=== PATIENT | female | born 1940 | race Caucasian/White ===

== ENCOUNTER 2022-12-07 13:05 | Outpatient (OUT) | payer MEDICARE, OTHER, SELFPAY ==
[2022-12-08 13:08] LABS: PTH, Intact 39 pg/mL (15-65)
[2022-12-08 13:30] LABS: Anion Gap 12.3; BUN Creatinine Ratio 20.6; Carbon Dioxide 28.8 mmol/L (21.0-32.0); Chloride 103 mmol/L (98-107); Estimated GFR (African America 59 (>=60); Estimated GFR (Non-African Ame 49 (>=60); Glucose 85 mg/dL (74-106); Potassium 4.1 mmol/L (3.5-5.1); Sodium 140 mmol/L (136-145)
== END 2022-12-07 13:06 | disposition home or self-care (01) ==
LOC: LAB 13:09
PROVIDERS: PCP Internal Medicine; Visit Provider Internal Medicine
DX: E21.1 Secondary hyperparathyroidism, not elsewhere classified (principal); N18.2 Chronic kidney disease, stage 2 (mild)
CPT/HCPCS: 36415; 80048; 82306; 83970

== ENCOUNTER 2023-05-27 16:02 | Outpatient (OUT) | payer MEDICARE, OTHER, SELFPAY ==
[2023-05-27 16:31] LABS: Basophils Percent Auto 0.5 % (0.2-2.0); Eosinophils Absolute Auto 0.3 10^3/uL (0.0-0.7); Eosinophils Percent Auto 4.1 % (0.9-7.0); Hematocrit 38.4 % (36.0-48.0); Hemoglobin 12.2 g/dL (12.0-16.0); Immature Granulocytes Abs Auto 0.02 10^3/uL (0.00-0.03); Immature Granulocytes Pct Auto 0.3 % (0.0-0.5); Lymphocytes Absolute Auto 2.8 10^3/uL (1.2-3.8); Lymphocytes Percent Auto 37.2 % (20.5-60.0); Mean Corpuscular HGB Conc 31.8 g/dL (29.9-35.2); Mean Corpuscular Hemoglobin 28.8 pg (26.7-34.0); Mean Corpuscular Volume 90.8 fL (81.0-99.0); Mean Platelet Volume 9.2 fL (9.5-13.5); Monocytes Absolute Auto 0.5 10^3/uL (0.3-0.8); Monocytes Percent Auto 6.3 % (1.7-12.0); Neutrophils Absolute Auto 3.9 10^3/uL (1.4-6.5); Neutrophils Percent Auto 51.6 % (43.0-75.0); Platelet Count 211 10^3/uL (150-450); Red Blood Count 4.23 10^6/uL (4.20-5.40); Red Cell Distribution Width 14.4 % (11.0-15.0); White Blood Count 7.6 10^3/uL (4.0-11.0)
[2023-05-27 17:05] LABS: Alanine Aminotransferase 24 U/L (14-59); Albumin Globulin Ratio 0.9; Albumin Level 3.5 g/dL (3.4-5.0); Alkaline Phosphatase 101 U/L (46-116); Anion Gap 11.2; Aspartate Amino Transferase 23 U/L (15-37); BUN Creatinine Ratio 17.8; Bilirubin Total 0.3 mg/dL (0.2-1.0); Calcium 9.4 mg/dL (8.5-10.1); Carbon Dioxide 30.5 mmol/L (21.0-32.0); Chloride 103 mmol/L (98-107); Estimated GFR (African America 48 (>=60); Estimated GFR (Non-African Ame 39 (>=60); Globulin 3.8 g/dL; Glucose 135 mg/dL (74-106); Potassium 3.7 mmol/L (3.5-5.1); Sodium 141 mmol/L (136-145); Total Protein 7.3 g/dL (6.4-8.2)
== END 2023-05-27 16:03 | disposition home or self-care (01) ==
LOC: LAB 16:02
PROVIDERS: PCP Internal Medicine
DX: C79.9 Secondary malignant neoplasm of unspecified site (principal); C41.9 Malignant neoplasm of bone and articular cartilage, unspecified
CPT/HCPCS: 36415; 80053; 85025

== ENCOUNTER 2023-09-23 13:40 | Outpatient (OUT) | payer MEDICARE, OTHER, SELFPAY ==
[2023-09-23 14:05] LABS: Basophils Percent Auto 0.4 % (0.2-2.0); Eosinophils Absolute Auto 0.4 10^3/uL (0.0-0.7); Eosinophils Percent Auto 4.6 % (0.9-7.0); Hematocrit 37.5 % (36.0-48.0); Hemoglobin 12.2 g/dL (12.0-16.0); Immature Granulocytes Abs Auto 0.01 10^3/uL (0.00-0.03); Immature Granulocytes Pct Auto 0.1 % (0.0-0.5); Lymphocytes Absolute Auto 3.4 10^3/uL (1.2-3.8); Lymphocytes Percent Auto 40.7 % (20.5-60.0); Mean Corpuscular HGB Conc 32.5 g/dL (29.9-35.2); Mean Corpuscular Volume 89.1 fL (81.0-99.0); Mean Platelet Volume 9.2 fL (9.5-13.5); Monocytes Absolute Auto 0.6 10^3/uL (0.3-0.8); Monocytes Percent Auto 6.6 % (1.7-12.0); Neutrophils Percent Auto 47.6 % (43.0-75.0); Platelet Count 215 10^3/uL (150-450); Red Blood Count 4.21 10^6/uL (4.20-5.40); Red Cell Distribution Width 14.2 % (11.0-15.0); White Blood Count 8.3 10^3/uL (4.0-11.0)
[2023-09-23 14:49] LABS: Alanine Aminotransferase 24 U/L (14-59); Albumin Level 3.6 g/dL (3.4-5.0); Alkaline Phosphatase 121 U/L (46-116); Anion Gap 13.9; Aspartate Amino Transferase 21 U/L (15-37); BUN Creatinine Ratio 14.8; Bilirubin Total 0.3 mg/dL (0.2-1.0); Calcium 9.5 mg/dL (8.5-10.1); Carbon Dioxide 29.1 mmol/L (21.0-32.0); Chloride 104 mmol/L (98-107); Estimated GFR (African America 48 (>=60); Estimated GFR (Non-African Ame 40 (>=60); Globulin 3.5 g/dL; Glucose 105 mg/dL (74-106); Sodium 143 mmol/L (136-145); Total Protein 7.1 g/dL (6.4-8.2)
== END 2023-09-23 13:41 | disposition home or self-care (01) ==
LOC: LAB 13:42
PROVIDERS: PCP Internal Medicine
DX: C50.111 Malignant neoplasm of central portion of right female breast (principal); Z17.0 Estrogen receptor positive status [ER+]
CPT/HCPCS: 36415; 80053; 85025

== ENCOUNTER 2024-01-28 10:31 | Outpatient (OUT) | payer MEDICARE, OTHER, SELFPAY ==
--- OUTSIDE RECORDS SUMMARY | 2024-01-28 10:40 | XMS_ITS | CCD ---
Author Organization [facility] Care Team Providers Care Serials Librarian Name Role Phone RICHARDSON WARNER Unavailable Unavailable TIKI GARCIA Unavailable Unavailable KWAME OLGUIN Unavailable Unavailjamar WOODWARDDON, CIARAN S Unavailable Unavailable CHRIS, CIARAN S Unavailable Unavailable CHRIS, CIARAN S Unavailable Unavailable Unavailable Primary Care Provider UnavailEROS Abdalla Attending Unavailable NATHANIEL ASHLEY JR Referring Unav ailable FAWWAD, CELIS H Admitting Unavailable FAWWAD, CELIS H Attending Unavailable FAWWAD, CELIS H Primary Care Unavailable AFIA, DR PAKO Guzmán Consulting Unavailable FAWWAD, CELIS H Consulting Unavailable FAWWAD, CELIS H Admitting Unavailable FAWWAD, CELIS H Attending Unavailable FAWWAD, CELIS H Primary Care Unavailable FAWWAD, CELIS H Consulting Unavailable FELICIA, DR MORELAND Admitting Unavailable FELICIA, DR MORELAND Attending Unavailable FAWWAD, CELIS H Primary Care Unavailable FELICIA, DR MORELAND Consulting Unavailable FAWWAD, CELIS H Primary Care Unavailable RADHA .DR DARREL Consulting Unavaila ble ANGELINA .JANENE Admitting Unavailable ANGELINA .JANENE Attending Unavailable AFIA, DR PAKO Guzmán Consulting Unavailable KWAME OLGUIN Consulting Unavailable RADHA .DR DARREL Procedure Practitioner U navailable PAY ., DR CRYSTAL Consulting Unavailable ANGELINA .JANENE Consulting Unavailable MARICRUZ SUAREZ Consulting Unavailable ZANE CABRERA Consulting Unavailable FAWWAD, CELIS H Admitting Unavailable FAWWAD, CELIS H Attending Unavailable FAWWAD, CELIS H Primary Care Unavailable FAWWAD, CELIS H Consulting Unavailable FAWWAD, CELIS H Admitting Unavailable FAWWAD, CELIS H Attending Unavailable FAWWAD, CELIS H Primary Care Unavailable DR PAKO OREILLY Consulting Unavailable SHAIKH Giancarlo CERDA Consulting Unavailable Shaikh Cerda MD Primary Care Provider [phone] DEVYN CHAVEZ Attending Unavailable SHAIKH CERDA Referring Unavailable SHAIKH CERDA Primary Care Unavailable DEVYN CHAVEZ Attending Unavailable SHAIKH CERDA Referring Unavailable SHAIKH CERDA Primary Care Unavailable SHAIKH CERDA Attending Unavailable SHAIKH CERDA Attending Unavailable Medications Current Medications Medication Drug Class(es) Dates Sig (Normalized) Sig (Original) hydroCHLOROthiazide 25 mg / losartan potassium 100 mg oral tablet (4 sources) Thiazide Diuretic, Angiotensin 2 Receptor Aldo Start: 06-10-2022 take 1 tablet by mouth once in the morning losartan-hydroC HLOROthiazide (HYZAAR) 100-25 mg per tablet Take 1 tablet by mouth in the morning. 0 06/10/2022 Active letrozole 2.5 mg oral tablet (6 sources) Aromatase Inhibitor Start: 06-01-2022 End: 05-31-2024 take 1 tablet by mouth once daily letrozole (FEMARA) 2.5 mg chemo tablet Take 1 tablet by mouth daily 90 tablet 4 06/06/2023 05/31/2024 Active omeprazole 10 mg delayed release oral capsule (5 sources) Proton Pump Inhibitor take 1 capsule by mouth in the morning, then take 1 capsule by mouth at bedtime omeprazole (PriLOSEC) 10 mg capsule Take 1 capsule (10 mg total) by mouth in the morning and 1 capsule (10 mg total) before bedtime. 0 Active Completed/Discontinued Medications Medication Drug Class(es) Dates Sig (Normalized) Sig (Original) omega-3 fatty acids(FISH OIL 500 MG CAP) (1 source) Start: 06-08-2009 omega-3 fatty acids(FISH OIL 500 MG CAP) Take one(1) capsule daily. 0 0 06/08/2009 Active Comment on above: Take one(1) capsule daily. warfarin sodium 5 mg oral tablet (1 source) Vitamin K Antagonist Start: 04-19-2009 take 1 tablet by mouth once daily at bedtime WARFARIN 5 MG TAB 1 Tab ORAL DAILY at bedtime. 60 2 04/19/2009 Active Comment on above: 1 Tab ORAL DAILY at bedtime. Problems Active Problems Problem Classification Problem Date Documented Date Episodic/Chronic Cancer of bone and connective tissue (1 source) Malignant neoplasm of bone and articular cartilage, unspecified; Translations: [Malignant neoplasm of bone and articular cartilage, unspecified] Onset: 3 Chronic Cancer of breast (8 sources) Malignant neoplasm of central part of female breast; Translations: [Malignant neoplasm of central portion of right female breast] Onset: 3 06-01-2022 Chronic Chronic kidney disease (5 sources) Chronic kidney disease, stage 4 (severe); Translations: [Chronic kidney disease, unspecified] Onset: 3 Chronic Chronic kidney disease (1 source) Chronic kidney disease; Translations: [CHRONIC KIDNEY DISEASE STAGE 3B] Onset: 3 Coronary atherosclerosis and other heart disease (1 source) Atherosclerotic heart disease of [place] coronary artery without angina pectoris; Translations: [ASHD [place] CA W/O ANGINA PECTORIS] Onset: 3 Chronic Diseases of white blood cells (1 source) Elevated white blood cell count, unspecified; Translations: [ELEVATED WHITE BLOOD CELL COUNT UNS] Onset: 3 Chronic Disorders of lipid metabolism (1 source) Hyperlipidemia, unspecified; Translations: [HYPERLIPIDEMIA UNSPECIFIED] Onset: 3 Chronic Esophageal disorders (5 sources) Gastroesophageal reflux disease; Translations: [Gastro-esophageal reflux disease without esophagitis] Onset: 3 05-14-2022 Chronic Essential hypertension (9 sources) Essential (primary) hypertension; Translations: [Hypertensive disorder] Onset: 3 Chronic Fracture of neck of femur (hip) (1 source) Fracture of unspecified part of neck of left femur, initial encounter for closed fracture; Translations: [Fracture of unspecified part of neck of left femur, initial encounter for closed fracture] Onset: 8 Episodic Gastroduodenal ulcer (except hemorrhage) (3 sources) Chronic or unspecified gastric ulcer with perforation; Translations: [CHRONIC/UNS GASTRIC ULCER W/PERF] Onset: 3 Chronic Hypertension with complications and secondary hypertension (5 sources) Hypertensive chronic kidney disease with stage 1 through stage 4 chronic kidney disease, or unspecified chronic kidney disease; Translations: [HTN CKD W/STAGE 1-4 CKD/UNS CKD] Onset: 3 Chronic Nutritional deficiencies (1 source) Vitamin D deficiency, unspecified; Translations: [VITAMIN D DEFICIENCY UNSPECIFIED] Onset: 3 Chronic Other and ill-defined cerebrovascular disease (1 source) Cerebrovascular disease, unspecified; Translations: [CEREBROVASCULAR DISEASE UNSPECIFIED] Onset: 3 Chronic Other diseases of kidney and ureters (1 source) Secondary hyperparathyroidism of renal origin; Translations: [SEC HYPERPARATHYROIDISM RENAL ORIGN] Onset: 3 Chronic Secondary malignancies (6 sources) Secondary malignant neoplasm of bone; Translations: [Secondary malignant neoplasm of bone] Onset: 3 Chronic Secondary malignancies (2 sources) Secondary malignant neoplasm of bone; Translations: [SECONDARY MALIGNANT NEOPLASM BONE] Onset: 3 Chronic Secondary malignancies (7 sources) Primary malignant neoplasm of bone; Translations: [Secondary malignant neoplasm of unspecified site] Onset: 3 08-03-2022 Chronic Secondary malignancies (1 source) Secondary malignant neoplasm of unspecified site; Translations: [Secondary malignant neoplasm of unspecified site] Onset: 3 Chronic Unclassified (1 source) CONTACT W/AND (SUSP) EXPOS COVID-19; Translations: [CONTACT W/AND (SUSP) EXPOS COVID-19] Onset: 3 Unclassified (1 source) ELEV LVLS LIVER TRANSAMINASE LVLS; Translations: [ELEV LVLS LIVER TRANSAMINASE LVLS] Onset: 3 Past or Other Problems Problem Classification Problem Date Documented Date Episodic/Chronic Biliary tract disease (1 source) Calculus of gallbladder without cholecystitis without obstruction; Translations: [CALCU GB W/O CHOLECYST W/O OBST] Onset: 05-04-2022 Episodic Deficiency and other anemia (1 source) Iron deficiency anemia, unspecified; Translations: [IRON DEFICIENCY ANEMIA UNSPECIFIED] Onset: 05-04-2022 Episodic Deficiency and other anemia (1 source) Anemia, unspecified; Translations: [ANEMIA UNSPECIFIED] Onset: 04-29-2022 Episodic Fluid and electrolyte disorders (1 source) Hypokalemia; Translations: [HYPOKALEMIA] Onset: 05-04-2022 Episodic Nonmalignant breast conditions (1 source) Unspecified lump in the right breast, unspecified quadrant; Translations: [UNS LUMP IN RT BREAST UNS QUADRANT] Onset: 05-04-2022 Episodic Other aftercare (1 source) shelter (current) use of aspirin; Translations: [PRISON CURRENT USE OF ASPIRIN] Onset: 05-04-2022 Episodic Other aftercare (1 source) Other intermediate teacher (current) drug therapy; Translations: [OTH SALES DEVELOPMENT EXECUTIVE CURRENT DRUG THERAPY] Onset: 05-04-2022 Episodic Other circulatory disease (1 source) Personal history of transient ischemic attack (TIA), and cerebral infarction without residual deficits; Translations: [PERS HX TIA AND CI NO RESID DEFICIT] Onset: 05-04-2022 Episodic Other circulatory disease (4 sources) Elevated blood-pressure reading, without diagnosis of hypertension; Translations: [ELEVATED BP READING W/O DX HTN] Onset: 04-24-2022 Episodic Other liver diseases (4 sources) Abnormal levels of other serum enzymes; Translations: [ABNORMAL LEVELS OTHER SERUM ENZYMES] Onset: 04-27-2022 Episodic Other non-traumatic joint disorders (1 source) Pain in right hip; Translations: [PAIN IN RIGHT HIP] Onset: 05-04-2022 Episodic Other screening for suspected conditions (not mental disorders or infectious disease) (1 source) Abnormal results of liver function studies; Translations: [ABNORMAL RESULTS LIVR FUNCTION STDY] Onset: 04-29-2022 Episodic Pathological fracture (2 sources) Pathological fracture of pelvis; Translations: [Pathological fracture, pelvis, initial encounter for fracture] Onset: 05-04-2022 Episodic Residual codes; unclassified (1 source) Family history of malignant neoplasm of digestive organs; Translations: [FAM HX MALIG NEOPLASM DIGESTIV ORGN] Onset: 05-04-2022 Episodic Residual codes; unclassified (1 source) Pain, unspecified; Translations: [Pain, unspecified] Onset: 06-04-2022 Episodic Residual codes; unclassified (1 source) Estrogen receptor positive status [ER+]; Translations: [Estrogen receptor positive status (ER+)] Onset: 06-01-2022 Episodic Results Test Name Value Interpretation Reference Range Facility Multiple labson 05-27-[address] [facility] PTH INTACTon 08-29-2022 PTH, Intact 125 pg/mL Critically high 15-65 [facility] Comment on above: Performed By: #### C MP #### [facility] [address] [address] [address] Jaci Mora CBC AUTO DIFFon 08-28-2022 BASO # 0.0 103/ul Normal 0.0-0.1 [facility] Comment on above: Performed By: #### C BC #### [facility] [address] [place] [address] Dr. Jaci Mora Basophils/100 WBC (Bld) 0.6 % Normal 0.2-2.0 [facility] Comment on above: Performed By: #### C BC #### [facility] [address] [place] [address] Dr. Jaci Mora EO # 0.2 103/ul Normal 0.0-0.7 [facility] Comment on above: Performed By: #### C BC #### [facility] [address] [place] [address] Dr. Jaci Mora Eosinophils/100 WBC (Bld) 3.2 % Normal 0.9-7.0 [facility] Comment on above: Performed By: #### C BC #### [facility] [address] [place] [address] Dr. Jaci Mora Erythrocyte distribution width (RBC) [Ratio] 16.3 % Critically high 11.0-15.0 [facility] Comment on above: Performed By: #### C BC #### [facility] [address] [place] [address] Dr. Jaci Mora Hematocrit (Bld) [Volume fraction] 36.2 % Normal 36.0-48.0 [facility] Comment on above: Performed By: #### C BC #### [facility] [address] [place] [address] Dr. Jaci Mora Hemoglobin (Bld) [Mass/Vol] 11.3 g/dL Critically low 12.0-16.0 [facility] Comment on above: Performed By: #### C BC #### [facility] [address] [place] [address] Dr. Jaci Mora IG # 0.02 10e3/ul Normal 0.00-0.03 [facility] Comment on above: Performed By: #### C BC #### [facility] [address] [place] [address] Dr. Jaci Mora IG % 0.3 % Normal 0.0-0.5 [facility] Comment on above: Performed By: #### C BC #### [facility] [address] [place] [address] Dr. Jaci Mora LYMPH # 2.9 103/ul Normal 1.2-3.8 [facility] Comment on above: Performed By: #### C BC #### [facility] [address] [place] [address] Dr. Jaci Mora Lymphocytes/100 WBC (Bld) 43.8 % Normal 20.5-60.0 [facility] Comment on above: Performed By: #### C BC #### [facility] [address] [place] [address] Dr. Jaci Mora MANUAL DIFF REQ NO Normal [facility] Comment on above: Performed By: #### C BC #### [facility] [address] [place] [address] Dr. Jaci Mora MCH (RBC) [Entitic mass] 28.3 pg Normal 26.7-34.0 [facility] Comment on above: Performed By: #### C BC #### [facility] [address] [place] [address] Dr. Jaci Mora MCHC (RBC) [Mass/Vol] 31.2 g/dL Normal 29.9-35.2 [facility] Comment on above: Performed By: #### C BC #### [facility] [address] [place] [address] Dr. Jaci Mora MCV (RBC) [Entitic vol] 90.7 fL Normal 81.0-99.0 [facility] Comment on above: Performed By: #### C BC #### [facility] [address] [place] [address] Dr. Jaci Mora MONO # 0.5 103/ul Normal 0.3-0.8 [facility] Comment on above: Performed By: #### C BC #### [facility] [address] [place] [address] Dr. Jaci Mora Monocytes/100 WBC (Bld) 7.9 % Normal 1.7-12.0 [facility] Comment on above: Performed By: #### C BC #### [facility] [address] [address] [address] Jaci Mora NEUT # 2.9 103/ul Normal 1.4-6.5 [facility] Comment on above: Performed By: #### C BC #### [facility] [address] [place] [address] Dr. Jaci Mora Neutrophils/100 WBC (Bld) 44.2 % Normal 43.0-75.0 [facility] Comment on above: Performed By: #### C BC #### [facility] [address] [place] [address] Dr. Jaci Mora Platelet mean volume (Bld) [Entitic vol] 8.6 fL Critically low 9.5-13.5 [facility] Comment on above: Performed By: #### C BC #### [facility] [address] [place] [address] Dr. Jaci Mora PLT 250 103/ul Normal 150-450 [facility] Comment on above: Performed By: #### C BC #### [facility] [address] [place] [address] Dr. Jaci Mora RBC 3.99 106/ul Critically low 4.20-5.40 [facility] Comment on above: Performed By: #### C BC #### [facility] [address] [place] [address] Dr. Jaci Mora WBC 6.6 103/ul Normal 4.0-11.0 [facility] Comment on above: Performed By: #### C BC #### [facility] [address] [place] [address] Dr. Jaci Mora MAGNESIUMon 08-28-2022 Magnesium [Mass/Vol] 2.8 mg/dL Critically high 1.8-2.4 [facility] Comment on above: Performed By: #### M G, CMP, PHOS ####[facility] [address] [address]Dr. Jaci Mora PHOSPHORUSon 08-28-2022 Phosphate [Mass/Vol] 3.1 mg/dL Normal 2.6-4.7 [facility] Comment on above: Performed By: #### M G, CMP, PHOS ####[facility] [address] [address]Dr. Jaci Mora PROF 14(COMP METB)on 023 Albumin [Mass/Vol] 3.5 g/dL Normal 3.4-5.0 [facility] Comment on above: Performed By: #### M G, CMP, PHOS ####[facility] [address] [address]Dr. Jaci Mora Albumin/Globulin [Mass ratio] 0.9 {ratio} Normal [facility] Comment on above: Performed By: #### M G, CMP, PHOS ####[facility] [address] [address]Dr. Jaci Mora ALP [Catalytic activity/Vol] 361 U/L Critically high 46-116 [facility] Comment on above: Performed By: #### M G, CMP, PHOS ####[facility] [address] [place], [place] [address]Dr. Jaci Mora ALT [Catalytic activity/Vol] 31 U/L Normal 14-59 [facility] Comment on above: Performed By: #### M G, CMP, PHOS ####[facility] [address] [place], [place] [address]Dr. Jaci Mora Anion gap [Moles/Vol] 11.7 mmol/L Normal [facility] Comment on above: Performed By: #### M G, CMP, PHOS ####[facility] [address] [address]Dr. Jaci Mora AST [Catalytic activity/Vol] 26 U/L Normal 15-37 [facility] Comment on above: Performed By: #### M G, CMP, PHOS ####[facility] [address] [address]Dr. Yilan Mora Bilirubin [Mass/Vol] 0.4 mg/dL Normal 0.2-1.0 [facility] Comment on above: Performed By: #### Sunita Culp CMP, PHOS ####[facility] [address] [address]Dr. Jaci Mora Calcium [Mass/Vol] 7.4 mg/dL Critically low 8.5-10.1 [facility] Comment on above: Performed By: #### Sunita Culp CMP, PHOS ####[facility] [address] [place], [place] [address]Dr. Jaci Mora Chloride [Moles/Vol] 106 mmol/L Normal 98-107 [facility] Comment on above: Performed By: #### Sunita Culp CMP, PHOS ####[facility] [address] [place], [place] [address]Dr. Jaci Mora CO2 [Moles/Vol] 27.4 mmol/L Normal 21.0-32.0 [facility] Comment on above: Performed By: #### Sunita Culp CMP, PHOS ####[facility] [address] [place], [place] [address]Dr. Jaci Mora Creatinine [Mass/Vol] 1.15 mg/dL Critically high 0.55-1.02 [facility] Comment on above: Performed By: #### Sunita Culp CMP, PHOS ####[facility] [address] [place], [place] [address]Dr. Jaci Mora EGFR-AF TAJIK 54 mL/min/1.73m2 Critically low >=60 [facility] Comment on above: Performed By: #### Sunita Culp CMP, PHOS ####[facility] [address] [place], [place] [address]Dr. Jaci Mora EGFR-NON AF TAJIK 45 mL/min/1.73m2 Critically low >=60 [facility] Comment on above: Performed By: #### Sunita Culp CMP, PHOS ####[facility] [address] [address]Dr. Jaci Mora Globulin (S) [Mass/Vol] 4.0 g/dL Normal [facility] Comment on above: Performed By: #### M Robbi CMP, PHOS ####[facility] [address] [address]Dr. Jaci Mora Glucose [Mass/Vol] 85 mg/dL Normal 74-106 [facility] Comment on above: Performed By: #### M Robbi CMP, PHOS ####[facility] [address] [address]Dr. Jaci Mora Potassium [Moles/Vol] 4.1 mmol/L Normal 3.5-5.1 [facility] Comment on above: Performed By: #### M Robbi CMP, PHOS ####[facility] [address] [address]Dr. Jaci Mora Protein [Mass/Vol] 7.5 g/dL Normal 6.4-8.2 [facility] Comment on above: Performed By: #### Sunita Culp CMP, PHOS ####[facility] [address] [address]Dr. Jaci Mora Sodium [Moles/Vol] 141 mmol/L Normal 136-145 [facility] Comment on above: Performed By: #### Sunita Culp CMP, PHOS ####[facility] [address] [address]Dr. Jaci Mora Urea nitrogen [Mass/Vol] 23.0 mg/dL Critically high 7.0-18.0 [facility] Comment on above: Performed By: #### Sunita Culp CMP, PHOS ####[facility] [address] [address]Dr. Jaci Mora Urea nitrogen/Creatini ne [Mass ratio] 20.0 mg/mg Normal [facility] Comment on above: Performed By: #### M LJ Culp, PHOS ####[facility] [address] [address]DrSarahi Mora UA RANDOM W/MICROSCOPICon BACTERIA TRACE Abnormal NONE SEEN [facility] Comment on above: Performed By: #### B MP #### [facility] [address] [address] [address] Jaci Mora Bilirubin Ql (U) Negative Normal NEGATIVE [facility] Comment on above: Performed By: #### B MP #### [facility] [address] [place] [address] Dr. Jaci Mora CAST NONE SEEN Normal NONE SEEN [facility] Comment on above: Performed By: #### B MP #### [facility] [address] [place] [address] Dr. Jaci Mora Clarity (U) CLEAR Normal CLEAR [facility] Comment on above: Performed By: #### B MP #### [facility] [address] [place] [address] Dr. Jaci Mora Color (U) YELLOW Normal YELLOW [facility] Comment on above: Performed By: #### B MP #### [facility] [address] [place] [address] Dr. Jaci Mora Crystals LM Nom (Urine sed) NONE SEEN Normal NONE SEEN [facility] Comment on above: Performed By: #### B MP #### [facility] [address] [place] [address] Dr. Jaci Mora Epithelial cells LM Ql (Urine sed) RARE Normal NONE SEEN /RARE [facility] Comment on above: Performed By: #### B MP #### [facility] [address] [place] [address] Dr. Jaci Mora Glucose Ql (U) Negative Normal NEGATIVE [facility] Comment on above: Performed By: #### B MP #### [facility] [address] [place] [address] Dr. Jaci Mora Hemoglobin Ql (U) Negative Normal NEGATIVE [facility] Comment on above: Performed By: #### B MP #### [facility] [address] [place] [address] Dr. Jaci Mora Ketones Ql (U) Negative Normal NEGATIVE [facility] Comment on above: Performed By: #### B MP #### [facility] [address] [place] [address] Dr. Jaci Mora LEUKOCYTES SMALL Abnormal NEGATIVE [facility] Comment on above: Performed By: #### B MP #### [facility] [address] [place] [address] Dr. Jaci Mora MUCOUS NONE SEEN Normal NONE SEEN [facility] Comment on above: Performed By: #### B MP #### [facility] [address] [place] [address] Dr. Jaci Mora Nitrite Ql (U) Negative Normal NEGATIVE [facility] Comment on above: Performed By: #### B MP #### [facility] [address] [place] [address] Dr. Jaci Mora pH (U) 6.5 [pH] Normal 5-9 [facility] Comment on above: Performed By: #### B MP #### [facility] [address] [place] [address] Dr. Jaci Mora RBC 0-2 Normal 0-2 [facility] Comment on above: Performed By: #### B MP #### [facility] [address] [place] [address] Dr. Jaci Mora SPEC GRAVITY <=1.005 Abnormal 1.005-<=1.0 25 [facility] Comment on above: Performed By: #### B MP #### [facility] [address] [place] [address] Dr. Jaci Mora UA PROTEIN Negative Normal NEGATIVE/ TRACE [facility] Comment on above: Performed By: #### B MP #### [facility] [address] [place] [address] Dr. Jaci Mora Urobilinogen Qn (U) 0.2 {Chantel'U}/dL Normal 0.2 - 1.0 [facility] Comment on above: Performed By: #### B MP #### [facility] [address] [place] [address] Dr. Jaci Mora WBC 5-10 Abnormal NONE SEEN [facility] Comment on above: Performed By: #### B MP #### [facility] [address] [place] [address] Dr. Jaci Mora URINE T PROTEIN CREAT RATIOo n 08-28-2022 Protein (U) [Mass/Vol] 20.2 mg/dL Critically high <=12.0 [facility] Comment on above: Performed By: #### B MP #### [facility] [address] [address] [address] Jaci Mora UR PROT CREAT RAT 0.17 Normal [facility] Comment on above: Performed By: #### B MP #### [facility] [address] [address] [address] Jaci Mora URINE CREAT 118.55 mg/dL Normal 20.00-300.0 0 [facility] Comment on above: Performed By: #### B MP #### [facility] [address] [address] [address] Jaci Mora VITAMIN D 25 OHon 08-28-2022 VIT D 25-OH 121.0 ng/mL Normal [facility] Comment on above: Performed By: #### V ITAD ####[facility] [address] [address]Dr. Jaci Mora VIT D RANGES SEE BELOW Normal [facility] Comment on above: Result Comment: <20 ng/mL Vit D deficient 20 - <30 ng/mL Vit D insufficient 30 - 100 ng/mL Vit D sufficient >100 ng/mL Potential Toxicity Performed By: #### V ITAD ####[facility] [address] [address]Dr. Jaci Mora CNOVon 06-21-2022 CNOV Office Visit (ORTHMN ) STONEYWILLIAM Sunita ([id number]) 1940 F Date Time Provider Department 06/21/22 2:00 PM EROS MATHIS During your visit today, we recorded the following information about you: Eros Mathis MD 06/22/2022 11:57 AM Signed Orthopaedic Oncology New Patient Evaluation Chief Complaint: Right hip pain Referring Physician: Nathaniel Ashley Jr. History of Present Illness: William Canas is a 82 year old year old female who presents for evaluation of the above chief complaint. 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 She was referred here for right hip pain and pathological fracture. William and family report that she began having right hip pain a few months ago. This is in the context of multiple falls although no fall in particular precipitated the pain. William localizes the pain to the lateral hip about the greater trochanter region. Interestingly, William reports today that she essentially has no pain. She uses a chair for longer distances but is able to ambulate with a cane or a walker with no pain around her house. When she did have pain she reports that it was worse with sitting and not as substantial with walking. She currently denies any pain in any other locations when ambulating or when active. Overall she is quite happy. With respect to her breast cancer, she is being managed by Dr. Devyn Chavez closer to home. Per her report she has been started on hormone therapy. She is not taking denosumab. Review of Systems: Review of systems is positive for above. Other complete ROS is questioned and negative. No past medical history on file. No past surgical history on file. ALLERGIES No Known Allergies Current Outpatient Medications on File Prior to Visit Medication Sig omega-3 fatty acids(FISH OIL 500 MG CAP) Take one(1) capsule daily. WARFARIN 5 MG TAB 1 Tab ORAL DAILY at bedtime. No current facility-administered medications on file prior to visit. No family history on file. Social History Tobacco Use Smoking status: Never Physical Examination: There were no vitals taken for this visit. General: alert, oriented, no acute distress On exam today William is able to rise from her chair independently and walk with her cane across the room and back with no pain. She does not have any tenderness to palpation about the proximal femur or right ilium. I can range her right hip in her chair with no pain. Results Reviewed: I have personally reviewed William's outside imaging today including her CT chest CT pelvis and x-ray of the hip and pelvis. There is diffuse blastic metastatic disease with occasional lytic lesions. Imaging is most notable on x-ray and CT of the right iliac fracture extending from the crest toward the acetabulum with no specific evidence of acetabular involvement. There is evidence of healing of this fracture on CT. Impression: (C79.51) Cancer, metastatic to bone (HCC) (primary encounter diagnosis) (M84.021A) Pathological fracture, pelvis, initial encounter for fracture I had a long discussion today with William and her family. We discussed that I did not think any intervention was warranted given that she had no pain and was able to do her activities of daily living normally without issue. I do think that this iliac fracture either represents an older fracture from a prior fall or is more recent and has healed. This may represent efficacy of her hormonal therapy. I also discussed with her that I did not think that she required prophylactic fixation for any of her lesions given her complete lack of pain. I did raise with her the possibility of denosumab treatment and would defer to her primary oncologist Dr. Devyn Chavez. William will discuss this with her doctor at her next appointment. I have offered her referral for this should she so desire. I discussed with William that should she develop pain she should limit her activity and reach out to a medical provider for assessment. I am happy to see her at anytime in the future should she have orthopedic oncology needs. Devyn Chavez MD [address] [place] [address] [address] [place] [address] Plan: No surgical intervention indicated at this time May consider denosumab treatment per oncology team Follow-up with me as needed No follow-ups on file. I spent a total of 50 minutes on the date of the service which included preparing to see the patient, [id number] patient care, completing clinical documentation, obtaining and/or reviewing separately obtained history, performing a medically appropriate examination, counseling and educating the patient/family/caregiver, communicating with other HCPs (not separately reported), independently interpreting results (not separately reported), and communicating results to the patient/family/caregiver. These rec (more content not included)... Normal [facility] CT Chest limited W contrast IVOrdered By: Angelika Fisher on 06-06-2022 Radiology Study observation (narrative) [facility] US Abdomenon 06-06-2022 Radiology Study [facility]UAL DIFFon 05-22-19 23 ATYPICAL LYMPH # Normal [facility] Comment on above: Performed By: #### B MP #### [facility] [address] [place] [address] Dr. Jaci Mora ATYPICAL LYMPH % Normal [facility] Comment on above: Performed By: #### B MP #### [facility] [address] [place] [address] Dr. Jaci Mora BAND # 0.1 103/ul Normal 0.0-0.3 [facility] Comment on above: Performed By: #### B MP #### [facility] [address] [place] [address] Dr. Jaci Mora BAND % 1 % Normal 0-5 [facility] Comment on above: Performed By: #### B MP #### [facility] [address] [place] [address] Dr. Jaci Mora BASOM # 0.12 103/ul Critically high 0.00-0.10 [facility] Comment on above: Performed By: #### B MP #### [facility] [address] [place] [address] Dr. Jaci Mora BASOM % 1.0 % Normal 0.2-2.0 [facility] Comment on above: Performed By: #### B MP #### [facility] [address] [place] [address] Dr. Jaci Mora BLAST # Normal [facility] Comment on above: Performed By: #### B MP #### [facility] [address] [place] [address] Dr. Jaci Mora BLAST % Normal [facility] Comment on above: Performed By: #### B MP #### [facility] [address] [place] [address] Dr. Jaci Mora CORRECTED WBC Normal 4.0-11.0 [facility] Comment on above: Performed By: #### B MP #### [facility] [address] [place] [address] Dr. Jaci Mora EOS # 0.23 103/ul Normal 0.00-0.70 [facility] Comment on above: Performed By: #### B MP #### [facility] [address] [address] [address] Jaci Mora EOS% 2.0 % Normal 0.9-7.0 [facility] Comment on above: Performed By: #### B MP #### [facility] [address] [place] [address] Dr. Jaci Mora HCT 29.6 % Critically low 36.0-48.0 [facility] Comment on above: Performed By: #### B MP #### [facility] [address] [place] [address] Dr. Jaci Mora HGB 9.2 g/dl Critically low 12.0-16.0 [facility] Comment on above: Performed By: #### B MP #### [facility] [address] [place] [address] Dr. Jaci Mora LYMPHM # 2.34 103/ul Normal 1.20-3.80 [facility] Comment on above: Performed By: #### B MP #### [facility] [address] [place] [address] Dr. Jaci Mora LYMPHM% 20.0 % Critically low 20.5-60.0 [facility] Comment on above: Performed By: #### B MP #### [facility] [address] [place] [address] Dr. Jaci Mora MCH 29.2 pg Normal 26.7-34.0 [facility] Comment on above: Performed By: #### B MP #### [facility] [address] [place] [address] Dr. Jaci Mora MCHC 31.1 g/dl Normal 29.9-35.2 [facility] Comment on above: Performed By: #### B MP #### [facility] [address] [place] [address] Dr. Jaci Mora MCV 94.0 fL Normal 81.0-99.0 [facility] Comment on above: Performed By: #### B MP #### [facility] [address] [place] [address] Dr. Jaci Mora METAMYELOCYTE # Normal [facility] Comment on above: Performed By: #### B MP #### [facility] [address] [address] [address] Jaci Mora METAMYELOCYTE % Normal [facility] Comment on above: Performed By: #### B MP #### [facility] [address] [place] [address] Dr. Jaci Mora MONOM# 0.58 103/ul Normal 0.30-0.80 [facility] Comment on above: Performed By: #### B MP #### [facility] [address] [address] [address] Jaci Mora MONOM% 5.0 % Normal 1.7-12.0 [facility] Comment on above: Performed By: #### B MP #### [facility] [address] [place] [address] Dr. Jaci Mora MPV 8.7 fL Critically low 9.5-13.5 [facility] Comment on above: Performed By: #### B MP #### [facility] [address] [place] [address] Dr. Jaci Mora MYELOCYTE # Normal [facility] Comment on above: Performed By: #### B MP #### [facility] [address] [place] [address] Dr. Jaci Mora MYELOCYTE % Normal [facility] Comment on above: Performed By: #### B MP #### [facility] [address] [place] [address] Dr. Jaci Mora NRBC Normal [facility] Comment on above: Performed By: #### B MP #### [facility] [address] [place] [address] Dr. Jaci Mora OVALOCYTES SLIGHT Normal [facility] Comment on above: Performed By: #### B MP #### [facility] [address] [place] [address] Dr. Jaci Mora PLT 372 103/ul Normal 150-450 [facility] Comment on above: Performed By: #### B MP #### [facility] [address] [place] [address] Dr. Jaci Mora POIKILOCYTOSIS SLIGHT Normal [facility] Comment on above: Performed By: #### B MP #### [facility] [address] [address] [address] Jaci Mora RBC 3.15 106/ul Critically low 4.20-5.40 [facility] Comment on above: Performed By: #### B MP #### [facility] [id number] Jaci Mora RDW 20.7 % Critically high 11.0-15.0 [facility] Comment on above: Performed By: #### B MP #### [facility] [address] [address] [address] Jaci Mora SEG # 8.31 103/ul Critically high 1.40-6.50 [facility] Comment on above: Performed By: #### B MP #### [facility] [address] [address] [address] Jaci Mora SEG % 71.0 % Normal 43.0-75.0 [facility] Comment on above: Performed By: #### B MP #### [facility] [address] [address] [address] Jaci Mora WBC 11.7 103/ul Critically high 4.0-11.0 [facility] Comment on above: Performed By: #### B MP #### [facility] [address] [address] [address] Jaci Mora PROF 14(COMP METB)on 023 Albumin [Mass/Vol] 2.2 g/dL Critically low 3.4-5.0 [facility] Comment on above: Performed By: #### C MP ####[facility] [address] [address]Dr. Jaci Mora Albumin/Globulin [Mass ratio] 0.5 {ratio} Normal [facility] Comment on above: Performed By: #### C MP ####[facility] [address] [id number]. Jaci Mora ALP [Catalytic activity/Vol] 846 U/L Critically high 46-116 [facility] Comment on above: Performed By: #### C MP ####[facility] [address] [id number]. Jaci Mora ALT [Catalytic activity/Vol] 40 U/L Normal 14-59 [facility] Comment on above: Performed By: #### C MP ####[facility] [address] [id number]. Jaci Mora Anion gap [Moles/Vol] 13.1 mmol/L Normal [facility] Comment on above: Performed By: #### C MP ####[facility] [address] [id number]. Jaci Mora AST [Catalytic activity/Vol] 48 U/L Critically high 15-37 [facility] Comment on above: Performed By: #### C MP ####[facility] [address] [address]Dr. Jaci Mora Bilirubin [Mass/Vol] 0.3 mg/dL Normal 0.2-1.0 [facility] Comment on above: Performed By: #### C MP ####[facility] [address] [place], [place] [address]Dr. Jaci Mora Calcium [Mass/Vol] 8.7 mg/dL Normal 8.5-10.1 [facility] Comment on above: Performed By: #### C MP ####[facility] [address] [place], [place] [address]Dr. Jaci Mora Chloride [Moles/Vol] 106 mmol/L Normal 98-107 [facility] Comment on above: Performed By: #### C MP ####[facility] [address] [address]Dr. Jaci Mora CO2 [Moles/Vol] 25.4 mmol/L Normal 21.0-32.0 [facility] Comment on above: Performed By: #### C MP ####[facility] [address] [address]Dr. Jaci Mora Creatinine [Mass/Vol] 1.05 mg/dL Critically high 0.55-1.02 [facility] Comment on above: Performed By: #### C MP ####[facility] [address] [id number]. Jaci Mora EGFR-AF TAJIK >60 Normal >=60 [facility] Comment on above: Performed By: #### C MP ####[facility] [address] [address]Dr. Jaci Mora EGFR-NON AF TAJIK 50 mL/min/1.73m2 Critically low >=60 [facility] Comment on above: Performed By: #### C MP ####[facility] [address] [address]Dr. Jaci Mora Globulin (S) [Mass/Vol] 4.2 g/dL Normal [facility] Comment on above: Performed By: #### C MP ####[facility] [address] [address]Dr. Jaci Mora Glucose [Mass/Vol] 123 mg/dL Critically high 74-106 [facility] Comment on above: Performed By: #### C MP ####[facility] [address] [address]Dr. Jaci Mora Potassium [Moles/Vol] 3.5 mmol/L Normal 3.5-5.1 [facility] Comment on above: Performed By: #### C MP ####[facility] [address] [address]Dr. Jaci Mora Protein [Mass/Vol] 6.4 g/dL Normal 6.4-8.2 [facility] Comment on above: Performed By: #### C MP ####[facility] [address] [address]Dr. Jaci Mora Sodium [Moles/Vol] 141 mmol/L Normal 136-145 [facility] Comment on above: Performed By: #### C MP ####[facility] [address] [address]Dr. Jaci Mora Urea nitrogen [Mass/Vol] 13.0 mg/dL Normal 7.0-18.0 [facility] Comment on above: Performed By: #### C MP ####[facility] [address] [place] [address] Jaci Mora Urea nitrogen/Creatini ne [Mass ratio] 12.4 mg/mg Normal [facility] Comment on above: Performed By: #### C MP ####[facility] [address] [id number]. Jaci Mora CBC AUTO DIFFon 05-07-2022 BASO # 0.1 103/ul Normal 0.0-0.1 [facility] Comment on above: Performed By: #### B MP #### [facility] [address] [address] [address] Jaci Mora Basophils/100 WBC (Bld) 0.6 % Normal 0.2-2.0 [facility] Comment on above: Performed By: #### B MP #### [facility] [address] [address] [address] Jaci Mora EO # 0.3 103/ul Normal 0.0-0.7 [facility] Comment on above: Performed By: #### B MP #### [facility] [address] [address] [address] Jaci Mora Eosinophils/100 WBC (Bld) 2.2 % Normal 0.9-7.0 [facility] Comment on above: Performed By: #### B MP #### [facility] [address] [address] [address] Jaci Mora Erythrocyte distribution width (RBC) [Ratio] 18.6 % Critically high 11.0-15.0 [facility] Comment on above: Performed By: #### B MP #### [facility] [address] [address] [address] Jaci Mora Hematocrit (Bld) [Volume fraction] 28.9 % Critically low 36.0-48.0 [facility] Comment on above: Performed By: #### B MP #### [facility] [address] [address] [address] Jaci Mora Hemoglobin (Bld) [Mass/Vol] 9.7 g/dL Critically low 12.0-16.0 [facility] Comment on above: Performed By: #### B MP #### [facility] [address] [address] [address] Jaci Mora IG # 0.74 10e3/ul Critically high 0.00-0.03 [facility] Comment on above: Performed By: #### B MP #### [facility] [address] [address] [address] Jaci Mora IG % 5.0 % Critically high 0.0-0.5 [facility] Comment on above: Performed By: #### B MP #### [facility] [address] [place] [address] Dr. Jaci Mora LYMPH # 2.3 103/ul Normal 1.2-3.8 [facility] Comment on above: Performed By: #### B MP #### [facility] [address] [place] [address] Dr. Jaci Mora Lymphocytes/100 WBC (Bld) 15.2 % Critically low 20.5-60.0 [facility] Comment on above: Performed By: #### B MP #### [facility] [address] [place] [address] Dr. Jaci Mora MANUAL DIFF REQ NO Normal [facility] Comment on above: Performed By: #### B MP #### [facility] [address] [place] [address] Dr. Jaci Mora MCH (RBC) [Entitic mass] 29.2 pg Normal 26.7-34.0 [facility] Comment on above: Performed By: #### B MP #### [facility] [address] [place] [address] Dr. Jaci Mora MCHC (RBC) [Mass/Vol] 33.6 g/dL Normal 29.9-35.2 [facility] Comment on above: Performed By: #### B MP #### [facility] [address] [place] [address] Dr. Jaci Mora MCV (RBC) [Entitic vol] 87.0 fL Normal 81.0-99.0 [facility] Comment on above: Performed By: #### B MP #### [facility] [address] [address] [address] Jaci Mora MONO # 0.7 103/ul Normal 0.3-0.8 [facility] Comment on above: Performed By: #### B MP #### [facility] [address] [place] [address] Dr. Jaci Mora Monocytes/100 WBC (Bld) 4.8 % Normal 1.7-12.0 [facility] Comment on above: Performed By: #### B MP #### [facility] [address] [place] [address] Dr. Jaci Mora NEUT # 10.7 103/ul Critically high 1.4-6.5 [facility] Comment on above: Performed By: #### B MP #### [facility] [address] [place] [address] Dr. Jaci Mora Neutrophils/100 WBC (Bld) 72.2 % Normal 43.0-75.0 [facility] Comment on above: Performed By: #### B MP #### [facility] [address] [place] [address] Dr. Jaci Mora Platelet mean volume (Bld) [Entitic vol] 10.0 fL Normal 9.5-13.5 [facility] Comment on above: Performed By: #### B MP #### [facility] [address] [place] [address] Dr. Jaci Mora PLT 236 103/ul Normal 150-450 [facility] Comment on above: Performed By: #### B MP #### [facility] [address] [place] [address] Dr. Jaci Mora RBC 3.32 106/ul Critically low 4.20-5.40 [facility] Comment on above: Performed By: #### B MP #### [facility] [address] [place] [address] Dr. Jaci Mora WBC 14.8 103/ul Critically high 4.0-11.0 [facility] Comment on above: Performed By: #### B MP #### [facility] [address] [place] [address] Dr. Jaci Mora PROF 14(COMP METB)on 023 Albumin [Mass/Vol] 2.0 g/dL Critically low 3.4-5.0 [facility] Comment on above: Performed By: #### C MP ####[facility] [address] [address]Dr. Jaci Mora Albumin/Globulin [Mass ratio] 0.5 {ratio} Normal [facility] Comment on above: Performed By: #### C MP ####[facility] [address] [place], [place] [address]Dr. Jaci Mora ALP [Catalytic activity/Vol] 782 U/L Critically high 46-116 [facility] Comment on above: Performed By: #### C MP ####[facility] [address] [place], [place] [address]Dr. Jaci Mora ALT [Catalytic activity/Vol] 122 U/L Critically high 14-59 [facility] Comment on above: Performed By: #### C MP ####[facility] [address] [place], [place] [address]Dr. Jaci Mora Anion gap [Moles/Vol] 14.9 mmol/L Normal [facility] Comment on above: Performed By: #### C MP ####[facility] [address] [place], [place] [address]Dr. Jaci Mora AST [Catalytic activity/Vol] 103 U/L Critically high 15-37 [facility] Comment on above: Performed By: #### C MP ####[facility] [address] [place], [place] [address]Dr. Jaci Mora Bilirubin [Mass/Vol] 0.4 mg/dL Normal 0.2-1.0 [facility] Comment on above: Performed By: #### C MP ####[facility] [address] [place], [place] [address]Dr. Jaci Mora Calcium [Mass/Vol] 9.3 mg/dL Normal 8.5-10.1 [facility] Comment on above: Performed By: #### C MP ####[facility] [address] [place], [place] [address]Dr. Jaci Mora Chloride [Moles/Vol] 104 mmol/L Normal 98-107 [facility] Comment on above: Performed By: #### C MP ####[facility] [address] [address]Dr. Jaci Mora CO2 [Moles/Vol] 24.9 mmol/L Normal 21.0-32.0 [facility] Comment on above: Performed By: #### C MP ####[facility] [address] [address]Dr. Jaci Mora Creatinine [Mass/Vol] 0.87 mg/dL Normal 0.55-1.02 [facility] Comment on above: Performed By: #### C MP ####[facility] [address] [place], [place] [address]Dr. Jaci Mora EGFR-AF TAJIK >60 Normal >=60 [facility] Comment on above: Performed By: #### C MP ####[facility] [address] [place], [place] [address]Dr. Jaci Mora EGFR-NON AF TAJIK >60 Normal >=60 [facility] Comment on above: Performed By: #### C MP ####[facility] [address] [place], [place] [address]Dr. Jaci Mora Globulin (S) [Mass/Vol] 3.7 g/dL Normal [facility] Comment on above: Performed By: #### C MP ####[facility] [address] [place], [place] [address]Dr. Jaci Mora Glucose [Mass/Vol] 89 mg/dL Normal 74-106 [facility] Comment on above: Performed By: #### C MP ####[facility] [address] [place], [place] [address]Dr. Jaci Mora Potassium [Moles/Vol] 3.8 mmol/L Normal 3.5-5.1 [facility] [facility] Comment on above: Performed By: #### C MP ####[facility] [id number] [place], [place] [address]Dr. Jaci Devyn Protein [Mass/Vol] 5.7 g/dL Critically low 6.4-8.2 [facility] Comment on above: Performed By: #### C MP ####[facility] [id number] [address]DrSarahi Mora Sodium [Moles/Vol] 140 mmol/L Normal 136-145 [facility] Comment on above: Performed By: #### C MP ####[facility] [id number] [id number]. Jaci Mora Urea nitrogen [Mass/Vol] 14.0 mg/dL Normal 7.0-18.0 [facility] Comment on above: Performed By: #### C MP ####[facility] [address] [address]Dr. Jaci Mora Urea nitrogen/Creatini ne [Mass ratio] 16.1 mg/mg Normal [facility] Comment on above: Performed By: #### C MP ####[facility] [address] [address]DrSarahi Mora CBC W MANUAL DIFFon 05-02-19 23 ANISOCYTOSIS 2+ Normal [facility] Comment on above: Performed By: #### C CHARLY #### [facility] [address] [address] [address] Jaci Mora ATYPICAL LYMPH # 0.14 103/ul Normal [facility] Comment on above: Performed By: #### C BCMAN #### [facility] [address] [place] [address] Dr. Jaci Mora ATYPICAL LYMPH % 1 % Normal [facility] Comment on above: Performed By: #### C BCMAN #### [facility] [address] [place] [address] Dr. Jaci Mora BAND # 0.0 103/ul Normal 0.0-0.3 [facility] Comment on above: Performed By: #### C BCMAN #### [facility] [address] [place] [address] Dr. Jaci Mora BAND % 0 % Normal 0-5 [facility] Comment on above: Performed By: #### C CHARLY #### [facility] [address] [place] [address] Dr. Jaci Mora BASOM # 0.14 103/ul Critically high 0.00-0.10 [facility] Comment on above: Performed By: #### C BCNITIN #### [facility] [address] [place] [address] Dr. Jaci Mora BASOM % 1.0 % Normal 0.2-2.0 [facility] Comment on above: Performed By: #### C BCNITIN #### [facility] [address] [place] [address] Dr. Jaci Mora BLAST # Normal [facility] Comment on above: Performed By: #### C CHARLY #### [facility] [address] [place] [address] Dr. Jaci Mora BLAST % Normal [facility] Comment on above: Performed By: #### C CHARLY #### [facility] [address] [place] [address] Dr. Jaci Mora CORRECTED WBC Normal 4.0-11.0 [facility] Comment on above: Performed By: #### C CHARLY #### [facility] [address] [place] [address] Dr. Jaci Mora EOS # 0.14 103/ul Normal 0.00-0.70 [facility] Comment on above: Performed By: #### C CHARLY #### [facility] [address] [place] [address] Dr. Jaci Mora EOS% 1.0 % Normal 0.9-7.0 [facility] Comment on above: Performed By: #### C CHARLY #### [facility] [address] [place] [address] Dr. Jaci Mora HCT 28.6 % Critically low 36.0-48.0 [facility] Comment on above: Performed By: #### C CHARLY #### [facility] [address] [place] [address] Dr. Jaci Mora HGB 9.3 g/dl Critically low 12.0-16.0 [facility] Comment on above: Performed By: #### C CHARLY #### [facility] [address] [place], [place] [id number] Dr. Jaci Mora LYMPHM # 0.70 103/ul Critically low 1.20-3.80 [facility] Comment on above: Performed By: #### C CHARLY #### [facility] [address] [place] [address] Dr. Jaci Mora LYMPHM% 5.0 % Critically low 20.5-60.0 [facility] Comment on above: Performed By: #### C CHARLY #### [facility] [address] [place] [address] Dr. Jaci Mora MCH 28.6 pg Normal 26.7-34.0 [facility] Comment on above: Performed By: #### C CHARLY #### [facility] [address] [place] [address] Dr. Jaci Mora MCHC 32.5 g/dl Normal 29.9-35.2 [facility] Comment on above: Performed By: #### C CHARLY #### [facility] [address] [place] [address] Dr. Jaci Mora MCV 88.0 fL Normal 81.0-99.0 [facility] Comment on above: Performed By: #### C CHARLY #### [facility] [address] [place] [address] Dr. Jaci Mora METAMYELOCYTE # Normal [facility] Comment on above: Performed By: #### C CHARLY #### [facility] [address] [place] [address] Dr. Jaci Mora METAMYELOCYTE % Normal [facility] Comment on above: Performed By: #### C CHARLY #### [facility] [address] [place] [address] Dr. Jaci Mora MONOM# 0.14 103/ul Critically low 0.30-0.80 [facility] Comment on above: Performed By: #### C CHARLY #### [facility] [address] [place] [address] Dr. Jaci Mora MONOM% 1.0 % Critically low 1.7-12.0 [facility] Comment on above: Performed By: #### C CHARLY #### [facility] [address] [address] [address] Jaci Mora MPV 9.0 fL Critically low 9.5-13.5 [facility] Comment on above: Performed By: #### C CHARLY #### [facility] [address] [address] [address] Jaci Mora MYELOCYTE # 0.3 103/ul Normal [facility] Comment on above: Performed By: #### C CHARLY #### [facility] [address] [address] [address] Jaci Mora MYELOCYTE % 2 % Normal [facility] Comment on above: Performed By: #### C CHARLY #### [facility] [address] [address] [address] Jaci Mora NRBC Normal [facility] Comment on above: Performed By: #### C CHARLY #### [facility] [address] [address] [address] Jaci Mora PLT 194 103/ul Normal 150-450 [facility] Comment on above: Performed By: #### C CHARLY #### [facility] [address] [address] [address] Jaci Mora POIKILOCYTOSIS 2+ Normal [facility] Comment on above: Performed By: #### C CHARLY #### [facility] [address] [place] [address] Dr. Jaci Mora RBC 3.25 106/ul Critically low 4.20-5.40 [facility] Comment on above: Performed By: #### C CHARLY #### [facility] [address] [address] [address] Jaci Mora RDW 18.8 % Critically high 11.0-15.0 [facility] Comment on above: Performed By: #### C CHARLY #### [facility] [address] [place] [address] Dr. Jaci Mora SCHISTOCYTES 2+ Normal [facility] Comment on above: Performed By: #### C CHARLY #### [facility] [address] [address] [address] Jaci Mora SEG # 12.46 103/ul Critically high 1.40-6.50 [facility] Comment on above: Performed By: #### C CHARLY #### [facility] [address] [address] [address] Jaci Mora SEG % 89.0 % Critically high 43.0-75.0 [facility] Comment on above: Performed By: #### C CHARLY #### [facility] [address] [address] [address] Jaci Mora WBC 14.0 103/ul Critically high 4.0-11.0 [facility] Comment on above: Performed By: #### C CHARLY #### [facility] [address] [place] [address] Dr. Jaci Mora PROF CHEM 8 (BAS METB)on Anion gap [Moles/Vol] 10.9 mmol/L Normal [facility] Comment on above: Performed By: #### C MP #### [facility] [address] [place] [address] Dr. Jaci Mora Calcium [Mass/Vol] 9.8 mg/dL Normal 8.5-10.1 [facility] Comment on above: Performed By: #### C MP #### [facility] [address] [place] [address] Dr. Jaci Mora Chloride [Moles/Vol] 110 mmol/L Critically high 98-107 [facility] Comment on above: Performed By: #### C MP #### [facility] [address] [place] [address] Dr. Jaci Mora CO2 [Moles/Vol] 20.3 mmol/L Critically low 21.0-32.0 [facility] Comment on above: Performed By: #### C MP #### [facility] [address] [place] [address] Dr. Jaci Mora Creatinine [Mass/Vol] 0.91 mg/dL Normal 0.55-1.02 [facility] Comment on above: Performed By: #### C MP #### [facility] [address] [address] [address] Jaci Mora EGFR-AF TAJIK >60 Normal >=60 [facility] Comment on above: Performed By: #### C MP #### [facility] [address] [address] [address] Jaci Mora EGFR-NON AF TAJIK 59 mL/min/1.73m2 Critically low >=60 [facility] Comment on above: Performed By: #### C MP #### [facility] [address] [address] [address] Jaci Mora Glucose [Mass/Vol] 77 mg/dL Normal 74-106 [facility] Comment on above: Performed By: #### C MP #### [facility] [address] [place] [address] Dr. Jaci Mora Potassium [Moles/Vol] 4.2 mmol/L Normal 3.5-5.1 [facility] Comment on above: Performed By: #### C MP #### [facility] [address] [place] [address] Dr. Jaci Mora Sodium [Moles/Vol] 137 mmol/L Normal 136-145 [facility] Comment on above: Performed By: #### C MP #### [facility] [address] [place] [address] Dr. Jaci Mora Urea nitrogen [Mass/Vol] 21.0 mg/dL Critically high 7.0-18.0 [facility] Comment on above: Performed By: #### C MP #### [facility] [address] [address] [address] Jaci Mora Urea nitrogen/Creatini ne [Mass ratio] 23.1 mg/mg Normal [facility] Comment on above: Performed By: #### C MP #### [facility] [address] [place] [address] Dr. Jaci Mora CBC W MANUAL DIFFon 05-01-19 23 ATYPICAL LYMPH # 0.68 103/ul Normal [facility] Comment on above: Performed By: #### C MP #### [facility] [address] [place] [address] Dr. Jaci Mora ATYPICAL LYMPH % 4 % Normal [facility] Comment on above: Performed By: #### C MP #### [facility] [address] [place] [address] Dr. Jaci Mora BAND # 0.0 103/ul Normal 0.0-0.3 [facility] Comment on above: Performed By: #### C MP #### [facility] [address] [place] [address] Dr. Jaci Mora BAND % 0 % Normal 0-5 [facility] Comment on above: Performed By: #### C MP #### [facility] [address] [place] [address] Dr. Jaci Mora BASOM # 0.00 103/ul Normal 0.00-0.10 [facility] Comment on above: Performed By: #### C MP #### [facility] [address] [place] [address] Dr. Jaci Mora BASOM % 0.0 % Critically low 0.2-2.0 [facility] Comment on above: Performed By: #### C MP #### [facility] [address] [place] [address] Dr. Jaci Mora BLAST # Normal [facility] Comment on above: Performed By: #### C MP #### [facility] [address] [place] [address] Dr. Jaci Mora BLAST % Normal [facility] Comment on above: Performed By: #### C MP #### [facility] [address] [place] [address] Dr. Jaci Mora CORRECTED WBC Normal 4.0-11.0 [facility] Comment on above: Performed By: #### C MP #### [facility] [address] [place] [address] Dr. Jaci Mora EOS # 0.17 103/ul Normal 0.00-0.70 [facility] Comment on above: Performed By: #### C MP #### [facility] [address] [place] [address] Dr. Jaci Mora EOS% 1.0 % Normal 0.9-7.0 [facility] Comment on above: Performed By: #### C MP #### [facility] [address] [address] [address] Jaci Mora HCT 29.2 % Critically low 36.0-48.0 [facility] Comment on above: Performed By: #### C MP #### [facility] [address] [address] [address] Jaci Mora HGB 10.0 g/dl Critically low 12.0-16.0 [facility] Comment on above: Performed By: #### C MP #### [facility] [address] [address] [address] Jaci Mora LYMPHM # 0.68 103/ul Critically low 1.20-3.80 [facility] Comment on above: Performed By: #### C MP #### [facility] [address] [place] [address] Dr. Jaci Mora LYMPHM% 4.0 % Critically low 20.5-60.0 [facility] Comment on above: Performed By: #### C MP #### [facility] [address] [place] [address] Dr. Jaci Mora MCH 29.0 pg Normal 26.7-34.0 [facility] Comment on above: Performed By: #### C MP #### [facility] [address] [place] [address] Dr. Jaci Mora MCHC 34.2 g/dl Normal 29.9-35.2 [facility] Comment on above: Performed By: #### C MP #### [facility] [address] [place] [address] Dr. Jaci Mora MCV 84.6 fL Normal 81.0-99.0 [facility] Comment on above: Performed By: #### C MP #### [facility] [address] [place] [address] Dr. Jaci Mora METAMYELOCYTE # Normal [facility] Comment on above: Performed By: #### C MP #### [facility] [address] [place] [address] Dr. Jaci Mora METAMYELOCYTE % Normal [facility] Comment on above: Performed By: #### C MP #### [facility] [address] [address] [address] Jaci Mora MONOM# 0.51 103/ul Normal 0.30-0.80 [facility] Comment on above: Performed By: #### C MP #### [facility] [address] [address] [address] Jaci Mora MONOM% 3.0 % Normal 1.7-12.0 [facility] Comment on above: Performed By: #### C MP #### [facility] [address] [place] [address] Dr. Jaci Mora MPV 9.3 fL Critically low 9.5-13.5 [facility] Comment on above: Performed By: #### C MP #### [facility] [address] [place] [address] Dr. Jaci Mora MYELOCYTE # 0.3 103/ul Normal [facility] Comment on above: Performed By: #### C MP #### [facility] [address] [place] [address] Dr. Jaci Mora MYELOCYTE % 2 % Normal [facility] Comment on above: Performed By: #### C MP #### [facility] [address] [place] [address] Dr. Jaci Mora NRBC 3 Normal [facility] Comment on above: Performed By: #### C MP #### [facility] [address] [place] [address] Dr. Jaci Mora PLT 209 103/ul Normal 150-450 [facility] Comment on above: Performed By: #### C MP #### [facility] [address] [place] [address] Dr. Jaci Mora RBC 3.45 106/ul Critically low 4.20-5.40 [facility] Comment on above: Performed By: #### C MP #### [facility] [address] [place] [address] Dr. Jaci Mora RDW 18.4 % Critically high 11.0-15.0 [facility] Comment on above: Performed By: #### C MP #### [facility] [address] [address] [address] Jaci Mora SEG # 14.71 103/ul Critically high 1.40-6.50 [facility] Comment on above: Performed By: #### C MP #### [facility] [address] [place] [address] Dr. Jaci Mora SEG % 86.0 % Critically high 43.0-75.0 [facility] Comment on above: Performed By: #### C MP #### [facility] [address] [address] [address] Jaci Mora WBC 17.1 103/ul Critically high 4.0-11.0 [facility] Comment on above: Performed By: #### C MP #### [facility] [address] [place] [address] Dr. Jaci Mora PROF CHEM 8 (BAS METB)on Anion gap [Moles/Vol] 13.8 mmol/L Normal [facility] Comment on above: Performed By: #### B MP #### [facility] [address] [place] [address] Dr. Jaci Mora Calcium [Mass/Vol] 9.2 mg/dL Normal 8.5-10.1 [facility] Comment on above: Performed By: #### B MP #### [facility] [address] [place] [address] Dr. Jaci oMra Chloride [Moles/Vol] 109 mmol/L Critically high 98-107 [facility] Comment on above: Performed By: #### B MP #### [facility] [address] [place] [address] Dr. Jaci Moar CO2 [Moles/Vol] 20.1 mmol/L Critically low 21.0-32.0 [facility] Comment on above: Performed By: #### B MP #### [facility] [address] [place] [address] Dr. Jaci Mora Creatinine [Mass/Vol] 0.84 mg/dL Normal 0.55-1.02 [facility] Comment on above: Performed By: #### B MP #### [facility] [address] [address] [address] Jaci Mora EGFR-AF TAJIK >60 Normal >=60 [facility] Comment on above: Performed By: #### B MP #### [facility] [address] [address] [address] Jaci Mora EGFR-NON AF TAJIK >60 Normal >=60 [facility] Comment on above: Performed By: #### B MP #### [facility] [address] [address] [address] Jaci Mora Glucose [Mass/Vol] 130 mg/dL Critically high 74-106 [facility] Comment on above: Performed By: #### B MP #### [facility] [address] [place] [address] Dr. Jaci Mora Potassium [Moles/Vol] 3.9 mmol/L Normal 3.5-5.1 [facility] Comment on above: Performed By: #### B MP #### [facility] [address] [place] [address] Dr. Jaci Mora Sodium [Moles/Vol] 139 mmol/L Normal 136-145 [facility] Comment on above: Performed By: #### B MP #### [facility] [address] [place] [address] Dr. Jaci Mora Urea nitrogen [Mass/Vol] 17.0 mg/dL Normal 7.0-18.0 [facility] Comment on above: Performed By: #### B MP #### [facility] [address] [place] [address] Dr. Jaci Mora Urea nitrogen/Creatini ne [Mass ratio] 20.2 mg/mg Normal [facility] Comment on above: Performed By: #### B MP #### [facility] [address] [place] [address] Dr. Jaci Mora CBC AUTO DIFFon 04-30-2022 BASO # 0.0 103/ul Normal 0.0-0.1 [facility] Comment on above: Performed By: #### C MP #### [facility] [address] [address] [address] Jaci Mora Basophils/100 WBC (Bld) 0.3 % Normal 0.2-2.0 [facility] Comment on above: Performed By: #### C MP #### [facility] [address] [place] [address] Dr. Jaci Mora EO # 0.3 103/ul Normal 0.0-0.7 [facility] Comment on above: Performed By: #### C MP #### [facility] [address] [place] [address] Dr. Jaci Mora Eosinophils/100 WBC (Bld) 2.2 % Normal 0.9-7.0 [facility] Comment on above: Performed By: #### C MP #### [facility] [address] [place] [address] Dr. Jaci Mora Erythrocyte distribution width (RBC) [Ratio] 18.6 % Critically high 11.0-15.0 [facility] Comment on above: Performed By: #### C MP #### [facility] [address] [place] [address] Dr. Jaci Mora Hematocrit (Bld) [Volume fraction] 26.3 % Critically low 36.0-48.0 [facility] Comment on above: Performed By: #### C MP #### [facility] [address] [place] [address] Dr. Jaci Mora Hemoglobin (Bld) [Mass/Vol] 9.0 g/dL Critically low 12.0-16.0 [facility] Comment on above: Performed By: #### C MP #### [facility] [address] [place] [address] Dr. Jaci Mora IG # 0.39 10e3/ul Critically high 0.00-0.03 [facility] Comment on above: Performed By: #### C MP #### [facility] [address] [place] [address] Dr. Jaci Mora IG % 2.9 % Critically high 0.0-0.5 [facility] Comment on above: Performed By: #### C MP #### [facility] [address] [place] [address] Dr. Jaci Mora LYMPH # 1.2 103/ul Normal 1.2-3.8 [facility] Comment on above: Performed By: #### C MP #### [facility] [address] [place] [address] Dr. Jaci Mora Lymphocytes/100 WBC (Bld) 8.9 % Critically low 20.5-60.0 [facility] Comment on above: Performed By: #### C MP #### [facility] [address] [place] [address] Dr. Jaci Mora MANUAL DIFF REQ NO Normal [facility] Comment on above: Performed By: #### C MP #### [facility] [address] [place] [address] Dr. Jaci Mora MCH (RBC) [Entitic mass] 29.0 pg Normal 26.7-34.0 [facility] Comment on above: Performed By: #### C MP #### [facility] [address] [place] [address] Dr. Jaci Mora MCHC (RBC) [Mass/Vol] 34.2 g/dL Normal 29.9-35.2 [facility] Comment on above: Performed By: #### C MP #### [facility] [address] [place] [address] Dr. Jaci Mora MCV (RBC) [Entitic vol] 84.8 fL Normal 81.0-99.0 [facility] Comment on above: Performed By: #### C MP #### [facility] [address] [place] [address] Dr. Jaci Mora MONO # 0.4 103/ul Normal 0.3-0.8 [facility] Comment on above: Performed By: #### C MP #### [facility] [address] [place] [address] Dr. Jaci Mora Monocytes/100 WBC (Bld) 2.9 % Normal 1.7-12.0 [facility] Comment on above: Performed By: #### C MP #### [facility] [address] [place] [address] Dr. Jaci Mora NEUT # 11.0 103/ul Critically high 1.4-6.5 [facility] Comment on above: Performed By: #### C MP #### [facility] [address] [address] [address] Jaci Mora Neutrophils/100 WBC (Bld) 82.8 % Critically high 43.0-75.0 [facility] Comment on above: Performed By: #### C MP #### [facility] [address] [address] [address] Jaci Mora Platelet mean volume (Bld) [Entitic vol] 8.7 fL Critically low 9.5-13.5 [facility] Comment on above: Performed By: #### C MP #### [facility] [address] [place] [address] Dr. Jaci Mora PLT 185 103/ul Normal 150-450 [facility] Comment on above: Performed By: #### C MP #### [facility] [address] [address] [address] Jaci Mora RBC 3.10 106/ul Critically low 4.20-5.40 [facility] Comment on above: Performed By: #### C MP #### [facility] [address] [address] [address] Jaci Mora WBC 13.3 103/ul Critically high 4.0-11.0 [facility] Comment on above: Performed By: #### C MP #### [facility] [address] [address] [address] Jaci Mora PROF CHEM 8 (BAS METB)on Anion gap [Moles/Vol] 11.4 mmol/L Normal [facility] Comment on above: Performed By: #### B MP ####[facility] [address] [address]Dr. Jaci Mora Calcium [Mass/Vol] 8.7 mg/dL Normal 8.5-10.1 [facility] Comment on above: Performed By: #### B MP ####[facility] [address]ceh[address] [address]Dr. Jaci Mora Chloride [Moles/Vol] 110 mmol/L Critically high 98-107 [facility] Comment on above: Performed By: #### B MP ####[facility] [address]orripalcx[address] [address]Dr. Jaci Mora CO2 [Moles/Vol] 22.7 mmol/L Normal 21.0-32.0 [facility] Comment on above: Performed By: #### B MP ####[facility] S[address]acmywdqn[address] [address]Dr. Jaci Mora Creatinine [Mass/Vol] 1.02 mg/dL Normal 0.55-1.02 [facility] Comment on above: Performed By: #### B MP ####[facility] [address]ihhlqu[address] [place], [place] [address]Dr. Jaci Mora EGFR-AF TAJIK >60 Normal >=60 [facility] Comment on above: Performed By: #### B MP ####[facility] Oriblzdhbu[address] [place], [place] [address]Dr. Jaci Mora EGFR-NON AF TAJIK 52 mL/min/1.73m2 Critically low >=60 [facility] Comment on above: Performed By: #### B MP ####[facility] U[address]wrgznvfh[address] [place], [place] [address]Dr. Jaci Mora Glucose [Mass/Vol] 121 mg/dL Critically high 74-106 [facility] Comment on above: Performed By: #### B MP ####[facility] Poqtrbxeyy[address] [place], [place] [address]Dr. Jaci Mora Potassium [Moles/Vol] 3.1 mmol/L Critically low 3.5-5.1 [facility] Comment on above: Performed By: #### B MP ####[facility] [address]bypiqtjoh[address] [place], [place] [address]Dr. Jaci Mora Sodium [Moles/Vol] 141 mmol/L Normal 136-145 [facility] Comment on above: Performed By: #### B MP ####[facility] Ubeixitbsq[address] [place], [place] [address]Dr. Jaci Mora Urea nitrogen [Mass/Vol] 25.0 mg/dL Critically high 7.0-18.0 [facility] Comment on above: Performed By: #### B MP ####[facility] [address] [address]Dr. Jaci Mora Urea nitrogen/Creatini ne [Mass ratio] 24.5 mg/mg Normal [facility] Comment on above: Performed By: #### B MP ####[facility] [address]mm[address] [address]Dr. Jaci Mora XR Abdomen APon 04-30-[address] [facility] CBC W MANUAL DIFFon 04-29-19 ANISOCYTOSIS 1+ Normal [facility] Comment on above: Performed By: #### C BCMAN ####[facility] Stioaeuxfm[address] [place], [place] [address]Dr. Jaci Mora ATYPICAL LYMPH # Normal [facility] Comment on above: Performed By: #### C BCMAN ####[facility] [address]hhehvlry[address] [place], [place] [address]Dr. Jaci Mora ATYPICAL LYMPH % Normal [facility] Comment on above: Performed By: #### C BCMAN ####[facility] Jryisbdpzn[address] [place], [place] [address]Dr. Jaci Mora BAND # 0.2 103/ul Normal 0.0-0.3 [facility] Comment on above: Performed By: #### C BCMAN ####[facility] Fvfrgxecbu[address] [place], [place] [address]Dr. Jaci Mora BAND % 2 % Normal 0-5 [facility] Comment on above: Performed By: #### C BCMAN ####[facility] Snyzrvldsz[address] [place], [place] [address]Dr. Jaci Mora BASOM # 0.00 103/ul Normal 0.00-0.10 [facility] Comment on above: Performed By: #### C BCMAN ####[facility] Sqpfoskseb[address] [place], [place] [address]Dr. Jaci Mora BASOM % 0.0 % Critically low 0.2-2.0 [facility] Comment on above: Performed By: #### C CHARLY ####[facility] [address] [address]Dr. Jaci Mora BLAST # Normal [facility] Comment on above: Performed By: #### C CHARLY ####[facility] [address]rozvl[address] [address]Dr. Jaci Mora BLAST % Normal [facility] Comment on above: Performed By: #### C CHARLY ####[facility] [address]spouf[address] [address]Dr. Jaci Mora CORRECTED WBC Normal 4.0-11.0 [facility] Comment on above: Performed By: #### C CHARLY ####[facility] Phrncdtypl[address] [place], [place] [address]Dr. Jaci Mora EOS # 0.00 103/ul Normal 0.00-0.70 [facility] Comment on above: Performed By: #### C CHARLY ####[facility] Mwpplqxkfu[address] [place], [place] [address]Dr. Jaci Mora EOS% 0.0 % Critically low 0.9-7.0 [facility] Comment on above: Performed By: #### C CHARLY ####[facility] Gdvayjhard[address] [place], [place] [address]Dr. Jaci Mora HCT 25.2 % Critically low 36.0-48.0 [facility] Comment on above: Performed By: #### C CHARLY ####[facility] [address]spnrgjvsq[address] [place], [place] [address]Dr. Jaci Mora HGB 8.5 g/dl Critically low 12.0-16.0 [facility] Comment on above: Performed By: #### C CHARLY ####[facility] Xcxdqslzcv[address] [place], [place] [address]Dr. Jaci Mora HYPOCHROMASIA SLIGHT Normal [facility] Comment on above: Performed By: #### C CHARLY ####[facility] Ddixtnjayy[address] [place], [place] [address]Dr. Jaci Mora LYMPHM # 1.22 103/ul Normal 1.20-3.80 [facility] Comment on above: Performed By: #### C CHARLY ####[facility] [address]fr[address] [id number]. Jaci Mora LYMPHM% 10.0 % Critically low 20.5-60.0 [facility] Comment on above: Performed By: #### C CHARLY ####[facility] T[address]so[address] [id number]. Jaci Mora MCH 28.6 pg Normal 26.7-34.0 [facility] Comment on above: Performed By: #### C CHARLY ####[facility] Y[address]ixrep[address] [id number]. Jaci Mora MCHC 33.7 g/dl Normal 29.9-35.2 [facility] Comment on above: Performed By: #### C CHARLY ####[facility] [address]fg[address] [address]Dr. Jaci Mora MCV 84.8 fL Normal 81.0-99.0 [facility] Comment on above: Performed By: #### Mil PARKS ####[facility] R[address]teuug[address] [place], [place] [address]Dr. Jaci Mora METAMYELOCYTE # Normal [facility] Comment on above: Performed By: #### Mil PARKS ####[facility] [address] [address]Dr. Jaci Mora METAMYELOCYTE % Normal [facility] Comment on above: Performed By: #### Mil PARKS ####[facility] [address] [id number]. Jaci Mora MONOM# 0.12 103/ul Critically low 0.30-0.80 [facility] Comment on above: Performed By: #### Mil PARKS ####[facility] [address]xvmeyw[address] [place], [place] [address]Dr. Jaci Mora MONOM% 1.0 % Critically low 1.7-12.0 [facility] Comment on above: Performed By: #### Mil PARKS ####[facility] Rxknwykyxx[address] [address]Dr. Jaci Mora MPV 9.0 fL Critically low 9.5-13.5 [facility] Comment on above: Performed By: #### C CHARLY ####[facility] [address]en[address] [phone]. Jaci Mora MYELOCYTE # Normal [facility] Comment on above: Performed By: #### C CHARLY ####[facility] [address]cqc[address] [phone]. Jaci Mora MYELOCYTE % Normal [facility] Comment on above: Performed By: #### C CHARLY ####[facility] [address] [phone]. Jaci Mora NRBC 1 Normal [facility] Comment on above: Performed By: #### C CHARLY ####[facility] F[address]ay[address] [phone]. Jaci Mora PLT 201 103/ul Normal 150-450 [facility] Comment on above: Performed By: #### C CHARLY ####[facility] [address] [phone]. Jaci Mora RBC 2.97 106/ul Critically low 4.20-5.40 [facility] Comment on above: Performed By: #### C CHARLY ####[facility] Tu[address]ylt[address] [phone]. Jaci Mora RDW 18.7 % Critically high 11.0-15.0 [facility] Comment on above: Performed By: #### C CHARLY ####[facility] N[address]qitp[address] [phone]. Jaci Mora SEG # 10.61 103/ul Critically high 1.40-6.50 [facility] Comment on above: Performed By: #### C CHARLY ####[facility] [address] [phone]. Jaci Mora SEG % 87.0 % Critically high 43.0-75.0 [facility] Comment on above: Performed By: #### C CHARLY ####[facility] [address] [phone]. Jaci Mora WBC 12.2 103/ul Critically high 4.0-11.0 [facility] Comment on above: Performed By: #### C BCMAN ####[facility] [address]kt[address] [address]Dr. Jaci Mora PROF CHEM 8 (BAS METB)on Anion gap [Moles/Vol] 13.1 mmol/L Normal [facility] Comment on above: Performed By: #### C MP #### [facility] [address] [address] [address] Jaci Mora Calcium [Mass/Vol] 8.6 mg/dL Normal 8.5-10.1 [facility] Comment on above: Performed By: #### C MP #### [facility] [address] [address] [address] Jaci Mora Chloride [Moles/Vol] 113 mmol/L Critically high 98-107 [facility] Comment on above: Performed By: #### C MP #### [facility] [address] [address] [address] Jaci Mora CO2 [Moles/Vol] 21.6 mmol/L Normal 21.0-32.0 [facility] Comment on above: Performed By: #### C MP #### [facility] [address] [address] [address] Jaci Mora Creatinine [Mass/Vol] 1.17 mg/dL Critically high 0.55-1.02 [facility] Comment on above: Performed By: #### C MP #### [facility] [address] [address] [address] Jaci Mora EGFR-AF TAJIK 53 mL/min/1.73m2 Critically low >=60 [facility] Comment on above: Performed By: #### C MP #### [facility] [address] [address] [address] Jaci Mora EGFR-NON AF TAJIK 44 mL/min/1.73m2 Critically low >=60 [facility] Comment on above: Performed By: #### C MP #### [facility] [address] [address] [address] Jaci Mora Glucose [Mass/Vol] 65 mg/dL Critically low 74-106 [facility] Comment on above: Performed By: #### C MP #### [facility] [address] [address] [address] Jaci Mora Potassium [Moles/Vol] 3.7 mmol/L Normal 3.5-5.1 [facility] Comment on above: Performed By: #### C MP #### [facility] [address] [address] [address] Jaci Mora Sodium [Moles/Vol] 144 mmol/L Normal 136-145 [facility] Comment on above: Performed By: #### C MP #### [facility] [address] [address] [address] Jaci Mora Urea nitrogen [Mass/Vol] 29.0 mg/dL Critically high 7.0-18.0 [facility] Comment on above: Performed By: #### C MP #### [facility] [address] [address] [address] Jaci Mora Urea nitrogen/Creatini ne [Mass ratio] 24.8 mg/mg Normal [facility] Comment on above: Performed By: #### C MP #### [facility] [address] [address] [address] Jaci Mora UA (CLEAN/CATCH) SPANISH TRANSLATOR/MICRO I F IND.on 04-29-2022 Bilirubin Ql (U) Negative Normal NEGATIVE [facility] Comment on above: Performed By: #### U MICRO, UACSIND ####[facility] [address]tz[address] [address]DrSarahi Mora Clarity (U) CLEAR Normal CLEAR [facility] Comment on above: Performed By: #### U MICRO, UACSIND ####[facility] [address]zn[address] [address]DrSarahi Mora Color (U) YELLOW Normal YELLOW [facility] Comment on above: Performed By: #### U MICRO, UACSIND ####[facility] U[address]bjhs[address] [address]Dr. Jaci Mora Glucose Ql (U) Negative Normal NEGATIVE [facility] Comment on above: Performed By: #### U MICRO, UACSIND ####[facility] [address]xcpwtxul[address] [place], [place] [address]Dr. Jaci Mora Hemoglobin Ql (U) Negative Normal NEGATIVE [facility] Comment on above: Performed By: #### U MICRO, UACSIND ####[facility] [address]usyek[address] [place], [place] [address]Dr. Jaci Mora Ketones Ql (U) 15 mg/dl Abnormal NEGATIVE [facility] Comment on above: Performed By: #### U MICRO, UACSIND ####[facility] [address]htvckmg[address] [place], [place] [address]Dr. Jaci Mora LEUKOCYTES Negative Normal NEGATIVE [facility] Comment on above: Performed By: #### U MICRO, UACSIND ####[facility] Wvxobkhnmg[address] [place], [place] [address]Dr. Jaci Mora Nitrite Ql (U) Negative Normal NEGATIVE [facility] Comment on above: Performed By: #### U MICRO, UACSIND ####[facility] [address]jgir[address] [place], [place] [address]Dr. Jaci Mora pH (U) 5.0 [pH] Normal 5-9 [facility] Comment on above: Performed By: #### U MICRO, UACSIND ####[facility] [address]fhxsrc[address] [place], [place] [address]Dr. Jaci Mora SPEC GRAVITY >=1.030 Abnormal 1.005-<=1.[address] [place] [address] Comment on above: Performed By: #### U MICRO, UACSIND ####[facility] Y[address]du[address]lipt[address] [place], [place] [address]Dr. Jaci Mora UA PROTEIN 30 mg/dl Abnormal NEGATIVE/ TRACE [facility] Comment on above: Performed By: #### U MICRO, UACSIND ####[facility] R[address]gdrvgfb[address] [place], [place] [address]Dr. Jaci Mora UR MICRO IND INDICATED Normal [facility] Comment on above: Performed By: #### U MICRO, UACSIND ####[facility] [address]tl[address] [address]Dr. Jaci Mora Urobilinogen Qn (U) 0.2 {Chantel'U}/dL Normal 0.2 - 1.0 [facility] Comment on above: Performed By: #### U MICRO, UACSIND ####[facility] X[address] [address]Dr. Griceldaadalberto Mora URINE MICROSCOPIC ONLYon AMORPHOUS CRYSTALS RARE Normal [facility] Comment on above: Performed By: #### U MICRO, UACSIND ####[facility] [address] [address]Dr. Jaci Mora BACTERIA TRACE Abnormal NONE SEEN [facility] Comment on above: Performed By: #### U MICRO, UACSIND ####[facility] [address]yntxx[address] [address]Dr. Jaci Mora Bacteria identified Cx Nom (U) NOT INDICATED Normal [facility] Comment on above: Performed By: #### U MICRO, UACSIND ####[facility] [address]inxtnlets[address] [place], [place] [address]Dr. Griceldaadalberto Mora CAST SEEN Abnormal NONE SEEN [facility] Comment on above: Performed By: #### U MICRO, UACSIND ####[facility] [address]pronc[address] [address]Dr. Griceldaadalberto Devyn Crystals LM Nom (Urine sed) SEEN Abnormal NONE SEEN [facility] Comment on above: Performed By: #### U MICRO, UACSIND ####[facility] [address]uot[address] [address]Dr. Jaci Mora Epithelial cells LM Ql (Urine sed) RARE Normal NONE SEEN /RARE [facility] Comment on above: Performed By: #### U MICRO, UACSIND ####[facility] [address]ualykgn[address] [place], [place] [address]Dr. Jaci Mora HYALINE CAST RARE Normal [facility] Comment on above: Performed By: #### U MICRO, UACSIND ####[facility] [address] [address]Dr. Griceldaadalberto Mora MUCOUS NONE SEEN Normal NONE SEEN [facility] Comment on above: Performed By: #### U MICRO, UACSIND ####[facility] [address]tw[address]ctyl[address] [address]Dr. Jaci Mora RBC 0-2 Normal 0-2 [facility] Comment on above: Performed By: #### U MICRO, UACSIND ####[facility] [address] [place] [phone]. Jaci Mora WBC 0-2 Abnormal NONE SEEN [facility] Comment on above: Performed By: #### U MICRO, UACSIND ####[facility] [address]nyq[address] [place] [phone] Mora HEPATITIS PANEL, ACUTEon HBsAg Screen Negative Normal Negative [facility] Comment on above: Performed By: #### B MP #### [facility] [address] [address] [address] Jaci Mora HCV AB <0.1 Normal 0.0-0.9 [facility] Comment on above: Performed By: #### B MP #### [facility] [address] [address] [address] Jaci Mora Hep A Ab, IgM Negative Normal Negative [facility] Comment on above: Performed By: #### B MP #### [facility] [address] [address] [address] Jaci Mora Hep B Core Ab, IgM Negative Normal Negative [facility] Comment on above: Performed By: #### B MP #### [facility] [address] [address] [address] Jaci Mora Interpretation: Comment Normal [facility] Comment on above: Result Comment: Nega tive Not infected with HCV, unless recent infection is suspected or other evidence exists to indicate HCV infection. Performed By: #### B MP #### [facility] [address] [address] [address] Jaci Mora PROF CHEM 8 (BAS METB)on Anion gap [Moles/Vol] 15.9 mmol/L Normal [facility] Comment on above: Performed By: #### B MP #### [facility] [address] [address] [address] Jaci Mora Calcium [Mass/Vol] 8.0 mg/dL Critically low 8.5-10.1 [facility] Comment on above: Performed By: #### B MP #### [facility] [address] [address] [address] Jaci Mora Chloride [Moles/Vol] 109 mmol/L Critically high 98-107 [facility] Comment on above: Performed By: #### B MP #### [facility] [address] [address] [address] Jaci Mora CO2 [Moles/Vol] 22.2 mmol/L Normal 21.0-32.0 [facility] Comment on above: Performed By: #### B MP #### [facility] [address] [address] [address] Jaci Mroa Creatinine [Mass/Vol] 1.54 mg/dL Critically high 0.55-1.02 [facility] Comment on above: Performed By: #### B MP #### [facility] [address] [address] [address] Jaci Mora EGFR-AF TAJIK 39 mL/min/1.73m2 Critically low >=60 [facility] Comment on above: Performed By: #### B MP #### [facility] [address] [address] [address] Jaci Mora EGFR-NON AF TAJIK 32 mL/min/1.73m2 Critically low >=60 [facility] Comment on above: Performed By: #### B MP #### [facility] [address] [address] [address] Jaci Mora Glucose [Mass/Vol] 79 mg/dL Normal 74-106 [facility] Comment on above: Performed By: #### B MP #### [facility] [address] [address] [address] Jaci Mora Potassium [Moles/Vol] 4.1 mmol/L Normal 3.5-5.1 [facility] Comment on above: Performed By: #### B MP #### [facility] [address] [address] [address] Jaci Mora Sodium [Moles/Vol] 143 mmol/L Normal 136-145 [facility] Comment on above: Performed By: #### B MP #### [facility] [address] [address] [address] Jaci Mora Urea nitrogen [Mass/Vol] 30.0 mg/dL Critically high 7.0-18.0 [facility] Comment on above: Performed By: #### B MP #### [facility] [address] [place] [address] Dr. Jaci Mora Urea nitrogen/Creatini ne [Mass ratio] 19.5 mg/mg Normal [facility] Comment on above: Performed By: #### B MP #### [facility] [address] [place] [address] Dr. Jaci Mora TRANSFERRINon 04-28-2022 Transferrin [Mass/Vol] 247 mg/dL Normal 149-313 [facility] Comment on above: Performed By: #### T RANSFR ####[facility] [address]psras[address] [address]Dr. Jaci Mora CBC AUTO DIFFon 04-27-2022 BASO # 0.0 103/ul Normal 0.0-0.1 [facility] Comment on above: Performed By: #### C MP #### [facility] [address] [place] [address] Dr. Jaci Mora Basophils/100 WBC (Bld) 0.4 % Normal 0.2-2.0 [facility] Comment on above: Performed By: #### C MP #### [facility] [address] [place] [address] Dr. Jaci Mora EO # 0.1 103/ul Normal 0.0-0.7 [facility] Comment on above: Performed By: #### C MP #### [facility] [address] [place] [address] Dr. Jaci Mora Eosinophils/100 WBC (Bld) 0.8 % Critically low 0.9-7.0 [facility] Comment on above: Performed By: #### C MP #### [facility] [address] [place] [address] Dr. Jaci Mora Erythrocyte distribution width (RBC) [Ratio] 18.7 % Critically high 11.0-15.0 [facility] Comment on above: Performed By: #### C MP #### [facility] [address] [place] [address] Dr. Jaci Mora Hematocrit (Bld) [Volume fraction] 36.1 % Normal 36.0-48.0 [facility] Comment on above: Performed By: #### C MP #### [facility] [address] [place] [address] Dr. Jaci Mora Hemoglobin (Bld) [Mass/Vol] 11.7 g/dL Critically low 12.0-16.0 [facility] Comment on above: Performed By: #### C MP #### [facility] [address] [place] [address] Dr. Jaci Mora IG # 0.12 10e3/ul Critically high 0.00-0.03 [facility] Comment on above: Performed By: #### C MP #### [facility] [address] [place] [address] Dr. Jaci Mora IG % 1.1 % Critically high 0.0-0.5 [facility] Comment on above: Performed By: #### C MP #### [facility] [address] [place] [address] Dr. Jaci Mora LYMPH # 4.3 103/ul Critically high 1.2-3.8 [facility] Comment on above: Performed By: #### C MP #### [facility] [address] [place] [address] Dr. Jaci Mora Lymphocytes/100 WBC (Bld) 38.6 % Normal 20.5-60.0 [facility] Comment on above: Performed By: #### C MP #### [facility] [address] [place] [address] Dr. Jaci Mora MANUAL DIFF REQ NO Normal [facility] Comment on above: Performed By: #### C MP #### [facility] [address] [address] [address] Jaci Mora MCH (RBC) [Entitic mass] 28.5 pg Normal 26.7-34.0 [facility] Comment on above: Performed By: #### C MP #### [facility] [address] [place] [address] Dr. Jaci Mora MCHC (RBC) [Mass/Vol] 32.4 g/dL Normal 29.9-35.2 [facility] Comment on above: Performed By: #### C MP #### [facility] [address] [place] [address] Dr. Jaci Mora MCV (RBC) [Entitic vol] 88.0 fL Normal 81.0-99.0 [facility] Comment on above: Performed By: #### C MP #### [facility] [address] [place] [address] Dr. Jaci Mora MONO # 0.7 103/ul Normal 0.3-0.8 [facility] Comment on above: Performed By: #### C MP #### [facility] [address] [place] [address] Dr. Jaci Mora Monocytes/100 WBC (Bld) 5.8 % Normal 1.7-12.0 [facility] Comment on above: Performed By: #### C MP #### [facility] [address] [place] [address] Dr. Jaci Mora NEUT # 6.0 103/ul Normal 1.4-6.5 [facility] Comment on above: Performed By: #### C MP #### [facility] [address] [place] [address] Dr. Jaci Mora Neutrophils/100 WBC (Bld) 53.3 % Normal 43.0-75.0 [facility] Comment on above: Performed By: #### C MP #### [facility] [address] [place] [address] Dr. Jaci Mora Platelet mean volume (Bld) [Entitic vol] 10.0 fL Normal 9.5-13.5 [facility] Comment on above: Performed By: #### C MP #### [facility] [address] [address] [address] Jaci Mora PLT 283 103/ul Normal 150-450 [facility] Comment on above: Performed By: #### C MP #### [facility] [address] [id number] Jaci Mora RBC 4.10 106/ul Critically low 4.20-5.40 [facility] Comment on above: Performed By: #### C MP #### [facility] [address] [id number] Jaci Mora WBC 11.2 103/ul Critically high 4.0-11.0 [facility] Comment on above: Performed By: #### C MP #### [facility] [id number] Jaci Mora CT ABD/PELV W CONon 04-27-[address] ABD/PELV W CON EXAMINATION: CT ABD/ PELV W CON, CT CHEST W CON HISTORY: ABDOMINAL DISTENSION (GASEOUS) ; upper abdominal pain, elevated liver enzymes, right hip pain, right breast discharge for 2 years COMPARISON: No relevant comparison available. TECHNIQUE: Axial, Coronal, and Sagittal CT images were obtained without and/or with IV contrast as indicated by examination type. Dose reduction techniques were achieved by using automated exposure control and/or adjustment of mA and/or kV according to patient size and/or use of iterative reconstruction technique. FINDINGS: LUNGS: 6 mm irregular opacity within the anterior lateral left upper lobe/lingula. 3 mm round nodule within anterior segment of left upper lobe near level of aortic arch. Mild bronchiectasis within lower lobes, right greater than left. PLEURA: No mass or effusion. VASCULATURE: No visible pulmonary arterial thrombus or attenuation. REBECCA: Calcified right hilar lymph nodes. MEDIASTINUM: No mass or adenopathy. CARDIAC: No enlargement, pericardial thickening, or pericardial effusion. CHEST WALL: Abnormal density within anterior right breast 6.0 x 5.5 x 2.0 cm with markedly spiculated posterior margin. Tiny millimeter mass versus abnormal lymph node within right axillary tail of breast. No enlarged axillary lymph nodes. LIVER: No enlargement, atrophy, abnormal density, or significant focal lesion. BILIARY: 2.1 cm stone within gallbladder. No appreciable gallbladder wall thickening, but there is adjacent free fluid. No abnormal duct dilation. PANCREAS: No lesion, fluid collection, ductal dilatation, or atrophy. SPLEEN: No enlargement or focal lesion. ADRENALS: No mass or enlargement. KIDNEYS: No mass, obstruction, or calcification. BOWEL/MESENTERY: Small-moderate amount of free air scattered throughout the upper abdomen; trace amount within the pelvis. Slightly edematous appearance of colon throughout its length without focal wall thickening or mass. Multiple small diverticula involving the sigmoid colon. Slightly edematous appearance of small bowel without focal wall thickening. No obstruction or abnormal dilation. Unremarkable mesentery. Contrast is present within the superior mesenteric artery and throughout its branches. AORTA/VASCULAR: Moderate atherosclerotic disease. No aneurysm. RETROPERITONEUM: No mass or adenopathy. LYMPH NODES: No adenopathy. URINARY BLADDER: No visible focal wall thickening, lesion, or calculus. PELVIC ORGANS: No visible mass. Pelvic organs appropriate for patient age. ABDOMINAL WALL: No mass or hernia. BONES: Heterogeneous appearance of bone marrow throughout all osseous structures. Suspect nondisplaced acute fracture of anterior lateral right third rib. Multiple old healed or partially healed rib fractures bilaterally. Partial lytic destruction of T5 vertebral body. Marked scoliotic curvature of lumbar spine. Subacute, nondisplaced fracture of right iliac wing extending from superior rim of the iliac wing to (or into) the right acetabulum. Prior left hip replacement. OTHER: Negative. IMPRESSION: 1. Moderate amount of free air within the peritoneal cavity of uncertain etiology, but likely secondary to a perforated diverticulum. Slightly edematous appearance of the small and large bowel without evidence of perforation or mass. No findings to suggest ischemia. No obstruction. 2. Cholelithiasis. Free fluid surrounding the gallbladder, but no wall thickening. Small amount of free fluid may be secondary to suspected bowel perforation. 3. 6 mm irregular opacity within left upper lobe/lingula; metastatic disease versus infiltrate. 4. Bronchiectasis. 5. Large spiculated mass within the right breast consistent with neoplasm; likely primary source. 6. Extensive metastasis throughout the skeletal structures with multiple old healed and partially healed rib fractures; likely acute, nondisplaced right third rib fracture, and a subacute nondisplaced fracture of the right iliac wing extending to, or possibly into, the right acetabulum. Electronically authenticated by: PAKO OREILLY Date: 2022-04-27 10:42 Normal [facility] CT Chest limited W contrast IVOrdered By: Angelika Fisher [facility] ANAEROBICon 04-27-19 23 CULTURE ANAEROBIC Culture Observations : NO GROWTH OF ANAEROBES AT 72 HOURS. Normal [facility] Comment on above: Performed By: #### A NACX #### [facility] [address], [place] [address] Dr. Jaci Mora CULTURE BLOODon 04-27-2022 Microscopic examination of blood, culture Culture Observations: NO GROWTH AT 5 DAYS. Isolate 1 [id number] Normal [facility] Comment on above: Performed By: #### B LDCX2 #### [facility] [address] [address] [address] Jaci Mora Performed By: #### B LDCX1 ####[facility] [address] [address]Dr. Jaci Mora CULTURE OTHERon 04-27-2022 CULTURE OTHER Isolate 1 Cheri albicans Light growth of Normal [facility] Comment on above: Performed By: #### O THCX #### [facility] [address] [address] [address] Jaci Mora Covid-19 PCR ([facility])on SARS-CoV-2 (COVID-19) RNA JAMIE+probe Ql (Unsp spec) Not detected Normal NOT DETECTED [facility] Comment on above: Result Comment: When diagnostic testing is negative, the possibility of a false negative should be considered in the context of a patient's recent exposures and the presence of clinical signs and symptoms consistent with SARS-CoV-2. This test is not yet approved or cleared by the [place] FDA. When there are no FDA-approved or cleared tests available, and other criteria are met, FDA can make tests available under an emergency access mechanism called an Emergency Use Authorization (EUA). The EUA for this test is supported by the [employer] of Health and Human Service's declaration that circumstances exist to justify the emergency use of in vitro diagnostics for the detection and/or diagnosis of the virus that causes COVID-19. This EUA will remain in effect for the duration of the COVID-19 declaration justifying emergency of IVDs, unless it is terminated or revoked by the FDA (after which the test may no longer be used). Performed By: #### C MP #### [facility] [address] [address] [address] Jaci Mora FERRITINon 04-27-2022 Ferritin [Mass/Vol] 2052.0 ng/mL Critically high 8.0-252.0 [facility] Comment on above: Performed By: #### C MP #### [facility] [address] [address] [address] Jaci Mora IRON AND TIBCon 04-27-2022 % SATURATION 38.7 % Normal [facility] Comment on above: Performed By: #### C MP #### [facility] [address] [address] [address] Jaci Mora Iron [Mass/Vol] 115.0 ug/dL Normal 50.0-170.0 [facility] Comment on above: Performed By: #### C MP #### [facility] [address] [place] [address] Dr. Jaci Mora TIBC DIRECT 297.0 ug/dL Normal 250.0-450.0 [facility] Comment on above: Performed By: #### C MP #### [facility] [address] [address] [address] Jaci Mora LIPASEon 04-27-2022 Lipase [Catalytic activity/Vol] 457.0 U/L Critically high 73.0-393.0 [facility] Comment on above: Performed By: #### L IPA, HSTROPN ####[facility] [address] [address]Dr. Jaci Mora PROF 14(COMP METB)on 023 Albumin [Mass/Vol] 3.3 g/dL Critically low 3.4-5.0 [facility] Comment on above: Performed By: #### C MP #### [facility] [id number] Jaci Mora Albumin/Globulin [Mass ratio] 0.8 {ratio} Normal [facility] Comment on above: Performed By: #### C MP #### [facility] [address] [address] [address] Jaci Mora ALP [Catalytic activity/Vol] 497 U/L Critically high 46-116 [facility] Comment on above: Performed By: #### C MP #### [facility] [address] [address] [address] Jaci Mora ALT [Catalytic activity/Vol] 67 U/L Critically high 14-59 [facility] Comment on above: Performed By: #### C MP #### [facility] [address] [address] [address] Jaci Mora Anion gap [Moles/Vol] 15.5 mmol/L Normal [facility] Comment on above: Performed By: #### C MP #### [facility] [address] [place] [address] Dr. Jaci Mora AST [Catalytic activity/Vol] 75 U/L Critically high 15-37 [facility] Comment on above: Performed By: #### C MP #### [facility] [address] [place] [address] Dr. Jaci Mora Bilirubin [Mass/Vol] 0.8 mg/dL Normal 0.2-1.0 [facility] Comment on above: Performed By: #### C MP #### [facility] [address] [place] [address] Dr. Jaci Mora Calcium [Mass/Vol] 9.2 mg/dL Normal 8.5-10.1 [facility] Comment on above: Performed By: #### C MP #### [facility] [address] [place] [address] Dr. Jaci Mora Chloride [Moles/Vol] 102 mmol/L Normal 98-107 [facility] Comment on above: Performed By: #### C MP #### [facility] [address] [place] [address] Dr. Jaci Mora CO2 [Moles/Vol] 26.9 mmol/L Normal 21.0-32.0 [facility] Comment on above: Performed By: #### C MP #### [facility] [address] [address] [address] Jaci Mora Creatinine [Mass/Vol] 1.66 mg/dL Critically high 0.55-1.02 [facility] Comment on above: Performed By: #### C MP #### [facility] [address] [place] [address] Dr. Jaci Mora EGFR-AF TAJIK 36 mL/min/1.73m2 Critically low >=60 [facility] Comment on above: Performed By: #### C MP #### [facility] [address] [address] [address] Jaci Mora EGFR-NON AF TAJIK 29 mL/min/1.73m2 Critically low >=60 [facility] Comment on above: Performed By: #### C MP #### [facility] [address] [place] [address] Dr. Jaci Mora Globulin (S) [Mass/Vol] 4.4 g/dL Normal [facility] Comment on above: Performed By: #### C MP #### [facility] [address] [place] [address] Dr. Jaci Mora Glucose [Mass/Vol] 108 mg/dL Critically high 74-106 [facility] Comment on above: Performed By: #### C MP #### [facility] [address] [place] [address] Dr. Jaci Mora Potassium [Moles/Vol] 4.4 mmol/L Normal 3.5-5.1 [facility] Comment on above: Performed By: #### C MP #### [facility] [address] [place] [address] Dr. Jaci Mora Protein [Mass/Vol] 7.7 g/dL Normal 6.4-8.2 [facility] Comment on above: Performed By: #### C MP #### [facility] [address] [place] [address] Dr. Jaci Mora Sodium [Moles/Vol] 140 mmol/L Normal 136-145 [facility] Comment on above: Performed By: #### C MP #### [facility] [address] [place] [address] Dr. Jaci Mora Urea nitrogen [Mass/Vol] 36.0 mg/dL Critically high 7.0-18.0 [facility] Comment on above: Performed By: #### C MP #### [facility] [address], [place] [address] Dr. Jaci Mora Urea nitrogen/Creatini ne [Mass ratio] 21.7 mg/mg Normal [facility] Comment on above: Performed By: #### C MP #### [facility] [address], [place] [address] Dr. Jaci Mora TROPONIN, HIGH SENSITIVITYon 04-27-2022 HSTROP 15.3 pg/mL Normal 4.0-51.3 [facility] Comment on above: Result Comment: CUT- OFF POINTS HAVE BEEN ESTABLISHED BASED ON THE FOURTH UNIVERSAL DEFINITIONS OF MYOCARDIAL INFARCTION. THE UPPER REFERENCE LIMIT (URL) OF TROPONIN, DEFINED THE 99TH PERCENTILE OF cTnI DISTRIBUTION IN A REFERENCE POPULATION, HAS BEEN CONFIRMED THE DECISION THRESHOLD FOR [place] DIAGNOSIS. Performed By: #### L IPA, HSTROPN ####[facility] [address] [place], [place] [address]LkDr. Jaci Mora TYPE AND SCREENon 04-27-2022 TYPE AND SCREEN Negative Normal [facility] Comment on above: Performed By: #### T NS ####[facility] [address] [place], [place] [address]HnDr. Jaci Mora US Abdomenon 04-27-[address] [facility] US SINGLE QUAD RT UPPERon US SINGLE QUAD RT UPPER EXAMINATION: US SINGLE QUAD RT UPPER HISTORY: High enzyme level in serum ; acute epigastric pain COMPARISON: No relevant comparison available. TECHNIQUE: Transabdominal evaluation of the right upper quadrant. FINDINGS: LIVER: Normal size and echotexture. Color Doppler demonstrates patent hepatic veins. PORTAL VEIN: Duplex Doppler demonstrates normal hepatopetal flow pattern with flow velocity averaging 32 cm/s. GALLBLADDER: Contains a 2.0 cm area within the fundal region demonstrating mild posterior shadowing suggestive of a stone, however, color Doppler suggesting internal blood flow or artifact from calcification within the anterior wall of a stone. No gallbladder wall thickening or free fluid. BILIARY: No abnormal dilation or stones. Common bile duct diameter is within normal limits. PANCREASE: No visible mass, abnormal atrophy, or duct dilation. KIDNEY: No hydronephrosis. No visible mass or stones. Size: 8.1 x 3.9 x 3.2 cm IMPRESSION: 1. Cholelithiasis is suspected; a gallbladder mass is felt less likely. Consider CT abdomen with IV contrast for further evaluation. Electronically authenticated by: PAKO OREILLY Date: 2022-04-27 07:53 Normal [facility] VITAMIN B12on 04-27-2022 Cobalamin (Vitamin B12) [Mass/Vol] 3857.0 pg/mL Critically high 193.0-986.0 [facility] Comment on above: Performed By: #### C MP #### [facility] [address] [place] [address] Dr. Jaci Mora CBC AUTO DIFFon 04-24-2022 BASO # 0.1 103/ul Normal 0.0-0.1 [facility] Comment on above: Performed By: #### B MP #### [facility] [address] [place] [address] Dr. Jaci Mora Basophils/100 WBC (Bld) 0.5 % Normal 0.2-2.0 [facility] Comment on above: Performed By: #### B MP #### [facility] [address] [place] [address] Dr. Jaci Mora EO # 0.2 103/ul Normal 0.0-0.7 [facility] Comment on above: Performed By: #### B MP #### [facility] [address] [place] [address] Dr. Jaci Mora Eosinophils/100 WBC (Bld) 1.2 % Normal 0.9-7.0 [facility] Comment on above: Performed By: #### B MP #### [facility] [address] [place] [address] Dr. Jaci Mora Erythrocyte distribution width (RBC) [Ratio] 18.6 % Critically high 11.0-15.0 [facility] Comment on above: Performed By: #### B MP #### [facility] [address] [place] [address] Dr. Jaci Mora Hematocrit (Bld) [Volume fraction] 32.8 % Critically low 36.0-48.0 [facility] Comment on above: Performed By: #### B MP #### [facility] [address] [place] [address] Dr. Jaci Mora Hemoglobin (Bld) [Mass/Vol] 10.8 g/dL Critically low 12.0-16.0 [facility] Comment on above: Performed By: #### B MP #### [facility] [address] [place] [address] Dr. Jaci Mora IG # 0.21 10e3/ul Critically high 0.00-0.03 [facility] Comment on above: Performed By: #### B MP #### [facility] [address] [place] [address] Dr. Jaci Mora IG % 1.6 % Critically high 0.0-0.5 [facility] Comment on above: Performed By: #### B MP #### [facility] [address] [place] [address] Dr. Jaci Mora LYMPH # 3.5 103/ul Normal 1.2-3.8 [facility] Comment on above: Performed By: #### B MP #### [facility] [address] [place] [address] Dr. Jaci Mora Lymphocytes/100 WBC (Bld) 27.7 % Normal 20.5-60.0 [facility] Comment on above: Performed By: #### B MP #### [facility] [address] [place] [address] Dr. Jaci Mora MANUAL DIFF REQ NO Normal [facility] Comment on above: Performed By: #### B MP #### [facility] [address] [place] [address] Dr. Jaci Mora MCH (RBC) [Entitic mass] 29.1 pg Normal 26.7-34.0 [facility] Comment on above: Performed By: #### B MP #### [facility] [address] [place] [address] Dr. Jaci Mora MCHC (RBC) [Mass/Vol] 32.9 g/dL Normal 29.9-35.2 [facility] Comment on above: Performed By: #### B MP #### [facility] [address] [address] [address] Jaci Mora MCV (RBC) [Entitic vol] 88.4 fL Normal 81.0-99.0 [facility] Comment on above: Performed By: #### B MP #### [facility] [address] [address] [address] Jaci Mora MONO # 0.8 103/ul Normal 0.3-0.8 [facility] Comment on above: Performed By: #### B MP #### [facility] [address] [place] [address] Dr. Jaci Mora Monocytes/100 WBC (Bld) 6.6 % Normal 1.7-12.0 [facility] Comment on above: Performed By: #### B MP #### [facility] [address] [place] [address] Dr. Jaci Mora NEUT # 8.0 103/ul Critically high 1.4-6.5 [facility] Comment on above: Performed By: #### B MP #### [facility] [address] [place] [address] Dr. Jaci Mora Neutrophils/100 WBC (Bld) 62.4 % Normal 43.0-75.0 [facility] Comment on above: Performed By: #### B MP #### [facility] [address] [place] [address] Dr. Jaci Mora Platelet mean volume (Bld) [Entitic vol] 9.6 fL Normal 9.5-13.5 [facility] Comment on above: Performed By: #### B MP #### [facility] [address] [place] [address] Dr. Jaic oMra PLT 267 103/ul Normal 150-450 [facility] Comment on above: Performed By: #### B MP #### [facility] [address] [place] [address] Dr. Jaci Mora RBC 3.71 106/ul Critically low 4.20-5.40 [facility] Comment on above: Performed By: #### B MP #### [facility] [address] [address] [address] Jaci Mora WBC 12.8 103/ul Critically high 4.0-11.0 [facility] Comment on above: Performed By: #### B MP #### [facility] [address] [address] [address] Jaci Mora LIPID PROFILEon 04-24-2022 CHOL-HDL RATIO NORM SEE BELOW Normal [facility] Comment on above: Result Comment: 3.3 - 4.4 LOW RISK 4.4 - 7.1 AVERAGE RISK 7.1 - 11.0 MODERATE RISK >11.0 HIGH RISK Performed By: #### L IPID, CMP ####[facility] [address] [address]Dr. Jaci Mora Cholesterol [Mass/Vol] 191 mg/dL Normal <=200 [facility] Comment on above: Performed By: #### L IPID, CMP ####[facility] [address] [address]Dr. Jaci Mora Cholesterol in HDL [Mass/Vol] 102 mg/dL Critically high 40-60 [facility] Comment on above: Performed By: #### L IPID, CMP ####[facility] [address] [address]Dr. Jaci Mora Cholesterol in LDL [Mass/Vol] 60.6 mg/dL Normal [facility] Comment on above: Performed By: #### L IPID, CMP ####[facility] [address] [address]Dr. Griceldaadalberto Devyn Cholesterol.total /Cholesterol in HDL [Mass ratio] 1.9 {ratio} Normal [facility] Comment on above: Performed By: #### L IPID, CMP ####[facility] [address] [address]Dr. Jaci Mora HDL NORMAL > or = 60 mg/dl - LO W CARDIOVASCULAR RISK <40 mg/dl - HIGH CARDIOVASCULAR RISK Normal [facility] Comment on above: Performed By: #### L IPID, CMP ####[facility] [address] [address]Dr. Jaci Mora LDL CALC NORMAL SEE BELOW Normal [facility] Comment on above: Result Comment: <100 mg/dl OPTIMAL 100 - 129 mg/dl NEAR OR ABOVE OPTIMAL 130 - 159 mg/dl BORDERLINE HIGH 160 - 189 mg/dl HIGH >190 mg/dl VERY HIGH Performed By: #### L IPID, CMP ####[facility] [address] [address]Dr. Jaci Mora Triglyceride [Mass/Vol] 142 mg/dL Normal <=150 [facility] Comment on above: Performed By: #### L IPID, CMP ####[facility] [address] [address]Dr. Jaci Mora VLDL CALC 28.4 mg/dL Normal [facility] Comment on above: Performed By: #### L IPID, CMP ####[facility] [address] [place], [place] [address]Dr. Jaci Mora PROF 14(COMP METB)on 023 Albumin [Mass/Vol] 3.1 g/dL Critically low 3.4-5.0 [facility] Comment on above: Performed By: #### L IPID, CMP ####[facility] [address] [place], [place] [address]Dr. Jaci Mora Albumin/Globulin [Mass ratio] 0.7 {ratio} Normal [facility] Comment on above: Performed By: #### L IPID, CMP ####[facility] [address] [place], [place] [address]Dr. Jaci Mora ALP [Catalytic activity/Vol] 458 U/L Critically high 46-116 [facility] Comment on above: Performed By: #### L IPID, CMP ####[facility] [address] [place], [place] [address]Dr. Jaci Mora ALT [Catalytic activity/Vol] 67 U/L Critically high 14-59 [facility] Comment on above: Performed By: #### L IPID, CMP ####[facility] [address] [place], [place] [address]Dr. Jaci Mora Anion gap [Moles/Vol] 14.4 mmol/L Normal [facility] Comment on above: Performed By: #### L IPID, CMP ####[facility] [address] [place], [place] [address]Dr. Jaci Mora AST [Catalytic activity/Vol] 81 U/L Critically high 15-37 [facility] Comment on above: Performed By: #### L IPID, CMP ####[facility] [address] [place], [place] [address]Dr. Jaci Mora Bilirubin [Mass/Vol] 0.7 mg/dL Normal 0.2-1.0 [facility] Comment on above: Performed By: #### L IPID, CMP ####[facility] [address] [place], [place] [address]Dr. Jaci Mora Calcium [Mass/Vol] 9.7 mg/dL Normal 8.5-10.1 [facility] Comment on above: Performed By: #### L IPID, CMP ####[facility] [address] [place], [place] [address]Dr. Jaci Mora Chloride [Moles/Vol] 101 mmol/L Normal 98-107 [facility] Comment on above: Performed By: #### L IPID, CMP ####[facility] [address] [place], [place] [address]Dr. Jaci Mora CO2 [Moles/Vol] 28.0 mmol/L Normal 21.0-32.0 [facility] Comment on above: Performed By: #### L IPID, CMP ####[facility] [address] [place], [place] [address]Dr. Jaci Mora Creatinine [Mass/Vol] 1.59 mg/dL Critically high 0.55-1.02 [facility] Comment on above: Performed By: #### L IPID, CMP ####[facility] [address] [place], [place] [address]Dr. Jaci Mora EGFR-AF TAJIK 37 mL/min/1.73m2 Critically low >=60 [facility] Comment on above: Performed By: #### L IPID, CMP ####[facility] [address] [address]Dr. Jaci Mora EGFR-NON AF TAJIK 31 mL/min/1.73m2 Critically low >=60 [facility] Comment on above: Performed By: #### L IPID, CMP ####[facility] [address] [place], [place] [address]Dr. Jaci Mora Globulin (S) [Mass/Vol] 4.3 g/dL Normal [facility] Comment on above: Performed By: #### L IPID, CMP ####[facility] [address] [place], [place] [address]Dr. Jaci Mora Glucose [Mass/Vol] 103 mg/dL Normal 74-106 [facility] [facility] Comment on above: Performed By: #### L IPID, CMP ####[facility] [address] [place], [place] [address]Dr. Jaci Mora Potassium [Moles/Vol] 4.4 mmol/L Normal 3.5-5.1 [facility] Comment on above: Performed By: #### L IPID, CMP ####[facility] [address] [place], [place] [address]Dr. Jaci Mora Protein [Mass/Vol] 7.4 g/dL Normal 6.4-8.2 [facility] Comment on above: Performed By: #### L IPID, CMP ####[facility] [address] [place], [place] [address]Dr. Jaci Mora Sodium [Moles/Vol] 139 mmol/L Normal 136-145 [facility] Comment on above: Performed By: #### L IPID, CMP ####[facility] Ioamymangs[address] [place], [place] [address]Dr. Jaci Mora Urea nitrogen [Mass/Vol] 30.0 mg/dL Critically high 7.0-18.0 [facility] Comment on above: Performed By: #### L IPID, CMP ####[facility] [address] [place], [place] [address]Dr. Jaci Mora Urea nitrogen/Creatini ne [Mass ratio] 18.9 mg/mg Normal [facility] Comment on above: Performed By: #### L IPID, CMP ####[facility] [address] [place], [place] [address]XvSarahi Mora Basic Metabolic Profon 03-23 (cont.) Normal [facility] Comment on above: Result Comment: Aver age GFR for 70 or more years old: 75 mL/min/1.73sq mChronic Kidney Disease: <60 mL/min/1.73sq mKidney failure: <15 mL/min/1.73sq meGFR calculated using average adult body mass. Additional eGFR calculator available at:http://www.MedHab/multiple_crcl_2012.htm Performed By: #### C AMADA, BMP ####[facility] [address] [place] [address] Anion gap 3 molar conc 10 mmol/L Normal 9-17 [facility] Comment on above: Performed By: #### Mil YBARRA, BMP ####[facility] [address] [place] [address] Calcium mass conc 8.2 mg/dL Low 8.6-10.4 [facility] Comment on above: Performed By: #### Mil BC, BMP ####[facility] [address]vavirr[address] [place] [address] Chloride molar conc 101 mmol/L Normal 98-107 [facility] Comment on above: Performed By: #### C BC, BMP ####[facility] [address] [place] [address] CO2 molar conc 28 mmol/L Normal 20-31 [facility] Comment on above: Performed By: #### C BC, BMP ####[facility] [address] [place] [address] Creatinine mass conc 0.59 mg/dL Normal 0.50-0.90 [facility] Comment on above: Performed By: #### C BC, BMP ####[facility] MediaLrzybmzxqozd0870 [place] [address] GFR, Amer >60 Normal >60 [facility] Comment on above: Performed By: #### C BC, BMP ####[facility] [address]avtls[address] [place] [address] GFR,non Amer >60 Normal >60 [facility] Comment on above: Performed By: #### C BC, BMP ####[facility] [address] [address] Glucose mass conc 99 mg/dL Normal 70-99 [facility] Comment on above: Performed By: #### C BC, BMP ####[facility] [address] [address] Potassium molar conc 3.7 mmol/L Normal 3.7-5.3 [facility] Comment on above: Performed By: #### C BC, BMP ####[facility] [address] [place] [address] Sodium molar conc 139 mmol/L Normal 135-144 [facility] Comment on above: Performed By: #### C BC, BMP ####[facility] [address]neph[address] [place] [address] Urea nitrogen mass conc 10 mg/dL Normal 8-23 [facility] Comment on above: Performed By: #### C BC, BMP ####[facility] [address]Gvcrvbafkgtn[address] [place] [address] BUN/CRE Ratio NOT REPORTED Normal 9-20 [facility] Comment on above: Performed By: #### C BC, BMP ####[facility] [address] [place] [address] Staging: NOT REPORTED Normal [facility] Comment on above: Performed By: #### C BC, BMP ####[facility] [address] [address] CBCon 03-23-2018 Erythrocyte distribution width Auto Ratio (RBC) 14.4 % Normal 11.8-14.4 [facility] Comment on above: Performed By: #### C BC, BMP ####[address] [place] [address] Hematocrit Auto Volume Fraction (Bld) 28.6 % Low 36.3-47.1 [facility] Comment on above: Performed By: #### C BC, BMP ####[address] [address] Hemoglobin mass conc (Bld) 9.2 g/dL Low 11.9-15.1 [facility] Comment on above: Performed By: #### C BC, BMP ####[address] [address] MCH Auto Entitic mass (RBC) 28.2 pg Normal 25.2-33.5 [facility] Comment on above: Performed By: #### C BC, BMP ####[facility] [place] [place] [address] MCHC Auto mass conc (RBC) 32.2 g/dL Normal 28.4-34.8 [facility] Comment on above: Performed By: #### C BC, BMP ####[facility] [place] [place] [address] MCV Auto Entitic volume (RBC) 87.7 fL Normal 82.6-102.9 [facility] Comment on above: Performed By: #### C BC, BMP ####[address] [address] NRBC Automated 0.0 per 100 WBC Normal 0.0 [facility] Comment on above: Performed By: #### C BC, BMP ####[facility] [place] [place] [address] Platelet mean volume Auto Entitic volume (Bld) 10.7 fL Normal 8.1-13.5 [facility] Comment on above: Performed By: #### C BC, BMP ####[place] [address] [place] [address] Platelets Auto #/vol (Bld) 145 10*3/uL Normal 138-453 [facility] Comment on above: Performed By: #### C BC, BMP ####[address] [address] RBC Auto #/vol (Bld) 3.26 10*6/uL Low 3.95-5.11 [facility] Comment on above: Performed By: #### C BC, BMP ####[facility] [address] [address] WBC Auto #/vol (Bld) 9.7 10*3/uL Normal 3.5-11.3 [facility] Comment on above: Performed By: #### C BC, BMP ####[address] [address] Cult,Urineon 03-22-2018 Cult,Urine Specimen Description .CLEAN CATCH URINE Special Requests NOT REPORTED Culture NO SIGNIFICANT GROWTH Report Status FINAL 03/22/2018 Normal [facility] Comment on above: Performed By: #### U RC ####[address] [address] Vitamin D 25 OHon 03-22-2018 Vitamin D 25 [place] 46.1 ng/mL Normal 30.0-100.0 [facility] Comment on above: Result Comment: Refe rence Range:Vitamin D status Range Deficiency <20 ng/mL Mild Deficiency 20-30 ng/mL Sufficiency 30-100 ng/mL Toxicity >100 ng/mL Performed By: #### V D25 ####[address] [address] Electrolyteson 11-29-2018 Anion gap 3 molar conc 12 mmol/L Normal 9-17 [facility] Comment on above: Performed By: #### H H LYTE ####[address] [place] [address] Chloride molar conc 103 mmol/L Normal 98-107 [facility] Comment on above: Performed By: #### H H LYTE ####[address] [place] [address] CO2 molar conc 19 mmol/L Low 20-31 [facility] Comment on above: Performed By: #### H HJELENATE ####[address] [place] [address] Potassium molar conc 4.2 mmol/L Normal 3.7-5.3 [facility] Comment on above: Performed By: #### H H LYTE ####[address] [address] Sodium molar conc 134 mmol/L Low 135-144 [facility] Comment on above: Performed By: #### H H LYTE ####[address] [place] [address] Hgb/Hcton 03-20-2018 Hematocrit Auto Volume Fraction (Bld) 44.3 % Normal 36.3-47.1 [facility] Comment on above: Performed By: #### H H LYTE ####[facility] [address] [place] [address] Hemoglobin mass conc (Bld) 14.1 g/dL Normal 11.9-15.1 [facility] Comment on above: Performed By: #### H H LYTE ####[facility] [place] [place] [address] Lipid Profileon 03-20-2018 Cholesterol in HDL mass conc 92 mg/dL Normal >40 [facility] Comment on above: Result Comment: HDL Guidelines: <40 Undesirable 40-59 Borderline >59 Desirable Performed By: #### P T, LIPR ####[address] [place] [address] Cholesterol in LDL mass conc 90 mg/dL Normal 0-130 [facility] Comment on above: Result Comment: LDL Guidelines: <100 Desirable 100-129 Near to/above Desirable 130-159 Borderline >159 UndesirableDirect (measured) LDL and calculated LDL are not interchangeable tests. Performed By: #### P T, LIPR ####[facility] [place] [place] [address] Cholesterol mass conc 195 mg/dL Normal <200 [facility] Comment on above: Result Comment: Chol esterol Guidelines: <200 Desirable 200-240 Borderline >240 Undesirable Performed By: #### P T, LIPR ####[address] [address] Cholesterol.total /Cholesterol in HDL mass ratio 2.1 {ratio} Normal <5 [facility] Comment on above: Performed By: #### P T, LIPR ####[address] [address] Triglyceride mass conc 64 mg/dL Normal <150 [facility] Comment on above: Result Comment: Trig lyceride Guidelines: <150 Desirable 150- 199 Borderline 200-499 High >499 Very high Based on AHA Guidelines for fasting triglyceride, January 2012. Performed By: #### P T, LIPR ####[facility] [address] [place] [address] Cholesterol in VLDL mass conc NOT REPORTED Normal -30 [facility] Comment on above: Performed By: #### P T, LIPR ####[address] [address] OPERATIVE REPORTon 8 OPERATIVE REPORT [address] [address] OPERATIVE REPORTPATIENT NAME: WILLIAM CANAS : 1940MED REC NO: [id number] [id number] ADMIT DATE: 03/20/2018PROVIDER: GARLAND Engel OF PROCEDURE: 03/20/2018PREOPERATIVE DIAGNOSIS: Fractured hip.POSTOPERATIVE DIAGNOSIS: Left transcervical femoral neck fracture.PROCEDURES: Left hip hemiarthroplasty.ANESTHESIA: General.SURGEON: Tiki Garcia MDASSISTANTS: Tyler Hawkins DO, PGY-5; Arnie Gongora DO, PGY-2ESTIMATED BLOOD LOSS: 450 mL.FLUIDS: 1500 mL of crystalloid.URINE OUTPUT: 400 mL.IMPLANTS: One Arti, cemented, tapered, size-11 stem; One VerSysZimmer femoral head, 12 x 45-mm diameter.FINDINGS: Left transcervical femoral neck fracture.INDICATIONS: Briefly, the patient is a 77-year-old female who [facility] The patient states she was walking and tripped on a curb andlanded immediately onto her left side. The patient had pain andinability to bear weight [facility]. [facility] and further workup found that the patienthad sustained a left femoral neck fracture and [facility] subsequently[facility] and treatment. Thepatient arrived to the floor at 8 a.m. on 03/20 and was subsequentlyseen and evaluated. We discussed risks, benefits, and alternatives forsurgery, and in order to provide the patient with the best outcome andthe ability to ambulate immediately after surgery, we discussed thatsurgical intervention was appropriate and the patient agreed. She wasthen cleared by Internal Medicine and subsequently scheduled for theoperating room.DESCRIPTION OF PROCEDURE: On the day of surgery, the patient was met inthe preoperative area. Again, all risks, benefits, and alternativeswere discussed with the patient including, but not limited to,infection, bleeding, blood loss, blood clots, damage to surroundingneurovascular structures, increased pain, increased swelling, decreasedfunction, nonunion, malunion, hardware failure, need for furthersurgery, anesthesia risks, and loss of life. The patient agreed to andaccepted these risks and signed informed consent willingly The surgicalsite was then marked with a surgical marking pen. At this time, thepatient was then wheeled from the preop area to the operating roomtable, and the Department of Anesthesia then administered generalsedation and placed an endotracheal tube successfully withoutcomplication on the hospital bed. The patient was then safelytransported from the hospital bed onto the operating room table, and allbony prominences were padded as the patient was placed in the lateraldecubitus position on the pegboard. Once the patient was secured intoplace, the ipsilateral arm was then placed on an armboard in appropriateposition. The leg was then prepped and draped in the usual sterilefashion, and prior to incision, a time-out was had correctly identifyingthe patient, procedure to be performed, and operative site. Once allparties were in agreement, a #10 blade was used to make an incisionalong the posterior aspect of the greater trochanter, extendingproximally and distally. Dissection was carried down through skin andsubcutaneous tissue and ultimately to identify the IT band. The IT bandwas then incised in its entirety in line with the incision, anddissection was carried down until identification of the gluteal maximusmuscle was noted proximally, which was bluntly dissected. We thenplaced a Charnley retractor, careful to ensure that we did not entrapthe sciatic nerve posteriorly. Further dissection was carried downuntil the short external rotators were identified, and these were peeledoff of the bone with electrocautery. We then identified the piriformistendon and also removed this from the bone. A T-capsulotomy was made,and ultimately the fracture site was identified. We removed as muchcomminution as possible and then used a saw to make our femoral neck cut1 cm above the lesser trochanter and removed the femoral neck as well asthe femoral head. We then inspected the acetabulum, which was noted ángela from osteoarthritic changes. We then further exposed the femurand used a mattress and boxsprings supervisor to initiate access to the femoral canal. We thenused a lateralizing reamer and again gained access to the femoral canal.We then broached appropriately, starting with a size 10 broach andultimately found that a #11 seated appropriately. It was then decidedthat we would cement the femoral stem prosthesis, and cement was thenprepared on the back table. At this time, we placed anappropriate-sized femoral head trial and trialed the componentsappropriately ensuring the patient did not have a great amount ofinstability. It was determined that these implants would be appropriateand were removed, and the wound and bone were then irrigated thoroughly.We then placed our cement stopper within the femoral canal to a depth of158 mm and then placed the cement within the femoral canal using digitalpressurization. We then took the final implants then and placed it atthe appropriate lateralization and anteversion and held this into placeuntil the cement had hardened. We appropriately removed all cement fromthe proximal aspect of the femur as well as around the implant, and oncethe cement had hardened, we then placed the final femoral head implant. This was malleted into place and then reduction of the hip wasperformed. It was noted that the patient's leg lengths were equal andthat there was appropriate stability of the implant. The wound was thenirrigated with Betadine and irrigated with normal saline. We thenrepaired the piriformis tendon as well as the capsule with Mersilenesuture and 2 holes drilled with a 2.0 drill bit within the greatertrochanter. We then used #1 Vicryl to repair the IT band, 0 Vicryl toclose the deep fascia layers, and 2-0 Vicryl to approximate the skin. The skin edges were then approximated with running 3-0 Monocryl stitch,and Dermabond was used to seal the wound. An Optifoam dressing was thenplaced over the incision site, and an abduction pillow was placedin-between the patient's legs. At this time, the Department ofAnesthesia then reversed the patient's sedation and successfullyextubated the patient without complication. The patient was then safelymoved from the operating table onto the hospital bed and wheeled to [facility] in stable condition.Dr. Garcia was present and active for all portions of the case.ARNIE GONGORA, DOD: 03/20/2018 19:52:39 /[id number]#: [id number] Doc#: [id number]: Tiki Garcia Normal [facility] PTon 03-20-2018 INR Coag RelTime (PPP) 1.1 {INR} Normal [facility] Comment on above: Result Comment: Ther apeutic Range: Moderate Anticoagulant Intensity: INR = 2.0-3.0 High Anticoagulant Intensity: INR = 2.5-3.5 Performed By: #### P T, LIPR ####[facility] [address] [place] [address] Prothrombin time (PT) Coag time (PPP) 11.5 s Normal 9.0-12.0 [facility] Comment on above: Performed By: #### P TAURELIOR ####[address] [address] Type + Screenon 03-20-2018 Type + Screen Sample Expiration Arm Band Number BE [id number] ABO/Rh(D) O POSITIVE Antibody Screen NEGATIVE Normal [facility] Comment on above: Performed By: #### T YS ####[address] [address] Urinalysis, Routineon 2017 Acetoacetic Acid,Ur Negative Normal NEG [facility] Comment on above: Performed By: #### BENSON Johns ####[address] [address] Bilirubin, SemiQt,Ur Negative Normal NEG [facility] Comment on above: Performed By: #### U ABENSON ####[facility] [address] [place] [address] Color YELLOW Normal YEL [facility] Comment on above: Performed By: #### U A UMICAO ####[facility] Dogmmcjytxfs[address] [place] [address] Glucose,Semi-qnt, Ur Negative Normal NEG [facility] Comment on above: Performed By: #### U ACHRISTIANOO ####[place] [address] [place] [address] Hemoglobin, Ur TRACE Abnormal NEG [facility] Comment on above: Performed By: #### BENSON Johns ####[facility] [address] [place] [address] Leuckocyte Esterase Negative Normal NEG [facility] Comment on above: Performed By: #### BENSON Johns ####[facility] [address]ac[address]49 [place] [address] Nitrite,Ur Negative Normal NEG [facility] Comment on above: Performed By: #### BENSON Johns ####[facility] [address]pfx[address] [place] [address] PH,Ur 6.5 Normal 5.0-8.0 [facility] Comment on above: Performed By: #### BENSON Johns ####[facility] [address]rfzmxz[address] [place] [address] Protein mass conc Negative Normal NEG [facility] Comment on above: Performed By: #### BENSON Johns ####[facility] [address] [place] [address] Spec. [place],Ur 1.017 Normal 1.005-1.030 [facility] Comment on above: Performed By: #### BENSON Johns ####[facility] [address] [place] [address] Turbidity CLEAR Normal CLEAR [facility] Comment on above: Performed By: #### BENSON Johns ####[facility] [address]xot[address] [place] [address] Urobilinogen,Ur Normal Normal NORM [facility] Comment on above: Performed By: #### BENSON Johns ####[facility] [address] [place] [address] Comment NOT REPORTED Normal [facility] Comment on above: Performed By: #### U BENSON Richter ####[facility] [address] [place] [address] Urinalysis,Microon 8 ----- Normal [facility] Comment on above: Performed By: #### U BENSON Richter ####[facility] [address] [place] [address] Casts 10 TO 20 HYALINE Normal 0-8 [facility] Comment on above: Result Comment: Refe rence range defined for non-centrifuged specimen. Performed By: #### U BENSON Richter ####[facility] [address] [address] Epithelial cells 2 TO 5 Normal 0-5 [facility] Comment on above: Performed By: #### BENSON Johns ####[facility] [address] [address] RBC Test strip #/vol (U) 2 TO 5 Normal 0-4 [facility] Comment on above: Result Comment: Refe rence range defined for non-centrifuged specimen. Performed By: #### U ABENSON ####[facility] [address] [place] [address] Urine WBC's 2 TO 5 Normal 0-5 [facility] Comment on above: Performed By: #### U ABENSON ####[facility] [address] [place] [address] Amorphous Sediment NOT REPORTED Normal NONE [facility] Comment on above: Performed By: #### U ABENSON ####[facility] [address] [place] [address] Bacteria NOT REPORTED Normal NONE [facility] Comment on above: Performed By: #### U A, UMICAO ####[facility] [address] [place] [address] Crystals NOT REPORTED Normal NONE [facility] Comment on above: Performed By: #### U A, UMICAO ####[address] [place] [address] Epithelial, Renal NOT REPORTED Normal 0 [facility] Comment on above: Performed By: #### U A, UMICAO ####[facility] [address]xccjobv2617 [place] [address] Mucus Strands NOT REPORTED Normal NONE [facility] Comment on above: Performed By: #### U A, UMICAO ####[facility] [address] [place] [address] Other Observations NOT REPORTED Normal NREQ [facility] Comment on above: Performed By: #### U A, UMICAO ####[facility] [address] [place] [address] Trichomonas NOT REPORTED Normal NONE [facility] Comment on above: Performed By: #### U A, UMICAO ####[facility] [address]ozrj[address] [place] [address] Yeast NOT REPORTED Normal NONE [facility] Comment on above: Performed By: #### U A, UMICAO ####[facility] [address]lf[address] [place] [address] XR CHEST PORTABLEon 03-20-20 18 XR CHEST PORTABLE EXAMINATION:SINGLE X RAY VIEW OF THE CHEST03/20/2018 9:23 amCOMPARISON:Chest radiograph dated 03/19/2018.HISTORY:ORDERING SYSTEM PROVIDED HISTORY: Pre-opTECHNOLOGIST PROVIDED HISTORY:Pre-opIMPRESSION: Cardiac and mediastinal shadows are normal. No infiltrates. No effusions.No pneumothorax. No free air below the diaphragm. Levoscoliosis of lowerthoracic spine similar to prior exam.IMPRESSION:No acute findings in the chestInterpreted by:WEI Grigned by:Teresa Prieto MD03/20/18Final result Normal [facility] XR FEMUR LEFT (MIN 2 VIEWS)o n 03-20-2018 Protein mass conc EXAMINATION:FOUR XRA Y VIEWS OF THE LEFT FEMUR03/20/2018 11:12 amCOMPARISON:Hip series today.HISTORY:ORDERING SYSTEM PROVIDED HISTORY: Trauma/FractureTECHNOLOGIST PROVIDED HISTORY:Trauma/FractureOrderin g Physician Provided Reason for Exam: Trauma/Fracture lt hip fxAcuity: AcuteType of Exam: OngoingFINDINGS:Mildly displaced subcapital femoral neck fracture is again demonstrated.Lateral hip swelling is noted. The remainder of the femur appears intact.Degenerative change in the patellofemoral compartment is noted. Calcifiedatheromatous plaque is present. External artifact is noted.IMPRESSION: Redemonstration of mildly displaced subcapital femoral neck fracture withadjacent soft tissue injury. The remainder of the femur reveals no acutefindings.Interpreted by:WEI Coughlinigned by:Flo Shepard MD03/20/18Final result Normal [facility] XR HIP 2-3 VW W PELVIS LEFTo n 03-20-2018 XR HIP 2-3 VW W PELVIS LEFT EXAMINATION:SINGLE XRAY VIEW OF THE LEFT HIP; SINGLE XRAY VIEW OF THE PELVIS AND 2 XRAYVIEWS LEFT HIP03/20/2018 2:20 pm; 03/20/2018 6:43 pmCOMPARISON:03/20/2018.HISTOR Y:ORDERING SYSTEM PROVIDED HISTORY: hemiarthroplastyTECHNOLOGIST PROVIDED HISTORY:hemiarthroplasty; ORDERING SYSTEM PROVIDED HISTORY: S/p L hip hemiarthroplastyTECHNOLOGIST PROVIDED HISTORY:Low AP Pelvis, AP and cross-table lateral please. Please include the entirelength of the stems in the films. Thank youS/p L hip hemiarthroplastyFINDINGS:Well- seated left hip hemiarthroplasty. Soft tissue air noted. Elsewherethere is no fracture or dislocation involving the right hip or pelvis. Nodiastasis. Moderate osteopenia.IMPRESSION: 1. Well-seated left hip arthroplasty. Please refer to the operative report.2. Osteopenia and degenerative changes involving the right hip and pelviswithout fracture or diastasis.Interpreted by:WEI Bojorquezigned by:Gabriele Long MD03/20/18Final result Normal [facility] Protein mass conc EXAMINATION:SINGLE X RAY VIEW OF THE PELVIS AND 2 XRAY VIEWS LEFT HIP03/20/2018 9:23 amCOMPARISON:None.HISTORY:ORDE RING SYSTEM PROVIDED HISTORY: Trauma/FractureTECHNOLOGIST PROVIDED HISTORY:AP and cross-table lateral please, thank youTrauma/FractureFINDINGS:Acu te Garden 4 fracture of the subcapital left femoral neck. No dislocations.IMPRESSION: Acute Garden 4 fracture of the subcapital left femoral neck.Interpreted by:WEI Grigned by:Teresa Prieto MD03/20/18Final result Normal [facility] XR HIP LEFT (1 VIEW)on 03-20 XR HIP LEFT (1 VIEW) EXAMINATION:SINGLE XRAY VIEW OF THE LEFT HIP; SINGLE XRAY VIEW OF THE PELVIS AND 2 XRAYVIEWS LEFT HIP03/20/2018 2:20 pm; 03/20/2018 6:43 pmCOMPARISON:03/20/2018.HISTOR Y:ORDERING SYSTEM PROVIDED HISTORY: hemiarthroplastyTECHNOLOGIST PROVIDED HISTORY:hemiarthroplasty; ORDERING SYSTEM PROVIDED HISTORY: S/p L hip hemiarthroplastyTECHNOLOGIST PROVIDED HISTORY:Low AP Pelvis, AP and cross-table lateral please. Please include the entirelength of the stems in the films. Thank youS/p L hip hemiarthroplastyFINDINGS:Well- seated left hip hemiarthroplasty. Soft tissue air noted. Elsewherethere is no fracture or dislocation involving the right hip or pelvis. Nodiastasis. Moderate osteopenia.IMPRESSION: 1. Well-seated left hip arthroplasty. Please refer to the operative report.2. Osteopenia and degenerative changes involving the right hip and pelviswithout fracture or diastasis.Interpreted by:WEI Bojorquezigned by:Gabriele Long MD03/20/18inal result Normal [facility] Vital Signs Date Time Vital Sign Value Performing Clinician Aroldo dickens 06-06-2023 15:04-0500 Body height 153 cm Devyn Chavez MD Work Phone: [employer] 06-06-2023 15:04-0500 Body mass index (BMI) [Ratio] 24.84 kg/m2 Devyn Chavez MD Work Phone: [facility] 06-06-2023 15:04-0500 Body temperature 97.7 [degF] Devyn Chavez MD Work Phone: [facility] 06-06-2023 15:04-0500 Body weight 58.15 kg Devyn Chavez MD Work Phone: [facility] [employer] 06-06-2023 15:04-0500 Diastolic blood pressure 75 mm[Hg] Devyn Chavez MD Work Phone: [facility] 06-06-2023 15:04-0500 Heart rate 80 /min Devyn Chavez MD Work Phone: [facility] 06-06-2023 15:04-0500 Respiratory rate 24 /min Devyn Chavez MD Work Phone: [facility] 06-06-2023 15:04-0500 SaO2% (BldA) [Mass fraction] 99 % Devyn Chavez MD Work Phone: [facility] 06-06-2023 15:04-0500 Systolic blood pressure 158 mm[Hg] Devyn Chavez MD Work Phone: 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) (Primary Dx) Start: 06-06-2023 End: 06-06-2023 Office outpatient visit 25 minutes Devyn Chavez MD Work Phone: [facility] Comment on above: 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, estrogen receptor positive (CMS-HCC) (Primary Dx); 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 ([facility]-HCC) Start: 06-06-2023 End: 06-06-2023 [facility] Comment on above: 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, estrogen receptor positive ([facility]-HCC) (Primary Dx) Start: 05-24-2023 Orders Only Kristy Aguirre [facility] Start: 04-01-2023 End: 04-01-2023 ambulatory CELIS FAWWAD Not Available Start: 08-28-2022 End: 08-29-2022 ambulatory CELIS H FAWWAD Facility:[facility] Start: 06-21-2022 End: 06-21-2022 ambulatory EROS MATHIS Facility:[facility] Start: 06-21-2022 End: 06-21-2022 Office outpatient new 45 minutes Eros Mathis MD Work Phone: Orthopaedics Comment on above: Cancer, metastatic t o bone (HCC) (Primary Dx); Pathological fracture, pelvis, initial encounter for fracture Start: 06-06-2022 Chart abstracting Angelika Aguirre [facility] Start: 06-04-2022 ambulatory [facility] Start: 05-22-2022 End: 05-23-2022 ambulatory CELIS H FAWWAD Facility:[facility] Start: 05-07-2022 End: 05-07-[address] MERLY DUARTE Facility:[facility] Start: 04-27-2022 End: 05-02-2022 Evaluation and management of inpatient CELIS H FAWWAD Facility:[facility] Start: 04-27-2022 End: 04-28-2022 ambulatory CELIS H FAWWAD Facility:[facility] Start: 04-24-2022 End: 04-25-2022 ambulatory CELIS H FAWWAD Facility:[facility] Start: 03-20-2018 End: 03-23-2018 Evaluation and management of inpatient RICHARDSON WARNER [facility] Procedures Date Procedure Procedure Detail Performing Clinician Start: 10-04-2023 Follow-up visit Follow-up MORA X IA Start: 05-27-2023 MULTIPLE LABS Not In Sy stem Ref Prov Start: 04-30-2022 Radiologic exam abdo men 1 view Not In System Ref Prov Start: 04-27-2022 Drainage of Right Br east, Percutaneous Approach, Diagnostic SHAIKH ZEJennifer Start: 04-27-2022 Excision of Omentum, Open Approach, Diagnostic SHAIKH JEREMYMELANIE Start: 04-27-2022 Supplement Stomach w ith Autologous Tissue Substitute, Open Approach SHAIKH ZED Start: 04-27-2022 Us abdominal real ti me w/image documentation Not In System Ref Prov Start: 04-27-2022 Ct thorax w/contrast material Not In System Ref Prov Start: 03-23-2018 INCENTIVE SPIROMETRY RT RICHARDSON WARNER Start: 03-23-2018 INCENTIVE SPIROMETRY RT RICHARDSON WARNER Start: 03-23-2018 INCENTIVE SPIROMETRY RT RICHARDSON WARNER Start: 03-23-2018 IP CONSULT TO HOME C ARE NEEDS RICHARDSON WARNER Start: 03-23-2018 DISCHARGE PATIENT KRISTOPHER WARNER Start: 03-23-2018 INCENTIVE SPIROMETRY RT RICHARDSON WARNER Start: 03-23-2018 INITIATE OXYGEN THER APY PROTOCOL RICHARDSON WARNER Start: 03-23-2018 Basic metabolic pane l calcium total RICHARDSON WARNER Start: 03-23-2018 Blood count complete automated RICHARDSON WARNER Start: 03-23-2018 INCENTIVE SPIROMETRY RT RICHARDSON WARNER Start: 03-23-2018 INTAKE AND OUTPUT JOVANAE FRANSISCO WARNER Start: 03-23-2018 INCENTIVE SPIROMETRY RT RICHARDSON WARNER Start: 03-22-2018 INCENTIVE SPIROMETRY RT RICHARDSON WARNER Start: 03-22-2018 INCENTIVE SPIROMETRY RT RICHARDSON WARNER Start: 03-22-2018 INCENTIVE SPIROMETRY RT RICHARDSON WARNER Start: 03-22-2018 INCENTIVE SPIROMETRY RT RICHARDSON WARNER Start: 03-22-2018 INCENTIVE SPIROMETRY RT RICHARDSON WARNER Start: 03-22-2018 INCENTIVE SPIROMETRY RT RICHARDSON WARNER Start: 03-22-2018 VITAMIN D 25 HYDROXY JE SUSAN WARNER Start: 03-22-2018 INCENTIVE SPIROMETRY RT RICHARDSON WARNER Start: 03-22-2018 INITIATE OXYGEN THER APY PROTOCOL RICHARDSON WARNER Start: 03-22-2018 INCENTIVE SPIROMETRY RT RICHARDSON WARNER Start: 03-22-2018 INTAKE AND OUTPUT JOVANAE FRANSISCO WARNER Start: 03-22-2018 INCENTIVE SPIROMETRY RT RICHARDSON WARNER Start: 03-21-2018 INCENTIVE SPIROMETRY RT RICHARDSON WARNER Start: 03-21-2018 INCENTIVE SPIROMETRY RT RICHARDSON WARNER Start: 03-21-2018 INCENTIVE SPIROMETRY RT RICHARDSON ABREUKO Start: 03-21-2018 INCENTIVE SPIROMETRY RT RICHARDSON WARNER Start: 03-21-2018 INCENTIVE SPIROMETRY RT RICHARDSON WARNER Start: 03-21-2018 INCENTIVE SPIROMETRY RT RICHARDSON WARNER Start: 03-21-2018 INCENTIVE SPIROMETRY RT RICHARDSON ABREUKO Start: 03-21-2018 INITIATE OXYGEN THER APY PROTOCOL RICHARDSON WARNER Start: 03-21-2018 INCENTIVE SPIROMETRY RT RICHARDSON WARNER Start: 03-21-2018 DAILY WEIGHTS RICHARDSON MONTEZ Start: 03-21-2018 INTAKE AND OUTPUT KRISTOPHER WARNER Start: 03-21-2018 INCENTIVE SPIROMETRY RT RICHARDSON WARNER Start: 03-20-2018 DIET GENERAL RICHARDSON GREENBERG TKO Start: 03-20-2018 ELEVATE EXTREMITY KRISTOPHER ABREUKO Start: 03-20-2018 MISCELLANEOUS NURSIN G CARE ORDER (SPECIFY) RICHARDSON WARNER Start: 03-20-2018 WEIGHT BEARING TOLERATED RICHARDSON WARNER Start: 03-20-2018 ASSESS RICHARDSON GREENBERG TKO Start: 03-20-2018 BEDREST RICHARDSON GREENBERG TKO Start: 03-20-2018 Continuous pulse oximetry RICHARDSON WARNER Start: 03-20-2018 ENCOURAGE DEEP BREAT ANANDA AND COUGHING RICHARDSON WARNER Start: 03-20-2018 INCENTIVE SPIROMETRY RT RICHARDSON WARNER Start: 03-20-2018 INITIATE OXYGEN THER APY PROTOCOL RICHARDSON WARNER Start: 03-20-2018 NEURO/VASCULAR CHECKS J EFFERY KATKO Start: 03-20-2018 NOTIFY PHYSICIAN (SPECIFY) RICHARDSON WARNER Start: 03-20-2018 NURSING COMMUNICATION J EFFERJessica WARNER Start: 03-20-2018 VITAL SIGNS RICHARDSON GREENBERG TKO Start: 03-20-2018 Radex hip unilateral with pelvis 2-3 views RICHARDSON WARNER Start: 03-20-2018 VITAMIN D 25 HYDROXY JE SUSAN WARNER Start: 03-20-2018 TRANSFER PATIENT BLANCA WARNER Start: 03-20-2018 Radex hip unilateral with pelvis 1 view RICHARDSON WARNER Start: 03-20-2018 Blood count complete automated RICHARDSON WARNER Start: 03-20-2018 Comprehensive metabo lic panel RICHARDSON WARNER Start: 11-29-2018 ELECTROLYTE PANEL KRISTOPHER WARNER Start: 03-20-2018 HEMOGLOBIN AND HEMAT OCRIT, BLOOD RICHARDSON WARNER Start: 03-20-2018 TYPE AND SCREEN RICHARDSON WARNER Start: 03-20-2018 Lipid panel RICHARDSON GREENBERG TKO Start: 03-20-2018 Prothrombin time BLANCA WARNER Start: 03-20-2018 Radiologic examinati on femur minimum 2 views RICHARDSON WARNER Start: 03-20-2018 EKG 12-LEAD RICHARDSON GREENBERG TKO Start: 03-20-2018 CATHETER REMOVAL BLANCA WARNER Start: 03-20-2018 URINE RT REFLEX TO CULTURE RICHARDSON WARNER Start: 03-20-2018 INSERT BOWLING CATHETER J AARTI WARNER Start: 03-20-2018 ELEVATE HEELS OFF OF BED RICHARDSON WARNER Start: 03-20-2018 HEAD OF BED 60 DEGRE ES OR LESS RICHARDSON WARNER Start: 03-20-2018 NURSING COMMUNICATION J AARTI WARNER Start: 03-20-2018 TURN PATIENT RIHCARDSON RUSHING Start: 03-20-2018 Culture bacterial quanttative colony count urine RICHARDSON WARNER Start: 03-20-2018 Microscopic urinalysis RICHARDSON WARNER Start: 03-20-2018 Urnls dip stick/tabl et rgnt auto w/o microscopy RICHARDSON WARNER Start: 03-20-2018 Radex hip unilateral with pelvis 2-3 views RICHARDSON WARNER Start: 03-20-2018 Radiologic exam ches t single view RICHARDSON WARNER Start: 03-20-2018 FULL CODE RICHARDSON GREENBERG TKO Start: 03-20-2018 INITIATE OXYGEN THER APY PROTOCOL RICHARDSON WARNER Start: 03-20-2018 INTAKE AND OUTPUT KRISTOPHER WARNER Start: 03-20-2018 IP CONSULT TO ORTHOP EDIC SURGERY RICHARDSON WARNER Start: 03-20-2018 NOTIFY PHYSICIAN (SPECIFY) RICHARDSON ABREUROMAIN Start: 03-20-2018 OT EVAL AND TREAT KRISTOPHER WARNER Start: 03-20-2018 PLACE INTERMITTENT PNEUMATIC COMPRESSION DEVICE RICHARDSON WARNER Start: 03-20-2018 PT EVAL AND TREAT KRISTOPHER WARNER Start: 03-20-2018 VITAL SIGNS RICHARDSON RUSHING Start: 03-19-2018 PATIENT STATUS (DIRECT) RICHARDSON ABREUROMAIN Plan of Treatment Date Care Activity Detail Author Start: 06-18-2029 DTaP,Tdap and Td Vac cines (2 - Tdap) DTaP,Tdap and Td Vaccines (2 - Tdap) [facility] Start: 06-06-2024 Adult BMI Screening Adult BMI Screen ing [facility] Start: 03-07-2024 Adult BMI Screening Adult BMI Screen ing [facility] Start: 12-22-2023 Influenza vaccination Influenza Vacc ine [facility] Start: 10-04-2023 End: 10-04-2023 Patient encounter procedure 10/04/2023 2:00 PM EDT [facility] [address] [place] [phone] Devyn Chavez MD [id number] [place] [address] [facility] Start: 09-23-2023 End: 06-06-2024 CBC W Auto Differential panel - Blood CBC auto differential Lab Routine Malignant 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, estrogen receptor positive (CMS-HCC) Expected: 09/23/2023, Expires: 06/06/2024 [employer] Work Phone: Comment on above: Expected: 09/23/2023 , Expires: 06/06/2024 Start: 09-23-2023 End: 06-06-2024 Comprehensive metabolic 2000 panel - Serum or Plasma Comprehensive metabolic panel Lab Routine Malignant 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, estrogen receptor positive (CMS-HCC) Expected: 09/23/2023 (Approximate), Expires: 06/06/2024 [facility] Comment on above: Expected: 09/23/2023 (Approximate), Expires: 06/06/2024 Start: 08-09-2023 Tobacco Screening Tobacco Screening [facility] [employer] [facility] Start: 06-06-2023 End: 06-06-2023 Patient encounter procedure 06/06/2023 3:00 PM EST Office Visit [facility] Oncology [address] [place] [phone] Devyn Chavez MD [phone] [place] [address] [facility] Start: 05-30-2023 End: 05-30-2023 ambulatory 05/30/2023 3:00 PM EST Support Visit [facility] Agu[facility] [address] [place] [phone] Jennyfer Aguir[facility] Start: 12-21-2022 Influenza vaccination Influenza Vacc ine [facility] Start: 04-22-2022 ADVANCE DIRECTIVE DISCUSSION ADVANCE DIRECTIVE DISCUSSION [facility] Start: 04-22-2022 DEPRESSION ASSESSMENT DEPRESSION ASS ESSMENT [facility] Start: 12-21-2021 Influenza vaccination INFLUENZA (#1) [facility] Start: 04-19-2012 DIABETES SCREEN DIABETES SCREEN [facility] Start: 2003 BONE DENSITY BONE DENSITY [facility] Start: 2003 Fall Risk Screening Fall Risk Screen ing [facility] Start: 2003 PNEUMOCOCCAL: 65+ (1 - PCV) PNEUMOCOCCAL: 65+ (1 - PCV) [facility] Start: 1988 SHINGRIX VACCINE (1 of 2) MARK GRIX VACCINE (1 of 2) [facility] Start: 1957 Administration of varicella zoster vaccine Zoster (Shingles) Vaccine (1 of 2) [facility] Start: 1957 Urine microalbumin profile DTAP,TDAP,TD (1 - Tdap) [facility] Start: 1950 Depression Screening Depression Scre ening [facility] Start: 1938 COVID-19 VACCINE (#1) COVID-19 VACCI NE (#1) [facility] Start: 1938 Medicare Annual Well ness Visit Medicare Annual Wellness Visit [facility] Payers Date Payer Category Payer Medicare [id number] 2003 Medicare [id number] 2003 Unknown [id number] 2003 Unknown [id number] 1959 Medicare [id number] 1959 Self-pay [id number] 1959 Unknown [id number] 1938 Unknown [id number] 2.16.8 [id number] 1938 Unknown [id number] 2.16.84 [id number] 1938 Unknown [id number] 2.16.84 [id number] 1938 Unknown [id number] 2.16.84 [id number] 1938 Unknown [id number] 2.16.84 [id number] 1938 Unknown [id number] 2.16.84 [id number] 1938 Unknown [id number] 2.16.8 [id number] 1938 Unknown [id number] 2.16.8 [id number] 1938 Unknown [id number] 2.16.8 [id number] 1938 Unknown [id number] 2.16.84 [id number] 1938 Unknown [id number] Unknown [id number] 2.16.84 [id number] Social History Date Type Detail Facility Start: 05-14-2022 Tobacco smoking stat [facility] Never smoked tobacco [facility] Work Phone: Start: 06-08-2009 End: 05-14-2022 Alcohol intake Not Asked [facility] Start: 1940 Sex Assigned At Not on file [facility] Start: 05-14-2022 Tobacco use and exposure Smokeless tobacco non-user [facility] Start: 08-08-2022 Alcohol intake Current drinke r of alcohol (finding) [facility] Start: 10-01-2018 End: 08-08-2022 History of Social function [facility] Start: 10-01-2018 End: 08-08-2022 Tobacco use panel [facility] Childcare Unknown [facility] Start: 05-14-2022 Alcohol Comment SOCIAL [facility] Start: 05-19-2022 End: 06-18-2022 Exposure to SARS-CoV-2 (event) Not sure [facility] Clinical Notes 04-25-2022 to 06-06-2023 Kristy Kamara RN - 06/06/2023 3:33 PM ESTChaevie Chavez MD - 06/06/2023 3:00 PM ESTPatient InstructionsPatient InstructionsEros Mathis MD - 06/21/2022 2:08 PM EST Note Date & Type Note Facility 06-06-2023 History of Present illness Narrative Patient is here for follow up with Dr. Chavez. Orders received to follow up in 4 months with cbc and cmp. Patient given calendar, verbalized understanding of future appointments. She will get her labs done at [facility]. documented in this encounter [facility] 06-06-2023 History of Present illness Narrative Images from the original note were not included. [facility] 06/06/23 William Canas is a 83 y.o. year old female seen today in the oncology clinic. No chief complaint on file. History of Present Illness: Mrs. Canas is a 83 y.o. female who initially presented with sudden onset abdominal pain and was diagnosed with gastric ulcer with perforation. 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 According to her family, the patient has been having some hip pain before the perforation, CT scan showed extensive bony changes suspicious for metastasis, there is also subacute iliac wing fracture. The patient was evaluated by Orthopedics, referral to oncologic orthopedics is pending. The patient is referred to my clinic for further management. Femara 05/2022- Interval history: The patient has been on Femara since May 2022, overall tolerated very well. She is compliant with her treatment. Denies significant fatigue or musculoskeletal discomfort. No further discharge from right breast lesion. She change dressing frequently and does not see significant bleeding. The redness over right breast seems to get better. No significant bone pains. She complains about daily diarrhea after Xgeva treatment, treatment is on hold. The patient was accompanied by her daughter and her . Her daughter has been taking photos of her breast periodically keep a record. Her activities at baseline. Past Medical History: Diagnosis Date GERD (gastroesophageal reflux disease) Hypertension Past Surgical History: Procedure Laterality Date BREAST BIOPSY Right 04/27/2022 at [facility] CATARACT EXTRACTION, BILATERAL Bilateral COLONOSCOPY HIP SURGERY Left 2018 PARTIAL STOMACH SURGERY 04/27/2022 Repair of anterior gastric wall at [facility] Family History Problem Relation Age of Onset Cancer Mother Colon cancer Mother Lung cancer Father Stomach cancer Father Cancer Granddaughter Breast cancer Granddaughter Social History Socioeconomic History Marital status: Spouse name: Not on file Number of children: Not on file Years of education: Not on file Highest education level: Not on file Occupational History Not on file Tobacco Use Smoking status: Never Smokeless tobacco: Never Vaping Use Vaping Use: Never used Substance and Sexual Activity Alcohol use: Yes Comment: SOCIAL Drug use: Never Sexual activity: Not Currently Partners: Male Other Topics Concern Not on file Social History Narrative Not on file Social Determinants of Health Financial Resource Strain: Not on file Food Insecurity: No Food Insecurity (08/08/2022) Hunger Screening Food Insecurity - Worry: Never True Food Insecurity - Inability: Never True Transportation Needs: Not on file Physical Activity: Not on file Stress: Not on file Social Connections: Not on file Interpersonal Safety: Not on file Housing Instability: Not on file No Known Allergies Medication List Accurate as of June 06, 2023 2:59 PM. If you have any questions, ask your nurse or doctor. Medications Continued This Visit letrozole 2.5 mg chemo tablet Quantity: 30 tablet Refills: 0 Dose: 2.5 mg Signed by: Dr. Devyn Chavez MD 2.5 mg, oral, Daily Commonly known as: FEMARA losartan-hydroCHLOROthiazide 100-25 mg per tablet Refills: 0 Dose: 1 tablet Commonly known as: HYZAAR omeprazole 10 mg capsule Refills: 0 Dose: 10 mg Commonly known as: PriLOSEC Review of Symptoms: Review of Systems ECO- Symptomatic; in bed <50% of the day Physical Exam: General: Well appearing, in no acute distress. Vitals: There were no vitals taken for this visit. There is no height or weight on file to calculate BMI. Eyes: No icterus, no conjuctival erythema ENT: Pharyngeal mucosa was moist without exudate and inflammation or ulcerations. Tongue was midline and appeared normal.Gums were unremarkable. Lymph nodes: No palpable adenopathy Neck: Supple. There were no masses, tenderness. Trachea was midline. Respiratory: Respirations were non-labored. Lungs were clear to auscultation. There was no dullness to percussion. Cardiac: Regular rate and rhythm, S1 and S2 sounds were normal. There were no rubs or gallops. Abdomen: Soft, non-tender, Nondistended. Bowel sounds audible in all four quadrants. There were no palpable masses. The liver and spleen were not enlarged. Extremities: There was no clubbing, Cyanosis, edema. Skin: There was no obvious rashes, bruising or ecchymosis. Back exam: No palpable tenderness was appreciated. Neurologic: There was no unilateral weakness. Mood and affect: Normal. Breast exam: Left breast is unremarkable, right breast showed a ulcerated mass there is about 10 cm. I do not appreciate large lymphadenopathy in her right axilla. Recent Imaging: No results found. Recent Labs: No results found for this or any previous visit (from the past 336 hour(s)). 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 Her omentum and gastric ulcer biopsy are negative for metastasis. Biopsy from a right breast lesion is consistent with invasive ductal carcinoma, 1-2, ERPR positive and HER2 negative. CT scan showed suspicious findings with bony lesions. The patient has been on hormonal therapy in form of Femara since May 2022. Clinically she is shows good results, breast lesion is slowly improving over time. Compared to her last picture February 2023, I do not see any significant manager exchange the past 3 months. No signs of progression. Due to significant diarrhea, hold Xgeva treatment for now. Patient's blood work with CBC CMP are unremarkable. F/u in 4 months, CBC, CMP. The patient and her family agree with the above recommendation. Thank you. Devyn Chavez MD Please note that portions of this note were generated using voice recognition [employer] dictation software. Although every effort was made to ensure the accuracy of this automated author agent, some errors in author agent may have occurred. CC: Patient Care Team: Shaikh Prashant MD as PCP - General (Internal Medicine) Devyn Chavez MD as Consulting Physician (Hematology) PCP:SHAIKH PRASHANT Referring MD: Shaikh Cerda MD documented in this encounter [facility] 06-06-2023 Instructions Devyn Chavez MD - 06/06/2023 3:00 PM EST F/u in 4 months, CBC, CMP documented in this encounter [facility] 06-21-2022 Note HNO ID: [id number] Author: Eros Mathis MD Service: ? Author Type: Physician Type: Progress Notes Filed: 06/22/2022 11:57 AM Note Text: Orthopaedic Oncology New Patient Evaluation Chief Complaint: Right hip pain Referring Physician: Nathaniel Ashley Jr. History of Present Illness: William Canas is a 82 year old year old female who presents for evaluation of the above chief complaint. 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 She was referred here for right hip pain and pathological fracture. William and family report that she began having right hip pain a few months ago. This is in the context of multiple falls although no fall in particular precipitated the pain. William localizes the pain to the lateral hip about the greater trochanter region. Interestingly, William reports today that she essentially has no pain. She uses a chair for longer distances but is able to ambulate with a cane or a walker with no pain around her house. When she did have pain she reports that it was worse with sitting and not as substantial with walking. She currently denies any pain in any other locations when ambulating or when active. Overall she is quite happy. With respect to her breast cancer, she is being managed by Dr. Devyn Chavez closer to home. Per her report she has been started on hormone therapy. She is not taking denosumab. Review of Systems: Review of systems is positive for above. Other complete ROS is questioned and negative. No past medical history on file. No past surgical history on file. ALLERGIES No Known Allergies Current Outpatient Medications on File Prior to Visit Medication Sig omega-3 fatty acids(FISH OIL 500 MG CAP) Take one(1) capsule daily. WARFARIN 5 MG TAB 1 Tab ORAL DAILY at bedtime. No current facility-administered medications on file prior to visit. No family history on file. Social History Tobacco Use Smoking status: Never Physical Examination: There were no vitals taken for this visit. General: alert, oriented, no acute distress On exam today William is able to rise from her chair independently and walk with her cane across the room and back with no pain. She does not have any tenderness to palpation about the proximal femur or right ilium. I can range her right hip in her chair with no pain. Results Reviewed: I have personally reviewed William's outside imaging today including her CT chest CT pelvis and x-ray of the hip and pelvis. There is diffuse blastic metastatic disease with occasional lytic lesions. Imaging is most notable on x-ray and CT of the right iliac fracture extending from the crest toward the acetabulum with no specific evidence of acetabular involvement. There is evidence of healing of this fracture on CT. Impression: (C79.51) Cancer, metastatic to bone (HCC) (primary encounter diagnosis) (M84.454A) Pathological fracture, pelvis, initial encounter for fracture I had a long discussion today with William and her family. We discussed that I did not think any intervention was warranted given that she had no pain and was able to do her activities of daily living normally without issue. I do think that this iliac fracture either represents an older fracture from a prior fall or is more recent and has healed. This may represent efficacy of her hormonal therapy. I also discussed with her that I did not think that she required prophylactic fixation for any of her lesions given her complete lack of pain. I did raise with her the possibility of denosumab treatment and would defer to her primary oncologist Dr. Devyn Chavez. William will discuss this with her doctor at her next appointment. I have offered her referral for this should she so desire. I discussed with William that should she develop pain she should limit her activity and reach out to a medical provider for assessment. I am happy to see her at anytime in the future should she have orthopedic oncology needs. Devyn Chavez MD [facility] [place] [address] Plan: No surgical intervention indicated at this time May consider denosumab treatment per oncology team Follow-up with me as needed No follow-ups on file. I spent a total of 50 minutes on the date of the service which included preparing to see the patient, [id number] patient care, completing clinical documentation, obtaining and/or reviewing separately obtained history, performing a medically appropriate examination, counseling and educating the patient/family/caregiver, communicating with other HCPs (not separately reported), independently interpreting results (not separately reported), and communicating results to the patient/family/caregiver. These recommendations are being sent back to Nathaniel Ashley Jr. via [facility] [employer] or Chart CC for [facility] Providers. Eros Mathis MD Associ (more content not included)... [facility] 06-21-2022 Instructions Eros Mathis MD - 06/21/2022 2:46 PM EST The fracture in your pelvis is healing. You have no pain with walking now, I do not recommend surgery now. Please speak to your medical oncologist about denosumab treatment. If you start having new pain, contact your medical oncologist or our team here. documented in this encounter [facility] 06-21-2022 History of Present illness Narrative Orthopaedic Oncology New Patient Evaluation Chief Complaint: Right hip pain Referring Physician: Nathaniel Ashley Jr. History of Present Illness: William Canas is a 82 year old year old female who presents for evaluation of the above chief complaint. 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 She was referred here for right hip pain and pathological fracture. William and family report that she began having right hip pain a few months ago. This is in the context of multiple falls although no fall in particular precipitated the pain. William localizes the pain to the lateral hip about the greater trochanter region. Interestingly, William reports today that she essentially has no pain. She uses a chair for longer distances but is able to ambulate with a cane or a walker with no pain around her house. When she did have pain she reports that it was worse with sitting and not as substantial with walking. She currently denies any pain in any other locations when ambulating or when active. Overall she is quite happy. With respect to her breast cancer, she is being managed by Dr. Devyn Chavez closer to home. Per her report she has been started on hormone therapy. She is not taking denosumab. Review of Systems: Review of systems is positive for above. Other complete ROS is questioned and negative. No past medical history on file. No past surgical history on file. ALLERGIES No Known Allergies Current Outpatient Medications on File Prior to Visit Medication Sig omega-3 fatty acids(FISH OIL 500 MG CAP) Take one(1) capsule daily. WARFARIN 5 MG TAB 1 Tab ORAL DAILY at bedtime. No current facility-administered medications on file prior to visit. No family history on file. Social History Tobacco Use Smoking status: Never Physical Examination: There were no vitals taken for this visit. General: alert, oriented, no acute distress On exam today William is able to rise from her chair independently and walk with her cane across the room and back with no pain. She does not have any tenderness to palpation about the proximal femur or right ilium. I can range her right hip in her chair with no pain. Results Reviewed: I have personally reviewed William's outside imaging today including her CT chest CT pelvis and x-ray of the hip and pelvis. There is diffuse blastic metastatic disease with occasional lytic lesions. Imaging is most notable on x-ray and CT of the right iliac fracture extending from the crest toward the acetabulum with no specific evidence of acetabular involvement. There is evidence of healing of this fracture on CT. Impression: (C79.51) Cancer, metastatic to bone (HCC) (primary encounter diagnosis) (M84.454A) Pathological fracture, pelvis, initial encounter for fracture I had a long discussion today with William and her family. We discussed that I did not think any intervention was warranted given that she had no pain and was able to do her activities of daily living normally without issue. I do think that this iliac fracture either represents an older fracture from a prior fall or is more recent and has healed. This may represent efficacy of her hormonal therapy. I also discussed with her that I did not think that she required prophylactic fixation for any of her lesions given her complete lack of pain. I did raise with her the possibility of denosumab treatment and would defer to her primary oncologist Dr. Devyn Chavez. William will discuss this with her doctor at her next appointment. I have offered her referral for this should she so desire. I discussed with William that should she develop pain she should limit her activity and reach out to a medical provider for assessment. I am happy to see her at anytime in the future should she have orthopedic oncology needs. Devyn Chavez MD [address] [place] [address] [address] [place] [address] Plan: No surgical intervention indicated at this time May consider denosumab treatment per oncology team Follow-up with me as needed No follow-ups on file. I spent a total of 50 minutes on the date of the service which included preparing to see the patient, [id number] patient care, completing clinical documentation, obtaining and/or reviewing separately obtained history, performing a medically appropriate examination, counseling and educating the patient/family/caregiver, communicating with other HCPs (not separately reported), independently interpreting results (not separately reported), and communicating results to the patient/family/caregiver. These recommendations are being sent back to Nathaniel Ashley Jr. via [facility] [employer] [employer] or Chart CC for [facility] Providers. Eros Mathis MD Associate Staff, Orthopaedic Surgery Division of Musculoskeletal Oncology documented in this encounter [facility] 04-30-2022 Note PROCEDURE: XR GI UPP ER W KUB SINGLE CONTRAST COMPARISON: None. HISTORY: ABDOMINAL DISTENSION (GASEOUS) TECHNIQUE: An air contrast upper gastrointestinal series was performed in the usual manner. Standard level fluoroscopic mode of operation utilized. FINDINGS: ESOPHAGUS:No obstruction or abnormal dilation. STOMACH: No leakage of Gastrografin from stomach. DUODENUM:No ulceration or diverticulum. OTHER: Negative. IMPRESSION: 1. No leakage of Gastrografin from the stomach. Electronically authenticated by: PAKO OREILLY Date: 2022-04-30 15:42 [facility] 04-25-2022 Note PROCEDURE: XR HIP RT 2 3V W PELVIS HISTORY: Pain in right hip joint since falling 2 months ago COMPARISON: None. FINDINGS: BONES:Mild joint space narrowing and degenerative osteophytes along the margins of the acetabulum. No acute fracture dislocation. Prior left hip replacement. Marked degenerative changes of the visible lower lumbar spine. SOFT TISSUES:No visible soft tissue swelling. EFFUSION:None visible. OTHER: Negative. IMPRESSION: 1. Moderate degenerative changes of right hip joint. No acute bone abnormality. 2. Left hip replacement without appreciable hardware failure on single frontal projection. 3. Marked degenerative changes of lower lumbar spine. Electronically authenticated by: PAKO OREILLY Date: 2022-04-25 16:57 [facility] Evaluation note Diagnosis Cancer, metastatic to bone (HCC)- Primary Secondary malignant neoplasm of bone and bone marrow Pathological fracture, pelvis, initial encounter for fracture [facility] Malignant 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, estrogen receptor positive (CMS-HCC)- Primary [facility] Diagnosis Malignant 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, estrogen receptor positive (CMS-HCC)- Primary 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)- Primary [facility] filedocumented in this encounter [facility] filedocumented in this encounter [facility] Summary Purpose Family History No Family History Records FoundNo Family History Records FoundNo Family History Records FoundNo Family History Records FoundNo Family History Records FoundNo Family History Records Found Advance Directives No Advanced Directives Records FoundNo Advanced Directives Records FoundNo Advanced Directives Records FoundNo Advanced Directives Records FoundNo Advanced Directives Records FoundNo Advanced Directives Records Found Additional Source Comments INFORMATION SOURCE (unrecogn ized section and content) DATE CREATED AUTHOR 04/03/2018 [facility] DATE CREATED AUTHOR AUTHOR'S ORGANIZ ATION 06/23/2022 [facility] DATE CREATED AUTHOR AUTHOR'S ORGANIZ ATION 09/02/2022 [facility] DATE CREATED AUTHOR AUTHOR'S ORGANIZ ATION 07/23/2023 [facility] DATE CREATED AUTHOR AUTHOR'S ORGANIZ ATION 10/06/2023 [facility] DATE CREATED AUTHOR AUTHOR'S ORGANIZ ATION 10/08/2023 [facility] EPIC Source Comments (unrecognize d section and content) In the event this informatio n is protected by the Federal Confidentiality of Alcohol and Drug Abuse Patient Records regulations: The Federal rules restrict any use of the information to criminally investigate or prosecute any alcohol or drug abuse patient.[facility] Reason for Visit (unrecogniz ed section and content) Reason Comments New Reason Comments Follow-up Care Teams (unrecognized sec tion and content) Serials Librarian Relationship Specialty Start Date End Date Shaikh Cerda MD [address] [place] [address] PCP - General Internal Medicine 05/14/22 Serials Librarian Relationship Specialty Start Date End Date Shaikh Cerda MD [address] [place] [address] PCP - General Internal Medicine 05/14/22 Serials Librarian Relationship Specialty Start Date End Date Shaikh Cerda MD [address] [place] [address] PCP - General Internal Medicine 05/14/22 Serials Librarian Relationship Specialty Start Date End Date Shaikh Cerda MD [address] [place] [place] [address] PCP - General Internal Medicine 05/14/22 FOR RECORDS PERTAINING TO PATIENTS WHO ARE OR HAVE BEEN ENROLLED IN A CHEMICAL DEPENDENCY/SUBSTANCEABUSE PROGRAM, SOME INFORMATION MAY BE OMITTED. This clinical summary was aggregated from multiple sources. Caution should be exercised in using it in the provision of clinical care. This summary normalizes information from multiple sources, and as a consequence, information in this document may materially change the coding, format and clinical context of patient data. In addition, data may be omitted in some cases. CLINICAL DECISIONS SHOULD BE BASED ON THE PRIMARY CLINICAL RECORDS. [facility]. provides no warranty or guarantee of the accuracy or completeness of information in this document.
[2024-01-28 10:59] LABS: Basophils Percent Auto 0.5 % (0.2-2.0); Eosinophils Absolute Auto 0.4 10^3/uL (0.0-0.7); Eosinophils Percent Auto 4.6 % (0.9-7.0); Hematocrit 39.7 % (36.0-48.0); Hemoglobin 12.9 g/dL (12.0-16.0); Immature Granulocytes Abs Auto 0.02 10^3/uL (0.00-0.03); Immature Granulocytes Pct Auto 0.3 % (0.0-0.5); Lymphocytes Absolute Auto 2.6 10^3/uL (1.2-3.8); Lymphocytes Percent Auto 33.7 % (20.5-60.0); Mean Corpuscular HGB Conc 32.5 g/dL (29.9-35.2); Mean Corpuscular Hemoglobin 28.9 pg (26.7-34.0); Mean Corpuscular Volume 88.8 fL (81.0-99.0); Mean Platelet Volume 9.3 fL (9.5-13.5); Monocytes Absolute Auto 0.7 10^3/uL (0.3-0.8); Monocytes Percent Auto 8.4 % (1.7-12.0); Neutrophils Absolute Auto 4.1 10^3/uL (1.4-6.5); Neutrophils Percent Auto 52.5 % (43.0-75.0); Platelet Count 236 10^3/uL (150-450); Red Blood Count 4.47 10^6/uL (4.20-5.40); Red Cell Distribution Width 14.2 % (11.0-15.0); White Blood Count 7.8 10^3/uL (4.0-11.0)
[2024-01-28 12:46] LABS: Alanine Aminotransferase 22 U/L (14-59); Albumin Globulin Ratio 1.1; Albumin Level 3.7 g/dL (3.4-5.0); Alkaline Phosphatase 122 U/L (46-116); Anion Gap 15.6; Aspartate Amino Transferase 20 U/L (15-37); Bilirubin Total 0.5 mg/dL (0.2-1.0); Calcium 9.6 mg/dL (8.5-10.1); Carbon Dioxide 26.2 mmol/L (21.0-32.0); Chloride 100 mmol/L (98-107); Estimated GFR (African America 43 (>=60 mL/min/1.73m^2); Estimated GFR (Non-African Ame 36 (>=60 mL/min/1.73m^2); Globulin 3.5 g/dL; Glucose 99 mg/dL (74-106); Potassium 3.8 mmol/L (3.5-5.1); Sodium 138 mmol/L (136-145); Total Protein 7.2 g/dL (6.4-8.2)
== END 2024-01-28 10:32 | disposition home or self-care (01) ==
LOC: LAB 10:35
PROVIDERS: Visit Provider Internal Medicine Hematology & Oncology
DX: C79.9 Secondary malignant neoplasm of unspecified site (principal); C41.9 Malignant neoplasm of bone and articular cartilage, unspecified
CPT/HCPCS: 36415; 80053; 85025

== ENCOUNTER 2024-08-11 09:40 | Outpatient (OUT) | payer MEDICARE, OTHER, SELFPAY ==
[2024-08-11 09:55] LABS: Basophils Percent Auto 0.6 % (0.2-2.0); Eosinophils Absolute Auto 0.5 10^3/uL (0.0-0.7); Eosinophils Percent Auto 8.3 % (0.9-7.0); Hematocrit 40.4 % (36.0-48.0); Hemoglobin 12.9 g/dL (12.0-16.0); Immature Granulocytes Abs Auto 0.01 10^3/uL (0.00-0.03); Immature Granulocytes Pct Auto 0.2 % (0.0-0.5); Lymphocytes Absolute Auto 2.3 10^3/uL (1.2-3.8); Lymphocytes Percent Auto 36.8 % (20.5-60.0); Mean Corpuscular HGB Conc 31.9 g/dL (29.9-35.2); Mean Corpuscular Hemoglobin 28.8 pg (26.7-34.0); Mean Corpuscular Volume 90.2 fL (81.0-99.0); Mean Platelet Volume 9.3 fL (9.5-13.5); Monocytes Absolute Auto 0.4 10^3/uL (0.3-0.8); Neutrophils Absolute Auto 2.9 10^3/uL (1.4-6.5); Neutrophils Percent Auto 47.1 % (43.0-75.0); Platelet Count 233 10^3/uL (150-450); Red Blood Count 4.48 10^6/uL (4.20-5.40); Red Cell Distribution Width 14.6 % (11.0-15.0); White Blood Count 6.2 10^3/uL (4.0-11.0)
[2024-08-11 10:19] LABS: Alanine Aminotransferase 18 U/L (14-59); Albumin Globulin Ratio 1.2; Albumin Level 3.7 g/dL (3.4-5.0); Alkaline Phosphatase 102 U/L (46-116); Anion Gap 15.3; Aspartate Amino Transferase 22 U/L (15-37); BUN Creatinine Ratio 16.6; Bilirubin Total 0.7 mg/dL (0.2-1.0); Calcium 9.3 mg/dL (8.5-10.1); Carbon Dioxide 27.9 mmol/L (21.0-32.0); Chloride 107 mmol/L (98-107); Estimated GFR (African America 38 (>=60 mL/min/1.73m^2); Estimated GFR (Non-African Ame 31 (>=60 mL/min/1.73m^2); Globulin 3.1 g/dL; Glucose 92 mg/dL (74-106); Potassium 4.2 mmol/L (3.5-5.1); Sodium 146 mmol/L (136-145); Total Protein 6.8 g/dL (6.4-8.2)
== END 2024-08-11 09:41 | disposition home or self-care (01) ==
LOC: LAB 09:41
PROVIDERS: Visit Provider Internal Medicine Hematology & Oncology
DX: C79.9 Secondary malignant neoplasm of unspecified site (principal); C41.9 Malignant neoplasm of bone and articular cartilage, unspecified; C79.51 Secondary malignant neoplasm of bone; Z17.0 Estrogen receptor positive status [ER+]; C50.911 Malignant neoplasm of unspecified site of right female breast; C50.111 Malignant neoplasm of central portion of right female breast
CPT/HCPCS: 36415; 80053; 85025

== ENCOUNTER 2024-10-06 08:25 | Outpatient (OUT) | payer MEDICARE, OTHER, SELFPAY ==
--- OUTSIDE RECORDS SUMMARY | 2024-10-06 08:43 | XMS_ITS | CCD ---
Author Organization [facility] Care Team Providers Care Shoe Stamper Name Role Phone RICHARDSON WARNER Unavailable Unavailable ITKI GARCIA Unavailable Unavailable STORM OLGUIN Unavailable Unavailjamar PEREZ, CIARAN S Unavailable Unavailable CHRIS, CIARAN S Unavailable Unavailable CHRIS, CIARAN S Unavailable Unavailable Unavailable Primary Care Provider UnavailEROS Abdalla Attending Unavailable NATHANIEL ASHLEY JR Referring Unav ailable FAWWAD, CELESTIN H Admitting Unavailable FAWWAD, CELESTIN H Attending Unavailable FAWWAD, CELESTIN H Primary Care Unavailable AFIA, DR PAKO Guzmán Consulting Unavailable FAWWAD, CELESTIN H Consulting Unavailable FAWWAD, CELESTIN H Admitting Unavailable FAWWAD, CELESTIN H Attending Unavailable FAWWAD, CELESTIN H Primary Care Unavailable FAWWAD, CELESTIN H Consulting Unavailable FELICIA, DR MORELAND Admitting Unavailable FELICIA, DR MORELAND Attending Unavailable FAWWAD, CELESTIN H Primary Care Unavailable FELICIA, DR MORELAND Consulting Unavailable FAWWAD, CELESTIN H Primary Care Unavailable RADHA .DR DARREL Consulting Unavaila ble ANGELINA .JANENE Admitting Unavailable ANGELINA .JANENE Attending Unavailable AFIA, DR PAKO Guzmán Consulting Unavailable STORM OLGUIN Consulting Unavailable RADHA .DR DARREL Procedure Practitioner U navailable PAY ., DR CRYSTAL Consulting Unavailable ANGELINA .JANENE Consulting Unavailable MARICRUZ SUAREZ Consulting Unavailable ZANE CABRERA Consulting Unavailable FAWWAD, CELESTIN H Admitting Unavailable FAWWAD, CELESTIN H Attending Unavailable FAWWAD, CELESTIN H Primary Care Unavailable FAWWAD, CELESTIN H Consulting Unavailable FAWWAD, CELESTIN H Admitting Unavailable FAWWAD, CELESTIN H Attending Unavailable FAWWAD, CELESTIN H Primary Care Unavailable DR PAKO OREILLY Consulting Unavailable SHAIKH CERDA Consulting Unavailable Storm Olguin MD Primary Care Provider Minda JOSUE, Twin Unavailable Prashant AGUIAR, Celestin Primary Care Provider Prashant AGUIAR, Celestin Primary Care Provider Minda JOSUE, Twin Unavailable [phone] Prashant AGUIAR, Celestin Primary Care Provider DEVYN CHAVEZ Attending Unavailable SHAIKH CERDA Referring Unavailable [facility] Primary Care Unavailable DEVYN CHAVEZ Attending Unavailable [facility] CELESTIN Referring Unavailable [facility] Primary Care Unavailable DEVYN CHAVEZ Attending Unavailable [facility] RodriguezIKH Referring [facility]available [facility] Primary Care Unavailable CORINA JAY Attending Unavailable [facility] RodriguezH Attending Unavailable TWIN PERLA Attending Unavailabl e Medications Current Medications Medication Drug Class(es) Dates Sig (Normalized) Sig (Original) acetaminophen 325 mg oral tablet (8 sources) take 1 tablet by mouth every four hours as needed for pain acetaminophen (Tylenol) 325 MG tablet Take 325 mg by mouth every 4 (four) hours if needed for mild pain Active hydroCHLOROthiazide 25 mg / losartan potassium 100 mg oral tablet (20 sources) Thiazide Diuretic, Angiotensin 2 Receptor Aldo Start: 10-07-2023 End: 10-29-2024 take 1 tablet by mouth once daily losartan-hydroCHLO ROthiazide (Hyzaar) 100-25 MG tablet Indications: Essential hypertension (CMS/HCC) Take 1 tablet by mouth Daily 90 tablet 07/31/2024 10/29/2024 Active Start: 06-10-2022 take 1 tablet by hakan th once in the morning losartan-hydroCHLOROthiazide (HYZAAR) 10 0-25 mg per tablet Take 1 tablet by mouth in the morning. 06/10/2022 Active letrozole 2.5 mg oral tablet (20 sources) Aromatase Inhibitor Start: 06-01-2022 End: 06-19-2025 take 1 tablet by mouth once daily letrozole (Femara) 2.5 MG chemo tablet Take 2.5 mg by mouth Daily. 02/24/2023 Active omeprazole 10 mg delayed release oral capsule (12 sources) Proton Pump Inhibitor take 1 capsule by mouth in the morning, then take 1 capsule by mouth at bedtime omeprazole (PriLOSEC) 10 mg capsule Take 1 capsule (10 mg total) by mouth in the morning and 1 capsule (10 mg total) before bedtime. Active Completed/Discontinued Medications Medication Drug Class(es) Dates [...] unspecified] Onset: 3 Chronic Cancer of breast (20 sources) Malignant tumor of breast ; Translations: [Malignant neoplasm of unspecified site of unspecified female breast] Onset: 3 03-27-2023 Chronic Chronic kidney disease (10 sources) Chronic kidney disease, stage 4 (severe); Translations: [Chronic kidney disease, unspecified] Onset: 3 Chronic Chronic kidney disease (1 source) Chronic kidney disease; Translations: [CHRONIC KIDNEY DISEASE STAGE 3B] Onset: 3 Chronic obstructive pulmonary disease and bronchiectasis (13 sources) Bronchiolectasis; Translations: [Bronchiectasis, uncomplicated] Onset: 3 Resolved: 5 03-27-2023 Chronic Coronary atherosclerosis and other heart disease (6 sources) Atherosclerotic heart disease of [place] coronary artery without angina pectoris; Translations: [Atherosclerosis of coronary artery without angina pectoris] Onset: 3 09-30-2024 Chronic Deficiency and other anemia (5 sources) Iron deficiency anemia; Translations: [Iron deficiency anemia, unspecified] Onset: 3 09-30-2024 Episodic Diseases of white blood cells (1 source) Elevated white blood cell count, unspecified; Translations: [ELEVATED WHITE BLOOD CELL COUNT UNS] Onset: 3 Chronic Disorders of lipid metabolism (6 sources) Hyperlipidemia, unspecified; Translations: [Hyperlipidemia] Onset: 3 09-30-2024 Chronic Diverticulosis and diverticulitis (11 sources) Diverticulitis of small and large intestine with perforation; Translations: [Diverticulitis of both small and large intestine with perforation and abscess without bleeding] Onset: 3 03-27-2023 Chronic Esophageal disorders (12 sources) Gastroesophageal reflux disease; Translations: [Gastro-esophageal reflux disease without esophagitis] Onset: 3 05-14-2022 Chronic Essential hypertension (20 sources) Essential (primary) hypertension; Translations: [Essential hypertension] Onset: 3 Chronic Fracture of neck of femur (hip) (1 source) Fracture of unspecified part of neck of left femur, initial encounter for closed fracture; Translations: [Fracture of unspecified part of neck of left femur, initial encounter for closed fracture] Onset: 8 Episodic Gastroduodenal ulcer (except hemorrhage) (11 sources) Chronic or unspecified gastric ulcer with perforation; Translations: [Chronic gastric ulcer with perforation] Onset: 3 Chronic Hypertension with complications and secondary hypertension (5 sources) Hypertensive chronic kidney disease with stage 1 through stage 4 chronic kidney disease, or unspecified chronic kidney disease; Translations: [HTN CKD W/STAGE 1-4 CKD/UNS CKD] Onset: 3 Chronic Nutritional deficiencies (1 source) Vitamin D deficiency, unspecified; Translations: [VITAMIN D DEFICIENCY UNSPECIFIED] Onset: 3 Chronic Osteoarthritis (8 sources) Osteoarthritis of right hip joint; Translations: [Unilateral primary osteoarthritis, right hip] Onset: 3 03-27-2023 Chronic Other aftercare (1 source) Long-term current use of aromatase inhibitor; 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] 08-21-2024 Episodic Other and ill-defined cerebrovascular disease (1 source) Cerebrovascular disease, unspecified; Translations: [CEREBROVASCULAR DISEASE UNSPECIFIED] Onset: 3 Chronic Other and ill-defined cerebrovascular disease (5 sources) Cerebrovascular disease; Translations: [Cerebrovascular disease, unspecified] Onset: 3 09-30-2024 Chronic Other connective tissue disease (4 sources) Cramp in lower limb; Translations: [Sleep related leg cramps] Onset: 5 09-30-2024 Chronic Other diseases of kidney and ureters (1 source) Secondary hyperparathyroidism of renal origin; Translations: [SEC HYPERPARATHYROIDISM RENAL ORIGN] Onset: 3 Chronic Other nervous system disorders (8 sources) Difficulty walking; Translations: [Difficulty in walking, not elsewhere classified] Onset: 3 03-27-2023 Chronic Secondary malignancies (20 sources) Secondary malignant neoplasm of bone; Translations: [Secondary malignant neoplasm of bone] Onset: 3 Chronic Secondary malignancies (2 sources) Secondary malignant neoplasm of bone; Translations: [SECONDARY MALIGNANT NEOPLASM BONE] Onset: 3 Chronic Secondary malignancies (19 sources) Primary malignant neoplasm of bone; Translations: [Secondary malignant neoplasm of unspecified site] Onset: 3 10-04-2023 Chronic Secondary malignancies (1 source) Secondary malignant neoplasm of unspecified site; Translations: [Secondary malignant neoplasm of unspecified site] Onset: 3 Chronic Unclassified (1 source) CONTACT W/AND (SUSP) EXPOS COVID-19; Translations: [CONTACT W/AND (SUSP) EXPOS COVID-19] Onset: 3 Unclassified (1 source) ELEV LVLS LIVER TRANSAMINASE LVLS; Translations: [ELEV LVLS LIVER TRANSAMINASE LVLS] Onset: 3 Past or Other Problems Problem Classification Problem Date Documented Da te Episodic/Chronic Biliary tract disease (1 source) Calculus [...] source) Hypokalemia; Translations: [HYPOKALEMIA] Onset: 05-04-2022 Episodic Mood disorders (8 sources) Mood disorders Onset: 04-01-2023 Resolved: 03-31-2024 04-01-2023 Nonmalignant breast conditions (1 source) Unspecified lump in the right breast, unspecified quadrant; Translations: [UNS LUMP IN RT BREAST UNS QUADRANT] Onset: 05-04-2022 Episodic Other aftercare (1 source) correction (current) use of aspirin; 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] Onset: 05-04-2022 Episodic Other aftercare (1 source) Other fpc (current) drug therapy; Translations: [OTH PENITENTIARY CURRENT DRUG THERAPY] Onset: 05-04-2022 Episodic Other aftercare (3 sources) Patient encounter status; Translations: [Aftercare following explantation of hip joint prosthesis] Onset: 05-02-2022 09-30-2024 Episodic Other circulatory disease (1 source) Personal history of transient ischemic attack (TIA), and cerebral infarction without residual deficits; Translations: [PERS HX TIA AND CI NO RESID DEFICIT] Onset: 05-04-2022 Episodic Other circulatory disease (4 sources) Elevated blood-pressure reading, without diagnosis of hypertension; Translations: [ELEVATED BP READING W/O DX HTN] Onset: 04-24-2022 Episodic Other fractures (8 sources) Fracture of right rib; Translations: [Fracture of one rib, right side, subsequent encounter for fracture with nonunion] Onset: 03-27-2023 03-27-2023 Episodic Other gastrointestinal disorders (3 sources) Oral phase dysphagia; Translations: [Dysphagia, oral phase] Onset: 05-02-2022 09-30-2024 Episodic Other liver diseases (4 sources) Abnormal [...] Interpretation Reference Range Facility Multiple labson 05-27-2023 [facility] PTH INTACTon 08-29-2022 PTH, Intact 125 pg/mL Critically high 15-65 [facility] Comment on above: Performed By: #### C MP #### [facility] [address] [place] [address] Dr. Jaci Mora CBC AUTO DIFFon 08-28-2022 BASO # 0.0 103/ul Normal 0.0-0.1 [facility] Comment on above: Performed By: #### C BC #### [facility] [address] [place] [address] Dr. Jaci Mora Basophils/100 WBC (Bld) 0.6 % Normal 0.2-2.0 [facility] Comment on above: Performed By: #### C BC #### [facility] [address] [place] [address] Dr. Jaci Mora EO # 0.2 103/ul Normal 0.0-0.7 [facility] Comment on above: Performed By: #### C BC #### [facility] [address] [place] [address] Dr. Jaci Mora Eosinophils/100 WBC (Bld) 3.2 % Normal 0.9-7.0 [facility] Comment on above: Performed By: #### C BC #### [facility] [address] [place] [address] Dr. Jaci Mora Erythrocyte distribution width (RBC) [Ratio] 16.3 % Critically high 11.0-15.0 [facility] Comment on above: Performed By: #### C BC #### [facility] [address] [place] [address] Dr. Jaci Mora Hematocrit (Bld) [Volume fraction] 36.2 % Normal 36.0-48.0 [facility] Comment on above: Performed By: #### C BC #### [facility] [address] [place] [address] Dr. Jaci Mora Hemoglobin (Bld) [Mass/Vol] 11.3 g/dL Critically low 12.0-16.0 [facility] Comment on above: Performed By: #### C BC #### [facility] [address] [place] [address] Dr. Jaci Mora IG # 0.02 10e3/ul Normal 0.00-0.03 [facility] Comment on above: Performed By: #### C BC #### [facility] [address] [place] [address] Dr. Jaci Mora IG % 0.3 % Normal 0.0-0.5 [facility] Comment on above: Performed By: #### C BC #### [facility] [address] [place] [address] Dr. Jaci Mora LYMPH # 2.9 103/ul Normal 1.2-3.8 [facility] Comment on above: Performed By: #### C BC #### [facility] [address] [place] [address] Dr. Jaci Mora Lymphocytes/100 WBC (Bld) 43.8 % Normal 20.5-60.0 [facility] Comment on above: Performed By: #### C BC #### [facility] [address] [place] [address] Dr. Jaci Mora MANUAL DIFF REQ NO Normal [facility] Comment on above: Performed By: #### C BC #### [facility] [address] [place] [address] Dr. Jaci Mora MCH (RBC) [Entitic mass] 28.3 pg Normal 26.7-34.0 [facility] Comment on above: Performed By: #### C BC #### [facility] [address] [place] [address] Dr. Jaci Mora MCHC (RBC) [Mass/Vol] 31.2 g/dL Normal 29.9-35.2 [facility] Comment on above: Performed By: #### C BC #### [facility] [address] [place] [address] Dr. Jaci Mora MCV (RBC) [Entitic vol] 90.7 fL Normal 81.0-99.0 [facility] Comment on above: Performed By: #### C BC #### [facility] [address] [place] [address] Dr. Jaci Mora MONO # 0.5 103/ul Normal 0.3-0.8 [facility] Comment on above: Performed By: #### C BC #### [facility] [address] [place] [address] Dr. Jaci Mora Monocytes/100 WBC (Bld) 7.9 % Normal 1.7-12.0 [facility] Comment on above: Performed By: #### C BC #### [facility] [address] [place] [address] Dr. Jaci Mora NEUT # 2.9 103/ul Normal 1.4-6.5 [facility] Comment on above: Performed By: #### C BC #### [facility] [address] [place] [address] Dr. Jaci Mora Neutrophils/100 WBC (Bld) 44.2 % Normal 43.0-75.0 [facility] Comment on above: Performed By: #### C BC #### [facility] [address] [place] [address] Dr. Jaci Mora Platelet mean volume (Bld) [Entitic vol] 8.6 fL Critically low 9.5-13.5 [facility] Comment on above: Performed By: #### C BC #### [facility] [address] [place] [address] Dr. Jaci Mora PLT 250 103/ul Normal 150-450 [facility] Comment on above: Performed By: #### C BC #### [facility] [address] [address] [address] Jaci Mora RBC 3.99 106/ul Critically low 4.20-5.40 [facility] Comment on above: Performed By: #### C BC #### [facility] [address] [address] [address] Jaci Mora WBC 6.6 103/ul Normal 4.0-11.0 [facility] Comment on above: Performed By: #### C BC #### [facility] [address] [address] [address] Jaci Mora MAGNESIUMon 08-28-2022 Magnesium [Mass/Vol] 2.8 mg/dL Critically high 1.8-2.4 [facility] Comment on above: Performed By: #### Sunita Culp CMP, PHOS ####[facility] [address] [address]Dr. Jaci Mora PHOSPHORUSon 08-28-2022 Phosphate [Mass/Vol] 3.1 mg/dL Normal 2.6-4.7 [facility] Comment on above: Performed By: #### Sunita Culp, CMP, PHOS ####[facility] [address] [address]DrSarahi Mora PROF 14(COMP METB)on 023 Albumin [Mass/Vol] 3.5 g/dL Normal 3.4-5.0 [facility] Comment on above: Performed By: #### M Robbi, CMP, PHOS ####[facility] [address] [address]Dr. Jaci Mora Albumin/Globulin [Mass ratio] 0.9 {ratio} Normal [facility] Comment on above: Performed By: #### M G, CMP, PHOS ####[facility] [address] [address]DrSarahi Mora ALP [Catalytic activity/Vol] 361 U/L Critically high 46-116 [facility] Comment on above: Performed By: #### M G, CMP, PHOS ####[facility] [address] [address]Dr. Jaci Mora ALT [Catalytic activity/Vol] 31 U/L Normal 14-59 [facility] Comment on above: Performed By: #### M G, CMP, PHOS ####[facility] [address] [address]Dr. Jaci Mora Anion gap [Moles/Vol] 11.7 mmol/L Normal [facility] Comment on above: Performed By: #### M G, CMP, PHOS ####[facility] [address] [address]Dr. Jaci Mora AST [Catalytic activity/Vol] 26 U/L Normal 15-37 [facility] Comment on above: Performed By: #### Sunita G, CMP, PHOS ####[facility] [address] [place], [place] [address]Dr. Jaci Mora Bilirubin [Mass/Vol] 0.4 mg/dL Normal 0.2-1.0 [facility] Comment on above: Performed By: #### Sunita Culp CMP, PHOS ####[facility] [address] [place], [place] [address]Dr. Jaci Mora Calcium [Mass/Vol] 7.4 mg/dL Critically low 8.5-10.1 [facility] Comment on above: Performed By: #### Sunita Culp CMP, PHOS ####[facility] [address] [address]Dr. Jaci Mora Chloride [Moles/Vol] 106 mmol/L Normal 98-107 [facility] Comment on above: Performed By: #### M G, CMP, PHOS ####[facility] [address] [place], [place] [address]Dr. Jaci Mora CO2 [Moles/Vol] 27.4 mmol/L Normal 21.0-32.0 [facility] Comment on above: Performed By: #### M Robbi, CMP, PHOS ####[facility] [address] [place], [place] [address]Dr. Jaci Mora Creatinine [Mass/Vol] 1.15 mg/dL Critically high 0.55-1.02 [facility] Comment on above: Performed By: #### Sunita Culp CMP, PHOS ####[facility] [address] [address]Dr. Jaci Mora EGFR-AF ECUADOREAN 54 mL/min/1.73m2 Critically low >=60 [facility] Comment on above: Performed By: #### M Robbi, CMP, PHOS ####[facility] [address] [address]Dr. Jaci Devyn EGFR-NON AF ECUADOREAN 45 mL/min/1.73m2 Critically low >=60 [facility] Comment on above: Performed By: #### Sunita Culp CMP, PHOS ####[facility] [address] [address]Dr. Jaci Mora Globulin (S) [Mass/Vol] 4.0 g/dL Normal [facility] Comment on above: Performed By: #### Sunita Culp CMP, PHOS ####[facility] [address] [address]Dr. Griceldaadalberto Devyn Glucose [Mass/Vol] 85 mg/dL Normal 74-106 [facility] Comment on above: Performed By: #### Sunita Culp CMP, PHOS ####[facility] [address] [address]Dr. Griceldaadalberto Mora Potassium [Moles/Vol] 4.1 mmol/L Normal 3.5-5.1 [facility] Comment on above: Performed By: #### M Robbi, CMP, PHOS ####[facility] [address] [address]Dr. Jaci Mora Protein [Mass/Vol] 7.5 g/dL Normal 6.4-8.2 [facility] Comment on above: Performed By: #### M Robbi, CMP, PHOS ####[facility] [address] [address]Dr. Jaci Mora Sodium [Moles/Vol] 141 mmol/L Normal 136-145 [facility] Comment on above: Performed By: #### M LJ Culp, PHOS ####[facility] [address] [address]Dr. Jaci Mora Urea nitrogen [Mass/Vol] 23.0 mg/dL Critically high 7.0-18.0 [facility] Comment on above: Performed By: #### M Robbi CMP, PHOS ####[facility] [address] [id number] Mora Urea nitrogen/Creatini ne [Mass ratio] 20.0 mg/mg Normal [facility] Comment on above: Performed By: #### M LJ Culp, PHOS ####[facility] [address] [address]Dr. Jaci Mora UA RANDOM W/MICROSCOPICon BACTERIA TRACE Abnormal NONE SEEN [facility] Comment on above: Performed By: #### B MP #### [facility] [address] [place] [address] Dr. Jaci Mora Bilirubin Ql (U) Negative Normal NEGATIVE [facility] Comment on above: Performed By: #### B MP #### [facility] [address] [place] [address] Dr. Jaci Mora CAST NONE SEEN Normal NONE SEEN [facility] Comment on above: Performed By: #### B MP #### [facility] [address] [place] [address] Dr. Jaci Mora Clarity (U) CLEAR Normal CLEAR [facility] Comment on above: Performed By: #### B MP #### [facility] [address] [place] [address] Dr. Jaci Mora Color (U) YELLOW Normal YELLOW [facility] Comment on above: Performed By: #### B MP #### [facility] [address] [place] [address] Dr. Jaci Mora Crystals LM Nom (Urine sed) NONE SEEN Normal NONE SEEN [facility] Comment on above: Performed By: #### B MP #### [facility] [address] [place] [address] Dr. Jaci Mora Epithelial cells LM Ql (Urine sed) RARE Normal NONE SEEN /RARE [facility] Comment on above: Performed By: #### B MP #### [facility] [address] [place] [address] Dr. Jaci Mora Glucose Ql (U) Negative Normal NEGATIVE [facility] Comment on above: Performed By: #### B MP #### [facility] [address] [place] [address] Dr. Jaci Mroa Hemoglobin Ql (U) Negative Normal NEGATIVE [facility] Comment on above: Performed By: #### B MP #### [facility] [address] [place] [address] Dr. Jaci Mora Ketones Ql (U) Negative Normal NEGATIVE [facility] Comment on above: Performed By: #### B MP #### [facility] [address] [place] [address] Dr. Jaci Mora LEUKOCYTES SMALL Abnormal NEGATIVE [facility] Comment on above: Performed By: #### B MP #### [facility] [address] [place] [address] Dr. Jaci Mora MUCOUS NONE SEEN Normal NONE SEEN [facility] Comment on above: Performed By: #### B MP #### [facility] [address] [place] [address] Dr. Jaci Mora Nitrite Ql (U) Negative Normal NEGATIVE [facility] Comment on above: Performed By: #### B MP #### [facility] [address] [place] [address] Dr. Jaci Mora pH (U) 6.5 [pH] Normal 5-9 [facility] Comment on above: Performed By: #### B MP #### [facility] [address] [place] [address] Dr. Jaci Mora RBC 0-2 Normal 0-2 [facility] Comment on above: Performed By: #### B MP #### [facility] [address] [place] [address] Dr. Jaci Mora SPEC GRAVITY <=1.005 Abnormal 1.005-<=1.0 25 [facility] Comment on above: Performed By: #### B MP #### [facility] [address] [address] [address] Jaci Mora UA PROTEIN Negative Normal NEGATIVE/ TRACE [facility] [facility] Comment on above: Performed By: #### B MP #### [facility] [id number] Jaci Mora Urobilinogen Qn (U) 0.2 {Chantel'U}/dL Normal 0.2 - 1.0 [facility] Comment on above: Performed By: #### B MP #### [facility] [address] [address] [address] Jaci Mora WBC 5-10 Abnormal NONE SEEN [facility] Comment on above: Performed By: #### B MP #### [facility] [address] [address] [address] Jaci Mora URINE T PROTEIN CREAT RATIOo n 08-28-2022 Protein (U) [Mass/Vol] 20.2 mg/dL Critically high <=12.0 [facility] Comment on above: Performed By: #### B MP #### [facility] [address] [address] [address] Jaci Mora UR PROT CREAT RAT 0.17 Normal [facility] Comment on above: Performed By: #### B MP #### [facility] [address] [place] [address] Dr. Jaci Mora URINE CREAT 118.55 mg/dL Normal 20.00-300.0 0 [facility] Comment on above: Performed By: #### B MP #### [facility] [address] [address] [address] Jaci Mora VITAMIN D 25 OHon 08-28-2022 VIT D 25-OH 121.0 ng/mL Normal [facility] Comment on above: Performed By: #### V ITAD ####[facility] [address] [address]Dr. Jaci Mora VIT D RANGES SEE BELOW Normal [facility] Comment on above: Result Comment: <20 ng/mL Vit D deficient 20 - <30 ng/mL Vit D insufficient 30 - 100 ng/mL Vit D sufficient >100 ng/mL Potential Toxicity Performed By: #### V ITAD ####[facility] [address] [place], [place] [address]WySarahi Jaci Carrillo 06-21-2022 CNOV Office Visit (ORTHMN ) WILLIAM CANAS ([id number]) 1940 F Date Time Provider Department 06/21/22 [...] have orthopedic oncology needs. Devyn Chavez MD [facility] [address] [place], [place] [id number] Plan: No surgical intervention indicated at this time May consider denosumab treatment per oncology team Follow-up with me as needed No follow-ups on file. I spent a total of 50 minutes on the date of the service which included preparing to see the patient, chpr-ii-woer patient care, completing clinical documentation, obtaining and/or reviewing separately obtained history, performing a medically appropriate examination, counseling and educating the patient/family/caregiver, communicating with other HCPs (not separately reported), independently interpreting results (not separately reported), and communicating results to the patient/family/caregiver. These rec (more content not included)... Normal [facility] CT Chest limited W contrast IVOrdered By: Angelika Fisher on 06-06-2022 Radiology Study observation (narrative[facility]22 Rad[facility] Study [facility] (narrative[facility] [employer] XR Abdomen APon 06-06-2022 Radiology Study observation (narrative) [facility] [employer] CBC W MANUAL DIFFon 05-22-19 23 ATYPICAL LYMPH # Normal [facility] Comment on above: Performed By: #### B MP #### [facility] [address] [place] [address] Dr. Jaci Mora ATYPICAL LYMPH % Normal [facility] Comment on above: Performed By: #### B MP #### [facility] [address] [place] [address] Dr. Jaci Mora BAND # 0.1 103/ul Normal 0.0-0.3 [facility] Comment on above: Performed By: #### B MP #### [facility] [address] [place] [address] Dr. Jaci Mora BAND % 1 % Normal 0-5 [facility] Comment on above: Performed By: #### B MP #### [facility] [address] [place] [address] Dr. Jaci Mora BASOM # 0.12 103/ul Critically high 0.00-0.10 [facility] Comment on above: Performed By: #### B MP #### [facility] [address] [place] [address] Dr. Jaci Mora BASOM % 1.0 % Normal 0.2-2.0 [facility] Comment on above: Performed By: #### B MP #### [facility] [address] [place] [address] Dr. Jaci Mora BLAST # Normal [facility] Comment on above: Performed By: #### B MP #### [facility] [address] [place] [address] Dr. Jaci Mora BLAST % Normal [facility] Comment on above: Performed By: #### B MP #### [facility] [address] [place] [address] Dr. Jaci Mora CORRECTED WBC Normal 4.0-11.0 [facility] Comment on above: Performed By: #### B MP #### [facility] [address] [place] [address] Dr. Jaci Mora EOS # 0.23 103/ul Normal 0.00-0.70 [facility] Comment on above: Performed By: #### B MP #### [facility] [address] [place] [address] Dr. Jaci Mora EOS% 2.0 % Normal 0.9-7.0 [facility] Comment on above: Performed By: #### B MP #### [facility] [address] [place] [address] Dr. Jaci Mora HCT 29.6 % Critically low 36.0-48.0 [facility] Comment on above: Performed By: #### B MP #### [facility] [address] [place] [address] Dr. Jaci Mora HGB 9.2 g/dl Critically low 12.0-16.0 [facility] Comment on above: Performed By: #### B MP #### [facility] [address] [place] [address] Dr. Jaci Mora LYMPHM # 2.34 103/ul Normal 1.20-3.80 [facility] Comment on above: Performed By: #### B MP #### [facility] [address] [place] [address] Dr. Jaci Mora LYMPHM% 20.0 % Critically low 20.5-60.0 [facility] Comment on above: Performed By: #### B MP #### [facility] [address] [place] [address] Dr. Jaci Mora MCH 29.2 pg Normal 26.7-34.0 [facility] Comment on above: Performed By: #### B MP #### [facility] [address] [place] [address] Dr. Jaci Mora MCHC 31.1 g/dl Normal 29.9-35.2 [facility] Comment on above: Performed By: #### B MP #### [facility] [address] [place] [address] Dr. Jaci Mora MCV 94.0 fL Normal 81.0-99.0 [facility] Comment on above: Performed By: #### B MP #### [facility] [address] [place] [address] Dr. Jaci Mora METAMYELOCYTE # Normal [facility] Comment on above: Performed By: #### B MP #### [facility] [address] [place] [address] Dr. Jaci Mora METAMYELOCYTE % Normal [facility] Comment on above: Performed By: #### B MP #### [facility] [address] [place] [address] Dr. Jaci Mora MONOM# 0.58 103/ul Normal 0.30-0.80 [facility] Comment on above: Performed By: #### B MP #### [facility] [address] [place] [address] Dr. Jaci Mora MONOM% 5.0 % Normal 1.7-12.0 [facility] Comment on above: Performed By: #### B MP #### [facility] [address] [place] [address] Dr. Jaci Mora MPV 8.7 fL Critically low 9.5-13.5 [facility] Comment on above: Performed By: #### B MP #### [facility] [address] [place] [address] Dr. Jaci Mora MYELOCYTE # Normal [facility] Comment on above: Performed By: #### B MP #### [facility] [address] [address] [address] Jaci Mora MYELOCYTE % Normal [facility] Comment on above: Performed By: #### B MP #### [facility] [address] [address] [address] Jaci Mora NRBC Normal [facility] Comment on above: Performed By: #### B MP #### [facility] [address] [address] [address] Jaci Mora OVALOCYTES SLIGHT Normal [facility] Comment on above: Performed By: #### B MP #### [facility] [address] [address] [address] Jaci Mora PLT 372 103/ul Normal 150-450 [facility] Comment on above: Performed By: #### B MP #### [facility] [address] [address] [address] Jaci Mora POIKILOCYTOSIS SLIGHT Normal [facility] Comment on above: Performed By: #### B MP #### [facility] [address] [place] [address] Dr. Jaci Mora RBC 3.15 106/ul Critically low 4.20-5.40 [facility] Comment on above: Performed By: #### B MP #### [facility] [address] [place] [address] Dr. Jaci Mora RDW 20.7 % Critically high 11.0-15.0 [facility] Comment on above: Performed By: #### B MP #### [facility] [address] [place] [address] Dr. Jaci Mora SEG # 8.31 103/ul Critically high 1.40-6.50 [facility] Comment on above: Performed By: #### B MP #### [facility] [address] [place] [address] Dr. Jaci Mora SEG % 71.0 % Normal 43.0-75.0 [facility] Comment on above: Performed By: #### B MP #### [facility] [address] [place], [place] [id number] Dr. Jaci Mora WBC 11.7 103/ul Critically high 4.0-11.0 [facility] Comment on above: Performed By: #### B MP #### [facility] [address] [address] [address] Jaci Mora PROF 14(COMP METB)on 023 Albumin [Mass/Vol] 2.2 g/dL Critically low 3.4-5.0 [facility] Comment on above: Performed By: #### C MP ####[facility] [address] [address]Dr. Jaci Mora Albumin/Globulin [Mass ratio] 0.5 {ratio} Normal [facility] Comment on above: Performed By: #### C MP ####[facility] [address] [address]DrSarahi Mora ALP [Catalytic activity/Vol] 846 U/L Critically high 46-116 [facility] Comment on above: Performed By: #### C MP ####[facility] [address] [address]Dr. Jaci Mora ALT [Catalytic activity/Vol] 40 U/L Normal 14-59 [facility] Comment on above: Performed By: #### C MP ####[facility] [address] [address]DrSarahi Mora Anion gap [Moles/Vol] 13.1 mmol/L Normal [facility] Comment on above: Performed By: #### C MP ####[facility] [address] [address]Dr. Jaci Mora AST [Catalytic activity/Vol] 48 U/L Critically high 15-37 [facility] Comment on above: Performed By: #### C MP ####[facility] [address] [address]DrSarahi Mora Bilirubin [Mass/Vol] 0.3 mg/dL Normal 0.2-1.0 [facility] Comment on above: Performed By: #### C MP ####[facility] [address] [address]Dr. Jaci Mora Calcium [Mass/Vol] 8.7 mg/dL Normal 8.5-10.1 [facility] Comment on above: Performed By: #### C MP ####[facility] [address] [address]Dr. Jaci Mora Chloride [Moles/Vol] 106 mmol/L Normal 98-107 [facility] Comment on above: Performed By: #### C MP ####[facility] [address] [address]Dr. Jaci Mora CO2 [Moles/Vol] 25.4 mmol/L Normal 21.0-32.0 [facility] Comment on above: Performed By: #### C MP ####[facility] [address] [address]Dr. Jaci Devyn Creatinine [Mass/Vol] 1.05 mg/dL Critically high 0.55-1.02 [facility] Comment on above: Performed By: #### C MP ####[facility] [address] [address]Dr. Jaci Devyn EGFR-AF ECUADOREAN >60 Normal >=60 [facility] Comment on above: Performed By: #### C MP ####[facility] [address] [address]Dr. Jaci Devyn EGFR-NON AF ECUADOREAN 50 mL/min/1.73m2 Critically low >=60 [facility] Comment on above: Performed By: #### C MP ####[facility] [address] [address]Dr. Jaci Devyn Globulin (S) [Mass/Vol] 4.2 g/dL Normal [facility] Comment on above: Performed By: #### C MP ####[facility] [address] [address]Dr. Griceldaadalberto Devyn Glucose [Mass/Vol] 123 mg/dL Critically high 74-106 [facility] Comment on above: Performed By: #### C MP ####[facility] [address] [address]Dr. Jaci Mora Potassium [Moles/Vol] 3.5 mmol/L Normal 3.5-5.1 [facility] Comment on above: Performed By: #### C MP ####[facility] [address] [address]Dr. Jaci Mora Protein [Mass/Vol] 6.4 g/dL Normal 6.4-8.2 [facility] Comment on above: Performed By: #### C MP ####[facility] [address] [address]Dr. Jaci Mora Sodium [Moles/Vol] 141 mmol/L Normal 136-145 [facility] Comment on above: Performed By: #### C MP ####[facility] [address] [address]Dr. Jaci Mora Urea nitrogen [Mass/Vol] 13.0 mg/dL Normal 7.0-18.0 [facility] Comment on above: Performed By: #### C MP ####[facility] [address] [place], [place] [address]Dr. Jaci Mora Urea nitrogen/Creatini ne [Mass ratio] 12.4 mg/mg Normal [facility] Comment on above: Performed By: #### C MP ####[facility] [address] [place], [place] [address]DrSarahi Mora CBC AUTO DIFFon 05-07-2022 BASO # 0.1 103/ul Normal 0.0-0.1 [facility] Comment on above: Performed By: #### B MP #### [facility] [address] [place] [address] Dr. Jaci Mora Basophils/100 WBC (Bld) 0.6 % Normal 0.2-2.0 [facility] Comment on above: Performed By: #### B MP #### [facility] [address] [place] [address] Dr. Jaci Mora EO # 0.3 103/ul Normal 0.0-0.7 [facility] Comment on above: Performed By: #### B MP #### [facility] [address] [place] [address] Dr. Jaci Mora Eosinophils/100 WBC (Bld) 2.2 % Normal 0.9-7.0 [facility] Comment on above: Performed By: #### B MP #### [facility] [address] [place] [address] Dr. Jaci Mora Erythrocyte distribution width (RBC) [Ratio] 18.6 % Critically high 11.0-15.0 [facility] Comment on above: Performed By: #### B MP #### [facility] [address] [place] [address] Dr. Jaci Mora Hematocrit (Bld) [Volume fraction] 28.9 % Critically low 36.0-48.0 [facility] Comment on above: Performed By: #### B MP #### [facility] [address] [place] [address] Dr. Jaci Mora Hemoglobin (Bld) [Mass/Vol] 9.7 g/dL Critically low 12.0-16.0 [facility] Comment on above: Performed By: #### B MP #### [facility] [address] [place] [address] Dr. Jaci Mora IG # 0.74 10e3/ul Critically high 0.00-0.03 [facility] Comment on above: Performed By: #### B MP #### [facility] [address] [place] [address] Dr. Jaci Mora IG % 5.0 % Critically high 0.0-0.5 [facility] Comment on above: Performed By: #### B MP #### [facility] [address] [place] [address] Dr. Jaci Mora LYMPH # 2.3 103/ul Normal 1.2-3.8 [facility] Comment on above: Performed By: #### B MP #### [facility] [address] [place] [address] Dr. Jaci Mora Lymphocytes/100 WBC (Bld) 15.2 % Critically low 20.5-60.0 [facility] Comment on above: Performed By: #### B MP #### [facility] [address] [place] [address] Dr. Jaci Mora MANUAL DIFF REQ NO Normal [facility] Comment on above: Performed By: #### B MP #### [facility] [address] [place] [address] Dr. Jaci Mora MCH (RBC) [Entitic mass] 29.2 pg Normal 26.7-34.0 [facility] Comment on above: Performed By: #### B MP #### [facility] [address] [place] [address] Dr. Jaci Mora MCHC (RBC) [Mass/Vol] 33.6 g/dL Normal 29.9-35.2 [facility] Comment on above: Performed By: #### B MP #### [facility] [address] [place] [address] Dr. Jaci Mora MCV (RBC) [Entitic vol] 87.0 fL Normal 81.0-99.0 [facility] Comment on above: Performed By: #### B MP #### [facility] [address] [place] [address] Dr. Jaci Mora MONO # 0.7 103/ul Normal 0.3-0.8 [facility] Comment on above: Performed By: #### B MP #### [facility] [address] [place] [address] Dr. Jaci Mora Monocytes/100 WBC (Bld) 4.8 % Normal 1.7-12.0 [facility] Comment on above: Performed By: #### B MP #### [facility] [address] [place] [address] Dr. Jaci Mora NEUT # 10.7 103/ul Critically high 1.4-6.5 [facility] Comment on above: Performed By: #### B MP #### [facility] [address] [place] [address] Dr. Jaci Mora Neutrophils/100 WBC (Bld) 72.2 % Normal 43.0-75.0 [facility] Comment on above: Performed By: #### B MP #### [facility] [address] [place] [address] Dr. Jaci Mora Platelet mean volume (Bld) [Entitic vol] 10.0 fL Normal 9.5-13.5 [facility] Comment on above: Performed By: #### B MP #### [facility] [address] [address] [address] Jaci Mora PLT 236 103/ul Normal 150-450 [facility] Comment on above: Performed By: #### B MP #### [facility] [address] [address] [address] Jaci Mora RBC 3.32 106/ul Critically low 4.20-5.40 [facility] Comment on above: Performed By: #### B MP #### [facility] [address] [address] [address] Jaci Mora WBC 14.8 103/ul Critically high 4.0-11.0 [facility] Comment on above: Performed By: #### B MP #### [facility] [address] [address] [address] Jaci Mora PROF 14(COMP METB)on 023 Albumin [Mass/Vol] 2.0 g/dL Critically low 3.4-5.0 [facility] Comment on above: Performed By: #### C MP ####[facility] [address] [address]Dr. Jaci Mora Albumin/Globulin [Mass ratio] 0.5 {ratio} Normal [facility] Comment on above: Performed By: #### C MP ####[facility] [address] [address]Dr. Jaci Mora ALP [Catalytic activity/Vol] 782 U/L Critically high 46-116 [facility] Comment on above: Performed By: #### C MP ####[facility] [address] [address]Dr. Jaci Mora ALT [Catalytic activity/Vol] 122 U/L Critically high 14-59 [facility] Comment on above: Performed By: #### C MP ####[facility] [address] [address]Dr. Jaci Mora Anion gap [Moles/Vol] 14.9 mmol/L Normal [facility] Comment on above: Performed By: #### C MP ####[facility] [address] [place], [place] [address]Dr. Jaci Mora AST [Catalytic activity/Vol] 103 U/L Critically high 15-37 [facility] Comment on above: Performed By: #### C MP ####[facility] [address] [place], [place] [address]Dr. Jaci Mora Bilirubin [Mass/Vol] 0.4 mg/dL Normal 0.2-1.0 [facility] Comment on above: Performed By: #### C MP ####[facility] [address] [place], [place] [address]Dr. Jaci Mora Calcium [Mass/Vol] 9.3 mg/dL Normal 8.5-10.1 [facility] Comment on above: Performed By: #### C MP ####[facility] [address] [place], [place] [address]Dr. Jaci Mora Chloride [Moles/Vol] 104 mmol/L Normal 98-107 [facility] Comment on above: Performed By: #### C MP ####[facility] [address] [place], [place] [address]Dr. Jaci Mora CO2 [Moles/Vol] 24.9 mmol/L Normal 21.0-32.0 [facility] Comment on above: Performed By: #### C MP ####[facility] [address] [place], [place] [address]Dr. Jaci Mora Creatinine [Mass/Vol] 0.87 mg/dL Normal 0.55-1.02 [facility] Comment on above: Performed By: #### C MP ####[facility] [address] [place], [place] [address]Dr. Griceldaadalberto Devyn EGFR-AF ECUADOREAN >60 Normal >=60 [facility] Comment on above: Performed By: #### C MP ####[facility] [address] [place], [place] [address]Dr. Jaci Mora EGFR-NON AF ECUADOREAN >60 Normal >=60 [facility] Comment on above: Performed By: #### C MP ####[facility] [address] [address]Dr. Jaci Mora Globulin (S) [Mass/Vol] 3.7 g/dL Normal [facility] Comment on above: Performed By: #### C MP ####[facility] [address] [address]Dr. Jaci Mora Glucose [Mass/Vol] 89 mg/dL Normal 74-106 [facility] Comment on above: Performed By: #### C MP ####[facility] [address] [place], [place] [address]Dr. Jaci Mora Potassium [Moles/Vol] 3.8 mmol/L Normal 3.5-5.1 [facility] Comment on above: Performed By: #### C MP ####[facility] [address] [place], [place] [address]Dr. Jaci Mora Protein [Mass/Vol] 5.7 g/dL Critically low 6.4-8.2 [facility] Comment on above: Performed By: #### C MP ####[facility] [address] [place], [place] [address]Dr. Jaci Mora Sodium [Moles/Vol] 140 mmol/L Normal 136-145 [facility] Comment on above: Performed By: #### C MP ####[facility] [address] [place], [place] [address]Dr. Jaci Mora Urea nitrogen [Mass/Vol] 14.0 mg/dL Normal 7.0-18.0 [facility] Comment on above: Performed By: #### C MP ####[facility] [address] [place], [place] [address]Dr. Jaci Mora Urea nitrogen/Creatini ne [Mass ratio] 16.1 mg/mg Normal [facility] Comment on above: Performed By: #### C MP ####[facility] [address] [place], [place] [address]Dr. Jaci Devyn CBC W MANUAL DIFFon 05-02-19 23 ANISOCYTOSIS 2+ Normal [facility] Comment on above: Performed By: #### C BCMAN #### [facility] [address] [place] [address] Dr. Jaci Mora ATYPICAL LYMPH # 0.14 103/ul Normal [facility] Comment on above: Performed By: #### C CHARLY #### [facility] [address] [place] [address] Dr. Jaci Mora ATYPICAL LYMPH % 1 % Normal [facility] Comment on above: Performed By: #### C CHARLY #### [facility] [address] [place] [address] Dr. Jaci Mora BAND # 0.0 103/ul Normal 0.0-0.3 [facility] Comment on above: Performed By: #### C CHARLY #### [facility] [address] [place] [address] Dr. Jaci Mora BAND % 0 % Normal 0-5 [facility] Comment on above: Performed By: #### C CHARLY #### [facility] [address] [place] [address] Dr. Jaci Mora BASOM # 0.14 103/ul Critically high 0.00-0.10 [facility] Comment on above: Performed By: #### C CHARLY #### [facility] [address] [place] [address] Dr. Jaci Mora BASOM % 1.0 % Normal 0.2-2.0 [facility] Comment on above: Performed By: #### C CHARLY #### [facility] Laboratory [address] [place] [address] Dr. Jaci Mora BLAST # Normal [facility] Comment on above: Performed By: #### C CHARLY #### [facility] [address] [place] [address] Dr. Jaci Mora BLAST % Normal [facility] Comment on above: Performed By: #### C CHARLY #### [facility] [address] [place] [address] Dr. Jaci Mora CORRECTED WBC Normal 4.0-11.0 [facility] Comment on above: Performed By: #### C CHARLY #### [facility] [address] [address] [address] Jaci Mora EOS # 0.14 103/ul Normal 0.00-0.70 [facility] Comment on above: Performed By: #### C CHARLY #### [facility] [address] [place] [address] Dr. Jaci Mora EOS% 1.0 % Normal 0.9-7.0 [facility] Comment on above: Performed By: #### C CHARLY #### [facility] [address] [place] [address] Dr. Jaci Mora HCT 28.6 % Critically low 36.0-48.0 [facility] Comment on above: Performed By: #### C CHARLY #### [facility] [address] [place] [address] Dr. Jaci Mora HGB 9.3 g/dl Critically low 12.0-16.0 [facility] Comment on above: Performed By: #### C CHARLY #### [facility] [address] [place] [address] Dr. Jaci Mora LYMPHM # 0.70 103/ul Critically low 1.20-3.80 [facility] Comment on above: Performed By: #### C CHARLY #### [facility] [address] [place] [address] Dr. Jaci Mora LYMPHM% 5.0 % Critically low 20.5-60.0 [facility] Comment on above: Performed By: #### Mil PARKS #### [facility] [address] [place] [address] Dr. Jaci Mora MCH 28.6 pg Normal 26.7-34.0 [facility] Comment on above: Performed By: #### C CHARLY #### [facility] [address] [place] [address] Dr. Jaci Mora MCHC 32.5 g/dl Normal 29.9-35.2 [facility] Comment on above: Performed By: #### Mil PARKS #### [facility] [address] [place] [address] Dr. Jaci Mora MCV 88.0 fL Normal 81.0-99.0 [facility] Comment on above: Performed By: #### Mil PARKS #### [facility] [address] [address] [address] Jaci Mora METAMYELOCYTE # Normal [facility] Comment on above: Performed By: #### Mil PARKS #### [facility] [address] [place] [address] Dr. Jaci Mora METAMYELOCYTE % Normal [facility] Comment on above: Performed By: #### Mil PARKS #### [facility] [address] [place] [address] Dr. Jaci Mora MONOM# 0.14 103/ul Critically low 0.30-0.80 [facility] Comment on above: Performed By: #### Mil PARKS #### [facility] [address] [place] [address] Dr. Jaci Mora MONOM% 1.0 % Critically low 1.7-12.0 [facility] Comment on above: Performed By: #### Mil PARKS #### [facility] [address] [place] [address] Dr. Jaci Mora MPV 9.0 fL Critically low 9.5-13.5 [facility] Comment on above: Performed By: #### Mil PARKS #### [facility] [address] [place] [address] Dr. Jaci Mora MYELOCYTE # 0.3 103/ul Normal [facility] Comment on above: Performed By: #### Mil PARKS #### [facility] [address] [place] [address] Dr. Jaci Mora MYELOCYTE % 2 % Normal [facility] Comment on above: Performed By: #### Mil PARKS #### [facility] [address] [place] [address] Dr. Jaci Mora NRBC Normal [facility] Comment on above: Performed By: #### Mil PARKS #### [facility] [address] [place] [address] Dr. Jaci Mora PLT 194 103/ul Normal 150-450 [facility] Comment on above: Performed By: #### Mil PARKS #### [facility] [address] [place] [address] Dr. Jaci Mora POIKILOCYTOSIS 2+ Normal [facility] Comment on above: Performed By: #### C CHARLY #### [facility] [address] [place] [address] Dr. Jaci Mora RBC 3.25 106/ul Critically low 4.20-5.40 [facility] Comment on above: Performed By: #### C CHARLY #### [facility] [address] [place] [address] Dr. Jaci Mora RDW 18.8 % Critically high 11.0-15.0 [facility] Comment on above: Performed By: #### C CHARLY #### [facility] [address] [place] [address] Dr. Jaci Mora SCHISTOCYTES 2+ Normal [facility] Comment on above: Performed By: #### C CHARLY #### [facility] [address] [place] [address] Dr. Jaci Mora SEG # 12.46 103/ul Critically high 1.40-6.50 [facility] Comment on above: Performed By: #### C CHARLY #### [facility] [address] [place] [address] Dr. Jaci Mora SEG % 89.0 % Critically high 43.0-75.0 [facility] Comment on above: Performed By: #### C CHARLY #### [facility] [address] [place] [address] Dr. Jaci Mora WBC 14.0 103/ul Critically high 4.0-11.0 [facility] Comment on above: Performed By: #### C CHARLY #### [facility] [address] [place] [address] Dr. Jaci Mora PROF CHEM 8 (BAS METB)on Anion gap [Moles/Vol] 10.9 mmol/L Normal [facility] Comment on above: Performed By: #### C MP #### [facility] [address] [place] [address] Dr. Jaci Mora Calcium [Mass/Vol] 9.8 mg/dL Normal 8.5-10.1 [facility] Comment on above: Performed By: #### C MP #### [facility] [address] [address] [address] Jaci Mora Chloride [Moles/Vol] 110 mmol/L Critically high 98-107 [facility] Comment on above: Performed By: #### C MP #### [facility] [address] [address] [address] Jaci Mora CO2 [Moles/Vol] 20.3 mmol/L Critically low 21.0-32.0 [facility] Comment on above: Performed By: #### C MP #### [facility] [address] [place] [address] Dr. Jaci Mora Creatinine [Mass/Vol] 0.91 mg/dL Normal 0.55-1.02 [facility] Comment on above: Performed By: #### C MP #### [facility] [address] [address] [address] Jaci Mora EGFR-AF ECUADOREAN >60 Normal >=60 [facility] Comment on above: Performed By: #### C MP #### [facility] [address] [place] [address] Dr. Jaci Mora EGFR-NON AF ECUADOREAN 59 mL/min/1.73m2 Critically low >=60 [facility] Comment on above: Performed By: #### C MP #### [facility] [address] [place] [address] Dr. Jaci Mora Glucose [Mass/Vol] 77 mg/dL Normal 74-106 [facility] Comment on above: Performed By: #### C MP #### [facility] [address] [address] [address] Jaci Mora Potassium [Moles/Vol] 4.2 mmol/L Normal 3.5-5.1 [facility] Comment on above: Performed By: #### C MP #### [facility] [address] [place] [address] Dr. Jaci Mora Sodium [Moles/Vol] 137 mmol/L Normal 136-145 [facility] Comment on above: Performed By: #### C MP #### [facility] [address] [place] [address] Dr. Jaci Mora Urea nitrogen [Mass/Vol] 21.0 mg/dL Critically high 7.0-18.0 [facility] Comment on above: Performed By: #### C MP #### [facility] [address] [place] [address] Dr. Jaci Mora Urea nitrogen/Creatini ne [Mass ratio] 23.1 mg/mg Normal [facility] Comment on above: Performed By: #### C MP #### [facility] [address] [place] [address] Dr. Jaci Mora CBC W MANUAL DIFFon 05-01-19 23 ATYPICAL LYMPH # 0.68 103/ul Normal [facility] Comment on above: Performed By: #### C MP #### [facility] [address] [place] [address] Dr. Jaci Mora ATYPICAL LYMPH % 4 % Normal [facility] Comment on above: Performed By: #### C MP #### [facility] [address] [place] [address] Dr. Jaci Mora BAND # 0.0 103/ul Normal 0.0-0.3 [facility] Comment on above: Performed By: #### C MP #### [facility] [address] [place] [address] Dr. Jaci Mora BAND % 0 % Normal 0-5 [facility] Comment on above: Performed By: #### C MP #### [facility] [address] [place] [address] Dr. Jaci Mora BASOM # 0.00 103/ul Normal 0.00-0.10 [facility] Comment on above: Performed By: #### C MP #### [facility] [address] [place] [address] Dr. Jaci Mora BASOM % 0.0 % Critically low 0.2-2.0 [facility] Comment on above: Performed By: #### C MP #### [facility] [address] [place] [address] Dr. Jaci Mora BLAST # Normal [facility] Comment on above: Performed By: #### C MP #### [facility] [address] [place] [address] Dr. Jaci Mora BLAST % Normal [facility] Comment on above: Performed By: #### C MP #### [facility] [address] [place] [address] Dr. Jaci Mora CORRECTED WBC Normal 4.0-11.0 [facility] Comment on above: Performed By: #### C MP #### [facility] [address] [place] [address] Dr. Jaci Mora EOS # 0.17 103/ul Normal 0.00-0.70 [facility] Comment on above: Performed By: #### C MP #### [facility] [address] [place] [address] Dr. Jaci Mora EOS% 1.0 % Normal 0.9-7.0 [facility] Comment on above: Performed By: #### C MP #### [facility] [address] [place] [address] Dr. Jaci Mora HCT 29.2 % Critically low 36.0-48.0 [facility] Comment on above: Performed By: #### C MP #### [facility] [address] [place] [address] Dr. Jaci Mora HGB 10.0 g/dl Critically low 12.0-16.0 [facility] Comment on above: Performed By: #### C MP #### [facility] [address] [place] [address] Dr. Jaci Mora LYMPHM # 0.68 103/ul Critically low 1.20-3.80 [facility] Comment on above: Performed By: #### C MP #### [facility] [address] [place] [address] Dr. Jaci Mora LYMPHM% 4.0 % Critically low 20.5-60.0 [facility] Comment on above: Performed By: #### C MP #### [facility] [address] [address] [address] Jaci Mora MCH 29.0 pg Normal 26.7-34.0 [facility] Comment on above: Performed By: #### C MP #### [facility] [address] [place] [address] Dr. Jaci Mora MCHC 34.2 g/dl Normal 29.9-35.2 [facility] Comment on above: Performed By: #### C MP #### [facility] [address] [place] [address] Dr. Jaci Mora MCV 84.6 fL Normal 81.0-99.0 [facility] Comment on above: Performed By: #### C MP #### [facility] [address] [place] [address] Dr. Jaci Mora METAMYELOCYTE # Normal [facility] Comment on above: Performed By: #### C MP #### [facility] [address] [place] [address] Dr. Jaci Mora METAMYELOCYTE % Normal [facility] Comment on above: Performed By: #### C MP #### [facility] [address] [place] [address] Dr. Jaci Mora MONOM# 0.51 103/ul Normal 0.30-0.80 [facility] Comment on above: Performed By: #### C MP #### [facility] [address] [place] [address] Dr. Jaci Mora MONOM% 3.0 % Normal 1.7-12.0 [facility] Comment on above: Performed By: #### C MP #### [facility] [address] [place] [address] Dr. Jaci Mora MPV 9.3 fL Critically low 9.5-13.5 [facility] Comment on above: Performed By: #### C MP #### [facility] [address] [place] [address] Dr. Jaci Mora MYELOCYTE # 0.3 103/ul Normal [facility] Comment on above: Performed By: #### C MP #### [facility] [address] [place] [address] Dr. Jaci Mora MYELOCYTE % 2 % Normal [facility] Comment on above: Performed By: #### C MP #### [facility] [address] [place] [address] Dr. Jaci Mora NRBC 3 Normal [facility] Comment on above: Performed By: #### C MP #### [facility] [address] [place] [address] Dr. Jaci Mora PLT 209 103/ul Normal 150-450 [facility] Comment on above: Performed By: #### C MP #### [facility] [address] [place] [address] Dr. Jaci Mora RBC 3.45 106/ul Critically low 4.20-5.40 [facility] Comment on above: Performed By: #### C MP #### [facility] [address] [place] [address] Dr. Jaci Mora RDW 18.4 % Critically high 11.0-15.0 [facility] Comment on above: Performed By: #### C MP #### [facility] [address] [place] [address] Dr. Jaci Mora SEG # 14.71 103/ul Critically high 1.40-6.50 [facility] Comment on above: Performed By: #### C MP #### [facility] [address] [place] [address] Dr. Jaci Mora SEG % 86.0 % Critically high 43.0-75.0 [facility] Comment on above: Performed By: #### C MP #### [facility] [address] [place] [address] Dr. Jaci Mora WBC 17.1 103/ul Critically high 4.0-11.0 [facility] Comment on above: Performed By: #### C MP #### [facility] [address] [place] [address] Dr. Jaci Mora PROF CHEM 8 (BAS METB)on Anion gap [Moles/Vol] 13.8 mmol/L Normal [facility] Comment on above: Performed By: #### B MP #### [facility] [address] [address] [address] Jaci Mora Calcium [Mass/Vol] 9.2 mg/dL Normal 8.5-10.1 [facility] Comment on above: Performed By: #### B MP #### [facility] [address] [address] [address] Jaci Mora Chloride [Moles/Vol] 109 mmol/L Critically high 98-107 [facility] Comment on above: Performed By: #### B MP #### [facility] [address] [address] [address] Jaci Mora CO2 [Moles/Vol] 20.1 mmol/L Critically low 21.0-32.0 [facility] Comment on above: Performed By: #### B MP #### [facility] [address] [place] [address] Dr. Jaci Mora Creatinine [Mass/Vol] 0.84 mg/dL Normal 0.55-1.02 [facility] Comment on above: Performed By: #### B MP #### [facility] [address] [address] [address] Jaci Mora EGFR-AF ECUADOREAN >60 Normal >=60 [facility] Comment on above: Performed By: #### B MP #### [facility] [address] [place] [address] Dr. Jaci Mora EGFR-NON AF ECUADOREAN >60 Normal >=60 [facility] Comment on above: Performed By: #### B MP #### [facility] [address] [address] [address] Jaci Mora Glucose [Mass/Vol] 130 mg/dL Critically high 74-106 [facility] Comment on above: Performed By: #### B MP #### [facility] [address] [place] [address] Dr. Jaci Mora Potassium [Moles/Vol] 3.9 mmol/L Normal 3.5-5.1 [facility] Comment on above: Performed By: #### B MP #### [facility] [address] [place] [address] Dr. Jaci Mora Sodium [Moles/Vol] 139 mmol/L Normal 136-145 [facility] Comment on above: Performed By: #### B MP #### [facility] [address] [place] [address] Dr. Jaci Mora Urea nitrogen [Mass/Vol] 17.0 mg/dL Normal 7.0-18.0 [facility] Comment on above: Performed By: #### B MP #### [facility] [address] [place] [address] Dr. Jaci Mora Urea nitrogen/Creatini ne [Mass ratio] 20.2 mg/mg Normal [facility] Comment on above: Performed By: #### B MP #### [facility] [address] [place] [address] Dr. Jaci Mora CBC AUTO DIFFon 04-30-2022 BASO # 0.0 103/ul Normal 0.0-0.1 [facility] Comment on above: Performed By: #### C MP #### [facility] [address] [place] [address] Dr. Jaci Mora Basophils/100 WBC (Bld) 0.3 % Normal 0.2-2.0 [facility] Comment on above: Performed By: #### C MP #### [facility] [address] [place] [address] Dr. Jaci Mora EO # 0.3 103/ul Normal 0.0-0.7 [facility] Comment on above: Performed By: #### C MP #### [facility] [address] [place] [address] Dr. Jaci Mora Eosinophils/100 WBC (Bld) 2.2 % Normal 0.9-7.0 [facility] Comment on above: Performed By: #### C MP #### [facility] [address] [place] [address] Dr. Jaci Mora Erythrocyte distribution width (RBC) [Ratio] 18.6 % Critically high 11.0-15.0 [facility] Comment on above: Performed By: #### C MP #### [facility] [address] [place] [address] Dr. Jaci Mora Hematocrit (Bld) [Volume fraction] 26.3 % Critically low 36.0-48.0 [facility] Comment on above: Performed By: #### C MP #### [facility] [address] [place] [address] Dr. Jaic Mora Hemoglobin (Bld) [Mass/Vol] 9.0 g/dL Critically low 12.0-16.0 [facility] Comment on above: Performed By: #### C MP #### [facility] [address] [place] [address] Dr. Jaci Mora IG # 0.39 10e3/ul Critically high 0.00-0.03 [facility] Comment on above: Performed By: #### C MP #### [facility] [address] [place] [address] Dr. Jaci Mora IG % 2.9 % Critically high 0.0-0.5 [facility] Comment on above: Performed By: #### C MP #### [facility] [address] [place] [address] Dr. Jaci Mora LYMPH # 1.2 103/ul Normal 1.2-3.8 [facility] Comment on above: Performed By: #### C MP #### [facility] [address] [place] [address] Dr. Jaci Mora Lymphocytes/100 WBC (Bld) 8.9 % Critically low 20.5-60.0 [facility] Comment on above: Performed By: #### C MP #### [facility] [address] [place] [address] Dr. Jaci Mora MANUAL DIFF REQ NO Normal [facility] Comment on above: Performed By: #### C MP #### [facility] [address] [place] [address] Dr. Jaci Mora MCH (RBC) [Entitic mass] 29.0 pg Normal 26.7-34.0 [facility] Comment on above: Performed By: #### C MP #### [facility] [address] [place] [address] Dr. Jaci Mora MCHC (RBC) [Mass/Vol] 34.2 g/dL Normal 29.9-35.2 [facility] Comment on above: Performed By: #### C MP #### [facility] [address] [place] [address] Dr. Jaci Mora MCV (RBC) [Entitic vol] 84.8 fL Normal 81.0-99.0 [facility] Comment on above: Performed By: #### C MP #### [facility] [address] [place] [address] Dr. Jaci Mora MONO # 0.4 103/ul Normal 0.3-0.8 [facility] Comment on above: Performed By: #### C MP #### [facility] [address] [place] [address] Dr. Jaci Mora Monocytes/100 WBC (Bld) 2.9 % Normal 1.7-12.0 [facility] Comment on above: Performed By: #### C MP #### [facility] [address] [place] [address] Dr. Jaci Mora NEUT # 11.0 103/ul Critically high 1.4-6.5 [facility] Comment on above: Performed By: #### C MP #### [facility] [address] [place] [address] Dr. Jaci Mora Neutrophils/100 WBC (Bld) 82.8 % Critically high 43.0-75.0 [facility] Comment on above: Performed By: #### C MP #### [facility] [address] [place] [address] Dr. Jaci Mora Platelet mean volume (Bld) [Entitic vol] 8.7 fL Critically low 9.5-13.5 [facility] Comment on above: Performed By: #### C MP #### [facility] [address] [place] [address] Dr. Jaci Mora PLT 185 103/ul Normal 150-450 [facility] Comment on above: Performed By: #### C MP #### [facility] [address] [place] [address] Dr. Jaci Mora RBC 3.10 106/ul Critically low 4.20-5.40 [facility] Comment on above: Performed By: #### C MP #### [facility] [address] [address] [address] Jaci Mora WBC 13.3 103/ul Critically high 4.0-11.0 [facility] Comment on above: Performed By: #### C MP #### [facility] [address] [address] [address] Jaci Mora PROF CHEM 8 (BAS METB)on Anion gap [Moles/Vol] 11.4 mmol/L Normal [facility] Comment on above: Performed By: #### B MP ####[facility] [address] [address]Dr. Jaci Mora Calcium [Mass/Vol] 8.7 mg/dL Normal 8.5-10.1 [facility] Comment on above: Performed By: #### B MP ####[facility] [address] [address]Dr. Jaci Mora Chloride [Moles/Vol] 110 mmol/L Critically high 98-107 [facility] Comment on above: Performed By: #### B MP ####[facility] [address] [address]Dr. Jaci Mora CO2 [Moles/Vol] 22.7 mmol/L Normal 21.0-32.0 [facility] Comment on above: Performed By: #### B MP ####[facility] [address] [address]Dr. Jaci Mora Creatinine [Mass/Vol] 1.02 mg/dL Normal 0.55-1.02 [facility] Comment on above: Performed By: #### B MP ####[facility] [address] [address]Dr. Jaci Mora EGFR-AF ECUADOREAN >60 Normal >=60 [facility] Comment on above: Performed By: #### B MP ####[facility] [address] [address]DrSarahi Mora EGFR-NON AF ECUADOREAN 52 mL/min/1.73m2 Critically low >=60 [facility] Comment on above: Performed By: #### B MP ####[facility] [address] [address]Dr. Jaci Mora Glucose [Mass/Vol] 121 mg/dL Critically high 74-106 [facility] Comment on above: Performed By: #### B MP ####[facility] [address] [address]Dr. Jaci Mora Potassium [Moles/Vol] 3.1 mmol/L Critically low 3.5-5.1 [facility] Comment on above: Performed By: #### B MP ####[facility] [address] [place], [place] [address]Dr. Jaci Mora Sodium [Moles/Vol] 141 mmol/L Normal 136-145 [facility] Comment on above: Performed By: #### B MP ####[facility] [address] [place], [place] [address]Dr. Jaci Mora Urea nitrogen [Mass/Vol] 25.0 mg/dL Critically high 7.0-18.0 [facility] Comment on above: Performed By: #### B MP ####[facility] [address] [place], [place] [address]Dr. Jaci Mora Urea nitrogen/Creatini ne [Mass ratio] 24.5 mg/mg Normal [facility] Comment on above: Performed By: #### B MP ####[facility] [address] [place], [place] [address]Dr. Jaci Mora XR Abdomen APon 04-30-2022 [facility] CBC W MANUAL DIFFon 04-29-19 23 ANISOCYTOSIS 1+ Normal [facility] Comment on above: Performed By: #### C BCMAN ####[facility] Toeqkxuebm[address] [place], [place] [address]Dr. Jaci Mora ATYPICAL LYMPH # Normal [facility] Comment on above: Performed By: #### C BCMAN ####[facility] Locwpzxglc[address] [place], [place] [address]Dr. Jaci Mora ATYPICAL LYMPH % Normal [facility] Comment on above: Performed By: #### C BCNITIN ####[facility] Ofbpnoc[address] [place] [id number]. Yilan Mora BAND # 0.2 103/ul Normal 0.0-0.3 [facility] Comment on above: Performed By: #### C BCNITIN ####[facility] [address]crop[address] [place] [address]Dr. Yilan Mora BAND % 2 % Normal 0-5 [facility] Comment on above: Performed By: #### C BCNITIN ####[facility] Lxqyvxzpnb2[address] [place] [address]Dr. Yilan Mora BASOM # 0.00 103/ul Normal 0.00-0.10 [facility] Comment on above: Performed By: #### C CHARLY ####[facility] Ipnc[address] [place], [place] [address]Dr. Yilan Mora BASOM % 0.0 % Critically low 0.2-2.0 [facility] Comment on above: Performed By: #### C CHARLY ####[facility] Zh[address]uhpea[address] [place] [address]Dr. Yilan Mora BLAST # Normal [facility] Comment on above: Performed By: #### C CHARLY ####[facility] [address] [place], [place] [address]Dr. Yilan Mora BLAST % Normal [facility] Comment on above: Performed By: #### C CHARLY ####[facility] Egxupcqbhl[address] [place], [place] [address]Dr. Yilan Mora CORRECTED WBC Normal 4.0-11.0 [facility] Comment on above: Performed By: #### C BCNITIN ####[facility] Ztwmym[address] [place], [place] [address]Dr. Yilan Mora EOS # 0.00 103/ul Normal 0.00-0.70 [facility] Comment on above: Performed By: #### C BCNITIN ####[facility] Aqcxoznxir[address] [place], [place] [address]Dr. Yilan Mora EOS% 0.0 % Critically low 0.9-7.0 [facility] Comment on above: Performed By: #### C CHARLY ####[facility] Wznzhmlxqw7[address] [place] [id number]. Jaci Mora HCT 25.2 % Critically low 36.0-48.0 [facility] Comment on above: Performed By: #### C CHARLY ####[facility] Rwqmktfgjn95[address] [place] [id number]. Jaci Mora HGB 8.5 g/dl Critically low 12.0-16.0 [facility] Comment on above: Performed By: #### C CHARLY ####[facility] Fpzqzyllsf10[address] [place] [id number]. Jaci Mora HYPOCHROMASIA SLIGHT Normal [facility] Comment on above: Performed By: #### C CHARLY ####[facility] Zhxfbadlls0447 [place] [id number]. Jaci Mora LYMPHM # 1.22 103/ul Normal 1.20-3.80 [facility] Comment on above: Performed By: #### C CHARLY ####[facility] Vknkicvcmf2572 [place] [id number]. Jaci Mora LYMPHM% 10.0 % Critically low 20.5-60.0 [facility] Comment on above: Performed By: #### C CHARLY ####[facility] Fblsacpbwl4860 [place] [id number]. Jaci Mora MCH 28.6 pg Normal 26.7-34.0 [facility] Comment on above: Performed By: #### C CHARLY ####[facility] Bsxfaopvyb14[address] [place] [id number]. Jaci Mora MCHC 33.7 g/dl Normal 29.9-35.2 [facility] Comment on above: Performed By: #### C CHARLY ####[facility] Kkymmtkzaj37[address] [place] [id number]. Jaci Mora MCV 84.8 fL Normal 81.0-99.0 [facility] Comment on above: Performed By: #### C CHARLY ####[facility] Vshbt[address]rbw[address] [place], [place] [address]Ba. Jaci Mora METAMYELOCYTE # Normal [facility] Comment on above: Performed By: #### C CHARLY ####[facility] Lhmivgvtkj7[address] [place] [id number]. Jaci Mora METAMYELOCYTE % Normal [facility] Comment on above: Performed By: #### C CHARLY ####[facility] Kwrqdwpgpo3622 [place] [id number]. Jaci Mora MONOM# 0.12 103/ul Critically low 0.30-0.80 [facility] Comment on above: Performed By: #### C CHARLY ####[facility] Nstgabwumv2505 [place] [id number]. Jaci Mora MONOM% 1.0 % Critically low 1.7-12.0 [facility] Comment on above: Performed By: #### C CHARLY ####[facility] Rskfayeqnf4596 [place] [id number]. Jaci Mora MPV 9.0 fL Critically low 9.5-13.5 [facility] Comment on above: Performed By: #### C CHARLY ####[facility] [address] [place], [place] [address]Dr. Jaci Mora MYELOCYTE # Normal [facility] Comment on above: Performed By: #### C CHARLY ####[facility] Qwnjqcqemn97[address] [place] [id number]. Jaci Mora MYELOCYTE % Normal [facility] Comment on above: Performed By: #### C CHARLY ####[facility] Zlvkzxodah30[address] [place] [id number]. Jaci Mora NRBC 1 Normal [facility] Comment on above: Performed By: #### C CHARLY ####[facility] Nlsfoljvqu65[address] [place] [id number]. Jaci Mora PLT 201 103/ul Normal 150-450 [facility] Comment on above: Performed By: #### C CHARLY ####[facility] Lzsoxpvoer45[address] [place] [id number] Mora RBC 2.97 106/ul Critically low 4.20-5.40 [facility] Comment on above: Performed By: #### C CHARLY ####[facility] Kileqnbzov0116 [place] [id number] Mora RDW 18.7 % Critically high 11.0-15.0 [facility] Comment on above: Performed By: #### C CHARLY ####[facility] Cnfsljrupu230[address] [place] [id number]. Jaci Mora SEG # 10.61 103/ul Critically high 1.40-6.50 [facility] Comment on above: Performed By: #### C CHARLY ####[facility] Leppjiyezq1423 [place] [id number] Mora SEG % 87.0 % Critically high 43.0-75.0 [facility] Comment on above: Performed By: #### C CHARLY ####[facility] Dtsxzkqdvn6636 [place] [id number]. Jaci Mora WBC 12.2 103/ul Critically high 4.0-11.0 [facility] Comment on above: Performed By: #### C CHARLY ####[facility] Mkmcodnkcf0321 [place] [phone]. Jaci Mora PROF CHEM 8 (BAS METB)on Anion gap [Moles/Vol] 13.1 mmol/L Normal [facility] Comment on above: Performed By: #### C MP #### [facility] [address] [place] [address] [address] Jaci Mora Calcium [Mass/Vol] 8.6 mg/dL Normal 8.5-10.1 [facility] Comment on above: Performed By: #### C MP #### [facility] [address] [place] [address] [address] Jaci Mora Chloride [Moles/Vol] 113 mmol/L Critically high 98-107 [facility] Comment on above: Performed By: #### C MP #### [facility] [address] [place] [address] [address] Jaci Mora CO2 [Moles/Vol] 21.6 mmol/L Normal 21.0-32.0 [facility] Comment on above: Performed By: #### C MP #### [facility] [address] [place] [address] [address] Jaci Mora Creatinine [Mass/Vol] 1.17 mg/dL Critically high 0.55-1.02 [facility] Comment on above: Performed By: #### C MP #### [facility] [address] [place] [address] [address] Jaci Mora EGFR-AF ECUADOREAN 53 mL/min/1.73m2 Critically low >=60 [facility] Comment on above: Performed By: #### C MP #### [facility] [address] [place] [address] [address] Jaci Mora EGFR-NON AF ECUADOREAN 44 mL/min/1.73m2 Critically low >=60 [facility] Comment on above: Performed By: #### C MP #### [facility] [address] [place] [address] [address] Jaci Mora Glucose [Mass/Vol] 65 mg/dL Critically low 74-106 [facility] Comment on above: Performed By: #### C MP #### [facility] [address] [place] [address] [address] Jaci Mora Potassium [Moles/Vol] 3.7 mmol/L Normal 3.5-5.1 [facility] Comment on above: Performed By: #### C MP #### [facility] [address] [address] [address] Jaci Mora Sodium [Moles/Vol] 144 mmol/L Normal 136-145 [facility] Comment on above: Performed By: #### C MP #### [facility] [address] [address] [address] Jaci Mora Urea nitrogen [Mass/Vol] 29.0 mg/dL Critically high 7.0-18.0 [facility] Comment on above: Performed By: #### C MP #### [facility] [address] [address] [address] Jaci Mora Urea nitrogen/Creatini ne [Mass ratio] 24.8 mg/mg Normal [facility] Comment on above: Performed By: #### C MP #### [facility] [address] [place] [address] [address] Jaci Mora UA (CLEAN/CATCH) SERVICE AGENT/MICRO I F IND.on 04-29-2022 Bilirubin Ql (U) Negative Normal NEGATIVE [facility] Comment on above: Performed By: #### U MICRO, UACSIND ####[facility] [address]hr[address] [place] [address]Dr. Jaci Mora Clarity (U) CLEAR Normal CLEAR [facility] Comment on above: Performed By: #### U MICRO, UACSIND ####[facility] Iaobymwgos[address] [place] [address]Dr. Jaci Mora Color (U) YELLOW Normal YELLOW [facility] Comment on above: Performed By: #### U MICRO, UACSIND ####[facility] Wmyojtldkh4[address] [place] [address]Dr. Jaci Mora Glucose Ql (U) Negative Normal NEGATIVE [facility] Comment on above: Performed By: #### U MICRO, UACSIND ####[facility] [address] [place], [place] [address]Dr. Jaci Mora Hemoglobin Ql (U) Negative Normal NEGATIVE [facility] Comment on above: Performed By: #### U MICRO, UACSIND ####[facility] Ofgzoxgmjq[address] [place], [place] [address]Dr. Jaci Mora Ketones Ql (U) 15 mg/dl Abnormal NEGATIVE [facility] Comment on above: Performed By: #### U MICRO, UACSIND ####[facility] Tsywqxwzqv[address] [place] [address]Dr. Jaci Mora LEUKOCYTES Negative Normal NEGATIVE [facility] Comment on above: Performed By: #### U MICRO, UACSIND ####[facility] Kxgmfrqhju750[address] [place] [address]Dr. Jaci Mora Nitrite Ql (U) Negative Normal NEGATIVE [facility] Comment on above: Performed By: #### U MICRO, UACSIND ####[facility] A[address]mxceghr[address] [place] [address]Dr. Jaci Mora pH (U) 5.0 [pH] Normal 5-9 [facility] Comment on above: Performed By: #### U MICRO, UACSIND ####[facility] [address]fr[address]hettwl[address] [place] [address]Dr. Jaci Mora SPEC GRAVITY >=1.030 Abnormal 1.005-<=1.0 25 [facility] Comment on above: Performed By: #### U MICRO, UACSIND ####[facility] Xjrshnzfis[address] [place] [address]Dr. Jaci Mora UA PROTEIN 30 mg/dl Abnormal NEGATIVE/ TRACE [facility] Comment on above: Performed By: #### U MICRO, UACSIND ####[facility] Sf[address]oqastz[address] [place] [address]Dr. Jaci Mora UR MICRO IND INDICATED Normal [facility] Comment on above: Performed By: #### U MICRO, UACSIND ####[facility] [address]xchbkbe[address] [place] [address]Dr. Jaci Mora Urobilinogen Qn (U) 0.2 {Chantel'U}/dL Normal 0.2 - 1.0 [facility] Comment on above: Performed By: #### U MICRO, UACSIND ####[facility] [address]zbo[address] [place] [address]Dr. Jaci Mora URINE MICROSCOPIC ONLYon AMORPHOUS CRYSTALS RARE Normal [facility] Comment on above: Performed By: #### U MICRO, UACSIND ####[facility] Albptygfkr[address] [place], [place] [address]Dr. Griceldaadalberto Mora BACTERIA TRACE Abnormal NONE SEEN [facility] Comment on above: Performed By: #### U MICRO, UACSIND ####[facility] Mzckbclbph[address] [place], [place] [address]Dr. Jaci Mora Bacteria identified Cx Nom (U) NOT INDICATED Normal [facility] Comment on above: Performed By: #### U MICRO, UACSIND ####[facility] [address]ns[address] [place], [place] [address]Dr. Jaci Mora CAST SEEN Abnormal NONE SEEN [facility] Comment on above: Performed By: #### U MICRO, UACSIND ####[facility] B[address]ijwbyjsn[address] [place] [address]Dr. Jaci Mora Crystals LM Nom (Urine sed) SEEN Abnormal NONE SEEN [facility] Comment on above: Performed By: #### U MICRO, UACSIND ####[facility] Bbhsmweyny[address] [place] [address]Dr. Jaci Mora Epithelial cells LM Ql (Urine sed) RARE Normal NONE SEEN /RARE [facility] Comment on above: Performed By: #### U MICRO, UACSIND ####[facility] Xwyeeanibv6[address] [place] [address]Dr. Jaci Mora HYALINE CAST RARE Normal [facility] Comment on above: Performed By: #### U MICRO, UACSIND ####[facility] Stgbtydaos[address] [place] [address]Dr. Jaci Mora MUCOUS NONE SEEN Normal NONE SEEN [facility] Comment on above: Performed By: #### U MICRO, UACSIND ####[facility] T[address]ujtgzkhi[address] [place] [address]Dr. Jaci Mora RBC 0-2 Normal 0-2 [facility] Comment on above: Performed By: #### U MICRO, UACSIND ####[facility] Etuifiqrjv[address] [place] [address]Dr. Jaci Mora WBC 0-2 Abnormal NONE SEEN [facility] Comment on above: Performed By: #### U MICRO, UACSIND ####[facility] [address]whccsxc[address] [place] [address]Dr. Jaci Mora HEPATITIS PANEL, ACUTEon HBsAg Screen Negative Normal Negative [facility] Comment on above: Performed By: #### B MP #### [facility] [address] [place] [address] [address] Jaci Mora HCV AB <0.1 Normal 0.0-0.9 [facility] Comment on above: Performed By: #### B MP #### [facility] [address] [place] [address] Dr. Jaci Mora Hep A Ab, IgM Negative Normal Negative [facility] Comment on above: Performed By: #### B MP #### [facility] [address] [place] [address] Dr. Jaci Mora Hep B Core Ab, IgM Negative Normal Negative [facility] Comment on above: Performed By: #### B MP #### [facility] [address] [place] [address] Dr. Jaci Mora Interpretation: Comment Normal [facility] Comment on above: Result Comment: Nega tive Not infected with HCV, unless recent infection is suspected or other evidence exists to indicate HCV infection. Performed By: #### B MP #### [facility] [address] [place] [address] Dr. Jaci Mora PROF CHEM 8 (BAS METB)on Anion gap [Moles/Vol] 15.9 mmol/L Normal [facility] Comment on above: Performed By: #### B MP #### [facility] [address] [place] [address] Dr. Jaci Mora Calcium [Mass/Vol] 8.0 mg/dL Critically low 8.5-10.1 [facility] Comment on above: Performed By: #### B MP #### [facility] [address] [place] [address] Dr. Jaci Mora Chloride [Moles/Vol] 109 mmol/L Critically high 98-107 [facility] Comment on above: Performed By: #### B MP #### [facility] [address] [place] [address] Dr. Jaci Mora CO2 [Moles/Vol] 22.2 mmol/L Normal 21.0-32.0 [facility] Comment on above: Performed By: #### B MP #### [facility] [address] [place] [address] Dr. Jaci Mora Creatinine [Mass/Vol] 1.54 mg/dL Critically high 0.55-1.02 [facility] Comment on above: Performed By: #### B MP #### [facility] [address] [place] [address] [address] Jaci Mora EGFR-AF ECUADOREAN 39 mL/min/1.73m2 Critically low >=60 [facility] Comment on above: Performed By: #### B MP #### [facility] [address] [place] [address] [address] Jaci Mora EGFR-NON AF ECUADOREAN 32 mL/min/1.73m2 Critically low >=60 [facility] Comment on above: Performed By: #### B MP #### [facility] [address] [place] [address] [address] Jaci Mora Glucose [Mass/Vol] 79 mg/dL Normal 74-106 [facility] Comment on above: Performed By: #### B MP #### [facility] [address] [place] [address] [address] Jaci Mora Potassium [Moles/Vol] 4.1 mmol/L Normal 3.5-5.1 [facility] Comment on above: Performed By: #### B MP #### [facility] [address] [place] [address] [address] Jaci Mora Sodium [Moles/Vol] 143 mmol/L Normal 136-145 [facility] Comment on above: Performed By: #### B MP #### [facility] [address] [address] [address] Jaci Mora Urea nitrogen [Mass/Vol] 30.0 mg/dL Critically high 7.0-18.0 [facility] Comment on above: Performed By: #### B MP #### [facility] [address] [place] [address] [address] Jaci Mora Urea nitrogen/Creatini ne [Mass ratio] 19.5 mg/mg Normal [facility] Comment on above: Performed By: #### B MP #### [facility] [address] [place] [address] [address] Jaci Mora TRANSFERRINon 04-28-2022 Transferrin [Mass/Vol] 247 mg/dL Normal 149-313 [facility] Comment on above: Performed By: #### T RANSFR ####[facility] Xxlfairvsj[address] [place] [address]Dr. Jaci Mora CBC AUTO DIFFon 04-27-2022 BASO # 0.0 103/ul Normal 0.0-0.1 [facility] Comment on above: Performed By: #### C MP #### [facility] [address] [place] [address] [address] Jaci Mora Basophils/100 WBC (Bld) 0.4 % Normal 0.2-2.0 [facility] Comment on above: Performed By: #### C MP #### [facility] [address] [place] [address] [address] Jaci Mora EO # 0.1 103/ul Normal 0.0-0.7 [facility] Comment on above: Performed By: #### C MP #### [facility] [address] [address] [address] Jaci Mora Eosinophils/100 WBC (Bld) 0.8 % Critically low 0.9-7.0 [facility] Comment on above: Performed By: #### C MP #### [facility] [address] [place] [address] [address] Jaci Mora Erythrocyte distribution width (RBC) [Ratio] 18.7 % Critically high 11.0-15.0 [facility] Comment on above: Performed By: #### C MP #### [facility] [address] [place] [address] [address] Jaci Mora Hematocrit (Bld) [Volume fraction] 36.1 % Normal 36.0-48.0 [facility] Comment on above: Performed By: #### C MP #### [facility] [address] [place] [address] [address] Jaci Mora Hemoglobin (Bld) [Mass/Vol] 11.7 g/dL Critically low 12.0-16.0 [facility] Comment on above: Performed By: #### C MP #### [facility] [address] [place] [address] [address] Jaci Mora IG # 0.12 10e3/ul Critically high 0.00-0.03 [facility] Comment on above: Performed By: #### C MP #### [facility] [address] [place] [address] Dr. Jaci Mora IG % 1.1 % Critically high 0.0-0.5 [facility] Comment on above: Performed By: #### C MP #### [facility] [address] [place] [address] Dr. Jaci Mora LYMPH # 4.3 103/ul Critically high 1.2-3.8 [facility] Comment on above: Performed By: #### C MP #### [facility] [address] [place] [address] Dr. Jaci oMra Lymphocytes/100 WBC (Bld) 38.6 % Normal 20.5-60.0 [facility] Comment on above: Performed By: #### C MP #### [facility] [address] [place] [address] Dr. Jaci Mora MANUAL DIFF REQ NO Normal [facility] Comment on above: Performed By: #### C MP #### [facility] [address] [place] [address] Dr. Jaci Mora MCH (RBC) [Entitic mass] 28.5 pg Normal 26.7-34.0 [facility] Comment on above: Performed By: #### C MP #### [facility] [address] [place] [address] Dr. Jaci Mora MCHC (RBC) [Mass/Vol] 32.4 g/dL Normal 29.9-35.2 [facility] Comment on above: Performed By: #### C MP #### [facility] [address] [place] [address] Dr. Jaci Mora MCV (RBC) [Entitic vol] 88.0 fL Normal 81.0-99.0 [facility] Comment on above: Performed By: #### C MP #### [facility] [address] [place] [address] Dr. Jaci Mora MONO # 0.7 103/ul Normal 0.3-0.8 [facility] Comment on above: Performed By: #### C MP #### [facility] [address] [place], [place] [id number] Dr. Jaci Mora Monocytes/100 WBC (Bld) 5.8 % Normal 1.7-12.0 [facility] Comment on above: Performed By: #### C MP #### [facility] [address] [place] [address] Dr. Jaci Mora NEUT # 6.0 103/ul Normal 1.4-6.5 [facility] Comment on above: Performed By: #### C MP #### [facility] [address] [place] [address] Dr. Jaci Mora Neutrophils/100 WBC (Bld) 53.3 % Normal 43.0-75.0 [facility] Comment on above: Performed By: #### C MP #### [facility] [address] [place] [address] Dr. Jaci Mora Platelet mean volume (Bld) [Entitic vol] 10.0 fL Normal 9.5-13.5 [facility] Comment on above: Performed By: #### C MP #### [facility] [address] [place] [address] Dr. Jaci Mora PLT 283 103/ul Normal 150-450 [facility] Comment on above: Performed By: #### C MP #### [facility] [address] [place] [address] Dr. Jaci Mora RBC 4.10 106/ul Critically low 4.20-5.40 [facility] Comment on above: Performed By: #### C MP #### [facility] [address] [place] [address] Dr. Jaci Mora WBC 11.2 103/ul Critically high 4.0-11.0 [facility] Comment on above: Performed By: #### C MP #### [facility] [address] [place] [address] ABD/PELV W CONon [...] by: PAKO OREILLY Date: 2022-04-27 10:42 Normal [facility] [address] Chest limited W contrast IVOrdered By: Angelika Fisher on 04-27-2022 [facility] CULTURE ANAEROBICon 04-27-19 23 CULTURE ANAEROBIC Culture Observations : NO GROWTH OF ANAEROBES AT 72 HOURS. Normal [facility] Comment on above: Performed By: #### A NACX #### [facility] [address] [place] [address] [address] Jaci Mora CULTURE BLOODon 04-27-2022 Microscopic examination of blood, culture Culture Observations: NO GROWTH AT 5 DAYS. Isolate 1 BC_BA_NA Normal [facility] Comment on above: Performed By: #### B LDCX2 #### [facility] [address] [place] [address] [address] Jaci Mora Performed By: #### B LDCX1 ####[facility] Itsbtes[address] [place], [place] [address]Dr. Jaci Mora CULTURE OTHERon 04-27-2022 CULTURE OTHER Isolate 1 Cheri albicans Light growth of Normal [facility] Comment on above: Performed By: #### O THCX #### [facility] [address] [place] [address] Dr. Jaci Mora Covid-19 PCR (CVDTB)on SARS-CoV-2 (COVID-19) RNA JAMIE+probe Ql (Unsp spec) Not detected Normal NOT DETECTED [facility] Comment on above: Result Comment: When [...] for this test is supported by the Corporate Legal Assistant of Health and Human Service's declaration that [...] used). Performed By: #### C MP #### [facility] [address] [place] [address] Dr. Jaci Mora FERRITINon 04-27-2022 Ferritin [Mass/Vol] 2052.0 ng/mL Critically high 8.0-252.0 [facility] Comment on above: Performed By: #### C MP #### [facility] [address] [place] [address] Dr. Jaci Mora IRON AND TIBCon 04-27-2022 % SATURATION 38.7 % Normal [facility] Comment on above: Performed By: #### C MP #### [facility] [address] [place] [address] Dr. Jaci Mora Iron [Mass/Vol] 115.0 ug/dL Normal 50.0-170.0 [facility] Comment on above: Performed By: #### C MP #### [facility] [address] [place] [address] Dr. Jaci Mora TIBC DIRECT 297.0 ug/dL Normal 250.0-450.0 [facility] Comment on above: Performed By: #### C MP #### [facility] [address] [address] [address] Jaci Mora LIPASEon 04-27-2022 Lipase [Catalytic activity/Vol] 457.0 U/L Critically high 73.0-393.0 [facility] Comment on above: Performed By: #### L IPA, HSTROPN ####[facility] [address] [address]Dr. Jaci Mora PROF 14(COMP METB)on 023 Albumin [Mass/Vol] 3.3 g/dL Critically low 3.4-5.0 [facility] Comment on above: Performed By: #### C MP #### [facility] [address] [place] [address] Dr. Jaci Mora Albumin/Globulin [Mass ratio] 0.8 {ratio} Normal [facility] Comment on above: Performed By: #### C MP #### [facility] [address] [place] [address] Dr. Jaci Mora ALP [Catalytic activity/Vol] 497 U/L Critically high 46-116 [facility] Comment on above: Performed By: #### C MP #### [facility] [address] [place], [place] [id number] Dr. Jaci Mora ALT [Catalytic activity/Vol] 67 U/L Critically high 14-59 [facility] Comment on above: Performed By: #### C MP #### [facility] [address] [place] [address] Dr. Jaci Mora Anion gap [Moles/Vol] 15.5 mmol/L Normal [facility] Comment on above: Performed By: #### C MP #### [facility] [address] [place] [address] Dr. Jaci Mora AST [Catalytic activity/Vol] 75 U/L Critically high 15-37 [facility] Comment on above: Performed By: #### C MP #### [facility] [address] [place] [address] Dr. Jaci Mora Bilirubin [Mass/Vol] 0.8 mg/dL Normal 0.2-1.0 [facility] Comment on above: Performed By: #### C MP #### [facility] [address] [address] [address] Jaci Mora Calcium [Mass/Vol] 9.2 mg/dL Normal 8.5-10.1 [facility] Comment on above: Performed By: #### C MP #### [facility] [address] [address] [address] Jaci Mora Chloride [Moles/Vol] 102 mmol/L Normal 98-107 [facility] Comment on above: Performed By: #### C MP #### [facility] [address] [place] [address] Dr. Jaci Mora CO2 [Moles/Vol] 26.9 mmol/L Normal 21.0-32.0 [facility] Comment on above: Performed By: #### C MP #### [facility] [address] [place] [address] Dr. Jaci Mora Creatinine [Mass/Vol] 1.66 mg/dL Critically high 0.55-1.02 [facility] Comment on above: Performed By: #### C MP #### [facility] [address] [place] [address] Dr. Jaci Mora EGFR-AF ECUADOREAN 36 mL/min/1.73m2 Critically low >=60 [facility] Comment on above: Performed By: #### C MP #### [facility] [address] [place] [address] Dr. Jaci Mora EGFR-NON AF ECUADOREAN 29 mL/min/1.73m2 Critically low >=60 [facility] Comment on above: Performed By: #### C MP #### [facility] [address] [place] [address] Dr. Jaci Mora Globulin (S) [Mass/Vol] 4.4 g/dL Normal [facility] Comment on above: Performed By: #### C MP #### [facility] [address] [place] [address] Dr. Jaci Mora Glucose [Mass/Vol] 108 mg/dL Critically high 74-106 [facility] Comment on above: Performed By: #### C MP #### [facility] [address] [address] [address] Jaci Mora Potassium [Moles/Vol] 4.4 mmol/L Normal 3.5-5.1 [facility] Comment on above: Performed By: #### C MP #### [facility] [address] [address] [address] Jaci Mora Protein [Mass/Vol] 7.7 g/dL Normal 6.4-8.2 [facility] Comment on above: Performed By: #### C MP #### [facility] [address] [address] [address] Jaci Mora Sodium [Moles/Vol] 140 mmol/L Normal 136-145 [facility] Comment on above: Performed By: #### C MP #### [facility] [address] [address] [address] Jaci Mora Urea nitrogen [Mass/Vol] 36.0 mg/dL Critically high 7.0-18.0 [facility] Comment on above: Performed By: #### C MP #### [facility] [address] [address] [address] Jaci Mora Urea nitrogen/Creatini ne [Mass ratio] 21.7 mg/mg Normal [facility] Comment on above: Performed By: #### C MP #### [facility] [address] [address] [address] Jaci Mora TROPONIN, HIGH SENSITIVITYon 04-27-2022 HSTROP 15.3 pg/mL Normal 4.0-51.3 [facility] Comment on above: Result Comment: CUT- OFF POINTS HAVE BEEN ESTABLISHED BASED ON THE FOURTH UNIVERSAL DEFINITIONS OF MYOCARDIAL INFARCTION. THE UPPER REFERENCE LIMIT (URL) OF TROPONIN, DEFINED THE 99TH PERCENTILE OF cTnI DISTRIBUTION IN A REFERENCE POPULATION, HAS BEEN CONFIRMED THE DECISION THRESHOLD FOR AK DIAGNOSIS. Performed By: #### L IPA, HSTROPN ####[facility] [address] [address]Dr. Jaci Mora TYPE AND SCREENon 04-27-2022 TYPE AND SCREEN Negative Normal [facility] Comment on above: Performed By: #### T NS ####[facility] [address] [place], [place] [address]OfDr. Jaci Mora US Abdomenon 04-27-2022 [facility] SINGLE QUAD RT UPPERon US [...] PAKO OREILLY Date: 2022-04-27 07:53 Normal [facility] VITAMIN B12on 04-27-2022 Cobalamin (Vitamin B12) [Mass/Vol] 3857.0 pg/mL Critically high 193.0-986.0 [facility] Comment on above: Performed By: #### C MP #### [facility] [address] [place], [place] [address] Dr. Jaci Mora CBC AUTO DIFFon 04-24-2022 BASO # 0.1 103/ul Normal 0.0-0.1 [facility] Comment on above: Performed By: #### B MP #### [facility] [address] [place], [place] [address] Dr. Jaci Mora Basophils/100 WBC (Bld) 0.5 % Normal 0.2-2.0 [facility] Comment on above: Performed By: #### B MP #### [facility] [address] [address] [address] Jaci Mora EO # 0.2 103/ul Normal 0.0-0.7 [facility] Comment on above: Performed By: #### B MP #### [facility] [address] [place] [address] Dr. Jaci Mora Eosinophils/100 WBC (Bld) 1.2 % Normal 0.9-7.0 [facility] Comment on above: Performed By: #### B MP #### [facility] [address] [place] [address] Dr. Jaci Mora Erythrocyte distribution width (RBC) [Ratio] 18.6 % Critically high 11.0-15.0 [facility] Comment on above: Performed By: #### B MP #### [facility] [address] [place] [address] Dr. Jaci Mora Hematocrit (Bld) [Volume fraction] 32.8 % Critically low 36.0-48.0 [facility] Comment on above: Performed By: #### B MP #### [facility] [address] [place] [address] Dr. Jaci Mora Hemoglobin (Bld) [Mass/Vol] 10.8 g/dL Critically low 12.0-16.0 [facility] Comment on above: Performed By: #### B MP #### [facility] [address] [place] [address] Dr. Jaci Mora IG # 0.21 10e3/ul Critically high 0.00-0.03 [facility] Comment on above: Performed By: #### B MP #### [facility] [address] [place] [address] Dr. Jaci Mora IG % 1.6 % Critically high 0.0-0.5 [facility] Comment on above: Performed By: #### B MP #### [facility] [address] [place] [address] Dr. Jaci Mora LYMPH # 3.5 103/ul Normal 1.2-3.8 [facility] Comment on above: Performed By: #### B MP #### [facility] [address] [place] [address] Dr. Jaci Mora Lymphocytes/100 WBC (Bld) 27.7 % Normal 20.5-60.0 [facility] Comment on above: Performed By: #### B MP #### [facility] [address] [place] [address] Dr. Jaci Mora MANUAL DIFF REQ NO Normal [facility] Comment on above: Performed By: #### B MP #### [facility] [address] [place] [address] Dr. Jaci Mora MCH (RBC) [Entitic mass] 29.1 pg Normal 26.7-34.0 [facility] Comment on above: Performed By: #### B MP #### [facility] [address] [place] [address] Dr. Jaci Mora MCHC (RBC) [Mass/Vol] 32.9 g/dL Normal 29.9-35.2 [facility] Comment on above: Performed By: #### B MP #### [facility] [address] [place] [address] Dr. Jaci Mora MCV (RBC) [Entitic vol] 88.4 fL Normal 81.0-99.0 [facility] Comment on above: Performed By: #### B MP #### [facility] [address] [place] [address] Dr. Jaci Mora MONO # 0.8 103/ul Normal 0.3-0.8 [facility] Comment on above: Performed By: #### B MP #### [facility] [address] [place] [address] Dr. Jaci Mora Monocytes/100 WBC (Bld) 6.6 % Normal 1.7-12.0 [facility] Comment on above: Performed By: #### B MP #### [facility] [address] [place] [address] Dr. Jaci Mora NEUT # 8.0 103/ul Critically high 1.4-6.5 [facility] Comment on above: Performed By: #### B MP #### [facility] [address] [address] [address] Jaci Mora Neutrophils/100 WBC (Bld) 62.4 % Normal 43.0-75.0 [facility] Comment on above: Performed By: #### B MP #### [facility] [address] [address] [address] Jaci Mora Platelet mean volume (Bld) [Entitic vol] 9.6 fL Normal 9.5-13.5 [facility] Comment on above: Performed By: #### B MP #### [facility] [address] [address] [address] Jaci Mora PLT 267 103/ul Normal 150-450 [facility] Comment on above: Performed By: #### B MP #### [facility] [address] [address] [address] Jaci Mora RBC 3.71 106/ul Critically low 4.20-5.40 [facility] Comment on above: Performed By: #### B MP #### [facility] [address] [address] [address] Jaci Mora WBC 12.8 103/ul Critically high 4.0-11.0 [facility] Comment on above: Performed By: #### B MP #### [facility] [address] [address] [address] Jaci Mora LIPID PROFILEon 04-24-2022 CHOL-HDL RATIO NORM SEE BELOW Normal [facility] Comment on above: Result Comment: 3.3 - 4.4 LOW RISK 4.4 - 7.1 AVERAGE RISK 7.1 - 11.0 MODERATE RISK >11.0 HIGH RISK Performed By: #### L IPID, CMP ####[facility] [address] [address]Dr. Jaci Mora Cholesterol [Mass/Vol] 191 mg/dL Normal <=200 [facility] Comment on above: Performed By: #### L IPID, CMP ####[facility] [address] [id number]. Jaci Mora Cholesterol in HDL [Mass/Vol] 102 mg/dL Critically high 40-60 [facility] Comment on above: Performed By: #### L IPID, CMP ####[facility] [address] [address]Dr. Jaci Mora Cholesterol in LDL [Mass/Vol] 60.6 mg/dL Normal [facility] Comment on above: Performed By: #### L IPID, CMP ####[facility] [address] [address]Dr. Jaci Mora Cholesterol.total /Cholesterol in HDL [Mass ratio] 1.9 {ratio} Normal [facility] Comment on above: Performed By: #### L IPID, CMP ####[facility] [address] [address]Dr. Jaci Mora HDL NORMAL > or = 60 mg/dl - LO W CARDIOVASCULAR RISK <40 mg/dl - HIGH CARDIOVASCULAR RISK Normal [facility] Comment on above: Performed By: #### L IPID, CMP ####[facility] [address] [address]Dr. Jaci Mora LDL CALC NORMAL SEE BELOW Normal [facility] Comment on above: Result Comment: <100 mg/dl OPTIMAL 100 - 129 mg/dl NEAR OR ABOVE OPTIMAL 130 - 159 mg/dl BORDERLINE HIGH 160 - 189 mg/dl HIGH >190 mg/dl VERY HIGH Performed By: #### L IPID, CMP ####[facility] [address] [address]Dr. Jaci Mora Triglyceride [Mass/Vol] 142 mg/dL Normal <=150 [facility] Comment on above: Performed By: #### L IPID, CMP ####[facility] [address] [address]Dr. Jaci Mora VLDL CALC 28.4 mg/dL Normal [facility] Comment on above: Performed By: #### L IPID, CMP ####[facility] [address] [id number] Mora PROF 14(COMP METB)on 023 Albumin [Mass/Vol] 3.1 g/dL Critically low 3.4-5.0 [facility] Comment on above: Performed By: #### L IPID, CMP ####[facility] [address] [address]Dr. Jaci Mora Albumin/Globulin [Mass ratio] 0.7 {ratio} Normal [facility] Comment on above: Performed By: #### L IPID, CMP ####[facility] [address] [address]Dr. Jaci Mora ALP [Catalytic activity/Vol] 458 U/L Critically high 46-116 [facility] Comment on above: Performed By: #### L IPID, CMP ####[facility] [address] [place], [place] [address]Dr. Jaci Mora ALT [Catalytic activity/Vol] 67 U/L Critically high 14-59 [facility] Comment on above: Performed By: #### L IPID, CMP ####[facility] [address] [place], [place] [address]Dr. Jaci Mora Anion gap [Moles/Vol] 14.4 mmol/L Normal [facility] Comment on above: Performed By: #### L IPID, CMP ####[facility] [address] [place], [place] [address]Dr. Jaci Mora AST [Catalytic activity/Vol] 81 U/L Critically high 15-37 [facility] Comment on above: Performed By: #### L IPID, CMP ####[facility] [address] [place], [place] [address]Dr. Jaci Mora Bilirubin [Mass/Vol] 0.7 mg/dL Normal 0.2-1.0 [facility] Comment on above: Performed By: #### L IPID, CMP ####[facility] [address] [place], [place] [address]Dr. Jaci Mora Calcium [Mass/Vol] 9.7 mg/dL Normal 8.5-10.1 [facility] Comment on above: Performed By: #### L IPID, CMP ####[facility] [address] [place], [place] [address]Dr. Jaci Mora Chloride [Moles/Vol] 101 mmol/L Normal 98-107 [facility] Comment on above: Performed By: #### L IPID, CMP ####[facility] [address] [place], [place] [address]Dr. Jaci Mora CO2 [Moles/Vol] 28.0 mmol/L Normal 21.0-32.0 [facility] Comment on above: Performed By: #### L IPID, CMP ####[facility] [address] [place], [place] [address]Dr. Jaci Mora Creatinine [Mass/Vol] 1.59 mg/dL Critically high 0.55-1.02 [facility] Comment on above: Performed By: #### L IPID, CMP ####[facility] [address] [place], [place] [address]Dr. Jaci Mora EGFR-AF ECUADOREAN 37 mL/min/1.73m2 Critically low >=60 [facility] Comment on above: Performed By: #### L IPID, CMP ####[facility] [address] [place], [place] [address]Dr. Jaci Mora EGFR-NON AF ECUADOREAN 31 mL/min/1.73m2 Critically low >=60 [facility] Comment on above: Performed By: #### L IPID, CMP ####[facility] [address] [place], [place] [address]Dr. Jaci Mora Globulin (S) [Mass/Vol] 4.3 g/dL Normal [facility] Comment on above: Performed By: #### L IPID, CMP ####[facility] [address] [place], [place] [address]Dr. Jaci Mora Glucose [Mass/Vol] 103 mg/dL Normal 74-106 [facility] Comment on above: Performed By: #### L IPID, CMP ####[facility] [address] [place], [place] [address]Dr. Jaci Mora Potassium [Moles/Vol] 4.4 mmol/L Normal 3.5-5.1 [facility] Comment on above: Performed By: #### L IPID, CMP ####[facility] [address] [id number]. Jaci Mora Protein [Mass/Vol] 7.4 g/dL Normal 6.4-8.2 [facility] Comment on above: Performed By: #### L IPID, CMP ####[facility] [address] [id number]. Jaci Mora Sodium [Moles/Vol] 139 mmol/L Normal 136-145 [facility] Comment on above: Performed By: #### L IPID, CMP ####[facility] [address] [id number]. Jaci Mora Urea nitrogen [Mass/Vol] 30.0 mg/dL Critically high 7.0-18.0 [facility] Comment on above: Performed By: #### L IPID, CMP ####[facility] [address] [id number]. Jaci Mora Urea nitrogen/Creatini ne [Mass ratio] 18.9 mg/mg Normal [facility] Comment on above: Performed By: #### L IPID, CMP ####[facility] [address] [id number]. Jaci Mora Basic Metabolic Profon 03-23 (cont.) Normal [facility] Comment on above: Result Comment: Aver age GFR for 70 or more years old: 75 mL/min/1.73sq mChronic Kidney Disease: <60 mL/min/1.73sq mKidney failure: <15 mL/min/1.73sq meGFR calculated using average adult body mass. Additional eGFR calculator available at:http://www.[employer]/multiple_crcl_2012.htm Performed By: #### C BC, BMP ####[facility]reosHjhapuxrgxnf7223 [place] [address] Anion gap 3 molar conc 10 mmol/L Normal - [facility] Comment on above: Performed By: #### C BC, BMP ####[facility] [address] [place] [address] Calcium mass conc 8.2 mg/dL Low 8.6-10.4 [facility] Comment on above: Performed By: #### C BC, BMP ####[facility] [address] [place] [address] Chloride molar conc 101 mmol/L Normal 98-107 [facility] Comment on above: Performed By: #### C BC, BMP ####[facility] [address] [place] [address] CO2 molar conc 28 mmol/L Normal 20-31 [facility] Comment on above: Performed By: #### C BC, BMP ####[facility] [address] [place] [address] Creatinine mass conc 0.59 mg/dL Normal 0.50-0.90 [facility] Comment on above: Performed By: #### C BC, BMP ####[facility] [address] [address] GFR, Amer >60 Normal >60 [facility] Comment on above: Performed By: #### C BC, BMP ####[facility] [address] [place] [address] GFR,non Amer >60 Normal >60 [facility] Comment on above: Performed By: #### C BC, BMP ####[facility] [address] [place] [address] Glucose mass conc 99 mg/dL Normal 70-99 [facility] Comment on above: Performed By: #### C BC, BMP ####[facility] [address] [place] [address] Potassium molar conc 3.7 mmol/L Normal 3.7-5.3 [facility] Comment on above: Performed By: #### C BC, BMP ####[facility] [place] [address] Sodium molar conc 139 mmol/L Normal 135-144 [facility] Comment on above: Performed By: #### C BC, BMP ####[facility] [address] [address] Urea nitrogen mass conc 10 mg/dL Normal 8-23 [facility] Comment on above: Performed By: #### C BC, BMP ####[facility] [address] [address] BUN/CRE Ratio NOT REPORTED Normal 9-20 [facility] Comment on above: Performed By: #### C AMADA, BMP ####[facility] [address] [address] Staging: NOT REPORTED Normal [facility] Comment on above: Performed By: #### C BC, BMP ####[facility] [address] [address] CBCon 03-23-2018 Erythrocyte distribution width Auto Ratio (RBC) 14.4 % Normal 11.8-14.4 [facility] Comment on above: Performed By: #### C BC, BMP ####[facility] [address] [address] Hematocrit Auto Volume Fraction (Bld) 28.6 % Low 36.3-47.1 [facility] Comment on above: Performed By: #### C BC, BMP ####[facility] [address] [place] [address] Hemoglobin mass conc (Bld) 9.2 g/dL Low 11.9-15.1 [facility] Comment on above: Performed By: #### C BC, BMP ####[facility] [address] [place] [address] MCH Auto Entitic mass (RBC) 28.2 pg Normal 25.2-33.5 [facility] Comment on above: Performed By: #### C BC, BMP ####[facility] [place] [address] MCHC Auto mass conc (RBC) 32.2 g/dL Normal 28.4-34.8 [facility] Comment on above: Performed By: #### C BC, BMP ####[address] [address] MCV Auto Entitic volume (RBC) 87.7 fL Normal 82.6-102.9 [facility] Comment on above: Performed By: #### C BC, BMP ####[facility] [place] [address] NRBC Automated 0.0 per 100 WBC Normal 0.0 [facility] Comment on above: Performed By: #### C BC, BMP ####[address] [address] Platelet mean volume Auto Entitic volume (Bld) 10.7 fL Normal 8.1-13.5 [facility] Comment on above: Performed By: #### C BC, BMP ####[facility] [place] [address] Platelets Auto #/vol (Bld) 145 10*3/uL Normal 138-453 [facility] Comment on above: Performed By: #### C BC, BMP ####[address] [address] RBC Auto #/vol (Bld) 3.26 10*6/uL Low 3.95-5.11 [facility] Comment on above: Performed By: #### C BC, BMP ####[facility] [place] [address] WBC Auto #/vol (Bld) 9.7 10*3/uL Normal 3.5-11.3 [facility] Comment on above: Performed By: #### C BC, BMP ####[address] [address] Cult,Urineon 03-22-2018 Cult,Urine Specimen Description .CLEAN CATCH URINE Special Requests NOT REPORTED Culture NO SIGNIFICANT GROWTH Report Status FINAL 03/22/2018 Normal [facility] Comment on above: Performed By: #### U RC ####[address] [address] Vitamin D 25 OHon 03-22-2018 Vitamin D 25 OH 46.1 ng/mL Normal 30.0-100.0 [facility] Comment on above: Result Comment: Refe rence Range:Vitamin D status Range Deficiency <20 ng/mL Mild Deficiency 20-30 ng/mL Sufficiency 30-100 ng/mL Toxicity >100 ng/mL Performed By: #### V D25 ####[address] [address] Electrolyteson 03-20-2018 Anion gap 3 molar conc 12 mmol/L Normal 9-17 [facility] Comment on above: Performed By: #### H H, LYTE ####[address] [address] Chloride molar conc 103 mmol/L Normal 98-107 [facility] Comment on above: Performed By: #### H H, LYTE ####[address] [address] CO2 molar conc 19 mmol/L Low 20-31 [facility] Comment on above: Performed By: #### H H, LYTE ####[address] [place] [address] Potassium molar conc 4.2 mmol/L Normal 3.7-5.3 [facility] Comment on above: Performed By: #### H H, LYTE ####[facility] [address] [place] [address] Sodium molar conc 134 mmol/L Low 135-144 [facility] Comment on above: Performed By: #### H H LYTE ####[facility] [place] [address] Hgb/Hcton 03-20-2018 Hematocrit Auto Volume Fraction (Bld) 44.3 % Normal 36.3-47.1 [facility] Comment on above: Performed By: #### H H LYTE ####[address] [place] [address] Hemoglobin mass conc (Bld) 14.1 g/dL Normal 11.9-15.1 [facility] Comment on above: Performed By: #### H HJELENATE ####[address] [place] [address] Lipid Profileon 03-20-2018 Cholesterol in HDL mass conc 92 mg/dL Normal >40 [facility] Comment on above: Result Comment: HDL Guidelines: <40 Undesirable 40-59 Borderline >59 Desirable Performed By: #### P T, LIPR ####[address] [address] Cholesterol in LDL mass conc 90 mg/dL Normal 0-130 [facility] Comment on above: Result Comment: LDL Guidelines: <100 Desirable 100-129 Near to/above Desirable 130-159 Borderline >159 UndesirableDirect (measured) LDL and calculated LDL are not interchangeable tests. Performed By: #### P T, LIPR ####[facility] [address] [place] [address] Cholesterol mass conc 195 mg/dL Normal <200 [facility] Comment on above: Result Comment: Chol esterol Guidelines: <200 Desirable 200-240 Borderline >240 Undesirable Performed By: #### P T, LIPR ####[facility] [address] [place] [address] Cholesterol.total /Cholesterol in HDL mass ratio 2.1 {ratio} Normal <5 [facility] Comment on above: Performed By: #### P T, LIPR ####[facility] [address] [place] [address] Triglyceride mass conc 64 mg/dL Normal <150 [facility] Comment on above: Result Comment: Trig lyceride Guidelines: <150 Desirable 150- 199 Borderline 200-499 High >499 Very high Based on AHA Guidelines for fasting triglyceride, January 2012. Performed By: #### P T, LIPR ####[facility] [address] [place] [address] Cholesterol in VLDL mass conc NOT REPORTED Normal 05-21 [facility] Comment on above: Performed By: #### P T, LIPR ####[facility] [address] [place] [address] OPERATIVE REPORTon 8 OPERATIVE REPORT [address] [address] OPERATIVE REPORTPATIENT NAME: WILLIAM CANAS : 1940[facility] REC NO: [id number] ROOM: [address] [place], [place] [address]OUNT NO: [id number] ADMIT DATE: 03/20/2018PROVIDER: GARLAND Engel OF PROCEDURE: [...] patient is a 77-year-old female [facility] height on 03/19 aroundnoon. The patient states she was walking and tripped on a curb andlanded immediately onto her left side. The patient had pain andinability to bear weight [facility] and further workup found that the patienthad sustained a left femoral neck fracture [facility]. Thepatient arrived [...] then further exposed the femurand used a box repairer to initiate access to the femoral canal. [...] onto the hospital bed and wheeled to [facility] in stable condition.Dr. Garcia was present and active for all portions of the case.ARNIE GONGORA, DOD: 03/20/2018 19:52:39 /[id number]#: [id number] Doc#: [id number]: Tiki Garcia Normal [facility] PTon 03-20-2018 INR Coag RelTime (PPP) 1.1 {INR} Normal [facility] Comment on above: Result Comment: Ther apeutic Range: Moderate Anticoagulant Intensity: INR = 2.0-3.0 High Anticoagulant Intensity: INR = 2.5-3.5 Performed By: #### P T, LIPR ####[address] [address] Prothrombin time (PT) Coag time (PPP) 11.5 s Normal 9.0-12.0 [facility] Comment on above: Performed By: #### P T, LIPR ####[facility] [address] [place] [address] Type + Screenon 03-20-2018 Type + Screen Sample Expiration Arm Band Number BE [id number] ABO/Rh(D) O POSITIVE Antibody Screen NEGATIVE Normal [facility] Comment on above: Performed By: #### T YS ####[facility] [address] [place] [address] Urinalysis, Routineon 2017 Acetoacetic Acid,Ur Negative Normal NEG [facility] Comment on above: Performed By: #### BENSON Johns ####[facility] [address] [place] [address] Bilirubin, SemiQt,Ur Negative Normal NEG [facility] Comment on above: Performed By: #### BENSON Johns ####[facility] [address] [place] [address] Color YELLOW Normal YEL [facility] Comment on above: Performed By: #### BENSON Johns ####[address] [place] [address] Glucose,Semi-qnt, Ur Negative Normal NEG [facility] Comment on above: Performed By: #### BENSON Johns ####[facility] [address] [address] Hemoglobin, Ur TRACE Abnormal NEG [facility] Comment on above: Performed By: #### BENSON Johns ####[address] [address] Leuckocyte Esterase Negative Normal NEG [facility] Comment on above: Performed By: #### BENSON Johns ####[facility] [address] [place] [address] Nitrite,Ur Negative Normal NEG [facility] Comment on above: Performed By: #### BENSON Johns ####[facility] [address] [place] [address] PH,Ur 6.5 Normal 5.0-8.0 [facility] Comment on above: Performed By: #### BENSON Johns ####[address] [place] [address] Protein mass conc Negative Normal NEG [facility] Comment on above: Performed By: #### BENSON Johns ####[facility] [address] [address] Spec. Parks,Ur 1.017 Normal 1.005-1.030 [facility] Comment on above: Performed By: #### BENSON Johns ####Raven Khalil[address] [place] [address] Turbidity CLEAR Normal CLEAR [facility] Comment on above: Performed By: #### BENSON Johns ####[facility] [address] [address] Urobilinogen,Ur Normal Normal NORM [facility] Comment on above: Performed By: #### BENSON Johns ####[facility] [address] [address] Comment NOT REPORTED Normal [facility] Comment on above: Performed By: #### EBNSON Johns ####[facility] [address] [address] Urinalysis,Microon 8 ----- Normal [facility] Comment on above: Performed By: #### BENSON Johns ####[facility] [address] [place] [address] Casts 10 TO 20 HYALINE Normal 0-8 [facility] Comment on above: Result Comment: Refe rence range defined for non-centrifuged specimen. Performed By: #### BENSON Johns ####[facility] [address] [place] [address] Epithelial cells 2 TO 5 Normal 0-5 [facility] Comment on above: Performed By: #### BENSON Johns ####[facility] [address] [place] [address] RBC Test strip #/vol (U) 2 TO 5 Normal 0-4 [facility] Comment on above: Result Comment: Refe rence range defined for non-centrifuged specimen. Performed By: #### U BENSON Richter ####[facility] [address] [place] [address] Urine WBC's 2 TO 5 Normal 0-5 [facility] Comment on above: Performed By: #### U ABENSON ####[facility] [address] [place] [address] Amorphous Sediment NOT REPORTED Normal NONE [facility] Comment on above: Performed By: #### U ABENSON ####[facility] [address] [place] [address] Bacteria NOT REPORTED Normal NONE [facility] Comment on above: Performed By: #### U BENSON Richter ####[facility] [address] [place] [address] Crystals NOT REPORTED Normal NONE [facility] Comment on above: Performed By: #### U ABENSON ####[facility] [address] [place] [address] Epithelial, Renal NOT REPORTED Normal 0 [facility] Comment on above: Performed By: #### U ABENSON ####[facility] [address] [place] [address] Mucus Strands NOT REPORTED Normal NONE [facility] Comment on above: Performed By: #### U CHRISTIANO RichterO ####[facility] [address] [place] [address] Other Observations NOT REPORTED Normal NREQ [facility] Comment on above: Performed By: #### U ABENSON ####[facility] [place] [address] Trichomonas NOT REPORTED Normal NONE [facility] Comment on above: Performed By: #### U BENSON Richter ####[facility] [address] [place] [address] Yeast NOT REPORTED Normal NONE [facility] Comment on above: Performed By: #### U BENSON Richter ####[facility] [address] [place] [address] XR CHEST PORTABLEon 03-20-20 18 XR CHEST PORTABLE EXAMINATION:SINGLE X RAY VIEW OF THE CHEST03/20/2018 9:23 amCOMPARISON:Chest radiograph dated 03/19/2018.HISTORY:ORDERING SYSTEM PROVIDED HISTORY: Pre-opTECHNOLOGIST PROVIDED HISTORY:Pre-opIMPRESSION: Cardiac and mediastinal shadows are normal. No infiltrates. No effusions.No pneumothorax. No free air below the diaphragm. Levoscoliosis of lowerthoracic spine similar to prior exam.IMPRESSION:No acute findings in the chestInterpreted by:WEI Grigned by:Teresa Prieto MD03/20/18Final result Normal [facility] XR FEMUR LEFT (MIN 2 VIEWS)o [...] by:WEI Coughlinigned by:Flo Shepard MD03/20/18Final result Normal [facility] XR HIP 2-3 VW W PELVIS [...] fracture or diastasis.Interpreted by:WEI Bojorquezigned by:Gabriele Long MD18Final result Normal [facility] Protein mass conc EXAMINATION:SINGLE X RAY VIEW OF THE PELVIS AND 2 XRAY VIEWS LEFT HIP03/20/2018 9:23 amCOMPARISON:None.HISTORY:ORDE RING SYSTEM PROVIDED HISTORY: Trauma/FractureTECHNOLOGIST PROVIDED HISTORY:AP and cross-table lateral please, thank youTrauma/FractureFINDINGS:Acu te Garden 4 fracture of the subcapital left femoral neck. No dislocations.IMPRESSION: Acute Garden 4 fracture of the subcapital left femoral neck.Interpreted by:WEI Grigned by:Teresa Prieto MD03/20/18Final result Normal [facility] XR HIP LEFT (1 VIEW)on 03-20 [...] by:WEI Bojorquezigned by:Gabriele Long MD03/20/18inal result Normal [facility] Vital Signs Date Time Vital Sign Value Performing Clinician Aroldo dickens 09-30-2024 14:14-0400 Body mass index (BMI) [Ratio] 24.09 kg/m2 Corina Jay OPTICS TEST TECHNICIAN Work Phone: [facility] 09-30-2024 14:14-0400 Body temperature 97.81 [degF] Corina Jay OPTICS TEST TECHNICIAN Work Phone: [facility] 09-30-2024 14:14040 Body weight 61.69 kg Corina Misty OPTICS TEST TECHNICIAN Work Phone: [facility] 09-30-2024 14:14-0400 Diastolic blood pressure 80 mm[Hg] Corina Misty OPTICS TEST TECHNICIAN Work Phone: [facility] 09-30-2024 14:14-0400 Heart rate 79 /min Corina Misty OPTICS TEST TECHNICIAN Work Phone: [facility] 09-30-2024 14:14-0400 Respiratory rate 18 /min Corina Misty OPTICS TEST TECHNICIAN Work Phone: [facility] 09-30-2024 14:14-0400 SaO2% (BldA) [Mass fraction] 96 % Corina Jay OPTICS TEST TECHNICIAN Work Phone: [facility] 09-30-2024 14:14-0400 Systolic blood pressure 134 mm[Hg] Corina Francisbharati OPTICS TEST TECHNICIAN Work Phone: [facility] 08-21-2024 13:41-0400 Body height 153 cm Devyn Chavez MD Work Phone: [facility] 08-21-2024 13:41-0400 Body mass index (BMI) [Ratio] 26.7 kg/m2 Devyn Chavez MD Work Phone: [facility] 08-21-2024 13:41-0400 Body temperature 97.59 [degF] Devyn Chavez MD Work Phone: [facility] 08-21-2024 13:41-0400 Body weight 62.51 kg Devyn Chavez MD Work Phone: [facility] 08-21-2024 13:41-0400 Diastolic blood pressure 79 mm[Hg] Devyn Chavez MD Work Phone: [facility] 08-21-2024 13:41-0400 Heart rate 88 /min Devyn Chavez MD Work Phone: [facility] 08-21-2024 13:41-0400 Respiratory rate 16 /min Devyn Chavez MD Work Phone: [facility] 08-21-2024 13:41-0400 SaO2% (BldA) [Mass fraction] 96 % Devyn Chavez MD Work Phone: [facility] 08-21-2024 13:41-0400 Systolic blood pressure 161 mm[Hg] Devyn Chavez MD Work Phone: [facility] 03-31-2024 13:09-0500 Body height 160 cm Twin Perla OPTICS TEST TECHNICIAN Work Phone: [facility] 03-31-2024 13:09-0500 Body mass index (BMI) [Ratio] 23.95 kg/m2 Twin Perla OPTICS TEST TECHNICIAN Work Phone: [facility] 03-31-2024 13:09-0500 Body temperature 96.6 [degF] Twin Perla OPTICS TEST TECHNICIAN Work Phone: [facility] 03-31-2024 13:09-0500 Body weight 61.33 kg Twin Perla OPTICS TEST TECHNICIAN Work Phone: [facility] 03-31-2024 13:09-0500 Diastolic blood pressure 76 mm[Hg] Twin Perla OPTICS TEST TECHNICIAN Work Phone: [facility] 03-31-2024 13:09-0500 Heart rate 63 /min Twin Perla OPTICS TEST TECHNICIAN Work Phone: [facility] 03-31-2024 13:09-0500 Respiratory rate 16 /min Twin Perla OPTICS TEST TECHNICIAN Work Phone: [facility] 03-31-2024 13:09-0500 SaO2% (BldA) [Mass fraction] 97 % Twin Perla OPTICS TEST TECHNICIAN Work Phone: [facility] 03-31-2024 13:09-0500 Systolic blood pressure 138 mm[Hg] Twin Perla OPTICS TEST TECHNICIAN Work Phone: [facility] 02-07-2024 12:50-0400 Body mass index (BMI) [Ratio] 26.31 kg/m2 Devyn Chavez MD Work Phone: [facility] 02-07-2024 12:50-0400 Body temperature 97.39 [degF] Devyn Chavez MD Work Phone: [facility] 02-07-2024 12:50-0400 Body weight 61.6 kg Devyn Chavez MD Work Phone: [facility] 02-07-2024 12:50-0400 Diastolic blood pressure 78 mm[Hg] Devyn Chavez MD Work Phone: [facility] 02-07-2024 12:50-0400 Heart rate 74 /min Devyn Chavez MD Work Phone: [facility] 02-07-2024 12:50-0400 Respiratory rate 16 /min Devyn Chavez MD Work Phone: [facility] [employer] [facility] 02-07-2024 12:50-0400 SaO2% (BldA) [Mass fraction] 99 % Devyn Chavez MD Work Phone: [facility] [employer] [facility] 02-07-2024 12:50-0400 Systolic blood pressure 163 mm[Hg] Devyn Chavez MD Work Phone: [facility] [employer] [facility] 10-04-2023 13:44-0400 Body height 153 cm Devyn Chavez MD Work Phone: [facility] [employer] [facility] 10-04-2023 13:44-0400 Body mass index (BMI) [Ratio] 25.04 kg/m2 Devyn Chavez MD Work Phone: [facility] [employer] [facility] 10-04-2023 13:44-0400 Body temperature 97.5 [degF] Devyn Chavez MD Work Phone: [facility] [employer] [facility] 10-04-2023 13:44-0400 Body weight 58.6 kg Devyn Chavez MD Work Phone: [facility] [employer] [facility] 10-04-2023 13:44-0400 Diastolic blood pressure 65 mm[Hg] Devyn Chavez MD Work Phone: [facility] [employer] [facility] 10-04-2023 13:44-0400 Heart rate 82 /min Devyn Chavez MD Work Phone: [facility] [employer] [facility] 10-04-2023 13:44-0400 Respiratory rate 24 /min Devyn Chavez MD Work Phone: [facility] [employer] [facility] 10-04-2023 13:44-0400 SaO2% (BldA) [Mass fraction] 99 % Devyn Chavez MD Work Phone: [facility] [employer] [facility] 10-04-2023 13:44-0400 Systolic blood pressure 143 mm[Hg] Devyn Chavez MD Work Phone: [facility] [employer] [facility] 06-06-2023 15:04-0500 Body height 153 cm Devyn Chavez MD Work Phone: [facility] [employer] [facility] 06-06-2023 15:04-0500 Body mass index (BMI) [Ratio] 24.84 kg/m2 Devyn Chavez [facility] 06-06-2023 15:04-0500 Body temperature 97.7 [degF] Dev[facility] 06-06-2023 15:04-0500 Body weight 58.15 kg Devyn Chavez MD [facility] 06-06-2023 15:04-0500 Diastolic blood pressure 75 mm[Hg] Devyn Chavez MD [facility] 06-06-2023 15:04-0500 Heart rate 80 /min Devyn Chavez MD Work Phone: [facility] [employer] 06-06-2023 15:04-0500 Respiratory rate 24 /min Devyn Chavez MD Work Phone: [facility] [employer] 06-06-2023 15:04-0500 SaO2% (BldA) [Mass fraction] 99 % Devyn Chavez MD Work Phone: [facility] [employer] 06-06-2023 15:04-0500 Systolic blood pressure 158 mm[Hg] Devyn Chavez MD Work Phone: [facility] Encounters Encounter Date Encounter Type Care Provider Facility Start: 09-30-2024 End: 09-30-2024 Bamboo flowsheet Corina Jay OPTICS TEST TECHNICIAN Work Phone: [facility] Start: 09-30-2024 End: 09-30-2024 Bamboo flowsheet Corina Jay OPTICS TEST TECHNICIAN Work Phone: [facility] Start: 09-30-2024 End: 09-30-2024 Office outpatient visit 25 minutes Corina Jay OPTICS TEST TECHNICIAN Work Phone: [facility] Comment on above: Essential hypertensi on (CMS/HCC) (Primary Dx); Secondary malignant neoplasm of bone (CMS/HCC); Malignant neoplasm of right female breast, unspecified estrogen receptor status, unspecified site of breast (CMS/HCC); Bronchiolectasis (CMS/HCC); Atherosclerosis of [place] coronary artery of [place] heart without angina pectoris (CMS/HCC); Stage 3b chronic kidney disease (HCC) (CMS/HCC); Mixed hyperlipidemia (CMS/HCC); Iron deficiency anemia, unspecified iron deficiency anemia type; Cerebrovascular disease; Leg cramps, sleep related Start: 09-30-2024 End: 09-30-2024 ambulatory CORINA JAY Not Available Start: 08-21-2024 End: 08-21-2024 Office outpatient visit 25 minutes Devyn Chavez MD Work Phone: [facility] Comment on above: 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); Malignant 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, estrogen receptor positive (CMS-HCC); Breast cancer metastasized to multiple sites, right (CMS-HCC); correction (current) use of aromatase inhibitors Start: 07-31-2024 End: 07-31-2024 Refill Corina Jay OPTICS TEST TECHNICIAN Work Phone: [facility] Comment on above: Essential hypertensi on (CMS/HCC) Start: 06-24-2024 End: 06-24-2024 Refill Kristy Madden [facility] Start: 04-13-2024 End: 04-13-2024 Refill Twin Perla OPTICS TEST TECHNICIAN Work Phone: [facility] Comment on above: Essential hypertensi on (CMS/HCC) Start: 03-31-2024 End: 03-31-2024 Bamboo flowsheet Twin Nagelk OPTICS TEST TECHNICIAN Work Phone: [facility] Start: 03-31-2024 End: 03-31-2024 Bamboo flowsheet Twin Nagelk OPTICS TEST TECHNICIAN Work Phone: [facility] Start: 03-31-2024 End: 03-31-2024 ambulatory TWIN PERLA Not Available Start: 03-31-2024 End: 03-31-2024 Patient encounter procedure Twin Perla OPTICS TEST TECHNICIAN Work Phone: [facility] Comment on above: Encounter for Medica re annual wellness exam (Primary Dx) Start: 02-07-2024 End: 02-07-2024 Documentation procedure Kristy Jaeger [facility] Medical Oncology Start: 02-07-2024 End: 02-07-2024 Office outpatient visit 25 minutes Devyn Chavez MD Work Phone: Jennyfer Aguirre [facility] Medical Oncology Comment on above: 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, estrogen receptor positive (CMS-HCC) (Primary Dx); 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) Start: 02-07-2024 End: 02-07-2024 ambulatory DEVYN CHAVEZ [facility] Start: 10-07-2023 End: 10-07-2023 ambulatory SHAIKH JEREMYMELANIE Not Available Start: 10-04-2023 End: 10-04-2023 Office outpatient visit 25 minutes Devyn Chavez MD Work Phone: Jennyfer Aguirre [facility] Medical Oncology Comment on above: Malignant neoplasm m etastatic to bone (CMS-HCC) (Primary Dx); Malignant 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, estrogen receptor positive (CMS-HCC); 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) Start: 10-04-2023 End: 10-04-2023 [facility] Start: 07-22-2023 Orders Only Devyn Chavez MD Work Phone: Jennyfer Aguirre [facility] - Medical Oncology Comment on above: Metastasis from colt gnant neoplasm of bone ([facility]-HCC) (Primary Dx) Start: 06-06-2023 End: 06-06-2023 Office outpatient visit 25 minutes Devyn Chavez MD Work Phone: Jennyfer Aguirre [facility] [place] - Medical Oncology Comment on above: 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, estrogen receptor positive (CMS-HCC) (Primary Dx); 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) Start: 06-06-2023 Orders Only Kristy Elizabeth [place] [facility] [place] - Medical Oncology Comment on above: 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, estrogen receptor positive ([facility]-HCC) (Primary Dx) Start: 05-24-2023 Orders Only Kristy Aguirre [facility] [place] - Medical Oncology Start: 04-01-2023 Patient encounter procedure Twin Perla NP Work Phone: [facility] Start: 08-28-2022 End: 08-29-2022 ambulatory SHAIKH Giancarlo CERDA Facility:[facility] Start: 06-21-2022 End: 06-21-2022 ambulatory EROS MATHIS Facility:[facility] Start: 06-21-2022 End: 06-21-2022 Office outpatient new 45 minutes Eros Mathis MD Work Phone: Orthopaedics Comment on above: Cancer, metastatic t o bone (HCC) (Primary Dx); Pathological fracture, pelvis, initial encounter for fracture Start: 06-06-2022 Chart abstracting Angelika Elizabeth [place] [facility] [place] - Medical Oncology Start: 06-04-2022 ambulatory [facility] Start: 05-22-2022 End: 05-23-2022 ambulatory SHAIKH Giancarlo CERDA Facility:[facility] Start: 05-07-2022 End: 05-07-[address] MERLY DUARTE Facility:[facility] Start: 04-27-2022 End: 05-02-2022 Evaluation and management of inpatient SHAIKH Giancarlo CERDA Facility:[facility] Start: 04-27-2022 End: 04-28-2022 ambulatory SHAIKH Giancarlo CERDA Facility:[facility] Start: 04-24-2022 End: 04-25-2022 ambulatory SHAIKH Giancarlo CERDA Facility:[facility] Start: 03-20-2018 End: 03-23-2018 Evaluation and management of inpatient [facility] Procedures Date Procedure Procedure Detail Performing Clinician Start: 08-21-2024 Follow-up visit Follow-up DEVYN CHAVEZ Start: 05-27-2023 MULTIPLE LABS Not In Sy stem Ref Prov Start: 04-30-2022 Radiologic exam abdo men 1 view Not In System Ref Prov Start: 04-27-2022 Drainage of Right Br east, Percutaneous Approach, Diagnostic SHAIKH JIMROSALIO Start: 04-27-2022 Excision of Omentum, Open Approach, Diagnostic CELESTIN PRASHANT Start: 04-27-2022 Supplement Stomach w ith Autologous Tissue Substitute, Open Approach CELESTIN FAWWAD Start: 04-27-2022 Us abdominal real ti me [...] RICHARDSON WARNER Start: 03-23-2018 INTAKE AND OUTPUT KRISTOPHER WARNER Start: 03-23-2018 INCENTIVE SPIROMETRY RT RICHARDSON WARNER Start: 03-22-2018 INCENTIVE SPIROMETRY RT RICHARDSON WARNER Start: 03-22-2018 INCENTIVE SPIROMETRY RT RICHARDSON WARNER Start: 03-22-2018 INCENTIVE SPIROMETRY RT RICHARDSON WARNER Start: 03-22-2018 INCENTIVE SPIROMETRY RT RICHARDSON WARNER Start: 03-22-2018 INCENTIVE SPIROMETRY RT RICHARDSON WARNER Start: 03-22-2018 INCENTIVE SPIROMETRY RT RICHARDSON KATKO Start: 03-22-2018 VITAMIN D 25 HYDROXY JE SUSAN ABREUKO Start: 03-22-2018 INCENTIVE SPIROMETRY RT RICHARDSON ABREUKO Start: 03-22-2018 INITIATE OXYGEN THER APY PROTOCOL RICHARDSON KATKO Start: 03-22-2018 INCENTIVE SPIROMETRY RT RICHARDSON KATKO Start: 03-22-2018 INTAKE AND OUTPUT JEFFE RY KATKO Start: 03-22-2018 INCENTIVE SPIROMETRY RT RICHARDSON KATKO Start: 03-21-2018 INCENTIVE SPIROMETRY RT RICHARDSON KATKO Start: 03-21-2018 INCENTIVE SPIROMETRY RT RICHARDSON KATKO Start: 03-21-2018 INCENTIVE SPIROMETRY RT RICHARDSON KATKO Start: 03-21-2018 INCENTIVE SPIROMETRY RT RICHARDSON KATKO Start: 03-21-2018 INCENTIVE SPIROMETRY RT RICHARDSON KATKO Start: 03-21-2018 INCENTIVE SPIROMETRY RT RICHARDSON KATKO Start: 03-21-2018 INCENTIVE SPIROMETRY RT RICHARDSON KATKO Start: 03-21-2018 INITIATE OXYGEN THER APY PROTOCOL RICHARDSON KATKO Start: 03-21-2018 INCENTIVE SPIROMETRY RT RICHARDSON ABREUKO Start: 03-21-2018 DAILY WEIGHTS RICHARDSON Ibrahim ATROMAIN Start: 03-21-2018 INTAKE AND OUTPUT JOVANAE RY KATKO Start: 03-21-2018 INCENTIVE SPIROMETRY RT RICHARDSON ABREUKO Start: 03-20-2018 DIET GENERAL RICHARDSON GREENBERG TKO Start: 03-20-2018 ELEVATE EXTREMITY JEFFE RY KATKO Start: 03-20-2018 MISCELLANEOUS NURSIN G CARE ORDER (SPECIFY) RICHARDSON WARNER Start: 03-20-2018 WEIGHT BEARING TOLERATED RICHARDSON WARNER Start: 03-20-2018 ASSESS RICHARDSON KA TKO Start: 03-20-2018 BEDREST RICHARDSON GREENBERG TKO Start: 03-20-2018 Continuous pulse oximetry RICHARDSON ABREUKO Start: 03-20-2018 ENCOURAGE DEEP BREAT AANNDA AND COUGHING RICHARDSON ABREUKO Start: 03-20-2018 INCENTIVE SPIROMETRY RT RICHARDSON ABREUKO Start: 03-20-2018 INITIATE OXYGEN THER APY PROTOCOL RICHARDSON KATKO Start: 03-20-2018 NEURO/VASCULAR CHECKS J EFFERY KATKO Start: 03-20-2018 NOTIFY PHYSICIAN (SPECIFY) RICHARDSON ABREUKO Start: 03-20-2018 NURSING COMMUNICATION J EFFERY KATKO Start: 03-20-2018 VITAL SIGNS RICHARDSON KA TKO Start: 03-20-2018 Radex hip unilateral with pelvis 2-3 views RICHARDSON WARNER Start: 03-20-2018 VITAMIN D 25 HYDROXY JE SUSAN WARNER Start: 03-20-2018 TRANSFER PATIENT BLANCA WARNER Start: 03-20-2018 Radex hip unilateral with pelvis 1 view RICHARDSON WARNER Start: 03-20-2018 Blood count complete automated RICHARDSON WARNER Start: 03-20-2018 Comprehensive metabo lic panel RICHARDSON ABREUROMAIN Start: 03-20-2018 ELECTROLYTE PANEL KRISTOPHER WARNER Start: 03-20-2018 HEMOGLOBIN AND HEMAT OCRIT, BLOOD RICHARDSON WARNER Start: 03-20-2018 TYPE AND SCREEN RICHARDSON WARNER Start: 03-20-2018 Lipid panel RICHARDSON GREENBERG TKO Start: 03-20-2018 Prothrombin time BLANCA WARNER Start: 03-20-2018 Radiologic examinati on femur minimum 2 views RICHARDSON ABREUROMAIN Start: 03-20-2018 EKG 12-LEAD RICHARDSON GREENBERG TKO Start: 03-20-2018 CATHETER REMOVAL BLANCA WARNER Start: 03-20-2018 URINE RT REFLEX TO CULTURE RICHARDSON ABREUROMAIN Start: 03-20-2018 INSERT BOWLING CATHETER J AARTI ABREUROMAIN Start: 03-20-2018 ELEVATE HEELS OFF OF BED RICHARDSON ABREUROMAIN Start: 03-20-2018 HEAD OF BED 60 DEGRE ES OR LESS RICHARDSON ABREUROMAIN Start: 03-20-2018 NURSING COMMUNICATION J AARTI WARNER Start: 03-20-2018 TURN PATIENT RICHARDSON GREENBERG TKO Start: 03-20-2018 Culture bacterial quanttative colony count urine RICHARDSON WARNER Start: 03-20-2018 Microscopic urinalysis RICHARDSON ABREUROMAIN Start: 03-20-2018 Urnls dip stick/tabl et rgnt auto w/o microscopy RICHARDSON ABREUROMAIN Start: 03-20-2018 Radex hip unilateral with pelvis 2-3 views RICHARDSON ABREUROMAIN Start: 03-20-2018 Radiologic exam ches t single view RICHARDSON ABREUROMAIN Start: 03-20-2018 FULL CODE RICHARDSON GREENBERG TKO Start: 03-20-2018 INITIATE OXYGEN THER APY PROTOCOL RICHARDSON ABREUROMAIN Start: 03-20-2018 INTAKE AND OUTPUT KRISTOPHER ABREUROMAIN Start: 03-20-2018 IP CONSULT TO ORTHOP EDIC SURGERY RICHARDSON WARNER Start: 03-20-2018 NOTIFY PHYSICIAN (SPECIFY) RICHARDSON WARNER Start: 03-20-2018 OT EVAL AND TREAT KRISTOPHER WARNER Start: 03-20-2018 PLACE INTERMITTENT PNEUMATIC COMPRESSION DEVICE RICHARDSON WARNER Start: 03-20-2018 PT EVAL AND TREAT KRISTOPHER WARNER Start: 03-20-2018 VITAL SIGNS RICHARDSON GARRETTO Start: 03-19-2018 PATIENT STATUS (DIRECT) RICHARDSON WARNER Plan of Treatment Date Care Activity Detail Author Start: 06-18-2029 DTaP,Tdap and Td Vaccines (2 - Tdap) DTaP,Tdap and Td Vaccines (2 - Tdap) [facility] Start: 08-21-2025 Tobacco Screening Tobacco Screening [facility] Start: 03-05-2025 End: 03-05-2025 Patient encounter procedure 03/05/2025 2:00 PM EST Office Visit Jennyfer [facility] - Medical Oncology [address] [place] [phone] Devyn Chavez MD [address] [place] [address] [address] [place] [address] Jennyfer Elizabeth [facility] - Medical Oncology Start: 02-06-2025 Adult BMI Screening Adult BMI Screen ing [facility] Start: 12-21-2024 Influenza vaccination N [facility] Start: 10-03-2024 Adult BMI Screening Adult BMI Screen ing [facility] Start: 09-30-2024 End: 09-30-2025 CBC W Auto Differential panel - Blood CBC and differential Lab Routine Essential hypertension (CMS/HCC) Expected: 09/30/2024 (Approximate), Expires: 09/30/2025 [facility] Work Phone: Comment on above: Expected: 09/30/2024 (Approximate), Expires: 09/30/2025 Start: 09-30-2024 End: 09-30-2025 Comprehensive metabolic 2000 panel - Serum or Plasma Comprehensive metabolic panel Lab Routine Essential hypertension (CMS/HCC) Expected: 09/30/2024 (Approximate), Expires: 09/30/2025 [facility] Comment on above: Expected: 09/30/2024 (Approximate), Expires: 09/30/2025 Start: 09-30-2024 End: 09-30-2025 Ferritin [Mass/volume] in Serum or Plasma Ferritin Lab Routine Iron deficiency anemia, unspecified iron deficiency anemia type Expected: 09/30/2024 (Approximate), Expires: 09/30/2025 [facility] Comment on above: Expected: 09/30/2024 (Approximate), Expires: 09/30/2025 Start: 09-30-2024 End: 09-30-2025 Iron + transferrin + TIBC Iron + transferrin + TIBC Lab Routine Iron deficiency anemia, unspecified iron deficiency anemia type Expected: 09/30/2024 (Approximate), Expires: 09/30/2025 [facility] Comment on above: Expected: 09/30/2024 (Approximate), Expires: 09/30/2025 Start: 09-30-2024 End: 09-30-2025 Lipid 1996 panel - Serum or Plasma Lipid panel Lab Routine Mixed hyperlipidemia (CMS/HCC) Expected: 09/30/2024 (Approximate), Expires: 09/30/2025 [facility] Comment on above: Expected: 09/30/2024 (Approximate), Expires: 09/30/2025 Start: 09-30-2024 End: 09-30-2025 Microalbumin/Creatinine panel in random Urine Microalbumin / creatinine, urine ratio Lab Routine Essential hypertension (CMS/HCC) Expected: 09/30/2024 (Approximate), Expires: 09/30/2025 [facility] Comment on above: Expected: 09/30/2024 (Approximate), Expires: 09/30/2025 Start: 09-30-2024 End: 09-30-2024 Patient encounter procedure [facility] Comment on above: Essential hypertensi on (CMS/HCC) (Primary Dx); Secondary malignant neoplasm of bone (CMS/HCC); Malignant neoplasm of right female breast, unspecified estrogen receptor status, unspecified site of breast (CMS/HCC); Bronchiolectasis (CMS/HCC); Atherosclerosis of [place] coronary artery of [place] heart without angina pectoris (CMS/HCC); Stage 3b chronic kidney disease (HCC) (CMS/HCC); Mixed hyperlipidemia (CMS/HCC); Iron deficiency anemia, unspecified iron deficiency anemia type Start: 09-30-2024 End: 09-30-2025 Urinalysis complete panel - Urine Urinalysis with reflex microscopic (clean catch) Lab Routine Essential hypertension (CMS/HCC) Expected: 09/30/2024 (Approximate), Expires: 09/30/2025 [facility] Comment on above: Expected: 09/30/2024 (Approximate), Expires: 09/30/2025 Start: 08-21-2024 End: 08-21-2025 DXA Skeletal system Views for bone density Dexa scan central skeletal Imaging Routine 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) 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, estrogen receptor positive (CMS-HCC) Breast cancer metastasized to multiple sites, right (CMS-HCC) 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 Expected: 08/21/2024, Expires: 08/21/2025 [facility] Work Phone: Comment on above: Expected: 08/21/2024 , Expires: 08/21/2025 Start: 08-14-2024 End: 08-14-2024 Patient encounter procedure 08/14/2024 1:00 PM EDT Office Visit [facility] - Medical Oncology [address] [place] [phone] Devyn Chavez MD [address] [place] [address] [address] [place] [address] [facility] - Medical Oncology Start: 08-07-2024 End: 02-06-2025 CBC W Auto Differential panel - Blood CBC auto differential Lab Routine 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) 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, estrogen receptor positive (CMS-HCC) Breast cancer metastasized to multiple sites, right (CMS-HCC) Expected: 08/07/2024 (Approximate), Expires: 02/06/2025 [facility] Work Phone: Comment on above: Expected: 08/07/2024 (Approximate), Expires: 02/06/2025 Start: 08-07-2024 End: 02-06-2025 Comprehensive metabolic 2000 panel - Serum or Plasma Comprehensive metabolic panel Lab Routine 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) Malignant neoplasm metastatic to bone ([facility]-HCC) Malignant 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, estrogen receptor positive ([facility]-HCC) Breast cancer metastasized to multiple sites, right ([facility]-HCC) Expected: 08/07/2024 (Approximate), Expires: 02/06/2025 [facility] Comment on above: Expected: 08/07/2024 (Approximate), Expires: 02/06/2025 Start: 06-06-2024 Adult BMI Screening Adult BMI Screen ing [facility] Start: 05-26-2024 Influenza vaccination Influenza Vacc ine (#1) [facility] Comment on above: Postponed from 12/21 (Patient Refused) Start: 04-01-2024 Pneumococcal Vaccine : 65+ Years (1 of 1 - PCV) Pneumococcal Vaccine: 65+ Years (1 of 1 - PCV) [facility] Comment on above: Postponed from 04/10 (Patient Refused) Start: 03-07-2024 Adult BMI Screening Adult BMI Screen [facility] Start: 02-07-2024 End: 02-07-2024 Patient encounter procedure 02/07/2024 1:00 PM EDT Office Visit Jennyfer Aguirre [facility] - Medical Oncology [address] [place] [phone] Devyn Chavez MD [facility] [address] [place] [phone] Jennyfer Aguirre [facility] - Medical Oncology Start: 12-22-2023 Influenza vaccination N [facility] Start: 10-04-2023 End: 10-04-2023 Patient encounter procedure 10/04/2023 2:00 PM EDT Office Visit Jennyfer Aguirre [facility] - Medical Oncology [address] [place] [phone] Devyn Chavez MD [email or web address] [place] [phone] Jennyfer Aguirre [facility] - Medical Oncology Start: 09-23-2023 End: 06-06-2024 CBC W Auto Differential panel - Blood CBC auto differential Lab Routine Malignant 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, estrogen receptor positive (CMS-HCC) Expected: 09/23/2023, Expires: 06/06/2024 [employer] Phone: Comment on above: Expected: 09/23/2023 , Expires: 06/06/2024 Start: 09-23-2023 End: 06-06-2024 Comprehensive metabolic 2000 panel - Serum or Plasma Comprehensive metabolic panel Lab Routine Malignant 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, estrogen receptor positive (CMS-HCC) Expected: 09/23/2023 (Approximate), Expires: 06/06/2024 [facility] Comment on above: Expected: 09/23/2023 (Approximate), Expires: 06/06/2024 Start: 08-09-2023 Tobacco Screening Tobacco Screening [facility] [employer] [facility] Start: 06-06-2023 End: 06-06-2023 Patient encounter procedure 06/06/2023 3:00 PM EST Office Visit Jennyfer Glenn [facility] - Medical Oncology [address] [place] [phone] Devyn Chavez MD [address] [place] [address] [place], [place] [id number] Jennyfer Elizabeth [facility] - Medical Oncology Start: 05-30-2023 End: 05-30-2023 ambulatory 05/30/2023 3:00 PM EST Support Visit Jennyfer Elizabeth [place] [facility] - Medical Oncology [address] [place] [phone] [facility] - Medical Oncology Start: 12-21-2022 Influenza vaccination Influenza Vacc ine [facility] [employer] [facility] Start: 04-22-2022 ADVANCE DIRECTIVE DISCUSSION ADVANCE DIRECTIVE DISCUSSION [facility] Start: 04-22-2022 DEPRESSION ASSESSMENT DEPRESSION ASS ESSMENT [facility] Start: 12-21-2021 Influenza vaccination INFLUENZA (#1) [facility] Start: 04-19-2012 DIABETES SCREEN DIABETES SCREEN [facility] Start: 2003 BONE DENSITY BONE DENSITY [facility] Start: 2003 Fall Risk Screening Fall Risk Screen ing [facility] Start: 2003 Pneumococcal Vaccine : 65+ Years (1 of 1 - PCV) Pneumococcal Vaccine: 65+ Years (1 of 1 - PCV) [facility] Start: 2003 PNEUMOCOCCAL: 65+ (1 - PCV) PNEUMOCOCCAL: 65+ (1 - PCV) [facility] Start: 1988 SHINGRIX VACCINE (1 of 2) SHINGRIX VACCINE (1 of 2) [facility] Start: 1957 Administration of varicella zoster vaccine Zoster (Shingles) Vaccine (1 of 2) [facility] Start: 1957 Pneumococcal Vaccine : 65+ Years (1 of 2 - PCV) Pneumococcal Vaccine: 65+ Years (1 of 2 - PCV) [facility] Start: 1957 Urine microalbumin profile DTAP,TDAP,TD (1 - Tdap) [facility] Start: 1956 Adult BMI Follow Up Plan Adult BMI F ollow Up Plan [facility] Start: 1950 Depression Screening Depression Scre ening [facility] Start: 1938 COVID-19 VACCINE (#1) COVID-19 VACCI NE (#1) [facility] Start: 1938 Medicare Annual Well ness Visit Medicare Annual Wellness Visit [facility] End: 08-21-2025 Cancer antigen 15-3 Cancer antigen 15-3 Lab Routine 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) 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, estrogen receptor positive (CMS-HCC) Breast cancer metastasized to multiple sites, right (CMS-HCC) 1 Occurrences starting 08/21/2024 until 08/21/2025 [facility] Comment on above: 1 Occurrences starti ng 08/21/2024 until 08/21/2025 End: 08-21-2025 Cancer antigen 27-29 Cancer antigen 27-29 Lab Routine 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) 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, estrogen receptor positive (CMS-HCC) Breast cancer metastasized to multiple sites, right (CMS-HCC) 1 Occurrences starting 08/21/2024 until 08/21/2025 [facility] above: 1 Occurrences starti ng 08/21/2024 until 08/21/2025 End: 10-04-2024 CBC W Auto Differential panel - Blood CBC with auto diff Lab Routine 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) every 3 months for 50 Occurrences starting 10/04/2023 until 10/04/2024 [employer] Work Phone: Comment on above: every 3 months for 5 0 Occurrences starting 10/04/2023 until 10/04/2024 End: 08-21-2025 CBC W Auto Differential panel - Blood CBC auto differential Lab Routine 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) 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, estrogen receptor positive (CMS-HCC) Breast cancer metastasized to multiple sites, right (CMS-HCC) 1 Occurrences starting 08/21/2024 until 08/21/2025 [facility] Comment on above: 1 Occurrences starti ng 08/21/2024 until 08/21/2025 End: 10-04-2024 Comprehensive metabolic 2000 panel - Serum or Plasma Comprehensive metabolic panel Lab Routine 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) every 3 months for 50 Occurrences starting 10/04/2023 until 10/04/2024 [facility] Comment on above: every 3 months for 5 0 Occurrences starting 10/04/2023 until 10/04/2024 End: 08-21-2025 Comprehensive metabolic 2000 panel - Serum or Plasma Comprehensive metabolic panel Lab Routine 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) 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, estrogen receptor positive (CMS-HCC) Breast cancer metastasized to multiple sites, right (CMS-HCC) 1 Occurrences starting 08/21/2024 until 08/21/2025 [facility] Comment on above: 1 Occurrences starti ng 08/21/2024 until 08/21/2025 Immunizations Immunization Date Immunization Notes Care Provider [facility] 05-09-2022 tuberculin skin test ; purified protein derivative solution, intradermal Twin Perla NP Work Phone: [facility] 05-02-2022 tuberculin skin test ; purified protein derivative solution, intradermal Twin Perla OPTICS TEST TECHNICIAN Work Phone: [facility] 06-18-2019 diphtheria, tetanus toxoids and acellular pertussis vaccine Twin Perla OPTICS TEST TECHNICIAN Work Phone: [facility] Healthcare Payers Date Payer Category Payer Private Health Insurance [employer] [id number] 2018 Medicare [id number] 2003 Managed Care Other (unspecified) [employer] [id number] 2003 Medicare [id number] 2003 Unknown [id number] 2003 Unknown [id number] 1959 Medicare [id number] 1959 Self-pay [id number] 1959 Unknown [id number] 1938 Unknown [id number]. 2.175 1938 Unknown [id number] [id number]. 2.593 1938 Unknown [id number] 2.16.840.1.593231.3.579. 2.593 1938 Unknown [id number] [id number]. 2.593 1938 Unknown [id number] 2.16.840.1.294387.3.579. 2.593 1938 Unknown [id number] 2.16.840.1.480654.3.579. 2.593 1938 Unknown [id number] [id number]. 2.1286 1938 Unknown [id number] [id number]. 2.1286 1938 Unknown [id number] [id number]. 2.1286 1938 Unknown [id number] [id number]. 2.1286 1938 Unknown [id number] [id number]. 2.1259 1938 Unknown [id number] [id number]. 2.1259 1938 Unknown [id number] [id number]. 2.1259 Unknown [id number]. 2.593 Social History Date Type Detail Facility Start: 05-14-2022 End: 04-01-2023 Tobacco smoking status MSIS Never smoked tobacco [facility] Work Phone: Start: 06-08-2009 End: 05-14-2022 Alcohol intake Not Asked [facility] Start: 1940 Sex Assigned At Not on file [facility] Start: 05-14-2022 End: 04-01-2023 Tobacco use and exposure Smokeless tobacco non-user [facility] Start: 10-07-2023 End: 09-30-2024 Alcoholic beverage intake Lifetime non-drinker (finding) [facility] Start: 04-01-2023 End: 03-31-2024 History of Social function [facility] Start: 04-01-2023 End: 03-31-2024 Humiliation, Afraid, Rape, and Kick questionnaire [HARK] [facility] Within the last year , have you been afraid of your partner or ex-partner? No [facility] Are you now , , , , never or living with a partner? [facility] Frequency of Alcohol Consumption Not on file [facility] How often do you hav e 6 or more drinks on 1 occasion? Never [facility] Do you feel stress - tense, restless, nervous, or anxious, or unable to sleep at night because your mind is troubled all the time - these days [OSQ] Not at all [facility] (I/We) worried wheth er (my/our) food would run out before (I/we) got money to buy more. Never true [facility] Start: 04-01-2023 Alcohol Comment moderate alcohol use [facility] Start: 08-08-2022 End: 08-21-2024 Alcoholic beverage intake Current drinker of alcohol (finding) [facility] Start: 05-14-2022 Alcohol Comment SOCIAL [facility] Start: 05-19-2022 End: 06-18-2022 Exposure to SARS-CoV-2 (event) Not sure [facility] Start: 11-25-2014 Sex Female (finding) [facility] Clinical Notes 04-25-2022 to 09-30-2024 Corina Jay NP - 09/30/2024 2:59 PM Tahmina Jay NP - 09/30/2024 2:47 PM CHELSEA MANUEL - 09/30/2024 2:00 PM Tahmina Jay NP - 09/30/2024 2:00 PM EDTPatient Instructions Note Date & Type Note Facility 09-30-2024 History of Present illness Narrative Associated Problem(s): Leg cramps, sleep related Check labs Associated Problem(s): Cerebrovascular disease Stroke in 2008 Seen 03/31/24 MEDICARE WELLNESS VISIT DNR [facility] Pt has been having leg cramps at night- last night and again 2-3 nights ago. Newer/onset Severe pain in both legs-pt had to stand up out of bed to help relieve pain. Images from the original note were not included. William Canas is a 84 y.o. female presents with chief complaint of No chief complaint on file. HPI: Here for recheck Blood pressure no symptoms, takes meds daily Leg cramps: mostly night, wakes up out of a sleep, started more recently, but has had been ongoing just now worsening, no swelling in legs. Gets out of bed and stands for a period of time then resolves, front back, both below the knee. No back pain noted, no NT in legs , no cauda equina SUBJECTIVE: MEDICATIONS: Current Outpatient Medications Medication Instructions acetaminophen (TYLENOL) 325 mg, Every 4 hours PRN letrozole (FEMARA) 2.5 mg, Daily losartan-hydroCHLOROthiazide (Hyzaar) 100-25 MG tablet 1 tablet, Oral, Daily ALLERGIES: No Known Allergies REVIEW OF SYMPTOMS: Review of Systems Constitutional: Negative for appetite change, chills and fever. HENT: Negative for congestion, ear pain and sore throat. Eyes: Negative for pain, discharge, redness and visual disturbance. Respiratory: Negative for cough, shortness of breath and wheezing. Cardiovascular: Negative for chest pain, palpitations and leg swelling. Leg cramps, mostly at night Gastrointestinal: Negative for abdominal pain, blood in stool, constipation, diarrhea, nausea and vomiting. Genitourinary: Negative for difficulty urinating, dysuria and frequency. Musculoskeletal: Negative for arthralgias, back pain, joint swelling and myalgias. Skin: Negative for rash and wound. Neurological: Negative for dizziness, tremors, seizures, syncope and headaches. Psychiatric/Behavioral: Negative for behavioral problems, self-injury and suicidal ideas. The patient is not nervous/anxious. Hematological: Does not bruise/bleed easily. Endocrine: Negative for polydipsia, polyphagia and polyuria. Allergic/Immunologic: Negative for environmental allergies and food allergies. PAST MEDICAL HISTORY Past Medical History: Diagnosis Date Arthritis Bone cancer (CMS/HCC) Breast CA ([facility]/HCC) Breast cancer metastasized to bone ([facility]/HCC) New dx w/mets to multiple bones & poss. lung.Poorly controlled painN0 NSAIDS =PUD. Tylenol no help.Discussed tx options for pain & considering her pain is from bone metastasis and NSAIDS are not an option for her-started on low dose oxycodone.Counselled & educated on S/E,adverse rx,drug interactions.Stressed importance of compliance & instructed to call office if ? or concerns.Doing well w/oxycodo Difficulty sleeping Edema of foot Heart disease History of nocturia HLD (hyperlipidemia) ([facility]) HTN (hypertension) ([facility]) Kidney disease Stroke ([facility]) Visual impairment Past Surgical History: Procedure Laterality Date HIP SURGERY Left 02/[address] Garcia family history includes Cancer in her father and mother. OBJECTIVE: Visit Vitals BP 134/80 (BP Location: Left arm, Patient Position: Sitting, BP Cuff Size: Adult long) Pulse 79 Temp 97.8 F (Temporal) Resp 18 Wt 136 lb LMP (LMP Unknown) SpO2 96% BMI 24.09 kg/m OB Status Postmenopausal Smoking Status Never BSA 1.66 m Physical Exam Vitals and nursing note reviewed. Constitutional: General: She is not in acute distress. Appearance: Normal appearance. HENT: Head: Normocephalic and atraumatic. Right Ear: External ear normal. Left Ear: External ear normal. Nose: Nose normal. Mouth/Throat: Mouth: Mucous membranes are moist. Eyes: Extraocular Movements: Extraocular movements intact. Conjunctiva/sclera: Conjunctivae normal. Neck: Vascular: No carotid bruit. Cardiovascular: Rate and Rhythm: Normal rate and regular rhythm. Pulses: Normal pulses. Heart sounds: No murmur heard. Pulmonary: Effort: Pulmonary effort is normal. Breath sounds: Normal breath sounds. No wheezing or rhonchi. Abdominal: General: Bowel sounds are normal. There is no distension. Palpations: Abdomen is soft. There is no mass. Tenderness: There is no abdominal tenderness. Musculoskeletal: General: Normal range of motion. Cervical back: Normal range of motion and neck supple. Right lower leg: No edema. Left lower leg: No edema. Lymphadenopathy: Cervical: No cervical adenopathy. Skin: General: Skin is warm and dry. Capillary Refill: Capillary refill takes 2 to 3 seconds. Findings: No rash. Neurological: General: No focal deficit present. Mental Status: She is alert and oriented to person, place, and time. Psychiatric: Mood and Affect: Mood normal. Behavior: Behavior normal. Thought Content: Thought content normal. Judgment: Judgment normal. ASSESSMENT AND PLAN: Follow up in about 6 months (around 04/01/2025) for Recheck. Problem List Items Addressed This Visit Bronchiolectasis (CMS/HCC) Essential hypertension (CMS/HCC) - Primary Please check blood pressure daily and record DASH diet Limit caffeine Take medication as directed Contact office if chest pain, pressure, dizziness, shortness of breath, swelling legs Recommend slow position changes Current meds: losartan/hydrochlorothiazide Relevant Orders CBC and differential Comprehensive metabolic panel Urinalysis with reflex microscopic (clean catch) Microalbumin / creatinine, urine ratio Malignant neoplasm of female breast (CMS/HCC) Follows with oncology Secondary malignant neoplasm of bone (CMS/HCC) Follows with oncology Atherosclerosis of coronary artery without angina pectoris (CMS/HCC) Check lipids Cerebrovascular disease Stroke in 2008 Chronic kidney disease Hyperlipidemia (CMS/HCC) No stating thearpy Relevant Orders Lipid panel Iron deficiency anemia Relevant Orders Iron + transferrin + TIBC Ferritin Leg cramps, sleep related Check labs Associated Problem(s): Hyperlipidemia (CMS/HCC) No stating thearpy Associated Problem(s): Atherosclerosis of coronary artery without angina pectoris (CMS/HCC) Check lipids Associated Problem(s): Malignant neoplasm of female breast (CMS/HCC) Follows with oncology Associated Problem(s): Secondary malignant neoplasm of bone (CMS/HCC) Follows with oncology Associated Problem(s): Essential hypertension (CMS/HCC) Please check blood pressure daily and record DASH diet Limit caffeine Take medication as directed Contact office if chest pain, pressure, dizziness, shortness of breath, swelling legs Recommend slow position changes Current meds: losartan/hydrochlorothiazide documented in this encounter [facility] 09-30-2024 Instructions Corina Jay NP - 09/30/2024 2:00 PM EDT Get labs fasting documented in this encounter [facility] 08-21-2024 History of Present illness Narrative Patient is here for follow up with Dr. Chavez. Orders received for DEXA print out order. F/u in 6 months, CBC, CMP, CA 15-3 and CA 27.29, print out order. Patient given calendar, verbalized understanding. documented in this encounter [facility] 08-21-2024 History of Present illness Narrative Images from the original note were not included. [facility] 08/21/24 William Canas is a 84 y.o. year old female seen today in the oncology clinic. Chief Complaint Patient presents with Follow-up History of Present Illness: Mrs. Canas is a 84 y.o. female who initially presented with sudden [...] well. She is compliant with her treatment. The patient is tolerating Femara very well she is on it for more than 2 years now. No further discharge from right breast lesion. Denies any bleeding more further discharge from the right breast lesion. She complains about daily diarrhea after Xgeva treatment, treatment is on hold. The patient was accompanied by her daughter and her . Her daughter has been taking photos of her breast periodically keep a record. Her activities are at baseline. She walks with a rolling walker. Past Medical History: Diagnosis Date GERD (gastroesophageal reflux disease) Hypertension Past Surgical History: Procedure Laterality Date BREAST BIOPSY Right 04/27/2022 at [facility] CATARACT EXTRACTION, BILATERAL Bilateral COLONOSCOPY HIP SURGERY Left 2018 PARTIAL STOMACH SURGERY 04/27/2022 Repair of anterior gastric wall at [facility] Family History Problem Relation Age of Onset Cancer Mother Colon cancer Mother Lung cancer Father Stomach cancer Father Cancer Granddaughter Breast cancer Granddaughter Social History Socioeconomic History Marital status: Tobacco Use Smoking status: Never Smokeless tobacco: Never Vaping Use Vaping status: Never Used Substance and Sexual Activity Alcohol use: Yes Comment: SOCIAL Drug use: Never Sexual activity: Not Currently Partners: Male Social Drivers of Health Financial Resource Strain: Low Risk (04/01/2023) Received from [facility] Overall Financial Resource Strain (CARDIA) Difficulty of Paying Living Expenses: Not hard at all Food Insecurity: No Food Insecurity (04/01/2023) Received from [facility] Hunger Vital Sign Worried About Running Out of Food in the Last Year: Never true Ran Out of Food in the Last Year: Never true Transportation Needs: No Transportation Needs (04/01/2023) Received from [facility] PRAPARE - Transportation Lack of Transportation (Medical): No Lack of Transportation (Non-Medical): No Physical Activity: Unknown (04/01/2023) Received from [facility] Exercise Vital Sign Minutes of Exercise per Session: 0 min Stress: No Stress Concern Present (04/01/2023) Received from [facility] Citizen [place] [employer] of Occupational Health - Occupational Stress Questionnaire Feeling of Stress : Not at all Social Connections: Moderately Isolated (04/01/2023) Received from [facility] Social Connection and Isolation Panel [NHANES] Frequency of Communication with Friends and Family: Once a week Frequency of Social Gatherings with Friends and Family: Once a week Attends Bahai Services: 1 to 4 times per year Active Member of Clubs or Organizations: No Attends Club or Organization Meetings: Never Marital Status: Interpersonal Safety: Not At Risk (04/01/2023) Received from [facility] Humiliation, Afraid, Rape, and Kick questionnaire Fear of Current or Ex-Partner: No Emotionally Abused: No Physically Abused: No Sexually Abused: No Housing Instability: Unknown (04/01/2023) Received from [facility] Housing Stability Vital Sign Unable to Pay for Housing in the Last Year: No Unstable Housing in the Last Year: No No Known Allergies Medication List Accurate as of August 21, 2024 2:20 PM. If you have any questions, ask your nurse or doctor. Medications Continued This Visit letrozole 2.5 mg chemo tablet Quantity: 90 tablet Refills: 3 Dose: 2.5 mg Signed by: Devyn Chavez 2.5 mg, oral, Daily Commonly known as: JACKIE losartan-hydroCHLOROthiazide 100-25 mg per tablet Refills: 0 Dose: 1 tablet Commonly known as: HYZAAR omeprazole 10 mg capsule Refills: 0 Dose: 10 mg Commonly known as: PriLOSEC Review of Symptoms: Review of Systems ECO- Symptomatic; in bed <50% of the day Physical Exam: General: Well appearing, in no acute distress. Vitals: BP 161/79 Pulse 88 Temp 36.4 C (97.6 F) (Oral) Resp 16 Ht 153 cm (5' 0.24 ) Wt 62.5 kg (137 lb 12.8 oz) SpO2 96% BMI 26.70 kg/m Body mass index is 26.7 kg/m . Eyes: No icterus, no conjuctival erythema ENT: [...] Left breast is unremarkable, right breast showed flat lesion about 10 cm. Covered by extensive scabs. I do not appreciate large lymphadenopathy in her right axilla. Compared to the picture September 2023 her chest lesion remains about the same size and appearance. No new lesion. Recent Imaging: No results found. Recent Labs: No results found for this or any previous visit (from the past 2 weeks). 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 No signs of progression. Due to significant diarrhea, hold Xgeva treatment for now. The patient's alkaline phosphatase is slightly elevated, clinically there is no significant progression. No significant change compared to a year ago periods DEXA print out order. F/u in 6 months, CBC, CMP, CA 15-3 and CA 27.29, print out order. The patient and her family agree with the above recommendation. Upon disease progression consider Faslodex. Thank you. Devyn Chavez MD Please note that portions of this note were generated using voice recognition EDAN dictation software. Although every effort was made to ensure the accuracy of this automated self pay collector, some errors in self pay collector may have occurred. CC: Patient Care Team: Shaikh Prashant MD as PCP - General (Internal Medicine) Devyn Chavez MD as Consulting Physician (Hematology) PCP:SHAIKH PRASHANT Referring MD: Shaikh Cerda MD [facility] 08-21-2024 Instructions Devyn Chavez MD - 08/21/2024 1:45 PM EDT DEXA print out order. F/u in 6 months, CBC, CMP, CA 15-3 and CA 27.29, print out order. [facility] [employer] 03-31-2024 History of Present illness Narrative Images from the original note were not included. Subjective : Chief Complaint: William Canas is an 83 y.o. female here for an annual wellness visit. I have reviewed and reconciled the history and medication list with the patient today. Current Outpatient Medications Medication Sig Dispense Refill acetaminophen (Tylenol) 325 MG tablet Take 325 mg by mouth every 4 (four) hours if needed for mild pain letrozole (Femara) 2.5 MG chemo tablet Take 2.5 mg by mouth Daily. losartan-hydroCHLOROthiazide (Hyzaar) 100-25 MG tablet Take 1 tablet by mouth Daily 90 tablet 1 No current facility-administered medications for this visit. Review of Systems Constitutional: Negative for activity change, appetite change, chills, diaphoresis, fatigue, fever and unexpected weight change. HENT: Negative for congestion, ear pain, rhinorrhea, sinus pressure, sinus pain, sneezing, sore throat, trouble swallowing and voice change. Eyes: Negative for visual disturbance. Respiratory: Negative for cough, chest tightness, shortness of breath and wheezing. Cardiovascular: Negative for chest pain, palpitations and leg swelling. Gastrointestinal: Negative for abdominal distention, abdominal pain, blood in stool, constipation, diarrhea and vomiting. Genitourinary: Negative for decreased urine volume, dysuria, flank pain, frequency, hematuria and urgency. Musculoskeletal: Negative for arthralgias, gait problem, joint swelling and myalgias. Skin: Negative for rash. Neurological: Negative for dizziness, tremors, syncope, weakness, light-headedness and headaches. Psychiatric/Behavioral: Negative for decreased concentration and suicidal ideas. The patient is not nervous/anxious. Hematological: Does not bruise/bleed easily. Endocrine: Negative for cold intolerance, heat intolerance, polydipsia, polyphagia and polyuria. List of current healthcare providers: Patient Care Team: Storm Olguin MD as PCP - General (Family Medicine) Twin Perla NP as Nurse Practitioner (Family Medicine) Medicare Annual Visit Over the past 2 weeks, how often have you been bothered by any of the following problems? Little interest or pleasure in doing things: Not at all Feeling down, depressed, or hopeless: Not at all Patient Health Questionnaire-2 Score: 0 Over the past 2 weeks, how often have you been bothered by any of the following problems? Trouble falling or staying asleep, or sleeping too much: Not at all Feeling tired or having little energy: Several days Poor appetite or overeating: Not at all Feeling bad about yourself - or that you are a failure or have let yourself or your family down: Not at all Trouble concentrating on things, such as reading the newspaper or watching television: Not at all Moving or speaking so slowly that other people could have noticed? Or the opposite - being so fidgety or restless that you have been moving around a lot more than usual.: Not at all Thoughts that you would be better off or hurting yourself in some way: Not at all Patient Health Questionnaire-9 Score: 1 Maya Fall Risk History of Falling, Immediate or Within 3 Months: No Health Risk Assessment Form Do you need help eating, bathing, using the toilet, dressing, or getting around your home?: No Can you prepare your own meals?: Yes Can you do your own housework without help?: No Can you shop for groceries or clothes without help?: Yes Do you exercise for about 20 minutes 3 or more days a week?: No How confident are you that you can control and manage most of your health problems?: Very confident Can you mange your money, credit cards and accounts, pay bills and taxes?: Yes Cognitive Screening Three Word Registration: Leader, Season, Table Clock Drawing: Normal Clock - 2 Three Word Recall: All 3 words correct - 3 Total Score (0-5 Points): 5 Advance Care Planning Do you have a living will?: Yes Do you have a medical power of digital account manager?: Yes Who is your medical power of digital account manager?: annie angel Objective : BP 138/76 Pulse 63 Temp 96.6 F Resp 16 Ht 5' 3 Wt 135 lb 3.2 oz LMP (LMP Unknown) SpO2 97% BMI 23.95 kg/m No results found. Physical Exam Vitals reviewed. Constitutional: Appearance: Normal appearance. HENT: Right Ear: Tympanic membrane normal. Left Ear: Tympanic membrane normal. Nose: Nose normal. Mouth/Throat: Mouth: Mucous membranes are moist. Pharynx: Oropharynx is clear. Eyes: Pupils: Pupils are equal, round, and reactive to light. Cardiovascular: Rate and Rhythm: Normal rate and regular rhythm. Pulses: Normal pulses. Heart sounds: Normal heart sounds. Pulmonary: Effort: Pulmonary effort is normal. Breath sounds: Normal breath sounds. Abdominal: General: Abdomen is flat. Bowel sounds are normal. Palpations: Abdomen is soft. Skin: Capillary Refill: Capillary refill takes less than 2 seconds. Neurological: Mental Status: She is alert and oriented to person, place, and time. Assessment/Plan : The following health maintenance schedule was reviewed with the patient and provided in printed form in the after visit summary: Health Maintenance Topic Date Due Influenza Vaccine (1) Never done Pneumococcal Vaccine: 65+ Years (1 of 1 - PCV) 04/01/2024 (Originally 2003) Advance Care Planning Pt reports she has advanced care directives at home. Will bring with her to next OV to have scanned in. No orders of the defined types were placed in this encounter. Electronically signed by Twin Perla NP on March 31, 2024 documented in this encounter [facility] 02-07-2024 History of Present illness Narrative Patient is here for follow up with Dr. Chavez. Orders received to F/u in 6 months, CBC, CMP. Print out order. Patient given calendar, verbalized understanding of future appointments. documented in this encounter [facility] 02-07-2024 History of Present illness Narrative Images from the original note were not included. [facility] 02/07/24 William Canas is a 83 y.o. year [...] well. She is compliant with her treatment. The patient is tolerating Femara very well she is almost on it for about 2 years now. No further discharge from right breast lesion. Denies any bleeding more further discharge from the right breast lesion. She complains about daily diarrhea after Xgeva treatment, treatment is on hold. The patient was accompanied by her daughter. Her daughter has been taking photos of her breast periodically keep a record. Her activities are at baseline. She walks with a rolling walker. Past Medical History: Diagnosis Date GERD (gastroesophageal reflux disease) Hypertension Past Surgical History: Procedure Laterality Date BREAST BIOPSY Right 04/27/2022 at [facility] CATARACT EXTRACTION, BILATERAL Bilateral COLONOSCOPY HIP SURGERY Left 2018 PARTIAL STOMACH SURGERY 04/27/2022 Repair of anterior gastric wall at [facility] Family History Problem Relation Age of Onset Cancer Mother Colon cancer Mother Lung cancer Father Stomach cancer Father Cancer Granddaughter Breast cancer Granddaughter Social History Socioeconomic History Marital status: Tobacco Use Smoking status: Never Smokeless tobacco: Never Vaping Use Vaping status: Never Used Substance and Sexual Activity Alcohol use: Yes Comment: SOCIAL Drug use: Never Sexual activity: Not Currently Partners: Male Social Drivers of Health Financial Resource Strain: Low Risk (04/01/2023) Received from [facility] Overall Financial Resource Strain (CARDIA) Difficulty of Paying Living Expenses: Not hard at all Food Insecurity: No Food Insecurity (04/01/2023) Received from [facility] Hunger Vital Sign Worried About Running Out of Food in the Last Year: Never true Ran Out of Food in the Last Year: Never true Transportation Needs: No Transportation Needs (04/01/2023) Received from [facility] PRAPARE - Transportation Lack of Transportation (Medical): No Lack of Transportation (Non-Medical): No Physical Activity: Unknown (04/01/2023) Received from [facility] Exercise Vital Sign Minutes of Exercise per Session: 0 min Stress: No Stress Concern Present (04/01/2023) Received from [facility] [employer] of Occupational Health - Occupational Stress Questionnaire Feeling of Stress : Not at all Social Connections: Moderately Isolated (04/01/2023) Received from [facility] Social Connection and Isolation Panel [NHANES] Frequency of Communication with Friends and Family: Once a week Frequency of Social Gatherings with Friends and Family: Once a week Attends Bahai Services: 1 to 4 times per year Active Member of Clubs or Organizations: No Attends Club or Organization Meetings: Never Marital Status: Interpersonal Safety: Not At Risk (04/01/2023) Received from [facility] Humiliation, Afraid, Rape, and Kick questionnaire Fear of Current or Ex-Partner: No Emotionally Abused: No Physically Abused: No Sexually Abused: No Housing Instability: Unknown (04/01/2023) Re[facility] from [facility] Housing Stability Vital Sign Unable to Pay for Housing in the Last Year: No Unstable Housing in the Last Year: No No Known Allergies Medication List Accurate as of February 07, 2024 2:02 PM. If you have any questions, ask your nurse or doctor. Medications Continued This Visit letrozole 2.5 mg chemo tablet Quantity: 90 tablet Refills: 4 Dose: 2.5 mg Signed by: Devyn Chavez 2.5 mg, oral, Daily Commonly known as: FEMOSCAR losartan-hydroCHLOROthiazide 100-25 mg per tablet Refills: 0 Dose: 1 tablet Commonly known as: HYZAAR omeprazole 10 mg capsule Refills: 0 Dose: 10 mg Commonly known as: PriLOSEC Review of Symptoms: Review of Systems ECO- Symptomatic; in bed <50% of the day Physical Exam: General: Well appearing, in no acute distress. Vitals: BP 163/78 Pulse 74 Temp 36.3 C (97.4 F) (Oral) Resp 16 Wt 61.6 kg (135 lb 12.8 oz) SpO2 99% BMI 26.31 kg/m Body mass index is 26.31 kg/m . Eyes: No icterus, no conjuctival erythema ENT: [...] Left breast is unremarkable, right breast showed flat lesion about 10 cm. Covered by extensive scabs. I do not appreciate large lymphadenopathy in her right axilla. Compared to the picture September 2023 her chest lesion remains about the same size and appearance. No new lesion. Recent Imaging: No results found. Recent Labs: No results found for this or any previous visit (from the past 2 weeks). Diagnosis Problem list: Problem List Items Addressed This Visit Musculoskeletal and Integument 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) Other Malignant 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, estrogen receptor positive (CMS-HCC) - Primary Impression: Metastatic breast cancer, ERPR positive HER2 negative Bony metastasis with subacute iliac wing fracture Femara 05/2022- History of gastric ulcer Plan: I [...] over time. 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 No signs of progression. Due to significant diarrhea, hold Xgeva treatment for now. The patient's alkaline phosphatase is slightly elevated, clinically there is no significant progression. Continue monitor closely. F/u in 6 months, CBC, CMP. The patient and her family agree with the above recommendation. Family will help me take another picture for record 04/2024. Upon disease progression consider Faslodex. Thank you. Devyn Chavez MD Please note that portions of this note were generated using voice recognition EDAN dictation software. Although every effort was made to ensure the accuracy of this automated self pay collector, some errors in self pay collector may have occurred. CC: Patient Care Team: Shaikh Prashant MD as PCP - General (Internal Medicine) Devyn Chavez MD as Consulting Physician (Hematology) PCP:SHAIKH PRASHANT Referring MD: Shaikh Cerda MD documented in this encounter [facility] 02-07-2024 Instructions Devyn Chavez MD - 02/07/2024 1:00 PM EDT Take a photo for record 04/2024 F/u in 6 months, CBC, CMP. Print out order. documented in this encounter [facility] 10-04-2023 History of Present illness Narrative The patient is here for Surveillance care Dr Chavez recommends to continue to hold Xgeva Print out CBC, CMP order F/u in MID 01/2024. Orders and calendar given to patient and residential care officer documented in this encounter [facility] 10-04-2023 History of Present illness Narrative Images from the original note were not included. [facility] 10/04/23 William Canas is a 83 y.o. year old female seen today in the oncology clinic. Chief Complaint Patient presents with Follow-up History of Present Illness: Mrs. Canas is [...] well. She is compliant with her treatment. She complains about 1 or 2 lb weight gain otherwise tolerating Femara very well. No further discharge from right breast lesion. Denies any bleeding more further discharge from the right breast lesion. She complains about daily diarrhea after Xgeva treatment, treatment is on hold. The patient was accompanied by her daughter. Her daughter has been taking photos of her breast periodically keep a record. Her activities are at baseline. Past Medical History: Diagnosis Date GERD (gastroesophageal reflux disease) Hypertension Past Surgical History: Procedure Laterality Date BREAST BIOPSY Right 04/27/2022 at [facility] CATARACT EXTRACTION, BILATERAL Bilateral COLONOSCOPY HIP SURGERY Left 2018 PARTIAL STOMACH SURGERY 04/27/2022 Repair of anterior gastric wall at [facility] Family History Problem Relation Age of Onset Cancer Mother Colon cancer Mother Lung cancer Father Stomach cancer Father Cancer Granddaughter Breast cancer Granddaughter Social History Socioeconomic History Marital status: Tobacco Use Smoking status: Never Smokeless tobacco: Never Vaping Use Vaping status: Never Used Substance and Sexual Activity Alcohol use: Yes Comment: SOCIAL Drug use: Never Sexual activity: Not Currently Partners: Male Social Determinants of Health Financial Resource Strain: Low Risk (04/01/2023) Received from [facility] Overall Financial Resource Strain (CARDIA) Difficulty of Paying Living Expenses: Not hard at all Food Insecurity: No Food Insecurity (04/01/2023) Received from [facility] Hunger Vital Sign Worried About Running Out of Food in the Last Year: Never true Ran Out of Food in the Last Year: Never true Transportation Needs: No Transportation Needs (04/01/2023) Received from [facility] PRAPARE - Transportation Lack of Transportation (Medical): No Lack of Transportation (Non-Medical): No Physical Activity: Unknown (04/01/2023) Received from [facility] Exercise Vital Sign Minutes of Exercise per Session: 0 min Stress: No Stress Concern Present (04/01/2023) Received from [facility] Occupational [facility] - Occupational Stress Questionnaire Feeling of Stress : Not at all Social Connections: Moderately Isolated (04/01/2023) Received from [facility] Social Connection and Isolation Panel [NHANES] Frequency of Communication with Friends and Family: Once a week Frequency of Social Gatherings with Friends and Family: Once a week Attends Bahai Services: 1 to 4 times per year Active Member of Clubs or Organizations: No Attends Club or Organization Meetings: Never Marital Status: Interpersonal Safety: Not At Risk (04/01/2023) Received from [facility] Humiliation, Afraid, Rape, and Kick questionnaire Fear of Current or Ex-Partner: No Emotionally Abused: No Physically Abused: No Sexually Abused: No Housing Instability: Unknown (04/01/2023) Received from [facility] Housing Stability Vital Sign Unable to Pay for Housing in the Last Year: No Unstable Housing in the Last Year: No No Known Allergies Medication List Accurate as of October 04, 2023 1:59 PM. If you have any questions, ask your nurse or doctor. Medications Continued This Visit letrozole 2.5 mg chemo tablet Quantity: 90 tablet Refills: 4 Dose: 2.5 mg Signed by: Dr. Devyn [...] Well appearing, in no acute distress. Vitals: BP 143/65 Pulse 82 Temp 36.4 C (97.5 F) (Oral) Resp 24 Ht 153 cm (5' 0.24 ) Wt 58.6 kg (129 lb 3.2 oz) SpO2 99% BMI 25.04 kg/m Body mass index is 25.04 kg/m . Eyes: No icterus, no conjuctival erythema ENT: [...] Left breast is unremarkable, right breast showed flat lesion about 10 cm. Covered by extensive scabs. I do not appreciate large lymphadenopathy in her right axilla. Recent Imaging: No results found. Recent Labs: No results found for this or any previous visit (from the past 336 hour(s)). 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 No signs of progression. Due to significant diarrhea, hold Xgeva treatment for now. The patient's alkaline phosphatase is slightly elevated, clinically there is no significant progression. Continue monitor closely. F/u in 4 months, CBC, CMP. The patient and her family agree with the above recommendation. Thank you. Devyn Chavez MD Please note that portions of this note were generated using voice recognition M*Modal dictation software. Although every effort was made to ensure the accuracy of this automated self pay collector, some errors in self pay collector may have occurred. CC: Patient Care Team: Shaikh Prashant MD as PCP - General (Internal Medicine) Devyn Chavez MD as Consulting Physician (Hematology) PCP:SHAIKH PRASHANT Referring MD: Shaikh Cerda MD documented in this encounter [facility] 10-04-2023 Instructions Devyn Chavez MD - 10/04/2023 2:00 PM EDT Print out CBC, CMP order F/u in MID 01/2024. documented in this encounter [facility] 06-06-2023 History of Present illness Narrative Patient is here for follow up with Dr. Chavez. Orders received to follow up in 4 months with cbc and cmp. Patient given calendar, verbalized understanding of future appointments. She will get her labs done at [facility]. documented in this encounter [facility] 06-06-2023 History of Present illness Narrative Images from the original note were not included. [facility] 06/06/23 William Canas is a 83 y.o. [...] Laterality Date BREAST BIOPSY Right 04/27/2022 at [facility] CATARACT EXTRACTION, BILATERAL Bilateral COLONOSCOPY HIP SURGERY Left 2017 PARTIAL STOMACH SURGERY 04/27/2022 Repair of anterior gastric wall at [facility] Family History Problem Relation Age of Onset [...] Bony metastasis with subacute iliac wing fracture Femara 05/2022- History of gastric ulcer Plan: I [...] 2023, I do not see any significant place change roof bolter the past 3 months. No signs of progression. Due to significant diarrhea, hold Xgeva treatment for now. Patient's blood work with CBC CMP are unremarkable. F/u in 4 months, CBC, CMP. The patient and her family agree with the above recommendation. Thank you. Devyn Chavez MD Please note that portions of this note were generated using voice recognition M*Modal dictation software. Although every effort was made to ensure the accuracy of this automated self pay collector, some errors in self pay collector may have occurred. CC: Patient Care Team: Shaikh Prashant MD as PCP - General (Internal Medicine) Devyn Chavez MD as Consulting Physician (Hematology) PCP:SHAIKH PRASHANT Referring MD: Shaikh Cerda MD documented in this encounter [facility] 06-06-2023 Instructions Devyn Chavez MD - 06/06/2023 3:00 PM EST F/u in 4 months, CBC, CMP documented in this encounter [facility] 06-21-2022 Note HNO ID: [id number] Author: Eros Mathis MD Service: ? Author [...] should she have orthopedic oncology needs. Devyn Chaevz MD [facility] [address] [place] [address] Plan: No surgical intervention indicated at this time May consider denosumab treatment per oncology team Follow-up with me as needed No follow-ups on file. I spent a total of 50 minutes on the date of the service which included preparing to see the patient, [id number] patient care, completing clinical documentation, obtaining and/or reviewing separately obtained history, performing a medically appropriate examination, counseling and educating the patient/family/caregiver, communicating with other HCPs (not separately reported), independently interpreting results (not separately reported), and communicating results to the patient/family/caregiver. These recommendations are being sent back to Nathaniel Ashley Jr. via [employer] [place] Pattern Repair Person or Chart CC for [facility] Providers. Eors Mathis MD Associ (more content not included)... [facility] 06-21-2022 Instructions Eros Mathis MD - 06/21/2022 2:46 PM EST The fracture in your pelvis is healing. You have no pain with walking now, I do not recommend surgery now. Please speak to your medical oncologist about denosumab treatment. If you start having new pain, contact your medical oncologist or our team here. documented in this encounter [facility] 06-21-2022 History of Present illness Narrative Orthopaedic [...] she is being managed by Dr. Devyn hCavez closer to home. Per her report she [...] have orthopedic oncology needs. Devyn Chavez MD [address] [place] [id number] Plan: No surgical intervention indicated at this time May consider denosumab treatment per oncology team Follow-up with me as needed No follow-ups on file. I spent a total of 50 minutes on the date of the service which included preparing to see the patient, [id number] patient care, completing clinical documentation, obtaining and/or reviewing separately obtained history, performing a medically appropriate examination, counseling and educating the patient/family/caregiver, communicating with other HCPs (not separately reported), independently interpreting results (not separately reported), and communicating results to the patient/family/caregiver. These recommendations are being sent back to Nathaniel Ashley Jr. via [employer] Pattern Repair Person or Chart CC for [facility] Providers. 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 Pathological fracture, pelvis, initial encounter for fracture [facility] Essential hypertension (CMS/HCC)- Primary Unspecified essential hypertension Malignant neoplasm of right female breast, unspecified estrogen receptor status, unspecified site of breast (CMS/HCC) Encounter for Medicare annual wellness exam Secondary malignant neoplasm of bone (CMS/HCC) Bronchiolectasis (CMS/HCC) Bronchiectasis without acute exacerbation Essential hypertension (CMS/HCC) Unspecified essential hypertension Encounter for Medicare annual wellness exam- Primary documented in this encounter [facility]* Diagnosis Essential hypertension (CMS/HCC)- Primary Unspecified essential hypertension Malignant neoplasm of right female breast, unspecified estrogen receptor status, unspecified site of breast (CMS/HCC) Encounter for Medicare annual wellness exam Secondary malignant neoplasm of bone (CMS/HCC) Bronchiolectasis (CMS/HCC) Bronchiectasis without acute exacerbation Essential hypertension (CMS/HCC) Unspecified essential hypertension Essential hypertension (CMS/HCC) Unspecified essential hypertension documented in this encounter [facility]* Diagnosis 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)- Primary Malignant 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, estrogen receptor positive (CMS-HCC) 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) [facility] Diagnosis Malignant 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, estrogen receptor positive (CMS-HCC)- Primary 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) [facility] Diagnosis Malignant 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, estrogen receptor positive (CMS-HCC)- Primary [facility] Diagnosis 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)- Primary [facility] Diagnosis 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)- Primary 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, estrogen receptor positive (CMS-HCC) Breast cancer metastasized to multiple sites, right (CMS-HCC) [facility] Diagnosis Malignant 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, estrogen receptor positive (CMS-HCC)- Primary 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) [facility] Diagnosis Essential hypertension (CMS/HCC)- Primary Unspecified essential hypertension Malignant neoplasm of right female breast, unspecified estrogen receptor status, unspecified site of breast (CMS/HCC) Encounter for Medicare annual wellness exam Secondary malignant neoplasm of bone (CMS/HCC) Bronchiolectasis (CMS/HCC) Bronchiectasis without acute exacerbation Essential hypertension (CMS/HCC) Unspecified essential hypertension Essential hypertension (CMS/HCC) Unspecified essential hypertension documented in this encounter [facility]* Diagnosis 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)- Primary 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, estrogen receptor positive (CMS-HCC) Breast cancer metastasized to multiple sites, right (CMS-HCC) correction (current) use of aromatase inhibitors documented [facility] Diagnosis 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)- Primary Malignant 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, estrogen receptor positive (CMS-HCC) 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) [facility] Diagnosis Essential hypertension (CMS/HCC)- Primary Unspecified essential hypertension Malignant neoplasm of right female breast, unspecified estrogen receptor status, unspecified site of breast (CMS/HCC) Encounter for Medicare annual wellness exam Secondary malignant neoplasm of bone (CMS/HCC) Bronchiolectasis (CMS/HCC) Bronchiectasis without acute exacerbation Essential hypertension (CMS/HCC) Unspecified essential hypertension Essential hypertension (CMS/HCC)- Primary Unspecified essential hypertension Secondary malignant neoplasm of bone (CMS/HCC) Malignant neoplasm of right female breast, unspecified estrogen receptor status, unspecified site of breast (CMS/HCC) Bronchiolectasis (CMS/HCC) Bronchiectasis without acute exacerbation Atherosclerosis of [place] coronary artery of [place] heart without angina pectoris (CMS/HCC) Stage 3b chronic kidney disease (HCC) (CMS/HCC) Mixed hyperlipidemia (CMS/HCC) Mixed hyperlipidemia Iron deficiency anemia, unspecified iron deficiency anemia type Cerebrovascular disease Unspecified cerebrovascular disease Leg cramps, sleep related Sleep related leg cramps documented in this encounter [facility]Not on filedocumented in [facility] on filedocumented in this encounterPro[facility] System[facility]ructionsNot on filedocumented in this encounterPro[facility] System[facility]ructionsNot on filedocumented in this [facility] InstructionsNot on filedocumented in this [facility] Summary Purpose Family History No [...] section and content) DATE CREATED AUTHOR 04/03/2018 [facility] DATE CREATED AUTHOR AUTHOR'S ORGANIZ ATION 06/23/2022 [facility] DATE CREATED AUTHOR AUTHOR'S ORGANIZ ATION 09/02/2022 [facility] DATE CREATED AUTHOR AUTHOR'S ORGANIZ ATION 07/23/2023 [facility] DATE CREATED AUTHOR AUTHOR'S ORGANIZ ATION 08/26/2024 [facility] DATE CREATED AUTHOR AUTHOR'S ORGANIZ ATION 10/03/2024 [facility] EPIC Source Comments (unrecognize d section and content) In the event this informatio n is protected by the Federal Confidentiality of Alcohol and Drug Abuse Patient Records regulations: The Federal rules restrict any use of the information to criminally investigate or prosecute any alcohol or drug abuse patient.[facility] Reason for Visit (unrecogniz ed section and content) Reason Comments New Reason Onset Date Comments Med Refill 04/13/2024 Reason Comments Follow-up Reason Onset Date Comments Med Refill 06/24/2024 Care Teams (unrecognized sec tion and content) Shoe Stamper Relationship Specialty Start Date End Date Storm Olguin MD [address] [place] [phone] PCP - General Family Medicine 01/15/24 Twin Perla NP [address] [place] [address] Nurse Practitioner Family Medicine 01/15/24 Shoe Stamper Relationship Specialty Start Date End Date Storm Olguin MD [address] [place] [phone] PCP - General Family Medicine 01/15/24 Twin Perla NP [address] [place] [address] Nurse Practitioner Family Medicine 01/15/24 Shoe Stamper Relationship Specialty Start Date End Date Storm Olguin MD [address] [place] [phone] PCP - General Family Medicine 01/15/24 Twin Perla NP [address] [place] [address] Nurse Practitioner Family Medicine 01/15/24 Shoe Stamper Relationship Specialty Start Date End Date Shaikh Cerda MD [address] [place] [address] PCP - General Internal Medicine 05/14/22 Shoe Stamper Relationship Specialty Start Date End Date Shaikh Cerda MD [address] [place] [address] PCP - General Internal Medicine 05/14/22 Shoe Stamper Relationship Specialty Start Date End Date Shaikh Cerda MD [address] [place] [address] PCP - General Internal Medicine 05/14/22 Shoe Stamper Relationship Specialty Start Date End Date Shaikh Cerda MD [address] [place] [address] PCP - General Internal Medicine 05/14/22 Shoe Stamper Relationship Specialty Start Date End Date Shaikh Cerda MD [address] [place] [address] PCP - General Internal Medicine 05/14/22 Shoe Stamper Relationship Specialty Start Date End Date Shaikh Cerda MD PCP - General Internal Medicine 05/14/22 Shoe Stamper Relationship Specialty Start Date End Date Shaikh Cerda MD PCP - General Internal Medicine 05/14/22 Shoe Stamper Relationship Specialty Start Date End Date Shaikh Cerda MD PCP - General Internal Medicine 05/14/22 Shoe Stamper Relationship Specialty Start Date End Date Storm Olguin MD [address] [place] [address] PCP - General Family Medicine 01/15/24 Twin Perla NP [address] [place] [phone] Nurse Practitioner Family Medicine 01/15/24 Shoe Stamper Relationship Specialty Start Date End Date Shaikh Cerda MD PCP - General Internal Medicine 05/14/22 Shoe Stamper Relationship Specialty Start Date End Date Shaikh Cerda MD PCP - General Internal Medicine 05/14/22 Shoe Stamper Relationship Specialty Start Date End Date Storm Olguin MD [address] [place] [phone] PCP - General Family Medicine 01/15/24 Twin Perla NP [address] [place] [phone] Nurse Practitioner Family Medicine 01/15/24 Shoe Stamper Relationship Specialty Start Date End Date Storm Olguin MD [address] [place] [phone] PCP - General Family Medicine 01/15/24 Twin Perla NP [address] [place] [phone] Nurse Practitioner Family Medicine 01/15/24 FOR RECORDS PERTAINING TO PATIENTS WHO ARE [...] BE BASED ON THE PRIMARY CLINICAL RECORDS. [employer] [facility]. provides no warranty or guarantee of the accuracy or completeness of information in this document.
[2024-10-06 09:01] LABS: Basophils Absolute Auto 0.1 10^3/uL (0.0-0.1); Basophils Percent Auto 1.1 % (0.2-2.0); Eosinophils Absolute Auto 0.6 10^3/uL (0.0-0.7); Eosinophils Percent Auto 7.8 % (0.9-7.0); Hematocrit 39.1 % (36.0-48.0); Immature Granulocytes Abs Auto 0.01 10^3/uL (0.00-0.03); Immature Granulocytes Pct Auto 0.1 % (0.0-0.5); Lymphocytes Absolute Auto 2.6 10^3/uL (1.2-3.8); Mean Corpuscular HGB Conc 33.2 g/dL (29.9-35.2); Mean Corpuscular Hemoglobin 29.1 pg (26.7-34.0); Mean Corpuscular Volume 87.7 fL (81.0-99.0); Mean Platelet Volume 9.8 fL (9.5-13.5); Monocytes Absolute Auto 0.6 10^3/uL (0.3-0.8); Monocytes Percent Auto 7.8 % (1.7-12.0); Neutrophils Absolute Auto 3.3 10^3/uL (1.4-6.5); Neutrophils Percent Auto 46.2 % (43.0-75.0); Platelet Count 220 10^3/uL (150-450); Red Blood Count 4.46 10^6/uL (4.20-5.40); Red Cell Distribution Width 14.3 % (11.0-15.0); White Blood Count 7.1 10^3/uL (4.0-11.0)
[2024-10-06 09:12] LABS: Bilirubin Urine NEGATIVE (NEGATIVE); Blood Urine TRACE-I (NEGATIVE); Clarity Urine SL CLOUDY (CLEAR); Color Urine LT. YELLOW (YELLOW); Glucose Urine UA NEGATIVE (NEGATIVE); Ketones Urine NEGATIVE (NEGATIVE); Leukocyte Esterase Urine LARGE (NEGATIVE); Nitrite Urine NEGATIVE (NEGATIVE); Protein Urine NEGATIVE (NEG/TRACE); Urobilinogen Urine 0.2 EU/dL (0.2-1.0)
[2024-10-06 09:13] LABS: Urine Microscopic Indicated YES
[2024-10-06 09:25] LABS: Bacteria Urine MODERATE #/HPF (NONE SEEN); WBC Urine 20-50 #/HPF (NONE SEEN)
[2024-10-06 09:26] LABS: Cast Seen? NONE SEEN #/LPF (NONE SEEN); Crystals Seen? None Seen #/HPF (None Seen); Mucus Urine NONE SEEN (NONE SEEN); Squamous Epithelial Cell Urine RARE #/LPF (NONE/RARE)
[2024-10-06 09:52] LABS: Percent Iron Saturation 26.8 %
[2024-10-06 10:00] LABS: Creatinine Urine Random 124.65 mg/dL (20.00-300.00); Microalbum Creatinine Ratio Ur 14.4 mg/g (0.0-29.9); Microalbumin Urine Random 1.8 mg/dL (<=30.0)
[2024-10-06 10:00] LABS: Alanine Aminotransferase 26 U/L (14-59); Albumin Level 3.6 g/dL (3.4-5.0); Alkaline Phosphatase 116 U/L (46-116); Anion Gap 16.3; Aspartate Amino Transferase 20 U/L (15-37); Bilirubin Total 0.7 mg/dL (0.2-1.0); Calcium 9.3 mg/dL (8.5-10.1); Carbon Dioxide 25.8 mmol/L (21.0-32.0); Chloride 105 mmol/L (98-107); Chol HDL Ratio 2.8; Cholesterol 237 mg/dL (<=200); Estimated GFR (African America 35 (>=60 mL/min/1.73m^2); Estimated GFR (Non-African Ame 29 (>=60 mL/min/1.73m^2); Globulin 3.5 g/dL; Glucose 96 mg/dL (74-106); HDL Cholesterol 84 mg/dL (40-60); Potassium 4.1 mmol/L (3.5-5.1); Sodium 143 mmol/L (136-145); Total Protein 7.1 g/dL (6.4-8.2); Triglycerides 147 mg/dL (<=150); VLDL CHOLESTEROL 29.4 mg/dL
[2024-10-07 04:07] LABS: Transferrin 272 mg/dL (149-313)
== END 2024-10-06 08:26 | disposition home or self-care (01) ==
LOC: LAB 08:28
PROVIDERS: PCP Nurse Practitioner; Visit Provider Nurse Practitioner
DX: E78.2 Mixed hyperlipidemia (principal); I10 Essential (primary) hypertension; D50.9 Iron deficiency anemia, unspecified
CPT/HCPCS: 36415; 80053; 80061; 81001; 82043; 82570; 82728; 83540; 83550; 84466

== ENCOUNTER 2024-10-19 09:04 | Outpatient (OUT) | payer MEDICARE, OTHER, SELFPAY ==
[2024-10-19 09:56] LABS: Anion Gap 17.6; BUN Creatinine Ratio 25.5; Calcium 9.7 mg/dL (8.5-10.1); Carbon Dioxide 25.3 mmol/L (21.0-32.0); Chloride 105 mmol/L (98-107); Estimated GFR (African America 38 (>=60 mL/min/1.73m^2); Estimated GFR (Non-African Ame 31 (>=60 mL/min/1.73m^2); Glucose 112 mg/dL (74-106); Potassium 3.9 mmol/L (3.5-5.1); Sodium 144 mmol/L (136-145)
== END 2024-10-19 09:05 | disposition home or self-care (01) ==
LOC: LAB 09:06
PROVIDERS: PCP Nurse Practitioner; Visit Provider Nurse Practitioner
DX: N18.32 Chronic kidney disease, stage 3b (principal)
CPT/HCPCS: 36415; 80048

== ENCOUNTER 2024-11-17 11:45 | Outpatient (OUT) | payer MEDICARE, OTHER, SELFPAY ==
--- OUTSIDE RECORDS SUMMARY | 2024-11-17 11:48 | XMS_ITS | Clinical Summary ---
Author Organization [employer] Address [facility] [place]-[id number] [address] [place] [address] Care Team Providers Care Xm1 Tank Driver Name Role Phone Shaikh COSME Cerda Primary Care Provider Allergies No known active allergies Medications omeprazole (PriLOSEC) 10 mg capsule Take 1 capsule (10 mg total) by mouth in the morning and 1 capsule (10 mg total) before bedtime. Active losartan-hydroC HLOROthiazide (HYZAAR) 100-25 mg per tablet Take 1 tablet by mouth in the morning. 06/10/2022 Active letrozole (FEMARA) 2.5 mg chemo tablet Take 1 tablet by mouth daily 90 tablet 3 06/24/2024 6 Active Active Problems Problem Noted Date Diagnosed Date 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 08/03 Malignant neoplasm of centra l portion of right breast in female, estrogen receptor positive 06/01/2022 Malignant neoplasm metastatic to bone 06/01/2022 Hypertension 05/14/2022 GERD (gastroesophageal reflux disease) 3 Encounters Date Type Department Care Team Description 08/21/2024 1:45 PM EDT [facility] [place] [address] Morgan Lundy MD 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); Malignant 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, estrogen receptor positive (CMS-HCC); 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) 08/21/2024 Orders Only [facility] - Medical Oncology [address] [place] [address] Kristy Kamara, BETSY 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); 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); Malignant 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, estrogen receptor positive (CMS-HCC); Breast cancer metastasized to multiple sites, right (CMS-HCC); correction (current) use of aromatase inhibitors 08/21/2024 Travel from Last 3 Months Family History Medical History Relation Name Comments Lung cancer Father Stomach cancer Father Breast cancer Granddaughter CHAROLETT Cancer Granddaughter CHAROLETT Cancer Mother Colon cancer Mother Relation Name Status Comments Father Granddaughter CHAROLETT Alive Mother Sister Alive Social History Tobacco Use Types Packs/Day Years Used Date Smoking Tobacco: Never Smokeless Tobacco: Never Tobacco Cessation:Counseling Given: Not Answered Alcohol Use Standard Drinks/Week Comments Yes 0 (1 standard drink = 0.6 oz pur e alcohol) SOCIAL Childcare Answer Date Recorded Childcare Unknown 10/01/2018 Employment Answer Date Recorded Employment Unknown 10/01/2018 Hunger Screening Answer Date Recorded Within the past 12 months we worried whether our food would run out before we got money to buy more. Never True 08/08/2022 Within the past 12 months th e food we bought just didn't last and we didn't have money to get more. Never True 08/08/2022 Comments Unknown Sex and Gender Information Value Date Recorded Sex Assigned at Not on file Legal Sex Female 11:45 AM EDT Gender Identity Not on file Sexual Orientation Not on file Last Filed Vital Signs Vital Sign Reading Time Taken Comments Blood Pressure 161/79 08/21/2024 1:41 PM EDT Pulse 88 08/21/2024 1:41 PM EDT Temperature 36.4 C (97.6 F) 08/21/2024 1:41 PM EDT Respiratory Rate 16 08/21/2024 1:41 PM EDT Oxygen Saturation 96% 08/21/2024 1:41 PM EDT Inhaled Oxygen Concentration - - Weight 62.5 kg (137 lb 12.8 oz) 08/21/2024 1:41 PM EDT Height 153 cm (5' 0.24 ) 08/21/2024 1:41 PM EDT Body Mass Index 26.7 08/21/2024 1:41 PM EDT Plan of Treatment Upcoming Encounters Date Type Department Care Team (Late st Contact Info) Description 03/05/2025 2:00 PM EST Office Visit [facility] - Medical Oncology [address] [place] [phone] Morgan Lundy MD [address] [facility] [place] [address] Health Maintenance Due Date Last Done Comments Depression Screening 1952 Zoster (Shingles) Vaccine (1 of 2) 1957 Fall Risk Screening 2003 Influenza Vaccine 12/21/2024 Tobacco Screening 08/21/2025 08/21/2024 DTaP,Tdap and Td Vaccines (2 - Tdap) 06/18/202905/24 Medical Devices Not on file Insurance MEDICARE [facility] FINANCIAL FOR [facility] Care Teams Xm1 Tank Driver Relationship Specialty Start Date End Date Shaikh Cerda MD PCP - General Internal Medicine 05/14/22
--- OUTSIDE RECORDS SUMMARY | 2024-11-17 11:48 | XMS_ITS | Encounter Summary ---
Author Organization [employer] Address [facility] [id number] [address] [place] [address] Care Team Providers Care Patient Services Representative Name Role Phone Shaikh COSME Cerda Primary Care Provider Encounter Details Date Type Department Care Team (Late Contact Info) Description 05/14/2022 Orders Only [facility] [address] [place] [phone] Transcribe, Orders Support User Pain (Primary Dx) Social History Tobacco Use Types Packs/Day Years Used Date Smoking Tobacco: Never Smokeless Tobacco: Never Alcohol Use Standard Drinks/Week Comments Not Asked 0 (1 standard drink = 0.6 oz pur e alcohol) SOCIAL Childcare Answer Date Recorded Childcare Unknown 10/01/2018 Employment Answer Date Recorded Employment Unknown 10/01/2018 Comments Unknown Sex and Gender Information Value Date Recorded Sex Assigned at Not on file Legal Sex Female 11:45 AM EDT Gender Identity Not on file Sexual Orientation Not on file COVID-19 Exposure Response Date Recorded In the last month, have you been in contact with someone who was confirmed or suspected to have Coronavirus / COVID-19? No / Unsure 05/14/2022 2:05 PM EST documented as of this encounter Plan of Treatment Upcoming Encounters Date Type Department Care Team (Late Contact Info) Description 03/05/2025 2:00 PM EST Office Visit [facility] - Medical Oncology [address] [place] [address] Morgan Lundy MD [facility] [address] [place] [address] documented as of this encounter Results * Fluoroscopy upper GI with KUB (04/30/2022 3:05 PM EST) us Scanning Provider External IMG FLUOROSCOPY ORDER BAKARI Final Result MANUALLY TRANSCRIBED RESULTS documented in this encounter Visit Diagnoses Diagnosis Pain- Primary Generalized pain documented in this encounter Care Teams Patient Services Representative Relationship Specialty Start Date End Date Shaikh Cerda MD PCP - General Internal Medicine 05/14/22 documented as of this encounter
--- OUTSIDE RECORDS SUMMARY | 2024-11-17 11:48 | XMS_ITS ---
Author Organization [employer] Address [facility] [id number] [address] [place] [address] Care Team Providers Care Commissioning Editor Name Role Phone Shaikh COSME Cerda Primary Care Provider [phone] Active Problems Problem Noted Date Diagnosed Date 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 08/03 Malignant neoplasm of centra l portion of right breast in female, estrogen receptor positive 06/01/2022 Malignant neoplasm metastatic to bone 06/01/2022 Hypertension 05/14/2022 GERD (gastroesophageal reflux disease) 3 Current Treatment and Therapy Plans DENOSUMAB (XGEVA) EVERY 4 WEEKS* Plan Start Date:08/08/2022 Plan Provider:Morgan Lundy MD Linked Problems Metastasis from malignant ne oplasm of bone (CMS-HCC) Treatment Medications No medications scheduled. Past Treatment and Therapy Plans No past plan information found.
--- OUTSIDE RECORDS SUMMARY | 2024-11-17 11:48 | XMS_ITS | Clinical Summary ---
Author Organization [facility] Address [address], [address] [place] [address] Care Team Providers Care Helium Arc Welder Name Role Phone Storm Tomas MD Primary Care Provider + Allergies No known active allergies Medications aspirin 81 MG tablet Take 81 mg by mouth every other day Active calcium carbonate-vitami n D (CALTRATE) 600-400 MG-UNIT TABS per tab Take 1 tablet by mouth daily 30 tablet 03/23/2018 Active Active Problems Problem Noted Date Diagnosed Date Hypocalcemia 03/23/2018 Acute blood loss as cause of postoperative anemi a 03/23/2018 Hyponatremia 03/22/2018 Hip fracture requiring opera tive repair, left, closed, initial encounter 03/19/2018 Hip fx, left, closed, initial encounter 03/19/20 18 Resolved Problems Problem Noted Date Diagnosed Date Resolved Date Fall 03/22/2018 04/21/2018 Social History Tobacco Use Types Packs/Day Years Used Date Smoking Tobacco: Never Smokeless Tobacco: Never Comments No Sex and Gender Information Value Date Recorded Sex Assigned at Not on file Legal Sex Female 12:40 PM EST Gender Identity Not on file Sexual Orientation Not on file Last Filed Vital Signs Vital Sign Reading Time Taken Comments Blood Pressure 134/63 03/23/2018 7:00 AM EST Pulse 93 03/23/2018 7:00 AM EST Temperature 37.6 C (99.6 F) 03/23/2018 7:00 AM EST Respiratory Rate 16 03/23/2018 7:00 AM EST Oxygen Saturation 97% 03/23/2018 7:00 AM EST Inhaled Oxygen Concentration - - Weight 58.1 kg (128 lb 1.4 oz) 04/01/2018 9:13 A M EST Height 165.1 cm (5' 5 ) 04/01/2018 9:13 AM EST Body Mass Index 21.31 04/01/2018 9:13 AM EST Plan of Treatment Not on file Medical Devices Implanted Type Area Mainspring Reverse Winder Device Identifier Shelf Expiration Date Model / Serial / Lot Cement Barium Radiopq Full 40gr Implanted:Qty: 1 on 03/20/2018 by Moustapha Garcia MD at [facility] Cement Left: Hip [employer]: [employer]-PM M 05/22/2020 [id number] / / [id number] Cement Barium Radiopq Full 40gr Implanted:Qty: 1 on 03/20/2018 by Moustapha Garcia MD at [facility] Cement Left: Hip [employer]: OR[employer]-PM 01/20/2020 [id number] / / [id number] Impl Kit Preparation Cement With Implant Plug-Femoral Bone Implanted:Qty: 1 on 03/20/2018 by Moustapha Garcia MD at [facility] Cement Left: Hip [employer]PMM [id number] / / Versys Hip System Femoral Stem Cemented Ld/Fx 04/04 Neck Taper Size 11 120mm Stem Length Implanted:Qty: 1 on 03/20/2018 by Moustapha Garcia MD at [facility] Hip Left: Hip [employer]PMM 07/21/2027 [id number] / / [id number] Versys Hip System Endofemoral Head /14 Taper 45mm Diameter Implanted:Qty: 1 on 03/20/2018 by Moustapha Garcia MD at [facility] Hip Left: Hip [employer]-PMM 12/20/2026 [id number] / / [id number] Impl Capped Hip Unipolar Cmntd Ld Fx St Implanted:Qty: 1 on 03/20/2018 by Moustapha Garcia MD at [facility] Hip Left: Hip [employer]PMM [id number] / / Insurance MEDICARE T FINANCIAL MEDICARE FINANCIAL Advance Directives * Full Code (Latest Code Status on File) Date Activated Date Inactivated Comments 03/20/2018 7:17 AM 03/23/2018 5:47 PM Care Teams Helium Arc Welder Relationship Specialty Start Date End Date Storm Tomas MD [address] [place] [address] PCP - General Family Medicine 03/20/18
--- OUTSIDE RECORDS SUMMARY | 2024-11-17 11:48 | XMS_ITS | Encounter Summary ---
Author Organization [employer] Address [facility] [id number] [address] [place] [address] Care Team Providers Care Broomcorn Grader Name Role Phone Shaikh COSME Cerda Primary Care Provider [phone] Encounter Details Date Type Department Care Team (Late Contact Info) Description 06/04/2022 Orders Only [facility] [address] [place] [phone] Transcribe, Orders Support User Pain (Primary [...] have Coronavirus / COVID-19? No / Unsure 06/01/2022 10:08 AM EST documented as of this encounter Plan of Treatment Upcoming Encounters Date Type Department Care Team (Late Contact Info) Description 03/05/2025 2:00 PM EST Office Visit [facility] - Medical Oncology [address] [place] [address] Morgan Lundy MD [facility] [place], [place] [id number] documented as of this encounter Results * Ultrasound abdomen limited (04/27/2022 7:10 AM EST) us Scanning Provider External IMG US ORDERABLES Fin al Result documented in this encounter Visit Diagnoses Diagnosis Pain- Primary Generalized pain documented in this encounter Care Teams Broomcorn Grader Relationship Specialty Start Date End Date Shaikh Cerda MD PCP - General Internal Medicine 05/14/22 documented as of this encounter
--- OUTSIDE RECORDS SUMMARY | 2024-11-17 11:48 | XMS_ITS | Clinical Summary ---
Author Organization [facility] Address [address] [place], [place] [id number] Care Team Providers Care Television News Reporter Name Role Phone Unavailable Primary Care Provider Unavailabl e Allergies No known active allergies Medications WARFARIN 5 MG TAB 1 Tab ORAL DAILY at bedtime. 60 2 04/19/2009 Active omega-3 fatty acids(FISH OIL 500 MG CAP) Take one(1) capsule daily. 0 0 06/08/2009 Active Social History Tobacco Use Types Packs/Day Years Used Date Smoking Tobacco: Never Alcohol Use Standard Drinks/Week Comments Not Asked 0 (1 standard drink = 0.6 oz pur e alcohol) Area Deprivation Index Answer Date Ayad rded National Score (1-100), lower number is lower ri sk 62 06/21/2022 State Score (1-10), lower number is lower risk N ot on file 06/21/2022 Data from: https://www.neighborhoodatlas.medicine.[facility].edu/. Last address used for calculation [address] 06/21/2022 Comments No Sex and Gender Information Value Date Recorded Sex Assigned at Not on file Legal Sex Female 8:26 AM EST Gender Identity Not on file Sexual Orientation Not on file Last Filed Vital Signs Vital Sign Reading Time Taken Comments Blood Pressure 142/84 06/08/2009 10:12 AM EST Pulse 96 06/08/2009 10:12 AM EST Temperature 37.4 C (99.3 F) 04/19/2009 7:09 AM EST Respiratory Rate 20 06/08/2009 10:12 AM EST Oxygen Saturation 98% 04/19/2009 7:09 AM EST Inhaled Oxygen Concentration - - Weight 68.3 kg (150 lb 9.2 oz) 04/19/2009 6:00 A M EST Height 165.1 cm (5' 5 ) 04/16/2009 2:00 AM EST Body Mass Index 25.06 04/16/2009 2:00 AM EST Plan of Treatment Health Maintenance Due Date Last Done Comments Anxiety Screening 1958 Depression Screening 1958 DTaP,Tdap,Td Vaccine (1 - Tdap) 1957 Pneumococcal Vaccine: 50+ (1 of 1 - PCV) 1988 Shingrix Vaccine (1 of 2) 1988 Medicare Annual Wellness Visit 03/22/2003 Bone Density Screening 2003 RSV Vaccine (1 - 1-dose 75+ series) 2013 Diabetes Screening 03/23/2021 03/23/2018, 1 , 04/18/2009, Additional history exists Advance Directive Discussion 04/22/2024 Influenza Vaccine (#1) 2024 Procedures Procedure Name Priority Date/Time Associated Diagnosis Comments COMPREHENSIVE METABOLIC PANEL STAT 04/19/2009 3:18 AM EST from Last 3 Months or Most Recently Relevant to Health Maintenance Results * (ABNORMAL) COMP METABOLIC PANEL (04/19/2009 3:18 AM EST) Protein, Total 5.9(L) 6.0 - 8.4 g/dL [facility] Albumin 3.6 3.5 - 5.0 g/dL [facility] Calcium 8.8 8.5 - 10.5 mg/dL [facility] Bilirubin, Total 0.7 0.0 - 1.5 mg/dL [facility] Alkaline Phosphatase 81 40 - 150 U/L [facility] AST 32 7 - 40 U/L [facility] Glucose 85 65 - 100 mg/dL [facility] BUN 12 8 - 25 mg/dL [facility] Creatinine 0.67(L) 0.70 - 1.40 mg/dL [facility] Sodium 144 132 - 148 mmol/L [facility] Potassium 3.8 3.5 - 5.0 mmol/L [facility] Chloride 108 98 - 110 mmol/L [facility] CO2 23 23 - 32 mmol/L [facility] Anion Gap 13 0 - 15 mmol/L [facility] ALT 43 0 - 45 U/L [facility] Blood specimen (specimen) BLOOD SPECIMEN / Unknown 04/19/2009 3:18 AM EST us Kip Bravo MD LABORATORY Final Result [facility] [address] [place] [address] from Last 3 Months or Most Recently Relevant to Health Maintenance Insurance MEDICARE [facility]OSP[facility]MED[facility]
--- OUTSIDE RECORDS SUMMARY | 2024-11-17 11:48 | XMS_ITS | Clinical Summary ---
Author Organization [facility] Healthcare Address [address] [place] [address] Care Team Providers Care Thread Grinder Name Role Phone Storm Tomas MD Primary Care Provider [phone] Bettye Perla STRATEGIC ACCOUNT MANAGER Unavailable [phone] Allergies No known active allergies Medications acetaminophen (Tylenol) 325 MG tablet Take 325 mg by mouth every 4 (four) hours if needed for mild pain Active letrozole (Femara) 2.5 MG chemo tablet Take 2.5 mg by mouth Daily. 3 Active losartan-hydroCHL OROthiazide (Hyzaar) 100-25 MG tabletIndications :Essential hypertension Take 1 tablet by mouth Daily 90 tablet 5 02/01/20 25 Active losartan-hydroCHL OROthiazide (Hyzaar) 100-25 MG tabletIndications :Essential hypertension Take 1 tablet by mouth Daily 90 tablet 5 11/03/19 25 Discontinu ed(Reorder ) Active Problems Problem Noted Date Diagnosed Date Leg cramps, sleep related 09/30/2024 Assessment & Plan (09/30/2024 2:59 PM EDT): Check labs Encounter for Medicare annual wellness exam 03/22 Assessment & Plan (04/01/2023 2:20 PM EST): Doing well. No complaints to offer. Too old for colon cancer screening now. Currently being treated for Breast cancer. Reviewed medical, surgical and social hx. Reviewed medications. Bronchiolectasis 03/27/2023 Chronic gastric ulcer with perforation 3 Difficulty walking 03/27/2023 Essential hypertension 03/27/2023 Assessment & Plan (09/30/2024 7:04 AM EDT): Please check blood pressure daily and record DASH diet Limit caffeine Take medication as directed Contact office if chest pain, pressure, dizziness, shortness of breath, swelling legs Recommend slow position changes Current meds: losartan/hydrochlorothiazide Assessment & Plan (10/07/2023 2:58 PM EDT): BP well controlled. On average less than 130/90. Tolerating Anti hypertensive w/o adverse effects. Reviewed labs from 10/13- normal CBC, CMP Assessment & Plan (04/01/2023 2:17 PM EST): BP well controlled. On average less than 130/90. Tolerating Anti hypertensive w/o adverse effects. Denies lightheadedness, dizziness, syncope, presyncope. Patient encouraged to continue with home BP monitoring and call office if he experiences orthostatic symptoms or persistently elevated BP. Reviewed labs from 03/14 - normal CBC, CMP Fracture of one rib, right s matthew, subsequent encounter for fracture with nonunion 03/27/2023 Malignant neoplasm of female breast 03/27/2023 Assessment & Plan (09/30/2024 7:04 AM EDT): Follows with oncology Assessment & Plan (04/01/2023 2:19 PM EST): Currently on Letrozole. Following Hemoncology. Osteoarthritis of right hip 03/27/2023 Perforation of both large an d small intestines due to diverticulitis 03/27/2023 Secondary malignant neoplasm of bone 03/27/2023 Assessment & Plan (09/30/2024 7:04 AM EDT): Follows with oncology Atherosclerosis of coronary artery without angin a pectoris 05/02/2022 Assessment & Plan (09/30/2024 7:08 AM EDT): Check lipids Cerebrovascular disease 05/02/2022 Assessment & Plan (09/30/2024 2:47 PM EDT): Stroke in 2009 Chronic kidney disease 05/02/2022 Diverticular disease 05/02/2022 Hyperlipidemia 05/02/2022 Assessment & Plan (09/30/2024 7:09 AM EDT): No stating thearpy Iron deficiency anemia 05/02/2022 Oral phase dysphagia 05/02/2022 Encounter for insertion of p rosthetic hip after prior removal of hip prosthesis 05/02/2022 Resolved Problems Problem Noted Date Diagnosed Date Resolved Date Bronchiectasis 05/02/2022 09/30/2024 Encounters Date Type Department Care Team Description 11/02/2024 Refill [facility] [address] [place] [address] Corina Jay NP Essential hypertension 11/02/2024 Telephone [facility] [address] [place] [address] Corina Jay NP 10/19/2024 Orders Only [facility] [address] [place] [address] Corina Jay NP Stage 3b chronic kidney disease ([facility]-H[facility]) (Primary Dx) 10/19/2024 Clinisync Result Encounter [facility] External Department Unsolicited Corina Jay NP 10/06/2024 Orders Only [facility] [address] [place] [address] Corina Jay NP Stage 3b chronic kidney disease (CMS-HCC) (Primary Dx) 10/06/2024 Abstract [facility] [address] [place] [address] Corina Jay NP 10/06/2024 Clinisync Result Encounter [facility] External Department Unsolicited Corina Jay NP 09/30/2024 2:00 PM EDT Office Visit [facility] [address] [place] [address] Corina Jay NP Essential hypertension (Primary Dx); Secondary malignant neoplasm of bone (HCC); Malignant neoplasm of right female breast, unspecified estrogen receptor status, unspecified site of breast (HCC); Bronchiolectasis (HCC); Atherosclerosis of [place] coronary artery of [place] heart without angina pectoris ; Stage 3b chronic kidney disease (CMS-HCC); Mixed hyperlipidemia ; Iron deficiency anemia, unspecified iron deficiency anemia type; Cerebrovascular disease; Leg cramps, sleep related 09/30/2024 Bamboo flowsheet [facility] [address] [address] Corina Jay NP from Last 3 Months Immunizations Immunization Administration Dates Next Due DTaP 06/18/2019 PPD Test 05/09/2022,05/02/2022 Family History Medical History Relation Name Comments Cancer Father Cancer Mother Relation Name Status Comments Father Mother Social History Tobacco Use Types Packs/Day Years Used Date Smoking Tobacco: Never Smokeless Tobacco: Never Tobacco Cessation:Counseling Given: Not Answered Alcohol Use Standard Drinks/Week Comments Never 0 (1 standard drink = 0.6 oz pur e alcohol) moderate alcohol use Humiliation, Afraid, Rape, and Kick questionnair e Answer Date Recorded Within the last year, have y ou been afraid of your partner or ex-partner? No 04/01/2023 Within the last year, have y ou been humiliated or emotionally abused in other ways by your partner or ex-partner? No Within the last year, have y ou been kicked, hit, slapped, or otherwise physically hurt by your partner or ex-partner? No 04/01/2023 Within the last year, have y ou been raped or forced to have any kind of sexual activity by your partner or ex-partner? No 04/01/2023 Social Connection and Isolation Panel [NHANES] A nswer Date Recorded In a typical week, how many times do you talk on the phone with family, friends, or neighbors? Once a week 04/01/20 How often do you get togethe r with friends or relatives? Once a week 04/01/2023 How often do you attend chur ch or anabaptism services? 1 to 4 times per year 04/01/2023 Do you belong to any clubs o r organizations such as buddhist groups, unions, fraternal or athletic groups, or school groups? No 04/01/2023 How often do you attend meet ings of the clubs or organizations you belong to? Never 04/01/2023 Are you , , di vorced, , never , or living with a partner? 04/01/2023 AUDIT-C Answer Date Recorded Frequency of Alcohol Consumption Not on file 04/01/2023 Q2: How many drinks containi ng alcohol do you have on a typical day when you are drinking? Patient does not drink Q3: How often do you have si x or more drinks on one occasion? Never 04/01/2023 Overall Financial Resource Strain (CARDIA) Answe r Date Recorded How hard is it for you to pa y for the very basics like food, housing, medical care, and heating? Not hard at all 04/01/2023 PHQ-2 Answer Date Recorded Patient Health Questionnaire-2 Score 0 03/31/2024 [facility] - Occupational Stress Questionnaire Answer Date Recorded Do you feel stress - tense, restless, nervous, or anxious, or unable to sleep at night because your mind is troubled all the time - these days? Not at all 04/01/2023 Exercise Vital Sign Answer Date Recorde d Days of Exercise per Week Not on file 2022 On average, how many minutes do you engage in exercise at this level? 0 min 04/01/2023 Hunger Vital Sign Answer Date Recorded Within the past 12 months, y ou worried that your food would run out before you got the money to buy more. Never true 04/01/20 23 Within the past 12 months, t he food you bought just didn't last and you didn't have money to get more. Never true 04/01/2023 PRAPARE - Transportation Answer Date Re corded In the past 12 months, has l ack of transportation kept you from medical appointments or from getting medications? No 03/22 In the past 12 months, has l ack of transportation kept you from meetings, work, or from getting things needed for daily living? No 04/01/2023 Housing Stability Vital Sign Answer Kevin e Recorded In the last 12 months, was t here a time when you were not able to pay the mortgage or rent on time? No 04/01/2023 Number of Places Lived in the Last Year Not on f ile 04/01/2023 In the last 12 months, was t here a time when you did not have a steady place to sleep or slept in a fdc (including now)? No 04/01/2023 Comments No Sex and Gender Information Value Date Recorded Sex Assigned at Not on file Legal Sex Female 9:31 PM EDT Gender Identity Female 10/02/2024 9:40 AM EDT Sexual Orientation Not on file Last Filed Vital Signs Vital Sign Reading Time Taken Comments Blood Pressure 134/80 09/30/2024 2:14 PM EDT Pulse 79 09/30/2024 2:14 PM EDT Temperature 36.6 C (97.8 F) 09/30/2024 2:14 PM EDT Respiratory Rate 18 09/30/2024 2:14 PM EDT Oxygen Saturation 96% 09/30/2024 2:14 PM EDT Inhaled Oxygen Concentration - - Weight 61.7 kg (136 lb) 09/30/2024 2:14 PM EDT Height 160 cm (5' 3 ) 03/31/2024 1:09 PM EST Body Mass Index 24.09 03/31/2024 1:09 PM EST Plan of Treatment Upcoming Encounters Date Type Department Care Team (Late st Contact Info) Description 04/05/2025 4:30 PM EST Office Visit [facility] [address] [place] [address] Corian Jay NP [address] [place] [phone] Health Maintenance Due Date Last Done Comments Pneumococcal Vaccine: 65+ Years (1 of 2 - PCV) 957 Influenza Vaccine (#1) 2024 Procedures Procedure Name Priority Date/Time Associated Diagnosis Comments ALL BASIC METABOLIC PANEL Routine 10/19/2024 9:15 AM EDT TRANSFERRIN Routine 10/06/2024 8:51 AM EDT [facility] FERRITIN Routine 10/06/2024 8:51 AM EDT ALL LIPID PROFILE (FASTING) Routine 10/06/2024 8:51 AM EDT [facility] CMP (CMP) (FOR REMOTE [facility] USE) Routine 10/06/2024 8:51 AM EDT METRO IRON AND TIBC Routine 10/06/2024 8 :51 AM EDT ALL CBC WITH AUTO DIFF Routine 10/06/2024 8:51 AM EDT TBH MICROALB CREAT RATIO RANDOM Routine 10/06/2024 8:43 AM EDT TBH URINE MICROSCOPIC ONLY Routine 10/06/2024 8:43 AM EDT TBH UA (CLEAN/CATCH) MICROSCOPIC IF INDICATE Routine 10/06/2024 8:43 AM EDT from Last 3 Months Results * (ABNORMAL) ALL BASIC METABOLIC PANEL (10/19/2024 9:15 AM EDT) SODIUM 144 136 - 145 mmol/L TBH POTASSIUM 3.9 3.5 - 5.1 mmol/L TBH CHLORIDE 105 98 - 107 mmol/L TBH CARBON DIOXIDE 25.3 21.0 - 32.0 mmol/L TBH ANION GAP 17.6 TBH GLUCOSE 112(H) 74 - 106 mg/dL TBH BLOOD UREA NITROGEN 40.0(H) 7.0 - 18.0 mg/dL TBH CREATININE 1.57(H) 0.55 - 1.02 mg/dL TBH TBH EGFR-AF CHINESE 38(L) >=60 mL/min/1.7 3m 2 TBH TBH EGFR-NON AF CHINESE 31(L) >=60 mL/min/1.7 3m 2 TBH BUN CREATININE RATIO 25.5 TBH CALCIUM 9.7 8.5 - 10.1 mg/dL TBH 10/19/2024 9:15 AM EDT 10/19/2024 9:16 AM EDT Narrative CLINISYNC - 10/19/2024 9:57 AM EDT us Corina Jay NP CLINISYNC Final Result Performing Organization Address City/[facility]/ZIP Co de Phone Number CLINISYNC TBH * TRANSFERRIN (10/06/2024 8:51 AM EDT) TRANSFERRIN 272 149 - 313 mg/dL TBH Comment: Performed at: [facility] [address] [id number] Bottling Line Attendant: Santiago Brownlee PhD, Phone: [phone] 10/06/2024 8:51 AM EDT 10/06/2024 8:56 AM EDT Narrative CLINISYNC - 10/07/2024 4:07 AM EDT us Corina Jay STRATEGIC ACCOUNT MANAGER LAB BLOOD ORDERABLES Final Resu lt Performing Organization Address [facility] Co de Phone Number CLINANKITAMN TB * METRO IRON AND TIBC (10/06/2024 8:51 AM EDT) TBH IRON 90.0 50.0 - 170.0 ug/dL TBH TBH TOTAL IRON BINDING CAPACITY 336.0 250.0 - 450.0 ug/dL TBH TBH PERCENT IRON SATURATION 26.8 % TBH 10/06/2024 8:51 AM EDT 10/06/2024 8:56 AM EDT Narrative CLINISYNC - 10/06/2024 9:53 AM EDT us Corina Jay STRATEGIC ACCOUNT MANAGER CLINISYNC Final Result Performing Organization Address City/[facility]/ZIP Co de Phone Number CLINISYMN TB * [facility] FERRITIN (10/06/2024 8:51 AM EDT) FERRITIN 115.0 8.0 - 252.0 ng/mL TBH 10/06/2024 8:51 AM EDT 10/06/2024 8:56 AM EDT Narrative CLINISYNC - 10/06/2024 10:30 AM EDT Corina Jay STRATEGIC ACCOUNT MANAGER CLINISYNC Final Result CLINISYNC TB * (ABNORMAL) [facility] CMP (CMP) (FOR REMOTE [facility] USE) (10/06/2024 8:51 AM EDT) SODIUM 143 136 - 145 mmol/L TBH POTASSIUM 4.1 3.5 - 5.1 mmol/L TBH CHLORIDE 105 98 - 107 mmol/L TBH CARBON DIOXIDE 25.8 21.0 - 32.0 mmol/L TBH ANION GAP 16.3 TBH GLUCOSE 96 74 - 106 mg/dL TBH BLOOD UREA NITROGEN 37.0(H) 7.0 - 18.0 mg/dL TBH CREATININE 1.68(H) 0.55 - 1.02 mg/dL TBH TBH EGFR-AF CHINESE 35(L) >=60 mL/min/1. 73m 2 TBH TBH EGFR-NON AF CH[place]ESE 29(L) >=60 mL/min/1. 73m 2 TBH BUN CREATININE RATIO 22.0 TBH CALCIUM 9.3 8.5 - 10.1 mg/dL TBH BILIRUBIN TOTAL 0.7 0.2 - 1.0 mg/dL TBH ASPARTATE AMINO TRANSFERASE 20 15 - 37 U/L TBH ALANINE AMINOTRANSFERASE 26 14 - 59 U/L TBH ALKALINE PHOSPHATASE 116 46 - 116 U/L TBH TOTAL PROTEIN 7.1 6.4 - 8.2 g/dL TBH ALBUMIN LEVEL 3.6 3.4 - 5.0 g/dL TBH GLOBULIN 3.5 g/dL TBH ALBUMIN GLOBULIN RATIO 1.0 TBH 10/06/2024 8:51 AM EDT 10/06/2024 8:56 AM EDT Narrative CLINISYNC - 10/06/2024 10:01 AM EDT Corina Jay NP CLINISYNC Final Result [facility] * (ABNORMAL) ALL LIPID PROFILE (FASTING) (10/06/2024 8:51 AM EDT) TRIGLYCERIDES 147 <=150 mg/dL TBH CHOLESTEROL 237(H) <=200 mg/dL TBH HDL CHOLESTEROL 84(H) 40 - 60 mg/dL TB Comment: > or =60 mg/dl - LOW CARDIOVASCULAR RISK <40 mg/dl - HIGH CARDIOVASCULAR RISK LDL CHOLESTEROL CALCULATED 124.0 mg/dL TB Comment: <100 mg/dl OPTIMAL 100-129 mg/dl NEAR OR ABOVE OPTIMAL 130-159 mg/dl BORDERLINE HIGH 160-189 mg/dl HIGH >190 mg/dl VERY HIGH VLDL CHOLESTEROL 29.4 mg/dL TB CHOL HDL RATIO 2.8 TB Comment: 3.3 - 4.4 LOW RISK 4.4 - 7.1 AVERAGE RISK 7.1 - 11.0 MODERATE RISK >11.0 HIGH RISK 10/06/2024 8:51 AM EDT 10/06/2024 8:56 AM EDT Narrative CLINISYNC - 10/06/2024 10:01 AM EDT Corina Jay NP CLINISYNC Final Result [facility] * (ABNORMAL) ALL CBC WITH AUTO DIFF (10/06/2024 8:51 AM EDT) TBH WBC 7.1 4.0 - 11.0 10 3/uL TBH TBH RBC 4.46 4.20 - 5.40 10 6/uL TBH TBH HGB 13.0 12.0 - 16.0 g/dL TBH TBH HCT 39.1 36.0 - 48.0 % TBH TBH MCV 87.7 81.0 - 99.0 fL TBH TBH MCH 29.1 26.7 - 34.0 pg TBH TBH MCHC 33.2 29.9 - 35.2 g/dL TBH TBH RDW 14.3 11.0 - 15.0 % TBH TBH PLT 220 150 - 450 10 3/uL TBH TBH MPV 9.8 9.5 - 13.5 fL TBH NEUTROPHILS PERCENT AUTO 46.2 43.0 - 75.0 % TBH LYMPHOCYTES PERCENT AUTO 37.0 20.5 - 60.0 % TBH MONOCYTES PERCENT AUTO 7.8 1.7 - 12.0 % TBH TBH EO % 7.8(H) 0.9 - 7.0 % TBH BASOPHILS PERCENT AUTO 1.1 0.2 - 2.0 % TBH IMMATURE GRANULOCYTES PCT AUTO 0.1 0.0 - 0.5 % TBH NEUTROPHILS ABSOLUTE AUTO 3.3 1.4 - 6.5 10 3/uL TBH LYMPHOCYTES ABSOLUTE AUTO 2.6 1.2 - 3.8 10 3/uL TBH MONOCYTES ABSOLUTE AUTO 0.6 0.3 - 0.8 10 3/uL TBH TBH EO # 0.6 0.0 - 0.7 10 3/uL TBH BASOPHILS ABSOLUTE AUTO 0.1 0.0 - 0.1 10 3/uL TBH IMMATURE GRANULOCYTES ABS AUTO 0.01 0.00 - 0.03 10 3/uL TBH 10/06/2024 8:51 AM EDT 10/06/2024 8:56 AM EDT Narrative CLINISYNC - 10/06/2024 9:02 AM EDT Corina Jay NP [facility] ([facility]) TB URINE MICROSCOPIC ONLY (10/06/2024 8:43 AM EDT) TB WBC 20-50(A) NONE SEEN #/HPF TBH TBH RBC 5-10(A) 0 - 2 #/HPF TBH BACTERIA URINE MODERATE(A ) NONE SEEN #/HPF TBH MUCUS URINE NONE SEEN NONE SEEN TBH SQUAMOUS EPITHELIAL CELL URINE RARE NONE/RARE #/LPF TBH CRYSTALS SEEN? None Seen None Seen #/HPF TBH CAST SEEN? NONE SEEN NONE SEEN #/LPF TBH 10/06/2024 8:43 AM EDT 10/06/2024 8:59 AM EDT Narrative CLINISYNC - 10/06/2024 9:26 AM EDT Corina Jay NP CLINISYNC Final Result CLINISYMN TB * (ABNORMAL) TBH UA (CLEAN/CATCH) MICROSCOPIC IF INDICATE (10/06/2024 8:43 AM EDT) COLOR URINE LT. YELLOW YELLOW TBH CLARITY URINE SL CLOUDY CLEAR TBH SPECIFIC GRAVITY URINE 1.010 1.005 - 1.025 TBH PH URINE 7.0 5.0 - 9.0 TBH PROTEIN URINE NEGATIVE NEG/TRACE mg/dL TBH GLUCOSE URINE UA NEGATIVE NEGATIVE mg/dL TBH BILIRUBIN URINE NEGATIVE NEGATIVE TBH KETONES URINE NEGATIVE NEGATIVE mg/dL TBH BLOOD URINE TRACE-I NEGATIVE TBH NITRITE URINE NEGATIVE NEGATIVE TBH UROBILINOGEN URINE 0.2 0.2 - 1.0 EU/dL TBH LEUKOCYTE ESTERASE URINE LARGE(A) NEGATIVE TBH URINE MICROSCOPIC INDICATED YES TBH 10/06/2024 8:43 AM EDT 10/06/2024 8:59 AM EDT Narrative CLINISYNC - 10/06/2024 9:26 AM EDT us Corina Jay NP CLINISYNC Final Result Performing Organization Address [facility] Co de Phone Number CLINISYMN TB * TBH MICROALB CREAT RATIO RANDOM (10/06/2024 8:43 AM EDT) MICROALBUMIN URINE RANDOM 1.8 <=30.0 mg/dL TB CREATININE URINE RANDOM 124.65 20.00 - 300.00 mg/dL TB MICROALBUM CREATININE RATIO UR 14.4 0.0 - 29.9 mg/g TB Comment: NO MICROALBUMINURIA 0-29 MG/G CLINICAL MICROALBUMINURIA 30-300 MG/G MACROALBUMINURIA >300 MG/G 10/06/2024 8:43 AM EDT 10/06/2024 9:02 AM EDT Narrative CLINISYNC - 10/06/2024 10:01 AM EDT us Corina Jay STRATEGIC ACCOUNT MANAGER CLINISYNC Final Result CLINISYNC [facility]H from Last 3 Months [facility] Care Teams Thread Grinder Relationship Specialty Start Date End Date Storm Tomas MD [address] [place] [phone] PCP - General Family Medicine 01/15/24 Bettye Perla NP [address] [place] [place] [phone] Nurse Practitioner Family Medicine 01/15/24
--- OUTSIDE RECORDS SUMMARY | 2024-11-17 11:49 | XMS_ITS | Encounter Summary ---
Author Organization [facility] tem Address [id number] [address] [place] [address] Care Team Providers Care Glue Plant Operator Name Role Phone Shaikh COSME Cerda Primary Care Provider Encounter Details Date Type Department Care Team (Late Contact Info) Description 10/03/2023 Orders Only [facility] - Medical Oncology [address] [place] [address] Ref Prov, [place] [address] Social History Tobacco Use Types Packs/Day Years Used Date Smoking Tobacco: Never Smokeless Tobacco: Never Alcohol Use Standard Drinks/Week Comments Yes 0 [...] on file Sexual Orientation Not on file documented as of this encounter Plan of Treatment Upcoming Encounters Date Type Department Care Team (Late Contact Info) Description 03/05/2025 2:00 PM EST Office Visit [facility] - Medical Oncology [address] [place] [address] Morgan Lundy MD [address] [place] [address] [address] [place] [phone] documented as of this encounter Procedures Procedure Name Priority Date/Time Associated Diagnosis Comments MULTIPLE LABS Routine 10/03/2023 12:19 PM EDT documented in this encounter Results * Multiple labs (10/03/2023 12:19 PM EDT) us Not In System Ref Prov MA IMAGING Final Res ult documented in this encounter Visit Diagnoses Not on filedocumented in this encounter Care Teams Glue Plant Operator Relationship Specialty Start Date End Date Shaikh Cerda MD PCP - General Internal Medicine 05/14/22 documented as of this encounter
[2024-11-17 12:10] LABS: Anion Gap 15.6; Blood Urea Nitrogen 28.0 mg/dL (7.0-18.0); Calcium 9.0 mg/dL (8.5-10.1); Carbon Dioxide 25.4 mmol/L (21.0-32.0); Chloride 104 mmol/L (98-107); Estimated GFR (African America 38 (>=60 mL/min/1.73m^2); Estimated GFR (Non-African Ame 31 (>=60 mL/min/1.73m^2); Glucose 95 mg/dL (74-106); Potassium 4.0 mmol/L (3.5-5.1); Sodium 141 mmol/L (136-145)
== END 2024-11-17 11:46 | disposition home or self-care (01) ==
LOC: LAB 11:47
PROVIDERS: PCP Nurse Practitioner; Visit Provider Nurse Practitioner
DX: N18.32 Chronic kidney disease, stage 3b (principal)
CPT/HCPCS: 36415; 80048

== ENCOUNTER 2025-02-15 12:49 | Outpatient (OUT) | payer MEDICARE, OTHER, SELFPAY ==
--- OUTSIDE RECORDS SUMMARY | 2025-02-15 12:54 | XMS_ITS ---
Author Organization [employer] s tem Address [id number] [address] [place] [address] Care Team Providers Care Grievance And Appeals Coordinator Name Role Phone Shaikh COSME Cerda Primary Care Provider Active Problems ProblemNoted DateDiagnosed Date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 08/03/2022Malignant 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, estrogen receptor oncnzqtq09/10/2023Malignant neoplasm metastatic to bone 06/01/20228356Xtaqxyhborwa24/23/2023ERD (gastroesophageal reflux disease)05/14/2022 Current Treatment and Therapy Plans DENOSUMAB (XGEVA) EVERY 4 WEEKS* Plan Start Date:08/08/2022 Plan Provider:Morgan Lundy MD Linked Problems Metastasis from malignant ne oplasm of bone (CMS-HCC) Treatment Medications No medications scheduled. Past Treatment and Therapy Plans No past plan information found.
--- OUTSIDE RECORDS SUMMARY | 2025-02-15 12:54 | XMS_ITS | Clinical Summary ---
Author Organization [facility] Address [address] [place], [place] [address] Care Team Providers Care Bottle And Glass Inspector Name Role Phone Unavailable Primary Care Provider Unavailabl e Allergies No known active allergies Medications MedicationSigDispense QuantityRefillsLast FilledStart DateEnd DateStatus WARFARIN 5 MG TAB 1 Tab ORAL DAILY at bedtime. 60 ctive omega-3 fatty acids(FISH OIL 500 MG CAP) Take one(1) capsule daily. 0 ctive Social History Tobacco UseTypesPacks/DayYears UsedDateSmoking Tobacco: NeverAlcohol UseStandard Drinks/WeekCommentsNot Asked0 (1 standard drink = 0.6 oz pure alcohol)Area Deprivation IndexAnswerDate RecordedNational Score (1-100), lower number is lower wnsb195206/21/2022State Score (1-10), lower number is lower riskNot on file 3Data from: https://www.neighborhoodatlas.medicine.[facility].edu/. Last address used for jjpqpzjlxim[address] [place] [address]/21/2022CommentsNoSex and Gender InformationValueDate RecordedSex Assigned at BirthNot on fileLegal Sex Guikvi5603/23/2012 8:26 AM ESTGender IdentityNot on fileSexual OrientationNot on file Last Filed Vital Signs Vital SignReadingTime TakenCommentsBlood Ojdysgqh858/8402 10:12 AM EST Dkgxk095006/08/2009 10:12 AM VYWZqwrjszraim13.4 ??C (99.3 ??F)04/19/2009 7:09 AM ESTRespiratory Tqgs9226 10:12 AM ESTOxygen Rbmqmcpzmw17%04/19/2009 7:09 AM ESTInhaled Oxygen Concentration--Pagens33.3 kg (150 lb 9.2 oz)04/19/2009 6:00 AM KHQGfvdke142.1 cm (5' 5 )04/16/2009 2:00 AM ESTBody Mass Index25.0604/16/2009 2:00 AM EST Plan of Treatment Health MaintenanceDue DateLast DoneCommentsAnxiety Gjxvmlyry22/20/1956Depression Mwmcyzixd33/20/1956DTaP,Tdap,Td Vaccine (1 - Tdap)1957Pneumococcal Vaccine: 50+ (1 of 1 - PCV)1988Shingrix Vaccine (1 of 2)1988Medicare Annual Wellness Visit03/22/2003Bone Density Ygxlcwtlo80/20/2003RSV Vaccine (1 - 1-dose 75+ series)2013Diabetes Fxuhrimgh58/05/2017, 04/19/2009, 04/18/2009, Additional history existsAdvance Directive Kvnujavvey13/01/2025 Covid-19 Vaccine ( season)2024Influenza Vaccine (#1)2024 Procedures Procedure NamePriorityDate/TimeAssociated DiagnosisCommentsCOMPREHENSIVE METABOLIC XEJUFSRVZ67/29/2009 3:18 AM EST from Last 3 Months or Most Recently Relevant to Health Maintenance Results * (ABNORMAL) COMP METABOLIC PANEL (04/19/2009 3:18 AM EST)ComponentValueRef RangeTest MethodAnalysis TimePerformed AtPathologist SignatureProtein, Total 5.9(L)6.0 - 8.4 g/dLOHIO[facility] MAIN LABORATORYAlbumin3.63.5 - 5.0 g/dL [facility] MAIN LABORATORYCalcium8.88.5 - 10.5 mg/dLREGENCY HOSPITAL [facility]LEVEL[facility] LABORATORYBilirubin, Total0.70.0 - 1.5 mg/dLREGENCY HOSPITAL CLEVEL[facility] LABORATORYAlkaline Vqlzhmeuijs4411 - 150 U/LCD[facility] TTN513 - 40 U/[facility]CD[facility] QKTZVRLKRCAxidzcm5120 - 100 mg/dL [facility] PMUMORNBBDUMQ157 - 25 mg/dLREGENCY HOSPITAL [facility] LABORATORYCreatinine0.67(L)0.70 - 1.40 mg/dLREGENCY HOSPITAL [facility] LABORATORY Vshxde428627 - 148 mmol/LCDILEY [facility]ID[facility] MAIN LABORATORYPotassium3.83.5 - 5.0 mmol/LCDI[facility] MAIN ULTFEVLNXFDmxeucon46233 - 110 mmol/LCD[facility] VOSPBZZVXGYZ57584 - 32 mmol/LCDI[facility] MAIN LABORATORYAnion Nsb171 - 15 mmol/LCD[facility] MAIN UJLMHVMJTQEQB145 - 45 U/LCDILEY [facility] MAIN LABORATORYSpecimen (Source)Anatomical Location / Laterality Collection Method / VolumeCollection TimeReceived TimeBlood specimen (specimen)BLOOD SPECIMEN / Gyvzohz6504/19/2009 3:18 AM EST Narrative Authorizing ProviderResult TypeResult StatusRishi Lawrence AGUIARLABORATORYFinal Result Performing OrganizationAddressCity/State/ZIP CodePhone Number [facility] [address] [place] [address] from Last 3 Months or Most Recently Relevant to Health Maintenance Insurance
--- OUTSIDE RECORDS SUMMARY | 2025-02-15 12:54 | XMS_ITS | Clinical Summary ---
Author Organization [facility] Address [address], [address] [place] [address] Care Team Providers Care Track Dresser Name Role Phone Storm Tomas MD Primary Care Provider + Allergies No known active allergies Medications MedicationSigDispense QuantityRefillsLast FilledStart DateEnd DateStatus aspirin 81 MG tablet Take 81 mg by mouth every other dayActive calcium carbonate-vitamin D (CALTRATE) 600-400 MG-UNIT TABS per tab Take 1 tablet by mouth daily 30 tablet 03/23/2018Active Active Problems ProblemNoted DateDiagnosed LrgqPoojcecsudac01/02/2018Acute blood loss as cause of postoperative dusefb9503/23/20184797Ntmqnnzzypzk31/01/2018Hip fracture requiring operative repair, left, closed, initial rlfroctpn69/28/2018Hip fx, left, closed, initial fsdacskfy83/28/2018 Resolved Problems ProblemNoted DateDiagnosed DateResolved WgafEwuo07 Social History Tobacco UseTypesPacks/DayYears UsedDateSmoking Tobacco: NeverSmokeless Tobacco: NeverCommentsNoSex and Gender InformationValueDate RecordedSex Assigned at BirthNot on fileLegal UxdUtfojp02/10/2013 12:40 PM ESTGender IdentityNot on fileSexual OrientationNot on file Last Filed Vital Signs Vital SignReadingTime TakenCommentsBlood Iorqeylr554/6303/23/2018 7:00 AM EST Vgirq872903/23/2018 7:00 AM MMZSlgfucsdbdz22.6 ??C (99.6 ??F)03/23/2018 7:00 AM ESTRespiratory Neuo540005/24/2017 7:00 AM ESTOxygen Cqcqvhtpvz70%03/23/2018 7:00 AM ESTInhaled Oxygen Concentration--Tdursk40.1 kg (128 lb 1.4 oz)04/01/2018 9:13 AM GNFRilthp732.1 cm (5' 5 )04/01/2018 9:13 AM ESTBody Mass Index21.31106/02/2017 9:13 AM EST Plan of Treatment Not on file Medical Devices ImplantedTypeAreaManufacturerDevice IdentifierShelf Expiration DateModel / Serial / LotCement Barium Radiopq Full 40gr Implanted:Qty: 1 on 03/20/2018 by [facility]oustapha Garcia [facility]ement[facility]: HipSTRYKER: ORTHOPAEDICS-PMM05/22/[id number] / / [id number] Barium Radiopq Full 40gr Implanted:Qty: 1 on 03/20/2018 by [facility]oustapha Garcia [facility] at [facility] HospitalCementLeft: HipSTRYKER: ORTHOPAEDICS-PMM01/19/[id number] / / [id number] Kit Preparation Cement With Implant Plug-Femoral Bone Implanted:Qty: 1 on 03/20/2018 by [facility]oustapha [facility]CementLeft: HipZIMMER INC-[id number] / / Versys Hip System Femoral Stem Cemented Ld/Fx 04/04 Neck Taper Size 11 120mm Stem Length Implanted:Qty: 1 on 03/20/2018 by [facility]apha [facility]HipLeft: HipZIMMER INC-PMM07/20/[id number] / / [id number] Hip System Endofemoral Head 04/04 Taper 45mm Diameter Implanted:Qty: 1 on 03/20/2018 [facility] HipZIMMER INC-PMM12/20/[id number] / / [id number] Capped Hip Unipolar Cmntd Ld Fx St Implanted:Qty: 1 on 03/20/2018 by Moustapha Garcia MD at [facility] HospitalHipLeft: Abby PEREZ-[id number] / / Insurance * Guarantor: [place] CanasKayley TypeRelation to PatientDate of BirthPhone Billing AddressPersonal/XbkgxcSccm1938 [address] [place] [address] Advance Directives * Full Code (Latest Code Status on File) Date ActivatedDate IywjegupbyrSppfecbg70/29/2018 7:17 AM03/23/2018 5:47 PM Care Teams Team MemberRelationshipSpecialtyStart DateEnd Date Storm Tomas MD [address] [place] [address] PCP - GeneralFamily Ydowwtda79/29/18
--- OUTSIDE RECORDS SUMMARY | 2025-02-15 12:54 | XMS_ITS | Clinical Summary ---
Author Organization [employer] [facility] tem Address [id number] [place] [address] Care Team Providers Care Assistant Administrator Name Role Phone Shaikh COSME Cerda Primary Care Provider Allergies No known active allergies Medications MedicationSigDispense QuantityRefillsLast FilledStart DateEnd DateStatus omeprazole (PriLOSEC) 10 mg capsule Take 1 capsule (10 mg total) by mouth in the morning and 1 capsule (10 mg total) before bedtime.Active losartan-hydroCHLOROthiazide (HYZAAR) 100-25 mg per tablet Take 1 tablet by mouth in the morning.3Active letrozole (FEMARA) 2.5 mg chemo tablet Take 1 tablet by mouth daily 90 tablet ctive Active Problems ProblemNoted DateDiagnosed Date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 08/03/2022Malignant 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, estrogen receptor xpqanfjv08/10/2023Malignant neoplasm metastatic to bone 06/01/20223397Wqggjhdsxavo88/23/2023ERD (gastroesophageal reflux disease)05/14/2022 Encounters DateTypeDepartmentCare LelxHxqkcbwpbay00/12/2025Orders Only [facility] - Medical On[facility] [address] [place] [address] Morgan Lundy MD from Last 3 Months Family History Medical HistoryRelationNameCommentsLung cancerFatherStomach cancerFatherBreast cancerGranddaughterCHAROLETTCancerGranddaughterCHAROLETTCancerMotherColon cancer MotherRelationNameStatusCommentsFatherDeceasedGranddaughterCHAROLETTAliveMother DeceasedSisterAlive Social History Tobacco UseTypesPacks/DayYears UsedDateSmoking Tobacco: NeverSmokeless Tobacco: Never Tobacco Cessation:Counseling Given: Not Answered Alcohol UseStandard Drinks/WeekCommentsYes0 (1 standard drink = 0.6 oz pure alcohol)SOCIALChildcareAnswerDate RlawtestUyytthfkoBaftolk28/12/2019Employment AnswerDate BedzoeuqGrjnkemgjtWhrjkwf61/12/2019Hunger ScreeningAnswerDate RecordedWithin the past 12 months we worried whether our food would run out before we got money to buy more.Never True08/08/2022Within the past 12 months the food we bought just didn't last and we didn't have money to get more.Never True3CommentsUnknownSex and Gender InformationValueDate RecordedSex Assigned at BirthNot on fileLegal CnlIgcjme35/06/2015 11:45 AM EDT Gender IdentityNot on fileSexual OrientationNot on file Last Filed Vital Signs Vital SignReadingTime TakenCommentsBlood Bxuqwrfh883/7908/21/2024 1:41 PM EDT Uswqb877608/21/2024 1:41 PM AVQSnhznrmjtox64.4 ??C (97.6 ??F)08/21/2024 1:41 PM EDTRespiratory Xwpb530508/21/2024 1:41 PM EDTOxygen Cgcuzjhrrv37%08/21/2024 1:41 PM EDTInhaled Oxygen Concentration--Vfxmgp39.5 kg (137 lb 12.8 oz)08/21/2024 1:41 PM FHHCslevu009 cm (5' 0.24 )08/21/2024 1:41 PM EDTBody Mass Index26.7 08/21/2024 1:41 PM EDT Plan of Treatment DateTypeDepartmentCare Team (Latest Contact Info)Dgekeifgubr69/14/2025 2:00 PM ESTOffice Visit [facility] [address] [place] [phone] Morgan Lundy MD [facility] [place] [address] Health MaintenanceDue DateLast DoneCommentsDepression Wuhjbugmu91/20/1950Zoster (Shingles) Vaccine (1 of 2)1957Fall Risk Gbwsxlxco27/20/2003Influenza Ktydnvi8412/21/2024Tobacco Tmgdlwlwu09/05/2024DTaP,Tdap and Td Vaccines (2 - Tdap) Medical Devices Not on file Insurance Care Teams Team MemberRelationshipSpecialtyStart DateEnd Date Shaikh Cerda MD PCP - GeneralInternal Medicine05/14/22
--- OUTSIDE RECORDS SUMMARY | 2025-02-15 12:54 | XMS_ITS | Clinical Summary ---
Author Organization [facility] Address [address] [place] [address] Care Team Providers Care Smasher Name Role Phone Storm Tomas MD Primary Care Provider [phone] Bettye Perla HEMATOLOGY NURSE EDUCATOR Unavailable [phone] Allergies No known active allergies Medications MedicationSigDispense QuantityRefillsLast FilledStart DateEnd DateStatus acetaminophen (Tylenol) 325 MG tablet Take 325 mg by mouth every 4 (four) hours if needed for mild painActive letrozole (Femara) 2.5 MG chemo tablet Take 2.5 mg by mouth Daily.02/24/2023ctive losartan-hydroCHLOROthiazide (Hyzaar) 100-25 MG tablet Indications:Essential hypertensionTake 1 tablet by mouth Daily 90 tablet 5Active Active Problems ProblemNoted DateDiagnosed DateLeg cramps, sleep rtjdzwt4109/30/2024 Assessment & Plan (09/30/2024 2:59 PM EDT): Check labs Encounter for Medicare annual wellness exam04/01/2023 Assessment & Plan (04/01/2023 2:20 PM EST): Doing well. No complaints to offer. Too old for colon cancer screening now. Currently being treated for Breast cancer. Reviewed medical, surgical and social hx. Reviewed medications. Tgwvbyaddkghbrau55/06/2023hronic gastric ulcer with cutmmhcvnjs77/06/2023 Difficulty jtazprh7603/27/2023Essential fjabqykdpxge03/06/2023 Assessment & Plan (09/30/2024 7:04 AM EDT): [...] CBC, CMP Fracture of one rib, right side, subsequent encounter for fracture with nonunion 03/27/2023Malignant neoplasm of female qxmcbf2203/27/2023 Assessment & Plan (09/30/2024 7:04 AM EDT): Follows with oncology Assessment & Plan (04/01/2023 2:19 PM EST): Currently on Letrozole. Following Hemoncology. Osteoarthritis of right hip03/27/2023erforation of both large and small intestines due to vhfwrpnbdbrqzu81/06/2023Secondary malignant neoplasm of bone 03/27/2023 Assessment & Plan (09/30/2024 7:04 AM EDT): Follows with oncology Atherosclerosis of coronary artery without angina hrigjzex92/11/2023 Assessment & Plan (09/30/2024 7:08 AM EDT): Check lipids Cerebrovascular lvuzipw2805/02/2022 Assessment & Plan (09/30/2024 2:47 PM EDT): Stroke in 2009 Chronic kidney qoeaucy43/11/2023Diverticular smqdvyl1305/02/2022Hyperlipidemia 05/02/2022 Assessment & Plan (09/30/2024 7:09 AM EDT): No stating thearpy Iron deficiency sfepll0305/02/2022Oral phase tjoxizcqb63/11/2023Encounter for insertion of prosthetic hip after prior removal of hip gvdhuhvcwk23/11/2023 Resolved Problems ProblemNoted DateDiagnosed DateResolved ZnjmLlmjlwratlofaf04/11/202306/11/2025 Encounters DateTypeDepartmentCare CuwcTdlttmpdrnp26/29/2025linisync Result Encounter [facility] Unsolicited Corina Jay NP from Last 3 Months Immunizations ImmunizationAdministration DatesNext QffYXiM5006/18/2019PPD Test05/09/2022, 05/02/2022 Family History Medical HistoryRelationNameCommentsCancerFatherCancerMotherRelationNameStatus CommentsFatherDeceasedMotherDeceased Social History Tobacco UseTypesPacks/DayYears UsedDateSmoking Tobacco: NeverSmokeless Tobacco: Never Tobacco Cessation:Counseling Given: Not Answered Alcohol UseStandard Drinks/WeekCommentsNever0 (1 standard drink = 0.6 oz pure alcohol)moderate alcohol useHumiliation, Afraid, Rape, and Kick questionnaire AnswerDate RecordedWithin the last year, have you been afraid of your partner or ex-partner?No04/01/2023Within the last year, have you been humiliated or emotionally abused in other ways by your partner or ex-partner?No04/01/2023 Within the last year, have you been kicked, hit, slapped, or otherwise physically hurt by your partner or ex-partner?No04/01/2023Within the last year, have you been raped or forced to have any kind of sexual activity by your part ner or ex-partner?No04/01/2023Social Connection and Isolation PanelAnswerDate RecordedIn a typical week, how many times do you talk on the phone with family, friends, or neighbors?Once a week04/01/2023How often do you get together with friends or relatives?Once a week04/01/2023How often do you attend baptism or taoism services?1 to 4 times per year04/01/2023o you belong to any clubs or organizations such as baptism groups, unions, fraternal or athletic groups, or school groups?No04/01/2023How often do you attend meetings of the clubs or organizations you belong to?Never04/01/2023re you , , , , never , or living with a partner?Xbcaffe0704/01/2023UDIT-C AnswerDate RecordedFrequency of Alcohol ConsumptionNot on file04/01/2023Q2: How many drinks containing alcohol do you have on a typical day when you are drinking?Patient does not drink04/01/2023Q3: How often do you have six or more drinks on one occasion?Never04/01/2023Overall Financial Resource Strain (CARDIA) AnswerDate RecordedHow hard is it for you to pay for the very basics like food, housing, medical care, and heating?Not hard at all04/01/2023HQ-2AnswerDate RecordedPatient Health Questionnaire-2 Vktdk01806/01/2023[facility] [place] [facility] - Occupational Stress QuestionnaireAnswerDate RecordedDo you feel stress - tense, restless, nervous, or anxious, or unable to sleep at night because yourmind is troubled all the time - these days?Not at all04/01/2023 Exercise Vital SignAnswerDate RecordedDays of Exercise per WeekNot on file 04/01/2023On average, how many minutes do you engage in exercise at this level?0 min04/01/2023Hunger Vital SignAnswerDate RecordedWithin the past 12 months, you worried that your food would run out before you got the money to buymore.Never true04/01/2023Within the past 12 months, the food you bought just didn't last and you didn't have money to get more.Never true04/01/2023RAPARE - TransportationAnswerDate RecordedIn the past 12 months, has lack of transportation kept you from medical appointments or from getting medications?No 04/01/2023In the past 12 months, has lack of transportation kept you from meetings, work, or from getting things needed for daily living?No04/01/2023 Housing Stability Vital SignAnswerDate RecordedIn the last 12 months, was there a time when you were not able to pay the mortgage or rent on time?No04/01/2023 Number of Places Lived in the Last YearNot on file04/01/2023In the last 12 months, was there a time when you did not have a steady place to sleep or slept in ashelter (including now)?No04/01/2023CommentsNoSex and Gender InformationValueDate RecordedSex Assigned at BirthNot on fileLegal SexFemale 07/04/2022 9:31 PM EDTGender SdhuiwjkAyfzyk75/13/2025 9:40 AM EDTSexual OrientationNot on file Last Filed Vital Signs Vital SignReadingTime TakenCommentsBlood Abmynxri225/8006 2:14 PM EDT Nfsim065509/30/2024 2:14 PM GYGFeccksvdgrq76.6 ??C (97.8 ??F)09/30/2024 2:14 PM EDTRespiratory Nhmz992409/30/2024 2:14 PM EDTOxygen Tkoiojterc25%09/30/2024 2:14 PM EDTInhaled Oxygen Concentration--Kzqsqy93.7 kg (136 lb)09/30/2024 2:14 PM EDT Yqrbco172 cm (5' 3 )03/31/2024 1:09 PM ESTBody Mass Index24.0903/31/2024 1:09 PM EST Plan of Treatment Not on file Procedures Procedure NamePriorityDate/TimeAssociated DiagnosisCommentsALL BASIC METABOLIC PXJUYXqdsgvq75/29/2025 11:54 AM EDT from Last 3 Months Results * (ABNORMAL) ALL BASIC METABOLIC PANEL (11/17/2024 11:54 AM EDT)ComponentValue Ref RangeTest MethodAnalysis TimePerformed AtPathologist YlxbdxtfcGWDKTS360716 - 145 mmol/LTBHPOTASSIUM4.03.5 - 5.1 mmol/JANSYSJSTYDU77613 - 107 mmol/LTBH CARBON MJSHEPL78.421.0 - 32.0 mmol/LTBHANION GAP15.9RLVWTPZCXU0294 - 106 mg/dL TBHBLOOD UREA TVHEYIFW24.0(H)7.0 - 18.0 mg/dLTBHCREATININE1.57(H)0.55 - 1.02 mg/dLTBHTBH EGFR-AF MEJPIEND93(L)>=60 mL/min/1.73m 2TBHTBH EGFR-NON AF LXVPHKGV85(L)>=60 mL/min/1.73m 2TBHBUN CREATININE RATIO17.2HMLRAYUINN1.08.5 - 10.1 mg/dLTBHSpecimen (Source)Anatomical Location / LateralityCollection Method / VolumeCollection TimeReceived Time11/17/2024 11:54 AM EDT11/17/2024 11:55 AM EDT Narrative CLINISYNC - 11/17/2024 12:15 PM EDT Authorizing ProviderResult TypeResult StatusLisa Aichholz NPCLINISYNCFinal ResultPerforming OrganizationAddressCity/State/ZIP CodePhone Number CLINISYNC [facility] from Last 3 Months Insurance Care Teams Team MemberRelationshipSpecialtyStart DateEnd Date Storm Tomas MD PCP - GeneralFamily Medicine01/15/24 Bettye Perla NP Nurse PractitionerFamily Medicine01/15/24
--- OUTSIDE RECORDS SUMMARY | 2025-02-15 13:06 | XMS_ITS | CCD ---
Author Organization [facility] CliniSyva Care Team Providers Care [employer] Man Name Role Phone RICHARDSON WARNER Unavailable Unavailable MAIN, TIKI Unavailable Unavailable STORM OLGUIN Unavailable Unavailjamar PEREZ CIARAN S Unavailable Unavailable CHRIS CIARAN S Unavailable Unavailable CHRIS, CIARAN S Unavailable Unavailable Unavailable Primary Care Provider UnavailEROS Abdalla Attending Unavailable NATHANIEL ASHLEY JR Referring Unav ailable FAWWAD, CELIS H Admitting Unavailable FAWWAD, CELIS H Attending Unavailable FAWWAD, CELIS H Primary Care Unavailable DR PAKO OREILLY Consulting Unavailable FAWWAD, CELIS H Consulting Unavailable FAWWAD, CELIS H Admitting Unavailable FAWWAD, CELIS H Attending Unavailable FAWWAD, CELIS H Primary Care Unavailable FAWWAD, CELIS H Consulting Unavailable FELICIA, DR MORELAND Admitting Unavailable FELICIA, DR MORELAND Attending Unavailable FAWWAD, CELIS H Primary Care Unavailable FELICIA, DR MORELAND Consulting Unavailable FAWWAD, CELIS H Primary Care Unavailable DR DARREL CHEEMA Consulting Unavaila ble ANGELINA ., JANENE Admitting Unavailable ANGELINA ., JANENE Attending Unavailable AFIA, DR PAKO Guzmán Consulting Unavailable STORM OLGUIN Consulting Unavailable DR DARREL CHEEMA Procedure Practitioner U navailable PAY ., DR [...] Consulting Unavailable SHAIKH Giancarlo CERDA Consulting Unavailable Storm Olguin MD Primary Care Provider Minda JOSUE, Twin Unavailable [phone] Prashant AGUIAR, Primary Care Provider Prashant AGUIAR, Primary Care Provider Minda JOSUE, Twin Unavailable [phone] Prashant AGUIAR, Primary Care Provider DEVYN CHAVEZ Attending Unavailable PRASHANT, Referring Unavailable PRASHANT, Primary Care Unavailable DEVYN CHAVEZ Attending Unavailable PRASHANT, Referring Unavailable PRASHANT, CELIS Primary Care Unavailable DEVYN CHAVEZ Attending Unavailable PRASHANT, Referring Unavailable PRASHANT, CELIS Primary Care Unavailable CORINA JAY Attending Unavailable SHAIKH CERDA Attending Unavailable TWIN PERLA Attending Unavailabl e Corina Jay Primary Care Provider [phone] Corina Jay Attending Provider [phone] Medications Current Medications MedicationDrug Class(es)DatesSig (Normalized)Sig (Original)acetaminophen 325 mg oral tablet (15 sources)Start: 33-07-8477digx 1 tablet by mouth every four hours as needed Acetaminophen 325 mg tablet Active 325 MG PO Every 4 hours as needed December 28, 2024 12:00am Complies with drug therapytake 1 tablet by mouth every four hours as needed for painacetaminophen (Tylenol) 325 MG tablet Take 325 mg by mouth every 4 (four) hours if needed for mild pain ActivehydroCHLOROthiazide 25 mg / losartan potassium 100 mg oral tablet (20 sources)Thiazide Diuretic, Angiotensin 2 Receptor BlockerStart: 10-07-2023 End: 23-23-0175dlws 1 tablet by mouth once dailyLosartan-Hydrochlorothiazide 100-25 mg tablet Active 1 TAB PO Daily December 28, 2024 12:00am Complies with drug therapyStart: 17-53-0252zzsu 1 tablet by mouth once in the morninglosartan- hydroCHLOROthiazide (HYZAAR) 100-25 mg per tablet Take 1 tablet by mouth in the morning. 06/10/2022 Activeletrozole 2.5 mg oral tablet (20 sources)Aromatase InhibitorStart: 06-01-2022 End: 28-35-2335uxlt 1 tablet by mouth once dailyLetrozole 2.5 mg tablet Active 2.5 MG PO Daily December 28, 2024 12:00am Complies with drug therapyomeprazole 10 mg delayed release oral capsule (12 sources)Proton Pump Inhibitortake 1 capsule by mouth in the morning, then take 1 capsule by mouth at bedtimeomeprazole (PriLOSEC) 10 mg capsule Take 1 capsule (10 mg total) by mouth in the morning and 1 capsule (10 mg total) before bedtime. Active Completed/Discontinued Medications MedicationDrug Class(es)DatesSig (Normalized)Sig (Original)omega-3 fatty acids(FISH OIL 500 MG CAP) (1 source)Start: 84-21-2548isbim-3 fatty acids(FISH OIL 500 MG CAP) Take one(1) capsule daily. 0 0 06/08/2009 ActiveComment on above:Take one(1) capsule daily. warfarin sodium 5 mg oral tablet (1 source)Vitamin K AntagonistStart: 36-68-2064gnhi 1 tablet by mouth once daily at bedtimeWARFARIN 5 MG TAB 1 Tab ORAL DAILY at bedtime. 60 2 04/19/2009 Active Comment on above:1 Tab ORAL DAILY at bedtime. Problems Active Problems Problem ClassificationProblemDateDocumented DateEpisodic/ChronicCancer of bone and connective tissue (1 source)Malignant neoplasm of bone and articular cartilage, unspecified; Translations: [Malignant neoplasm of bone and articular cartilage, unspecified] Onset: 10-68-9926HdfswnuZejnrv of breast (20 sources)Malignant tumor of breast ; Translations: [Malignant neoplasm of unspecified site of unspecified female breast]Onset: 624206-31-9216Yiyupme Chronic kidney disease (19 sources)Chronic kidney disease, stage 4 (severe); Translations: [Chronic kidney disease, unspecified]Onset: 66-42-9202SppvoesQfjgger kidney disease (1 source)Chronic kidney disease; Translations: [CHRONIC KIDNEY DISEASE STAGE 3B]Onset: 75-15-6103Gdfqslt obstructive pulmonary disease and bronchiectasis (20 sources)Bronchiolectasis; Translations: [Bronchiectasis, uncomplicated] Onset: 05-02-2022 Resolved: 047479-38-9193OgqrdrgAebjxlfk atherosclerosis and other heart disease (13 sources)Atherosclerotic heart disease of [place] coronary artery without angina pectoris; Translations: [Atherosclerosis of coronary artery without angina pectoris]Onset: 123594-99-5159DhrcemeDzsckpnjse and other anemia (12 sources)Iron deficiency anemia; Translations: [Iron deficiency anemia, unspecified]Onset: 313465-24-5214GpsxknmuOogdgvgg of white blood cells (1 source)Elevated white blood cell count, unspecified; Translations: [ELEVATED WHITE BLOOD CELL COUNT UNS]Onset: 48-54-9698MigactrFjwjoddws of lipid metabolism (13 sources)Hyperlipidemia, unspecified; Translations: [Hyperlipidemia]Onset: 890324-83-3033BufgwvaGyakpynbzoupml and diverticulitis (20 sources)Diverticulitis of small and large intestine with perforation; Translations: [Diverticulitis of bothsmall and large intestine with perforation and abscess without bleeding]Onset: 433924-39-4520GdykjqvKysqbvlgcb disorders (12 sources)Gastroesophageal reflux disease; Translations: [Gastro-esophageal reflux disease without esophagitis]Onset: 871981-37-5546UvamhmpOhdnknnfj hypertension (20 sources)Essential (primary) hypertension; Translations: [Essential hypertension]Onset: 92-92-9134AzjqqyyThbwlriy of neck of femur (hip) (1 source)Fracture of unspecified part of neck of left femur, initial encounter for closed fracture; Translations: [Fracture of unspecified part of neck of left femur, initial encounter for closed fracture]Onset: 83-71-5103Pvsgkaas Gastroduodenal ulcer (except hemorrhage) (18 sources)Chronic or unspecified gastric ulcer with perforation; Translations: [Chronic gastric ulcer with perforation]Onset: 46-95-3330KswygirUyhzkwqulegq with complications and secondary hypertension (5 sources)Hypertensive chronic kidney disease with stage 1 through stage 4 chronic kidney disease, or unspecified chronic kidney disease; Translations: [HTN CKD W/STAGE 1-4 CKD/UNS CKD]Onset: 86-92-0310CgldeygEgxyfkgxxni deficiencies (1 source)Vitamin D deficiency, unspecified; Translations: [VITAMIN D DEFICIENCY UNSPECIFIED]Onset: 43-05-6126QsgynbuUmholyeotnmpjg (15 sources)Osteoarthritis of right hip joint; Translations: [Unilateral primary osteoarthritis, right hip]Onset: 183262-56-7486HqmsmjoRvkyl aftercare (1 source)Long-term current use of aromatase inhibitor; Translations: [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]03-75-9622VjoxsmlkPekou aftercare (10 sources)Patient encounter status; Translations: [Aftercare following explantation of hip joint prosthesis]Onset: 530226-49-3303DdzlfxitJpvzl and ill-defined cerebrovascular disease (1 source)Cerebrovascular disease, unspecified; Translations: [CEREBROVASCULAR DISEASE UNSPECIFIED]Onset: 67-26-8390LwccnxyDmakq and ill-defined cerebrovascular disease (12 sources)Cerebrovascular disease; Translations: [Cerebrovascular disease, unspecified]Onset: 405732-74-4008OnztvccJeger connective tissue disease (11 sources)Cramp in lower limb; Translations: [Sleep related leg cramps]Onset: 300763-46-3160NbfrexzKxpqb diseases of kidney and ureters (1 source)Secondary hyperparathyroidism of renal origin; Translations: [SEC HYPERPARATHYROIDISM RENAL ORIGN]Onset: 20-11-5110OpyfbtyWecpn gastrointestinal disorders (10 sources)Oral phase dysphagia; Translations: [Dysphagia, oral phase]Onset: 845057-42-3125ApcptemeOudsb nervous system disorders (15 sources)Difficulty walking; Translations: [Difficulty in walking, not elsewhere classified]Onset: 868320-45-6878MstyjbeXydgphnrx malignancies (20 sources)Secondary malignant neoplasm of bone; Translations: [Secondary malignant neoplasm of bone]Onset: 74-01-2476LuopatqYqakvmhle malignancies (2 sources)Secondary malignant neoplasm of bone; Translations: [SECONDARY MALIGNANT NEOPLASM BONE]Onset: 49-62-9794HrplstpFffxdilxm malignancies (19 sources)Primary malignant neoplasm of bone; Translations: [Secondary malignant neoplasm of unspecified site]Onset: hronic Secondary malignancies (1 source)Secondary malignant neoplasm of unspecified site; Translations: [Secondary malignant neoplasm of unspecified site]Onset: 17-85-7092Fmrteum Unclassified (1 source)CONTACT W/AND (SUSP) EXPOS COVID-19; Translations: [CONTACT W/AND (SUSP) EXPOS COVID-19]Onset: 66-93-4844Udmnkfqqfaii (1 source)ELEV LVLS LIVER TRANSAMINASE LVLS; Translations: [ELEV LVLS LIVER TRANSAMINASE LVLS]Onset: 04-29-2022 Past or Other Problems Problem ClassificationProblemDateDocumented DateEpisodic/ChronicBiliary tract disease (1 source)Calculus of gallbladder without cholecystitis without obstruction; Translations: [CALCU GB W/O CHOLECYST W/O OBST]Onset: 41-94-3081Kiwaigwm Deficiency and other anemia (1 source)Iron deficiency anemia, unspecified; Translations: [IRON DEFICIENCY ANEMIA UNSPECIFIED]Onset: 04-74-1973UzjzveudUneveegzwk and other anemia (1 source)Anemia, unspecified; Translations: [ANEMIA UNSPECIFIED]Onset: 23-52-8357QncxdcgqDmbkk and electrolyte disorders (1 source)Hypokalemia; Translations: [HYPOKALEMIA]Onset: 46-24-8168QgyfjpfvCxvl disorders (14 sources)Mood disordersOnset: 04-01-2023 Resolved: 010869-10-2991Dftwgrweikxo breast conditions (1 source)Unspecified lump in the right breast, unspecified quadrant; Translations: [UNS LUMP IN RT BREAST UNS QUADRANT]Onset: 20-88-6663OveylvmyTfwmq aftercare (1 source)FDC (current) use of aspirin; Translations: [SNF CURRENT USE OF ASPIRIN]Onset: 37-61-1549CarusdhbBwdyx aftercare (1 source)Other longterm (current) drug therapy; Translations: [OTH SNF CURRENT DRUG THERAPY]Onset: 20-07-5988HjbhetroLsvcr circulatory disease (1 source)Personal history of transient ischemic attack (TIA), and cerebral infarction without residual deficits; Translations: [PERS HX TIA AND CI NO RESID DEFICIT]Onset: 29-61-4899YblmbgyjGhxgw circulatory disease (4 sources)Elevated blood-pressure reading, without diagnosis of hypertension; Translations: [ELEVATED BP READING W/O DX HTN]Onset: 69-15-4708WqtsqhvvCnmcq fractures (14 sources)Fracture of right rib; Translations: [Fracture of one rib, right side, subsequent encounter for fracture with nonunion]Onset: 03-27-2023 93-13-0486WfhfwphrFlhkq liver diseases (4 sources)Abnormal levels of other serum enzymes; Translations: [ABNORMAL LEVELS OTHER SERUM ENZYMES]Onset: 42-60-9471FfjydwcjJfofm non-traumatic joint disorders (1 source)Pain in right hip; Translations: [PAIN IN RIGHT HIP]Onset: 05-04-2022 EpisodicOther screening for suspected conditions (not mental disorders or infectious disease) (1 source)Abnormal results of liver function studies; Translations: [ABNORMAL RESULTS LIVR FUNCTION STDY]Onset: 66-78-8361ZdokczivOhoxkwbvqbrc fracture (2 sources)Pathological fracture of pelvis; Translations: [Pathological fracture, pelvis, initial encounter for fracture]Onset: 16-15-4215Dusdthls Residual codes; unclassified (1 source)Family history of malignant neoplasm of digestive organs; Translations: [FAM HX MALIG NEOPLASM DIGESTIV ORGN]Onset: 36-53-8572Ylxzginz Residual codes; unclassified (1 source)Pain, unspecified; Translations: [Pain, unspecified]Onset: 06-04-2022 EpisodicResidual codes; unclassified (1 source)Estrogen receptor positive status [ER+]; Translations: [Estrogen receptor positive status (ER+)]Onset: 58-77-5040Gujvowpi Results Test NameValueInterpretationReference RangeFacilityALL BASIC METABOLIC PANELon 36-69-8284Ekwxg gap [Moles/Vol]15.6 mmol/LNOMS HealthcareCalcium [Mass/Vol]9 mg/dL8.5 - 10.1 mg/dLNOMS HealthcareChloride [Moles/Vol]104 mmol/L98 - 107 mmol/LNOMS HealthcareCO2 [Moles/Vol]25.4 mmol/L21.0 - 32.0 mmol/LNOMS Healthcare Creatinine [Mass/Vol]1.57 mg/dLHigh0.55 - 1.02 mg/dLNOIA HealthcareGFR/1.73 sq M.predicted CKD-EPI (S/P/Bld) [Vol rate/Area]38Low>=60 mL/min/1.73m 2NDUNCAN REGIONAL [facility] HealthcareGlucose [Mass/Vol]95 mg/dL74 - 106 mg/dLNOIA HealthcareInterpretation and review of laboratory resultsAbnormalNOIA HealthcarePotassium [Moles/Vol]4 mmol/L3.5 - 5.1 mmol/LNOMS HealthcareSodium [Moles/Vol]141 mmol/L136 - 145 mmol/LNOMS HealthcareTB EGFR-NON AF YNYGDISW85Pym>=60 mL/min/1.73m 2NDUNCAN [facility]ION[facility] HealthcareUrea nitrogen [Mass/Vol]28 mg/dLHigh7.0 - 18.0 mg/dLNOParkland Health Center Urea nitrogen/Creatinine [Mass ratio]17.8 mg/mgNOParkland Health CenterCLINISYNCNOzarks Community Hospital BASIC METABOLIC PANELon 13-86-4641Iacqy gap [Moles/Vol]17.6 mmol/L [facility] HealthcareCalcium [Mass/Vol]9.7 mg/dL8.5 - 10.1 mg/dLRay County Memorial Hospital Chloride [Moles/Vol]105 mmol/L98 - 107 mmol/LNOMS HealthcareCO2 [Moles/Vol]25.3 mmol/L21.0 - 32.0 mmol/LNOMS HealthcareCreatinine [Mass/Vol]1.57 mg/dLHigh0.55 - 1.02 mg/dLNOIA HealthcareGFR/1.73 sq M.predicted CKD-EPI (S/P/Bld) [Vol rate/Area]38Low>=60 mL/min/1.73m 2NDUNC[facility] HealthcareGlucose [Mass/Vol]112 mg/dLHigh 74 - 106 mg/dLNOIA HealthcareInterpretation and review of laboratory results AbnormalNOMS HealthcarePotassium [Moles/Vol]3.9 mmol/L3.5 - 5.1 mmol/LNOMS HealthcareSodium [Moles/Vol]144 mmol/L136 - 145 mmol/LNOMS HealthcareTB EGFR- NON AF [id number]>=60 mL/min/1.73m 2NDUNC[facility] HealthcareUrea nitrogen [Mass/Vol]40 mg/dLHigh7.0 - 18.0 mg/dLACADIA HEALTHCARE HealthcareUrea nitrogen/Creatinine [Mass ratio] 25.5 mg/mgNOParkland Health CenterCLINISYNCNDUNCAN REGIONAL HOS[facility] HealthcareALL CBC WITH AUTO DIFFon 79-69-8692EWJVCJANN ABSOLUTE AUTO0.1NSalem Memorial District HospitalBasophils/100 WBC (Bld)1.1 % 0.2 - 2.0 %NOMCox NorthEosinophils/100 WBC (Bld)7.8 %High0.9 - 7.0 %[facility] HospitalErythrocyte distribution width (RBC) [Ratio]14.3 %11.0 - 15.0 %[facility] HospitalHematocrit (Bld) [Volume fraction]39.1 %36.0 - 48.0 %[facility] Hemoglobin (Bld) [Mass/Vol]13 g/dL12.0 - 16.0 g/dLRay County Memorial HospitalIMMATURE GRANULOCYTES ABS AUTO0.01NOParkland Health CenterImmature granulocytes/100 WBC (Bld)0.1 % 0.0 - 0.5 %[facility] HospitalInterpretation and review of laboratory results AbnormalNOParkland Health CenterLYMPHOCYTES ABSOLUTE AUTO2.6NOMS [facility] Lymphocytes/100 WBC (Bld)37 %20.5 - 60.0 %[facility] HospitalH (RBC) [Entitic mass]29.1 pg26.7 - 34.0 pgFreeman Neosho HospitalHC (RBC) [Mass/Vol]33.2 g/dL29.9 - 35.2 g/dLFreeman Neosho HospitalV (RBC) [Entitic vol]87.7 fL81.0 - 99.0 fLRay County Memorial HospitalMONOCYTES ABSOLUTE AUTO0.6NOParkland Health CenterMonocytes/100 WBC (Bld)7.8 % 1.7 - 12.0 %[facility] HospitalNEUTROPHILS ABSOLUTE AUTO3.3NOParkland Health Center Neutrophils/100 WBC (Bld)46.2 %43.0 - 75.0 %[facility] HospitalPlatelet mean volume (Bld) [Entitic vol]9.8 fL9.5 - 13.5 fLRay County Memorial HospitalTB EO #0.6NOMS [facility] TB [id number] Children's Psychiatric Hospital RBC4.46NOMS [facility] WBC7.1NSalem [facility] CLINISYNCRay County Memorial HospitalMultiple labson 67-56-7813UwbCzruzgKettering Health TroyPT INTACTon 72-83-3737YYV, Ryvcuh757 pg/mLCritically rrom54-46Amb [facility] Comment on above:Performed By: #### CMP #### [facility] [address] [address] [address] Jaci Henao AUTO DIFFon 03-07-1297WNJM #0.0 103/ulNormal0.0-0.1The [facility] CenterComment on above:Performed By: #### CBC #### [facility] [address] [address] [address] Jaci MoraBasophils/100 WBC (Bld)0.6 %Normal0.2-2.0The [facility] Comment on above:Performed By: #### CBC #### [facility] [address] [place] [address] Dr. Jaci Villafana #0.2 103/ulNormal0.0-0.7The [facility] CenterComment on above: Performed By: #### CBC #### [facility] [address] [address] [address] Jaci Jefferyosinophils/100 WBC (Bld)3.2 %Normal0.9-7.0[facility] Comment on above:Performed By: #### CBC #### [facility] [address] [place] [address] Dr. Jaci Jefferyrythrocyte distribution width (RBC) [Ratio]16.3 %Critically high 11.0-15.0The [facility] CenterComment on above:Performed By: #### CBC #### [facility] [address] [place] [address] Dr. Jaci MoraHematocrit (Bld) [Volume fraction]36.2 %Pdabrh06.0-48.0The [facility] CenterComment on above:Performed By: #### CBC #### [facility] [address] [place] [address] Dr. Jaci MoraHemoglobin (Bld) [Mass/Vol]11.3 g/dLCritically low12.0-16.0The [facility] HospitalComment on above:Performed By: #### CBC #### [facility] [address] [place] [address] Dr. Jaci Ríos #0.02 10e3/ulNormal0.00-0.03The [facility] on above:Performed By: #### CBC #### [facility] [address] [place] [address] Dr. Jaci Ríos %0.3 %Normal0.0-0.5The [facility] on above: Performed By: #### CBC #### [facility] [address] [place] [address] Dr. Jaci Whiting #2.9 103/ulNormal1.2-3.8The [facility] on above:Performed By: #### CBC #### [facility] [address] [place] [address] Dr. Jaci Singhhocytes/100 WBC (Bld)43.8 %Syscek54.5-60.0The [facility] on above:Performed By: #### CBC #### [facility] [address] [place] [address] Dr. Jaci WinnUAL DIFF REQNONormalThe [facility] on above: Performed By: #### CBC #### [facility] [address] [place] [address] Dr. Jaci Leon (RBC) [Entitic mass]28.3 jfWggboy49.7-34.0The [facility] on above:Performed By: #### CBC #### [facility] [address] [place] [address] Dr. Jaci Leon (RBC) [Mass/Vol]31.2 g/fARvazcx76.9-35.2The [facility] on above:Performed By: #### CBC #### [facility] [address] [place] [address] Dr. Jaci Leon (RBC) [Entitic vol]90.7 yVYmwoth22.0-99.0The [facility] HospitalComment on above:Performed By: #### CBC #### [facility] [address] [address] [address] Jaci Andino #0.5 103/ulNormal0.3-0.8The [facility] CenterComment on above:Performed By: #### CBC #### [facility] [address] [address] [address] Jaci Chanocytes/100 WBC (Bld)7.9 %Normal1.7-12.0The [facility] Comment on above:Performed By: #### CBC #### [facility] [address] [place] [address] Dr. Jaci Patterson #2.9 103/ulNormal1.4-6.5The [facility] CenterComment on above:Performed By: #### CBC #### [facility] [address] [place] [address] Dr. Jaci Goldsmithutrophils/100 WBC (Bld)44.2 %Ohoeiq16.0-75.0The [facility] CenterComment on above:Performed By: #### CBC #### [facility] [address] [place] [address] Dr. Jaci Salmonlet mean volume (Bld) [Entitic vol]8.6 fLCritically low 9.5-13.5The [facility] CenterComment on above:Performed By: #### CBC #### [facility] [address] [place] [address] Dr. Jaci MoraPLT250 103/piIsqyct610-780Vxh [facility] CenterComment on above: Performed By: #### CBC #### [facility] [address] [place] [address] Dr. Jaci MoraRBC3.99 106/ulCritically low4.20-5.40The [facility] CenterComment on above:Performed By: #### CBC #### [facility] [address] [place] [address] Dr. Jaci MoraWBC6.6 103/ulNormal4.0-11.0The [facility] HospitalComment on above: Performed By: #### CBC #### [facility] [address] [place], [place] [address] Dr. Jaci MoraMAGNESIUMon 05-51-3992Lhqjdzuza [Mass/Vol]2.8 mg/dLCritically high1.8-2.4The [facility] CenterComment on above:Performed By: #### MG, CMP, PHOS ####[facility] [address] [address]Dr. Jaci MoraPHOSPHORUSon 20-92-9303Iooenpzlf [Mass/Vol]3.1 mg/dLNormal 2.6-4.7The [facility] CenterComment on above:Performed By: #### MG, CMP, PHOS ####[facility] [address] [address]DrSarahi MoraPROF 14(COMP METB)on 93-06-3889Dvswmsj [Mass/Vol]3.5 g/dLNormal 3.4-5.0The [facility] CenterComment on above:Performed By: #### MG, CMP, PHOS ####[facility] [address] [address]Dr. Jaci MoraAlbumin/Globulin [Mass ratio]0.9 {ratio}NormalC[facility] Clinic Foundation Comment on above:Performed By: #### MG, CMP, PHOS ####[facility] [address] [address]Dr. Jaci oMraALP [Catalytic activity/Vol]361 U/LCritically lszl18-456Uoy [facility] CenterComment on above: Performed By: #### MG, CMP, PHOS ####[facility] [address] [address]Dr. Jaci MoraALT [Catalytic activity/Vol]31 U/L Xveqyy98-33How [facility] CenterComment on above:Performed By: #### MG, CMP, PHOS ####[facility] [address] [address]Dr. Jaci MoraAnion gap [Moles/Vol]11.7 mmol/LNormalCleveland Clinic Foundation Comment on above:Performed By: #### MG, CMP, PHOS ####[facility] [address] [address]Dr. Yilan ChangAST [Catalytic activity/Vol]26 U/VTflhlx74-16Uto [facility] CenterComment on above:Performed By: #### MG, CMP, PHOS ####[facility] [address] [address]Dr. Yilan ChangBilirubin [Mass/Vol]0.4 mg/dLNormal 0.2-1.0The [facility] CenterComment on above:Performed By: #### MG, CMP, PHOS ####[facility] [address] [place], [place] [address]Dr. Yilan ChangCalcium [Mass/Vol]7.4 mg/dLCritically low8.5-10.1The [facility] CenterComment on above:Performed By: #### MG, CMP, PHOS ####[facility] [address] [place], [place] [address]Dr. Yilan ChangChloride [Moles/Vol]106 mmol/MPiwvoe75-670Zqb [facility] CenterComment on above:Performed By: #### MG, CMP, PHOS ####[facility] [address] [place], [place] [address]Dr. Yilan ChangCO2 [Moles/Vol]27.4 mmol/LNormal 21.0-32.0The [facility] CenterComment on above:Performed By: #### MG, CMP, PHOS ####[facility] [address] [place], [place] [address]Dr. Yilan ChangCreatinine [Mass/Vol]1.15 mg/dLCritically high0.55-1.02The [facility] CenterComment on above:Performed By: #### MG, CMP, PHOS ####[facility] [address] [place], [place] [address]Dr. Yilan ChangEGFR-AF NNIGDLIA22 mL/min/1.59s2Vbkhbfxtaq low>=60The [facility] CenterComment on above: Performed By: #### MG, CMP, PHOS ####[facility] [address] [address]Dr. Yilan ChangEGFR-NON AF HCXRUOYQ38 mL/min/1.73m2 Critically low>=60The [facility] CenterComment on above:Performed By: #### MG, CMP, PHOS ####[facility] [address] [address]Dr. Yilan ChangGlobulin (S) [Mass/Vol]4.0 g/dLNormalThe [facility] Comment on above:Performed By: #### MG, CMP, PHOS ####[facility] [address] [address]Dr. Yilan ChangGlucose [Mass/Vol]85 mg/tRHpyopu58-138Zqp [facility] CenterComment on above:Performed By: #### MG, CMP, PHOS ####[facility] [address] [address]Dr. Yilan ChangPotassium [Moles/Vol]4.1 mmol/LNormal 3.5-5.1The [facility] CenterComment on above:Performed By: #### MG, CMP, PHOS ####[facility] F[address]up[address] [place], [place] [address]Dr. Yilan ChangProtein [Mass/Vol]7.5 g/dLNormal6.4-8.2The [facility] CenterComment on above:Performed By: #### MG, CMP, PHOS ####[facility] [address] [address]Dr. Yilan ChangSodium [Moles/Vol]141 mmol/L Ftuoep009-706Vor [facility] CenterComment on above:Performed By: #### MG, CMP, PHOS ####[facility] S[address] [place], [place] [address]Dr. Yilan ChangUrea nitrogen [Mass/Vol]23.0 mg/dLCritically high7.0-18.0The [facility] CenterComment on above:Performed By: #### MG, CMP, PHOS ####[facility] E[address] [place], [place] [address]Dr. Jaci Youngblood nitrogen/Creatinine [Mass ratio]20.0 mg/mgNormalThCleveland Clinic Akron GeneralComment on above:Performed By: #### MG, CMP, PHOS ####[facility] [address] [address]Dr. Jaci Santos RANDOM W/MICROSCOPICon 41-23-3819LYSCWBIEYVLWHEdgyouadLYRM SEENCleveland Clinic FoundationComment on above: Performed By: #### BMP #### [facility] [address] [address] [address] Jaci MoraBilirubin Ql (U)NegativeNormalNEGATIVESalem City Hospital on above:Performed By: #### BMP #### [facility] [address] [address] [address] Jaci MoraCASTNONE SEENNormalNONE SEENCleveland Clinic FoundationComment on above:Performed By: #### BMP #### [facility] [address] [address] [address] Jaci Jenkins (U)CLEARNormalCLEARCleveland Clinic FoundationComment on above: Performed By: #### BMP #### [facility] [address] [address] [address] Jaci España (U)YELLOWNormalYELLOWCleveland Clinic FoundationComment on above: Performed By: #### BMP #### [facility] [address] [address] [address] Jaci MoraCrystals LM Nom (Urine sed)NONE SEENNormalNONE SEENCleveland Clinic FoundationComment on above:Performed By: #### BMP #### [facility] [address] [address] [address] Beatty ChangEpithelial cells LM Ql (Urine sed)RARENormalNONE SEEN /RARECleveland Clinic FoundationComment on above:Performed By: #### BMP #### [facility] [address] [address] [address] Jaci MoraGlucose Ql (U)NegativeNormalNEGATIVECleveland Clinic FoundationComment on above:Performed By: #### BMP #### [facility] [address] [address] [address] Jaci MoraHemoglobin Ql (U)NegativeNormalNEGATIVECleveland Clinic Foundation Comment on above:Performed By: #### BMP #### [facility] [address] [address] [address] Jaci MoraKetones Ql (U)NegativeNormalNEGATIVECleveland Clinic FoundationComment on above:Performed By: #### BMP #### [facility] [address] [place] [address] Dr. Jaci MoraLEUKOCYTESSMALLAbnormalNEGATIVECleveland Clinic FoundationComment on above:Performed By: #### BMP #### [facility] [address] [place] [address] Dr. Jaci MoraMUCOUSNONE SEENNormalNONE SEENCleveland Clinic FoundationComment on above:Performed By: #### BMP #### [facility] [address] [place] [address] Dr. Jaci MoraNitrite Ql (U)NegativeNormalNEGATIVECleveland Clinic FoundationComment on above:Performed By: #### BMP #### [facility] [address] [place] [address] Dr. Jaci MorapH (U)6.5 [pH]Normal5-9C[facility] Clinic FoundationComment on above: Performed By: #### BMP #### [facility] [address] [place] [address] Dr. Jaci MoraTdmxqOST3-6Erftry3-4Ocg [facility]vue HospitalComment on above:Performed By: #### BMP #### [facility] [address] [place] [address] Dr. Jaci MoraSPEC GRAVITY<=1.120Pisceebj9.005-<=1.025[facility] Comment on above:Performed By: #### BMP #### [facility] [address] [place] [address] Dr. Jaci MoraUA PROTEINNegativeNormalNEGATIVE/ TRACECleveland Clinic Foundation Comment on above:Performed By: #### BMP #### [facility] [address] [address] [address] Jaci Blancobilandreegen Qn (U)0.2 {Chantel'U}/dLNormal0.2 - 1.0The [facility] CenterComment on above:Performed By: #### BMP #### [facility] [address] [address] [address] Jaci BlairBC5-10AbnormalNONE SEENThe [facility] CenterComment on above: Performed By: #### BMP #### [facility] [address] [address] [address] Jaci Dooley T PROTEIN CREAT RATIOon 63-50-7520Bnvitmw (U) [Mass/Vol] 20.2 mg/dLCritically high<=12.0K[facility]tering Health Hamiltonment on above:Performed By: #### BMP #### [facility] [address] [place] [address] Dr. Jaci Marie PROT CREAT RAT0.17NormKettering Health MiamisburgComment on above: Performed By: #### BMP #### [facility] [address] [place] [address] Dr. Jaci Dooley VLGAN184.55 mg/nRCrkyrp38.00-300.00[facility] Comment on above:Performed By: #### BMP #### [facility] [address] [place] [address] Dr. Jaci MoraVITAMIN D 25 OHon 28-89-7636QRG D 25-OH121.0 ng/mLNormalThe [facility] CenterComment on above:Performed By: #### VITAD ####[facility] [address]war[address] [place], [place] [address]Dr. Jaci MaganaT D RANGES SEE BELOWMiddletown HospitalComascension standish hospital on above:Result Comment: <20 ng/mL Vit D deficient 20 - <30 ng/mL Vit D insufficient 30 - 100 ng/mL Vit D sufficient >100 ng/mL Potential ToxicityPerformed By: #### VITAD ####[facility] [address] [place], [place] [address]Dr. Jaci Trinidad on 06-15-6820BFWTLandwk Visit (ORTHMN) WILLIAM CANAS ([id number]) 1940 F Date Time Provider Department 06/21/22 2:00 PM EROS DELCID During your visit today, we recorded the following information about you: Eros Delcid MD 06/22/2022 11:57 AM Signed Orthopaedic Oncology [...] have orthopedic oncology needs. Devyn Chavez MD [address] [place] [address] [address] [place] [id number] Plan: No surgical intervention indicated at this time May consider denosumab treatment per oncology team Follow-up with me as needed No follow-ups on file. I spent a total of 50 minutes on the date of the service which included preparing to see the patient, nctm-ui-gunb patient care, completing clinical documentation, obtaining and/or reviewing separately obtained history, performing a medically appropriate examination, counseling and educating the patient/family/caregiver, communicating with other HCPs (not separately reported), independently interpreting results (not separately reported), and communicating results to the patient/family/caregiver. These rec (more content not included)...[facility] contrast IVOrdered By: Angelika Fisher on 22-11-1442Osxpvjrjh Study observation (narrative)[facility]US Abdomenon 31-71-7317Kcxcsijfd Study observation (narrative)[facility] HospitalXR Abdomen APon 06-06-2022 Radiology Study observation (narrative)[facility] HospitalCBC W MANUAL DIFF on 51-69-1778WQQWTWVR LYMPH #NormalThe [facility] CenterComment on above: Performed By: #### BMP #### [facility] [address] [place] [address] Dr. Jaci EddyYPICAL LYMPH %NormalThe [facility] Medical CenterComment on above: Performed By: #### BMP #### [facility] [address] [place] [address] Dr. Jaci Walls #0.1 103/ulNormal0.0-0.3The [facility] Medical CenterComment on above:Performed By: #### BMP #### [facility] [address] [place] [address] Dr. Jaci Walls %1 %Normal0-5The [facility] CenterComment on above:Performed By: #### BMP #### [facility] [address] [place] [address] Dr. Jaci Stroud #0.12 103/ulCritically high0.00-0.10The [facility] Comment on above:Performed By: #### BMP #### [facility] [address] [place] [address] Dr. Jaci Stroud %1.0 %Normal0.2-2.0The [facility] CenterComment on above: Performed By: #### BMP #### [facility] [address] [address] [address] Jaci Ling #NormalThe Williams HospitalComment on above:Performed By: #### BMP #### [facility] [address] [address] [address] Jaci MoraBLAST %NormalThe [facility] CenterComment on above:Performed By: #### BMP #### [facility] [address] [address] [address] Jaci MoraCORRECTED WBCNormal4.0-11.0The [facility] CenterComment on above: Performed By: #### BMP #### [facility] [address] [place] [address] Dr. Jaci Price #0.23 103/ulNormal0.00-0.70The [facility] CenterComment on above:Performed By: #### BMP #### [facility] [address] [place] [address] Dr. Jaci Price%2.0 %Normal0.9-7.0The [facility] CenterComment on above: Performed By: #### BMP #### [facility] [address] [place] [address] Dr. Jaci MoraHCT29.6 %Critically low36.0-48.0The [facility] CenterComment on above:Performed By: #### BMP #### [facility] [address] [place] [address] Dr. Jaci MoraHGB9.2 g/dlCritically low12.0-16.0The [facility] HospitalComment on above:Performed By: #### BMP #### [facility] [address] [place] [address] Dr. aJci Castro #2.34 103/ulNormal1.20-3.80The [facility] CenterComment on above:Performed By: #### BMP #### [facility] [address] [place] [address] Dr. Jaci Castro%20.0 %Critically low20.5-60.0The [facility] HospitalComment on above:Performed By: #### BMP #### [facility] [address] [place] [address] Dr. Jaci LeonH29.2 fdFudkvv92.7-34.0The [facility] HospitalComment on above: Performed By: #### BMP #### [facility] [address] [place] [address] Dr. Jaci LeonHC31.1 g/bfDzxcim02.9-35.2The [facility] HospitalComment on above:Performed By: #### BMP #### [facility] [address] [place] [address] Dr. Jaci LeonV94.0 cLSuvqat97.0-99.0The [facility] CenterComment on above: Performed By: #### BMP #### [facility] [address] [place] [address] Dr. Jaci CarrollOCYTE #NormalThe Williams HospitalComment on above: Performed By: #### BMP #### [facility] [address] [place] [address] Dr. Jaci CarrollOCYTE %NormalThe [facility] HospitalComment on above: Performed By: #### BMP #### [facility] [address] [place] [address] Dr. Jaci White#0.58 103/ulNormal0.30-0.80The [facility] CenterComment on above:Performed By: #### BMP #### [facility] [address] [place] [address] Dr. Jaci White%5.0 %Normal1.7-12.0The [facility] HospitalComment on above: Performed By: #### BMP #### [facility] [address] [place] [address] Dr. Jaci Cam8.7 fLCritically low9.5-13.5The [facility] CenterComment on above:Performed By: #### BMP #### [facility] [address] [place] [address] Dr. Jaci Baugh #NormalThe [facility] HospitalComment on above:Performed By: #### BMP #### [facility] [address] [address] [address] Jaci Baugh %NormalThe [facility] HospitalComment on above:Performed By: #### BMP #### [facility] [address] [address] [address] Jaci MoraNRBCMiddletown HospitalComment on above:Performed By: #### BMP #### [facility] [address] [address] [address] Jaci MoraOVALOCYTESSSheltering Arms HospitalComment on above: Performed By: #### BMP #### [facility] [address] [address] [address] Jaci MoraPLT372 103/grVkzfto320-751Hcy [facility] CenterComment on above: Performed By: #### BMP #### [facility] [address] [address] [address] Jaci MoraPOIKILOCYTOSISSSheltering Arms HospitalComment on above: Performed By: #### BMP #### [facility] [address] [address] [address] Jaci MoraRBC3.15 106/ulCritically low4.20-5.40The [facility] CenterComment on above:Performed By: #### BMP #### [facility] [address] [address] [address] Jaci MoraRDW20.7 %Critically high11.0-15.0The [facility] CenterComment on above:Performed By: #### BMP #### [facility] [address] [address] [address] Jaci Moffett #8.31 103/ulCritically high1.40-6.50The [facility] on above:Performed By: #### BMP #### [facility] [address] [address] [address] Jaci Moffett %71.0 %Zodrnc56.0-75.0The [facility] HospitalComment on above: Performed By: #### BMP #### [facility] [address] [place], [place] [address] Dr. Jaci MoraWBC11.7 103/ulCritically high4.0-11.0The [facility] CenterComment on above:Performed By: #### BMP #### [facility] [address] [place], [place] [address] Dr. Jaci JoyF 14(COMP METB)on 92-71-5939Zetndqo [Mass/Vol]2.2 g/dL Critically low3.4-5.0The [facility] CenterComment on above:Performed By: #### CMP ####[facility] [address] [address]Dr. Jaci MoraAlbumin/Globulin [Mass ratio]0.5 {ratio}NormalThe [facility] Comment on above:Performed By: #### CMP ####[facility] [address] [address]Dr.Jaci MoraALP [Catalytic activity/Vol] 846 U/LCritically lghm10-761Amk [facility] CenterComment on above:Performed By: #### CMP ####[facility] [address] [address]Dr.Jaci MoraALT [Catalytic activity/Vol]40 U/TNripvi80-84Cdy [facility] CenterComment on above:Performed By: #### CMP ####[facility] [address] [address]Dr.Jaci MoraAnion gap [Moles/Vol]13.1 mmol/LNormalThe [facility] CenterComment on above:Performed By: #### CMP ####[facility] [address] [address]Dr.Jaci ChangAST [Catalytic activity/Vol]48 U/LCritically lcfh83-51Cyv [facility] CenterComment on above:Performed By: #### CMP ####[facility] [address] [address]Dr.Jaci ChangBilirubin [Mass/Vol]0.3 mg/dLNormal0.2-1.0The [facility] HospitalComment on above:Performed By: #### CMP ####[facility] [address] [address]Dr.Yilan ChangCalcium [Mass/Vol]8.7 mg/dLNormal8.5-10.1The [facility] CenterComment on above:Performed By: #### CMP ####[facility] [address] [place], [place] [address]Dr.Yilan ChangChloride [Moles/Vol]106 mmol/SDhijte93-413Qbz [facility] HospitalComment on above:Performed By: #### CMP ####[facility] [address]oiddbf[address] [place], [place] [address]Dr.Yilan ChangCO2 [Moles/Vol]25.4 mmol/UMdbqmz08.0-32.0The [facility] CenterComment on above:Performed By: #### CMP ####[facility] [address] [place], [place] [address]Dr.Yilan ChangCreatinine [Mass/Vol]1.05 mg/dLCritically high0.55-1.02The [facility] CenterComment on above:Performed By: #### CMP ####[facility] [address]zh[address] [place], [place] [address]Dr.Yilan ChangEGFR-AF AZERBAIJANI>60Normal>=60The [facility] CenterComascension standish hospital on above:Performed By: #### CMP ####[facility] [address] [place], [place] [address]Dr.Yilan ChangEGFR-NON AF NUEJSRWY25 mL/min/1.10m6Twixvlipsj low>=60The [facility] CenterComment on above: Performed By: #### CMP ####[facility] [address]xs[address] [place], [place] [address]Dr.Yilan ChangGlobulin (S) [Mass/Vol]4.2 g/dLNormalThe [facility] CenterComment on above:Performed By: #### CMP ####[facility] [address]rh[address] [place], [place] [address]Dr.Yilan ChangGlucose [Mass/Vol]123 mg/dLCritically dcun49-693Heg [facility] CenterComment on above: Performed By: #### CMP ####[facility] [address] [address]Dr.Jaci DevynPotassium [Moles/Vol]3.5 mmol/LNormal 3.5-5.1The [facility] CenterComment on above:Performed By: #### CMP ####[facility] [address] [address]Dr.Jaci Mora Protein [Mass/Vol]6.4 g/dLNormal6.4-8.2The [facility] CenterComment on above: Performed By: #### CMP ####[facility] [address]ofm[address] [place], [place] [address]Dr.Jaci ChangSodium [Moles/Vol]141 mmol/LNormal 136-145The [facility] CenterComment on above:Performed By: #### CMP ####[facility] [address] [address]Dr.Jaci ChangUrea nitrogen [Mass/Vol]13.0 mg/dLNormal7.0-18.0The [facility] CenterComment on above:Performed By: #### CMP ####[facility] [address]kw[address] [place], [place] [address]DrPoppy MoraUrea nitrogen/Creatinine [Mass ratio] 12.4 mg/mgNormalThe [facility] CenterComment on above:Performed By: #### CMP ####[facility] [address] [place], [place] [address]DrSarahi VargasC AUTO DIFFon 39-73-9417TXZH #0.1 103/ulNormal0.0-0.1The [facility] CenterComment on above:Performed By: #### BMP #### [facility] [address] [address] [address] Jaci Rodriguezphils/100 WBC (Bld)0.6 %Normal0.2-2.0The [facility] Comment on above:Performed By: #### BMP #### [facility] [address] [address] [address] Yilan ChangEO #0.3 103/ulNormal0.0-0.7The [facility] CenterComment on above: Performed By: #### BMP #### [facility] [address] [place] [address] Dr. Jaci Jefferyosinophils/100 WBC (Bld)2.2 %Normal0.9-7.0The [facility] Comment on above:Performed By: #### BMP #### [facility] [address] [place] [address] Dr. Jaci Jefferyrythrocyte distribution width (RBC) [Ratio]18.6 %Critically high 11.0-15.0The [facility] CenterComment on above:Performed By: #### BMP #### [facility] [address] [place] [address] Dr. Jaci MoraHematocrit (Bld) [Volume fraction]28.9 %Critically low36.0-48.0 The [facility] CenterComment on above:Performed By: #### BMP #### [facility] [address] [place] [address] Dr. Jaci MoraHemoglobin (Bld) [Mass/Vol]9.7 g/dLCritically low12.0-16.0The [facility] CenterComment on above:Performed By: #### BMP #### [facility] [address] [place] [address] Dr. Jaci Ríos #0.74 10e3/ulCritically high0.00-0.03The [facility] Comment on above:Performed By: #### BMP #### [facility] [address] [place] [address] Dr. Jaci Ríos %5.0 %Critically high0.0-0.5The [facility] CenterComment on above:Performed By: #### BMP #### [facility] [address] [place] [address] Dr. Jaci Whiting #2.3 103/ulNormal1.2-3.8The [facility] CenterComment on above:Performed By: #### BMP #### [facility] [address] [place] [address] Dr. Jaci Benavidesmphocytes/100 WBC (Bld)15.2 %Critically low20.5-60.0The [facility] CenterComment on above:Performed By: #### BMP #### [facility] [address] [place] [address] Dr. Jaci WinnUAL DIFF REQNONormalThe [facility] CenterComment on above: Performed By: #### BMP #### [facility] [address] [place] [address] Dr. Jaci Leon (RBC) [Entitic mass]29.2 zzYvsano73.7-34.0The [facility] CenterComment on above:Performed By: #### BMP #### [facility] [address] [place] [address] Dr. Jaci Leon (RBC) [Mass/Vol]33.6 g/aTVootsv91.9-35.2The [facility] CenterComment on above:Performed By: #### BMP #### [facility] [address] [place] [address] Dr. Jaci Leon (RBC) [Entitic vol]87.0 eCNgpqkn93.0-99.0The [facility] CenterComment on above:Performed By: #### BMP #### [facility] [address] [place] [address] Dr. Jaci Andino #0.7 103/ulNormal0.3-0.8The [facility] CenterComment on above:Performed By: #### BMP #### [facility] [address] [place] [address] Dr. Jaci Chanocytes/100 WBC (Bld)4.8 %Normal1.7-12.0[facility] Comment on above:Performed By: #### BMP #### [facility] [address] [place] [address] Dr. Jaci Patterson #10.7 103/ulCritically high1.4-6.5The [facility] Comment on above:Performed By: #### BMP #### [facility] [address] [address] [address] Jaci Goldsmithutrophils/100 WBC (Bld)72.2 %Xvnfxh76.0-75.0The [facility] CenterComment on above:Performed By: #### BMP #### [facility] [address] [address] [address] Jaci MoraPlatelet mean volume (Bld) [Entitic vol]10.0 fLNormal9.5-13.5The [facility] CenterComment on above:Performed By: #### BMP #### [facility] [address] [address] [address] Jaci MoraPLT236 103/rwPymqdg354-923Igh [facility] CenterComment on above: Performed By: #### BMP #### [facility] [address] [address] [address] Jaci MoraRBC3.32 106/ulCritically low4.20-5.40The [facility] CenterComment on above:Performed By: #### BMP #### [facility] [address] [address] [address] Jaci MoraWBC14.8 103/ulCritically high4.0-11.0The [facility] CenterComment on above:Performed By: #### BMP #### [facility] [address] [address] [address] Jaci JoyF 14(COMP METB)on 88-41-4281Ocgjhky [Mass/Vol]2.0 g/dL Critically low3.4-5.0The [facility] CenterComment on above:Performed By: #### CMP ####[facility] [address] [address]Dr. Jaci MoraAlbumin/Globulin [Mass ratio]0.5 {ratio}NormalThe [facility] Comment on above:Performed By: #### CMP ####[facility] [address] [place] [address]Dr.Yilan MoraALP [Catalytic activity/Vol] 782 U/LCritically bjwe79-527Iww [facility] CenterComment on above:Performed By: #### CMP ####[facility] [address] [place] [address]Dr.Yilan ChangALT [Catalytic activity/Vol]122 U/LCritically wpxn00-67Jpa [facility] CenterComment on above:Performed By: #### CMP ####[facility] [address] [place] [id number].Yilan ChangAnion gap [Moles/Vol]14.9 mmol/LNormalThe [facility] CenterComment on above:Performed By: #### CMP ####[facility] [address] [place], [place] [address]Dr.Yilan ChangAST [Catalytic activity/Vol]103 U/LCritically [id number] [facility] CenterComment on above:Performed By: #### CMP ####[facility] [address] [place], [place] [address]Dr.Yilan ChangBilirubin [Mass/Vol]0.4 mg/dLNormal0.2-1.0The [facility] CenterComment on above:Performed By: #### CMP ####[facility] Pttrro[address]ts[address] [place], [place] [address]Dr.Yilan ChangCalcium [Mass/Vol]9.3 mg/dLNormal8.5-10.1The [facility] CenterComasc[facility] on above:Performed By: #### CMP ####[facility] Aqluqlup[address] [place], [place] [address]Dr.Yilan ChangChloride [Moles/Vol]104 mmol/UJhhxyp42-879Skt [facility] CenterComment on above:Performed By: #### CMP ####[facility] S[address]dr[address] [place], [place] [address]Dr.Yilan ChangCO2 [Moles/Vol]24.9 mmol/YOsibqt72.0-32.0The [facility] CenterComment on above:Performed By: #### CMP ####[facility] Ohvnjauc[address] [place], [place] [address]Dr.Yilan ChangCreatinine [Mass/Vol]0.87 mg/dLNormal0.55-1.02The [facility] HospitalComment on above: Performed By: #### CMP ####[facility] Bzyobpgaze[address] [place], [place] [address]Dr.Yilan ChangEGFR-AF AZERBAIJANI>60Normal>=60The [facility] CenterCom[facility] on above:Performed By: #### CMP ####[facility] [address]srobmxgfh[address] [place], [place] [address]Dr.Yilan ChangEGFR-NON AF AZERBAIJANI>60Normal>=60The [facility] CenterComment on above:Performed By: #### CMP ####[facility] Ivqexxofod[address] [place], [place] [address]Dr. Jaci MoarGlobulin (S) [Mass/Vol]3.7 g/dLNormalThe [facility] CenterCom[facility] on above:Performed By: #### CMP ####[facility] Leomlvuj[address] [place], [place] [address]Dr.Jaci ChangGlucose [Mass/Vol]89 mg/vDDcsmuc53-465 The [facility] CenterCom[facility] on above:Performed By: #### CMP ####[facility] [address] [place], [place] [address]Dr.Jaci Mora Potassium [Moles/Vol]3.8 mmol/LNormal3.5-5.1The [facility] on above:Performed By: #### CMP ####[facility] Budqchgxie[address] [place], [place] [address]Dr.Jaci MoraProtein [Mass/Vol]5.7 g/dLCritically low 6.4-8.2The [facility] on above:Performed By: #### CMP ####[facility] Bdctsgmrey[address] [place], [place] [address]Dr.Jaci Mora Sodium [Moles/Vol]140 mmol/KIlpxnt749-819Wep [facility] on above: Performed By: #### CMP ####[facility] Bmnrkaqaf[address] [place], [place] [address]Dr.Jaci MoraUrea nitrogen [Mass/Vol]14.0 mg/dLNormal 7.0-18.0The [facility] on above:Performed By: #### CMP ####[facility] [address] [address]Dr. Jaci Youngblood nitrogen/Creatinine [Mass ratio]16.1 mg/mgNoAdena Pike Medical CenterComment on above:Performed By: #### CMP ####[facility] [address] [address]Dr.Yilan Henao W MANUAL DIFFon [id number]+NormalCleveland Clinic FoundationComment on above: Performed By: #### CBCNITIN #### [facility] [address] [address] [address] Jaci EddyYPICAL LYMPH #0.14 103/ulMiddletown HospitalComment on above:Performed By: #### ADAM #### [facility] [address] [place] [address] Dr. Jaci Stephenson LYMPH %1 %NormalCleveland Clinic FoundationComment on above: Performed By: #### ADAM #### [facility] [address] [place] [address] Dr. Jaci Walls #0.0 103/ulNormal0.0-0.3The [facility] CenterComment on above:Performed By: #### ADAM #### [facility] [address] [place] [address] Dr. Jaci Walls %0 %Normal0-5ThCleveland Clinic Akron GeneralComment on above:Performed By: #### CBCNITIN #### [facility] [address] [place] [address] Dr. Jaci Stroud #0.14 103/ulCritically high0.00-0.10ThVan [facility] on above:Performed By: #### CBCNITIN #### [facility] [address] [place] [address] Dr. Jaci Stroud %1.0 %Normal0.2-2.0[facility] Clinic FoundationComment on above: Performed By: #### ADAM #### [facility] [address] [place] [address] Dr. Jaci Ling #NormalThe [facility] CenterComment on above:Performed By: #### CBCNITIN #### [facility] [address] [address] [address] Jaci Ling %NormalThe [facility] CenterComment on above:Performed By: #### CBCNITIN #### [facility] [address] [address] [address] Jaci MoraCORRECTED WBCNormal4.0-11.0The [facility] CenterComment on above: Performed By: #### CBCNITIN #### [facility] [address] [address] [address] Jaci Price #0.14 103/ulNormal0.00-0.70The [facility] CenterComment on above:Performed By: #### CBCNITIN #### [facility] [address] [address] [address] Jaci Price%1.0 %Normal0.9-7.0The [facility] CenterComment on above: Performed By: #### CBCNITIN #### [facility] [address] [address] [address] Jaci MoraHCT28.6 %Critically low36.0-48.0The [facility] CenterComment on above:Performed By: #### CBCNITIN #### [facility] [address] [address] [address] Jaci MoraHGB9.3 g/dlCritically low12.0-16.0The [facility] CenterComment on above:Performed By: #### CBCNITIN #### [facility] [address] [address] [address] Jaci Castro #0.70 103/ulCritically low1.20-3.80The [facility] on above:Performed By: #### CBCMAN #### [facility] [address] [address] [address] Jaci Castro%5.0 %Critically low20.5-60.0The [facility] CenterComment on above:Performed By: #### CBCMAN #### [facility] [address] [address] [address] Jaci LeonH28.6 lsEjqnls36.7-34.0The [facility] CenterComment on above: Performed By: #### ADAM #### [facility] [address] [place] [address] Dr. Jaci LeonHC32.5 g/beNbjryg44.9-35.2The [facility] HospitalComment on above:Performed By: #### ADAM #### [facility] [address] [place] [address] Dr. Jaci LeonV88.0 hJFtrlvw40.0-99.0The [facility] CenterComment on above: Performed By: #### ADAM #### [facility] [address] [place] [address] Dr. Jaci CarrollOCYTE #NormalThe [facility] CenterComment on above: Performed By: #### ADAM #### [facility] [address] [place] [address] Dr. Jaci CarrollOCYTE %NormalThe [facility] CenterComment on above: Performed By: #### ADAM #### [facility] [address] [place] [address] Dr. Jaci White#0.14 103/ulCritically low0.30-0.80The [facility] on above:Performed By: #### ADAM #### [facility] [address] [place] [address] Dr. Jaci White%1.0 %Critically low1.7-12.0The [facility] CenterComment on above:Performed By: #### ADAM #### [facility] [address] [place] [address] Dr. Jaci RhodesV9.0 fLCritically low9.5-13.5The [facility] CenterComment on above:Performed By: #### ADAM #### [facility] [address] [place] [address] Dr. Jaci ChristinaOCYTE #0.3 103/ulNormalThe [facility] CenterComment on above: Performed By: #### ADAM #### [facility] [address] [address] [address] Jaci ChristinaOCYTE %2 %NormalThe [facility] CenterComment on above: Performed By: #### ADAM #### [facility] [address] [address] [address] Jaci MoraNRBCNormalThe [facility] CenterComment on above:Performed By: #### ADAM #### [facility] [address] [address] [address] Jaci MoraPLT194 103/fzZgocby722-486Caw [facility] CenterComment on above: Performed By: #### ADAM #### [facility] [address] [address] [address] Jaci AgarwalIKILOCYTOSIS2+NormalCleveland Clinic FoundationComment on above: Performed By: #### ADAM #### [facility] [address] [address] [address] Jaci MoraRBC3.25 106/ulCritically low4.20-5.40The [facility] CenterComment on above:Performed By: #### ADAM #### [facility] [address] [place] [address] Dr. Jaci DoverW18.8 %Critically high11.0-15.0The [facility] CenterComment on above:Performed By: #### ADAM #### [facility] [address] [place] [address] Dr. Jaci MoraSCHISTOCYTES2+NormalCleveland Clinic FoundationComment on above: Performed By: #### ADAM #### [facility] [address] [address] [address] Jaci Moffett #12.46 103/ulCritically high1.40-6.50The [facility] on above:Performed By: #### ADAM #### [facility] [address] [place] [address] Dr. Jaci Moffett %89.0 %Critically high43.0-75.0The [facility] CenterComment on above:Performed By: #### CBCMAN #### [facility] [address] [address] [address] Jaci MoraWBC14.0 103/ulCritically high4.0-11.0The [facility] CenterComment on above:Performed By: #### CBCMAN #### [facility] [address] [place] [address] Dr. Jaci MoraPROF CHEM 8 (BAS METB)on [id number] gap [Moles/Vol]10.9 mmol/LNormalThe [facility] CenterComment on above:Performed By: #### CMP #### [facility] [address] [place] [address] Dr. Jaci MoraCalcium [Mass/Vol]9.8 mg/dLNormal8.5-10.1The [facility] on above:Performed By: #### CMP #### [facility] [address] [place] [address] Dr. Jaci MoraChloride [Moles/Vol]110 mmol/LCritically ufls94-223Trk [facility] CenterComment on above:Performed By: #### CMP #### [facility] [address] [place] [address] Dr. Jaci MoraCO2 [Moles/Vol]20.3 mmol/LCritically low21.0-32.0The [facility] CenterComment on above:Performed By: #### CMP #### [facility] [address] [place] [address] Dr. Jcai MoraCreatinine [Mass/Vol]0.91 mg/dLNormal0.55-1.02The [facility] CenterComment on above:Performed By: #### CMP #### [facility] [address] [place] [address] Dr. Jaci JefferyGFR-AF AZERBAIJANI>60Normal>=60The [facility] Avon Hospitalment on above:Performed By: #### CMP #### [facility] [address] [place] [address] Dr. Jaci JefferyGFR-NON AF HWOHDYQL18 mL/min/1.95x9Ijtefzvoao low>=60The [facility] CenterComment on above:Performed By: #### CMP #### [facility] [address] [address] [address] Jaci MoraGlucose [Mass/Vol]77 mg/jZBhbjrf67-908Frq [facility] Comment on above:Performed By: #### CMP #### [facility] [address] [address] [address] Jaci MoraPotassium [Moles/Vol]4.2 mmol/LNormal3.5-5.1[facility] Comment on above:Performed By: #### CMP #### [facility] [address] [place] [address] Dr. Jaci MoraSodium [Moles/Vol]137 mmol/CIbexjr448-510Fhs [facility] Comment on above:Performed By: #### CMP #### [facility] [address] [place] [address] Dr. Jaci MoraUrea nitrogen [Mass/Vol]21.0 mg/dLCritically high7.0-18.0The [facility] CenterComment on above:Performed By: #### CMP #### [facility] [address] [place] [address] Dr. Jaci Youngblood nitrogen/Creatinine [Mass ratio]23.1 mg/mgNormalThe [facility] CenterComment on above:Performed By: #### CMP #### [facility] [address] [place] [address] Dr. Jaci Henao W MANUAL DIFFon [id number] LYMPH #0.68 103/ulNormal The [facility] CenterComment on above:Performed By: #### CMP #### [facility] [address] [place] [address] Dr. Jaci MoraATYPICAL LYMPH %4 %NormalThe [facility] CenterComment on above: Performed By: #### CMP #### [facility] [address] [place] [address] Dr. Jaci Walls #0.0 103/ulNormal0.0-0.3The [facility]ani HospitalComment on above:Performed By: #### CMP #### [facility] [address] [address] [address] Jaci Walls %0 %Normal0-5The [facility] CenterComment on above:Performed By: #### CMP #### [facility] [address] [address] [address] Jaci Stroud #0.00 103/ulNormal0.00-0.10The [facility] HospitalComment on above:Performed By: #### CMP #### [facility] [address] [address] [address] Jaci Stroud %0.0 %Critically low0.2-2.0The [facility] CenterComment on above:Performed By: #### CMP #### [facility] [address] [place] [address] Dr. Jaci Ling #NormalThe [facility] HospitalComment on above:Performed By: #### CMP #### [facility] [address] [place] [address] Dr. Jaci Ling %NormalThe [facility] HospitalComment on above:Performed By: #### CMP #### [facility] [address] [place] [address] Dr. Jaci MoraCORRECTED WBCNormal4.0-11.0The [facility] CenterComment on above: Performed By: #### CMP #### [facility] [address] [place] [address] Dr. Jaci Price #0.17 103/ulNormal0.00-0.70The [facility] HospitalComment on above:Performed By: #### CMP #### [facility] [address] [address] [address] Jaci Price%1.0 %Normal0.9-7.0The [facility] HospitalComment on above: Performed By: #### CMP #### [facility] [address] [place] [address] Dr. Jaci MoraHCT29.2 %Critically low36.0-48.0The [facility] CenterComment on above:Performed By: #### CMP #### [facility] [address] [address] [address] Jaci MoraHGB10.0 g/dlCritically low12.0-16.0The [facility] CenterComment on above:Performed By: #### CMP #### [facility] [address] [address] [address] Jaci Castro #0.68 103/ulCritically low1.20-3.80The [facility] on above:Performed By: #### CMP #### [facility] [address] [address] [address] Jaci Castro%4.0 %Critically low20.5-60.0The [facility] CenterComment on above:Performed By: #### CMP #### [facility] [address] [place] [address] Dr. Jaci MoraMCH29.0 fyPpjhth96.7-34.0The [facility] CenterComment on above: Performed By: #### CMP #### [facility] [address] [place] [address] Dr. Jaci LeonHC34.2 g/soQzaxti43.9-35.2The [facility] CenterComment on above:Performed By: #### CMP #### [facility] [address] [place] [address] Dr. Jaci LeonV84.6 oXMjunlg26.0-99.0The [facility] CenterComment on above: Performed By: #### CMP #### [facility] [address] [place] [address] Dr. Jaci CeeELOCYTE #NormalThe [facility] CenterComment on above: Performed By: #### CMP #### [facility] [address] [place] [address] Dr. Jaci CeeELOCYTE %NormalThe [facility] CenterComment on above: Performed By: #### CMP #### [facility] [address] [place] [address] Dr. Jaci White#0.51 103/ulNormal0.30-0.80The [facility] CenterComment on above:Performed By: #### CMP #### [facility] [address] [place] [address] Dr. Jaci White%3.0 %Normal1.7-12.0The [facility] CenterComment on above: Performed By: #### CMP #### [facility] [address] [place] [address] Dr. Jaci RhodesV9.3 fLCritically low9.5-13.5The [facility] CenterComment on above:Performed By: #### CMP #### [facility] [address] [place] [address] Dr. Jaci Baugh #0.3 103/ulNormKettering Health MiamisburgComment on above: Performed By: #### CMP #### [facility] [address] [place] [address] Dr. Jaci Baugh %2 %NormalThe [facility] HospitalComment on above: Performed By: #### CMP #### [facility] [address] [place] [address] Dr. Jaci HemphillLaeorSRDJ0EzgpilHikAdena Pike Medical CenterComment on above:Performed By: #### CMP #### [facility] [address] [place] [address] Dr. Jaci MoraPLT209 103/bbMsfmxs400-027Jrw [facility] CenterComment on above: Performed By: #### CMP #### [facility] [address] [place] [address] Dr. Jaci MoraRBC3.45 106/ulCritically low4.20-5.40The [facility] CenterComment on above:Performed By: #### CMP #### [facility] [address] [place] [address] Dr. Jaci MoraRDW18.4 %Critically high11.0-15.0The [facility] CenterComment on above:Performed By: #### CMP #### [facility] [address] [place] [address] Dr. Jaci Moffett #14.71 103/ulCritically high1.40-6.50The [facility] Comment on above:Performed By: #### CMP #### [facility] [address] [place] [address] Dr. Jaci Moffett %86.0 %Critically high43.0-75.0The [facility] CenterComment on above:Performed By: #### CMP #### [facility] [address] [place] [address] Dr. Jaci MoraWBC17.1 103/ulCritically high4.0-11.0The [facility] CenterComment on above:Performed By: #### CMP #### [facility] [address] [place] [address] Dr. Jaci Garner CHEM 8 (BAS METB)on 88-08-1391Dctvo gap [Moles/Vol]13.8 mmol/LNormalThe [facility] CenterComment on above:Performed By: #### BMP #### [facility] [address] [place] [address] Dr. Jaci MoraCalcium [Mass/Vol]9.2 mg/dLNormal8.5-10.1The [facility] Comment on above:Performed By: #### BMP #### [facility] [address] [place] [address] Dr. Jaci MoraChloride [Moles/Vol]109 mmol/LCritically tttj20-716Wxr [facility] CenterComment on above:Performed By: #### BMP #### [facility] [address] [place] [address] Dr. Jaci MoraCO2 [Moles/Vol]20.1 mmol/LCritically low21.0-32.0The [facility] CenterComment on above:Performed By: #### BMP #### [facility] [address] [place] [address] Dr. Jaci MoraCreatinine [Mass/Vol]0.84 mg/dLNormal0.55-1.02The [facility] CenterComment on above:Performed By: #### BMP #### [facility] [address] [address] [address] Beatty ChangEGFR-AF AZERBAIJANI>60Normal>=60The [facility] CenterComment on above:Performed By: #### BMP #### [facility] [address] [place] [address] Dr. Jaci JefferyGFR-NON AF AZERBAIJANI>60Normal>=60The [facility] CenterComment on above:Performed By: #### BMP #### [facility] [address] [address] [address] Jaci MoraGlucose [Mass/Vol]130 mg/dLCritically vvak87-557Ztz [facility] CenterComment on above:Performed By: #### BMP #### [facility] [address] [place] [address] Dr. Jaci MoraPotassium [Moles/Vol]3.9 mmol/LNormal3.5-5.1The [facility] Comment on above:Performed By: #### BMP #### [facility] [address] [place] [address] Dr. Jaci MoraSodium [Moles/Vol]139 mmol/XEvvayo402-980Lsm [facility] Comment on above:Performed By: #### BMP #### [facility] [address] [place] [address] Dr. Jaci MoraUrea nitrogen [Mass/Vol]17.0 mg/dLNormal7.0-18.0The [facility] CenterComment on above:Performed By: #### BMP #### [facility] [address] [place] [address] Dr. Jaci Youngblood nitrogen/Creatinine [Mass ratio]20.2 mg/mgNormalThe [facility] CenterComment on above:Performed By: #### BMP #### [facility] [address] [place] [address] Dr. Jaci MoraCBC AUTO DIFFon [id number] #0.0 103/ulNormal0.0-0.1The [facility] CenterComment on above:Performed By: #### CMP #### [facility] [address] [address] [address] Jaci MoraBasophils/100 WBC (Bld)0.3 %Normal0.2-2.0[facility] Comment on above:Performed By: #### CMP #### [facility] [address] [place] [address] Dr. Jaci Villafana #0.3 103/ulNormal0.0-0.7The [facility] CenterComment on above: Performed By: #### CMP #### [facility] [address] [place] [address] Dr. Jaci Jefferyosinophils/100 WBC (Bld)2.2 %Normal0.9-7.0The [facility] Comment on above:Performed By: #### CMP #### [facility] [address] [place] [address] Dr. Jaci Jefferyrythrocyte distribution width (RBC) [Ratio]18.6 %Critically high 11.0-15.0The [facility] CenterComment on above:Performed By: #### CMP #### [facility] [address] [place] [address] Dr. Jaci MoraHematocrit (Bld) [Volume fraction]26.3 %Critically low36.0-48.0 The [facility] CenterComment on above:Performed By: #### CMP #### [facility] [address] [place] [address] Dr. Jaci MoraHemoglobin (Bld) [Mass/Vol]9.0 g/dLCritically low12.0-16.0[facility] FoundationComment on above:Performed By: #### CMP #### [facility] [address] [place] [address] Dr. Jaci Ríos #0.39 10e3/ulCritically high0.00-0.03The [facility] Comment on above:Performed By: #### CMP #### [facility] [address] [place] [address] Dr. Jaci Ríos %2.9 %Critically high0.0-0.5The [facility] CenterComment on above:Performed By: #### CMP #### [facility] [address] [address] [address] Jaci Whiting #1.2 103/ulNormal1.2-3.8The [facility] CenterComment on above:Performed By: #### CMP #### [facility] [address] [address] [address] Jaci Benavidesmphocytes/100 WBC (Bld)8.9 %Critically low20.5-60.0The [facility] CenterComment on above:Performed By: #### CMP #### [facility] [address] [place] [address] Dr. Jaci Madison DIFF REQNONormalThe [facility] CenterComment on above: Performed By: #### CMP #### [facility] [address] [place] [address] Dr. Jaci Leon (RBC) [Entitic mass]29.0 oqStqxvj05.7-34.0The [facility] CenterComment on above:Performed By: #### CMP #### [facility] [address] [place] [address] Dr. Jaci Leon (RBC) [Mass/Vol]34.2 g/qTXbkhek64.9-35.2The [facility] CenterComment on above:Performed By: #### CMP #### [facility] [address] [place] [address] Dr. Jaci Leon (RBC) [Entitic vol]84.8 tWRcymlp11.0-99.0The [facility] CenterComment on above:Performed By: #### CMP #### [facility] [address] [place] [address] Dr. Jaci Andino #0.4 103/ulNormal0.3-0.8The [facility] Hospitalment on above:Performed By: #### CMP #### [facility] [address] [place] [address] Dr. Jaci Chanocytes/100 WBC (Bld)2.9 %Normal1.7-12.0The [facility] Comment on above:Performed By: #### CMP #### [facility] [address] [address] [address] Jaci GoldsmithUT #11.0 103/ulCritically high1.4-6.5The [facility] Comment on above:Performed By: #### CMP #### [facility] [address] [address] [address] Jaci Goldsmithutrophils/100 WBC (Bld)82.8 %Critically high43.0-75.0The [facility] CenterComment on above:Performed By: #### CMP #### [facility] [address] [address] [address] Jaci MoraPlatelet mean volume (Bld) [Entitic vol]8.7 fLCritically low 9.5-13.5The [facility] CenterComment on above:Performed By: #### CMP #### [facility] [address] [address] [address] Jaci MoraPLT185 103/wmWgjaht072-300Obc [facility] CenterComment on above: Performed By: #### CMP #### [facility] [address] [address] [address] Jaci MoraRBC3.10 106/ulCritically low4.20-5.40The [facility] CenterComment on above:Performed By: #### CMP #### [facility] [address] [address] [address] Jaci MoraWBC13.3 103/ulCritically high4.0-11.0The [facility] CenterComment on above:Performed By: #### CMP #### [facility] [address] [address] [address] Jaci MoraPROF CHEM 8 (BAS METB)on 37-29-3143Fhqtu gap [Moles/Vol]11.4 mmol/LNormalThe [facility] CenterComment on above:Performed By: #### BMP ####[facility] [address] [address]Dr. Jaci MoraCalcium [Mass/Vol]8.7 mg/dLNormal8.5-10.1The [facility] CenterComment on above:Performed By: #### BMP ####[facility] Sncmdklijw[address] [place], [place] [address]Dr.Yilan ChangChloride [Moles/Vol]110 mmol/LCritically gftq90-432Wam [facility] CenterComment on above:Performed By: #### BMP ####[facility] Dbqcwldita[address] [place], [place] [address]Dr. Yilan ChangCO2 [Moles/Vol]22.7 mmol/PWaagjq40.0-32.0The [facility] CenterComment on above:Performed By: #### BMP ####[facility] Otmrnekhos[address] [place], [place] [address]Dr.Yilan ChangCreatinine [Mass/Vol]1.02 mg/dLNormal 0.55-1.02The [facility] CenterComment on above:Performed By: #### BMP ####[facility] Luohmtpunf[address] [place], [place] [address]Dr. Yilan ChangEGFR-AF AZERBAIJANI>60Normal>=60The [facility] CenterComment on above: Performed By: #### BMP ####[facility] Erbldfmsfn[address] [place], [place] [address]Dr.Yilan ChangEGFR-NON AF DELJRKWC94 mL/min/1.73m2 Critically low>=60The [facility] CenterComment on above:Performed By: #### BMP ####[facility] Fksqkrinaq[address] [place], [place] [address]Dr. Yilan ChangGlucose [Mass/Vol]121 mg/dLCritically tyep31-101Pka [facility] Comment on above:Performed By: #### BMP ####[facility] Vpeegfqwkf[address] [place], [place] [address]Dr.Yilan ChangPotassium [Moles/Vol]3.1 mmol/LCritically low3.5-5.1The [facility] CenterComment on above:Performed By: #### BMP ####[facility] Mkmirlrpcr[address] [place], [place] [address]Dr.Yilan ChangSodium [Moles/Vol]141 mmol/FTvxowq319-061Jee Williams HospitalComment on above:Performed By: #### BMP ####[facility] [address]ptghklvx[address] [place], [place] [address]Dr.Yilan ChangUrea nitrogen [Mass/Vol]25.0 mg/dLCritically high7.0-18.0The [facility] HospitalComment on above:Performed By: #### BMP ####[facility] Oosdmjqbjk[address] [place], [place] [address]Dr.Yilan ChangUrea nitrogen/Creatinine [Mass ratio] 24.5 mg/mgNormalThe Williams HospitalComment on above:Performed By: #### BMP ####[facility] Wooqxbjjmu[address] [place], [place] [address]Dr. Yilan ChangXR Abdomen APon 02-35-5378GhiJpmlnlWayne HealthCare Main Campus W MANUAL DIFFon 25-75-6934KHKZQOLWTMRJ4+NormalThe Williams HospitalComment on above:Performed By: #### CBCMAN ####[facility] Eilakvizln[address] [place], [place] [address]Dr. Yilan ChangATYPICAL LYMPH #NormalThe [facility] CenterComment on above:Performed By: #### CBCMAN ####[facility] Hcqlfmhuje[address] [place], [place] [address]Dr. Yilan ChangATYPICAL LYMPH %NormalThe [facility] CenterComment on above:Performed By: #### CBCMAN ####[facility] Ytsasxuoui[address] [place], [place] [address]Dr. Yilan ChangBAND #0.2 103/ulNormal0.0-0.3The [facility] HospitalComment on above:Performed By: #### CBCMAN ####[facility] Fwtrfymvvo[address] [place], [place] [address]Dr. Yilan ChangBAND %2 %Normal0-5The [facility] HospitalComment on above: Performed By: #### CBCMAN ####[facility] Yrqhgqhijq[address] [place], [place] [address]Dr. Yilan ChangBASOM #0.00 103/ulNormal0.00-0.10The [facility] CenterComment on above:Performed By: #### CBCMAN ####[facility] Aisfoypyls[address] [place], [place] [address]Dr. Yilan ChangBASOM %0.0 %Critically low0.2-2.0The [facility] HospitalComment on above:Performed By: #### CBCMAN ####[facility] Uelhdvtydr[address] [place], [place] [address]Dr. Yilan ChangBLAST #NormalThe Williams HospitalComment on above:Performed By: #### CBCMAN ####[facility] Gmvlbyufao[address] [place], [place] [address]Dr. Yilan ChangBLAST %NormalThe Williams HospitalComment on above: Performed By: #### CBCMAN ####[facility] Mrlwxrrrgl[address] [place], [place] [address]Dr. Yilan ChangCORRECTED WBCNormal4.0-11.0The [facility] CenterComment on above:Performed By: #### CBCMAN ####[facility] Ddoygxhpom[address] [place], [place] [address]Dr. Yilan ChangEOS #0.00 103/ulNormal0.00-0.70The [facility] CenterComment on above:Performed By: #### CBCMAN ####[facility] Qszyqbdumi[address] [place], [place] [address]Dr. Yilan ChangEOS%0.0 %Critically low0.9-7.0The [facility] CenterComment on above:Performed By: #### CBCMAN ####[facility] Rbnsdpndtg[address] [place], [place] [address]Dr. Yilan MqkzfSEY52.2 %Critically low36.0-48.0 The [facility] HospitalComment on above:Performed By: #### CBCMAN ####[facility] Utrrkfcmoz[address] [place], [place] [address]Dr. Yilan ChangHGB 8.5 g/dlCritically low12.0-16.0The [facility] HospitalComment on above:Performed By: #### CBCMAN ####[facility] Vnwnndzihb[address] [place], [place] [address]Dr. Jaci MoraHYPOCHROMASIASLIGHTNoalThe [facility] CenterComment on above:Performed By: #### CBCNITIN ####[facility] [address] [address]Dr. Jaci MoraLYMPHM #1.22 103/ulNormal1.20-3.80 The [facility] HospitalComment on above:Performed By: #### CBCNITIN ####[facility] [address] [address]Dr. Jaci Mora LYMPHM%10.0 %Critically low20.5-60.0The [facility] HospitalComment on above: Performed By: #### CBCNITIN ####[facility] [address] [address]Dr. Jaci MoraMCH28.6 rtFitrwc19.7-34.0The [facility] CenterComment on above:Performed By: #### CBCNITIN ####[facility] Vwptvarpxn[address] [place], [place] [address]Dr. Jaci MoraMCHC33.7 g/dl Xbacwm48.9-35.2The [facility] CenterComment on above:Performed By: #### CBCNITIN ####[facility] Gatdbwohxz[address] [place], [place] [address]Dr. Jaci MoraMCV84.8 jLEthctc37.0-99.0The [facility] CenterComment on above: Performed By: #### CBCNITIN ####[facility] [address] [address]Dr. Jaci ChangMETAMYELOCYTE #NormalThe [facility] CenterComment on above:Performed By: #### CBCMAN ####[facility] [address] [address]Dr. Jaci ChangMETAMYELOCYTE %NormalThe [facility] CenterComment on above:Performed By: #### CBCMAN ####[facility] [address] [address]Dr. Jaci MoraMONOM#0.12 103/ulCritically low0.30-0.80The [facility] HospitalComment on above:Performed By: #### CBCNITIN ####[facility] [address] [address]Dr. Yilan ChangMONOM%1.0 %Critically low1.7-12.0 The [facility] CenterComment on above:Performed By: #### CBCNITIN ####[facility] [address] [address]Dr. Yilan ChangMPV 9.0 fLCritically low9.5-13.5The [facility] HospitalComment on above:Performed By: #### CBCNITIN ####[facility] [address] [address]Dr. Yilan ChangMYELOCYTE #NormalThe [facility] CenterComment on above: Performed By: #### CBCNITIN ####[facility] [address] [address]Dr. Yilan ChangMYELOCYTE %NormalThe [facility] Comment on above:Performed By: #### CBCNITIN ####[facility] J[address]op[address] [address]Dr. Yilan VjzesGVQJ3WhzqatVhp [facility] CenterComment on above:Performed By: #### CBCNITIN ####[facility] Yldokogvbf[address] [place], [place] [address]Dr. Yilan FphiiLJF526 103/ul Tmudfd696-685Few [facility] CenterComment on above:Performed By: #### CBCNITIN ####[facility] [address]yr[address] [address]Dr. Yilan ChangRBC2.97 106/ulCritically low4.20-5.40The [facility] CenterComment on above:Performed By: #### CBCNITIN ####[facility] [address]ya[address] [address]Dr. Yilan RjmqwGOQ40.7 %Critically high11.0-15.0The [facility] CenterComment on above:Performed By: #### CBCNITIN ####[facility] Lsqgrhwpyo[address] [place], [place] [address]Dr. Yilan ChangSEG # 10.61 103/ulCritically high1.40-6.50The [facility] CenterComment on above: Performed By: #### CBCMAN ####[facility] [address] [address]Dr. Jaci Moffett %87.0 %Critically high43.0-75.0The [facility] CenterComment on above:Performed By: #### CBCMAN ####[facility] [address]xwr[address] [address]Dr. Jaci MoraWBC 12.2 103/ulCritically high4.0-11.0The [facility] CenterComment on above: Performed By: #### CBCMAN ####[facility] [address] [address]Dr. Jaci JoyF CHEM 8 (BAS METB)on 04-29-2022 Anion gap [Moles/Vol]13.1 mmol/LNormalThe [facility] CenterComment on above: Performed By: #### CMP #### [facility] [address] [address] [address] Jaci MoraCalcium [Mass/Vol]8.6 mg/dLNormal8.5-10.1The [facility] Comment on above:Performed By: #### CMP #### [facility] [address] [address] [address] Jaci MoraChloride [Moles/Vol]113 mmol/LCritically kwas55-875Iuf [facility] CenterComment on above:Performed By: #### CMP #### [facility] [address] [address] [address] Jaci MoraCO2 [Moles/Vol]21.6 mmol/LClajve35.0-32.0The [facility] Comment on above:Performed By: #### CMP #### [facility] [address] [address] [address] Jaci MoraCreatinine [Mass/Vol]1.17 mg/dLCritically high0.55-1.02The [facility] CenterComment on above:Performed By: #### CMP #### [facility] [address] [address] [address] Yilan ChangEGFR-AF AZQWVYBB46 mL/min/1.69j8Ttyznflwgy low>=60The [facility] CenterComment on above:Performed By: #### CMP #### [facility] [address] [address] [address] Jaci JefferyGFR-NON AF WISQVOTM41 mL/min/1.80l0Vqtdvdyvtx low>=60The [facility] CenterComment on above:Performed By: #### CMP #### [facility] [address] [address] [address] Jaci MoraGlucose [Mass/Vol]65 mg/dLCritically rgq01-251Klm [facility] CenterComment on above:Performed By: #### CMP #### [facility] [address] [address] [address] Jaci MoraPotassium [Moles/Vol]3.7 mmol/LNormal3.5-5.1[facility] Comment on above:Performed By: #### CMP #### [facility] [address] [address] [address] Jaci MoraSodium [Moles/Vol]144 mmol/DSlxlxp594-297FmpC[facility] Clinic [facility] Comment on above:Performed By: #### CMP #### [facility] [address] [address] [address] Jaci MoraUrea nitrogen [Mass/Vol]29.0 mg/dLCritically high7.0-18.0[facility] on above:Performed By: #### CMP #### [facility] [address] [address] [address] Jaci Youngblood nitrogen/Creatinine [Mass ratio]24.8 mg/mgNormalThe [facility] CenterComment on above:Performed By: #### CMP #### [facility] [address] [address] [address] Jaci Santos (CLEAN/CATCH) DOOR FITTER/MICRO IF IND.on 17-05-9070Umiycwlii Ql (U) NegativeNormalNEGATIVECleveland Clinic FoundationComment on above:Performed By: #### LISSETT, UACSIND ####[facility] [address] [address]Dr. Yilan ChangClarity (U)CLEARNormalCLEARThe [facility] CenterComment on above:Performed By: #### JHOANA GALEANA ####[facility] [address] [address]Dr. Yilan ChangColor (U)YELLOWNormalYELLOW The [facility] CenterComment on above:Performed By: #### JOHN GALEANAIND ####[facility] [address] [address]Dr. Yilan ChangGlucose Ql (U)NegativeNormalNEGATIVEThe [facility] CenterComment on above:Performed By: #### JHOANA GALEANA ####[facility] [address]dl[address] [place], [place] [address]Dr. Yilan ChangHemoglobin Ql (U)Negative NormalNEGATIVEThe [facility] CenterComment on above:Performed By: #### JOHN GALEANAIND ####[facility] Tubmvuupol[address] [place], [place] [address]Dr. Yilan ChangKetones Ql (U)15 mg/dlAbnormalNEGATIVEThe [facility] Comment on above:Performed By: #### JHOANA GALEANA ####[facility] [address]kls[address] [place], [place] [address]Dr. Yilan ChangLEUKOCYTES NegativeNormalNEGATIVECleveland Clinic FoundationComment on above:Performed By: #### JOHN GALEANAIND ####[facility] [address]pl[address]elsw[address] [place], [place] [address]Dr. Yilan ChangNitrite Ql (U)NegativeNormalNEGATIVECleveland Clinic FoundationComment on above:Performed By: #### JOHN GALEANAIND ####[facility] [address]zbap[address] [place], [place] [address]Dr. Yilan ChangpH (U)5.0 [pH]Normal5-9The [facility] CenterComment on above:Performed By: #### JOHN GALEANAIND ####[facility] [address]ylzlwe[address] [place], [place] [address]Dr. Yilan ChangSPEC GRAVITY>=1.388Llvehajx2.005-<=1.025The [facility] CenterComment on above:Performed By: #### JOHN GALEANAIND ####[facility] [address] [address]Dr. Yilan DevynUA QWFXSCU30 mg/dlAbnormalNEGATIVE/ TRACEThe [facility] CenterComment on above: Performed By: #### JOHN GALEANAIND ####[facility] [address] [address]Dr. Griceldalan ChangUR MICRO INDINDICATEDNoAdena Pike Medical CenterComment on above:Performed By: #### JOHN GALEANAIND ####[facility] [address] [address]Dr. Yilan ChangUrobilinogen Qn (U)0.2 {Chantel'U}/dLNormal0.2 - 1.0The [facility] CenterComment on above:Performed By: #### JHOANA GALEANA ####[facility] [address] [address]Dr. Griceldaadalberto DevynURINE MICROSCOPIC ONLYon 59-48-4075VVFDEHKCQ CRYSTALSRARENMercy Health [facility] Hospital Comment on above:Performed By: #### JHOANA GALEANA ####[facility] [address] [address]Dr. Jaci ChangBACTERIATRACE AbnormalNONE SEENCleveland Clinic FoundationComment on above:Performed By: #### JHOANA GALEANA ####[facility] [address] [address]Dr. Jaci ChangBacteria identified Cx Nom (U)NOT INDICATEDNoAdena Pike Medical CenterComment on above:Performed By: #### JOHN GALEANAIND ####[facility] [address] [address]Dr. Jaci ChangCASTSEENAbnormalNONE SEENCleveland Clinic FoundationComment on above: Performed By: #### JOHN GALEANAIND ####[facility] [address] [address]Dr. Jaci MoraCrystals LM Nom (Urine sed)SEEN AbnormalNONE SEENCleveland Clinic FoundationComascension standish hospital on above:Performed By: #### LISSETT UACSIND ####[facility] [address] [address]Dr. Jaci ChangEpithelial cells LM Ql (Urine sed)RARENormalNONE SEEN /RAREThe [facility] CenterComment on above:Performed By: #### LISSETT UACSIND ####[facility] [address] [address]Dr. Jaci MoraHYALINE CASTRARENormalThe [facility] CenterComascension stand[facility] hospital on above:Performed By: #### LISSETT UACSIND ####[facility] [address]iz[address] [address]Dr. Jaci MoraMUCOUSNONE SEENNormalNONE SEENThe [facility] CenterComascension standish hospital on above:Performed By: #### MARTIN GALEANACSIND ####[facility] [address] [address]Dr. Jaci MoraQrijeURD1-9Edvofo1-5Tij [facility] CenterComascension stand[facility] hospital on above:Performed By: #### LISSETT UACSIND ####[facility] [address]ior[address]qr[address] [address]Dr. Jaci MoraWBC0-2AbnormalNONE SEENCleveland Clinic FoundationComascension standish hospital on above:Performed By: #### LISSETT UACSIND ####[facility] [address] [address]Dr. Jaci Mora HEPATITIS PANEL, ACUTEon 43-91-9695AHtAf ScreenNegativeNormalNegativeThe [facility] CenterComascension standish hospital on above:Performed By: #### BMP #### [facility] [address] [address] [address] Jaci Santoro AB<0.8Jembmo7.0-0.9The [facility] CenterComascension standish hospital on above: Performed By: #### BMP #### [facility] [address] [address] [address] Jaci Rockwell A Ab, IgMNegativeNormalNegativeThe [facility] CenterComment on above:Performed By: #### BMP #### [facility] [address] [address] [address] Jaci Rockwell B Core Ab, IgMNegativeNormalNegativeThe [facility] Comment on above:Performed By: #### BMP #### [facility] [address] [address] [address] Jaci MoraInterpretation:CommentMiddletown HospitalComment on above:Result Comment: Negative Not infected with HCV, unless recent infection is suspected or other evidence exists to indicate HCV infection.Performed By: #### BMP #### [facility] [address] [place] [address] Dr. Jaci MoraPROF CHEM 8 (BAS METB)on 98-57-0076Wbyvf gap [Moles/Vol]15.9 mmol/LNormalThe [facility] CenterComment on above:Performed By: #### BMP #### [facility] [address] [place] [address] Dr. Jaci MoraCalcium [Mass/Vol]8.0 mg/dLCritically low8.5-10.1The [facility] CenterComment on above:Performed By: #### BMP #### [facility] [address] [place] [address] Dr. Jaci MoraChloride [Moles/Vol]109 mmol/LCritically cjes00-829Klf [facility] CenterComment on above:Performed By: #### BMP #### [facility] [address] [place] [address] Dr. Jaci MoraCO2 [Moles/Vol]22.2 mmol/TAtfpue74.0-32.0The [facility] Comment on above:Performed By: #### BMP #### [facility] [address] [place] [address] Dr. Jaci MoraCreatinine [Mass/Vol]1.54 mg/dLCritically high0.55-1.02The [facility] CenterComment on above:Performed By: #### BMP #### [facility] [address] [address] [address] Jaci JefferyGFR-AF IORIYAAL69 mL/min/1.90m8Fhepqgovss low>=60The [facility] CenterComment on above:Performed By: #### BMP #### [facility] [address] [address] [address] Jaci JefferyGFR-NON AF STRFTPAP44 mL/min/1.31k6Tteibmvksc low>=60The [facility] CenterComment on above:Performed By: #### BMP #### [facility] [address] [address] [address] Jaci MoraGlucose [Mass/Vol]79 mg/sSLoycoe20-369BacC[facility] Comment on above:Performed By: #### BMP #### [facility] [address] [address] [address] Jaci MoraPotassium [Moles/Vol]4.1 mmol/LNormal3.5-5.1[facility] Comment on above:Performed By: #### BMP #### [facility] [address] [address] [address] Jaci MoraSodium [Moles/Vol]143 mmol/SMtylxs394-740VbwCleveland Clinic Foundation Comment on above:Performed By: #### BMP #### [facility] [address] [address] [address] Jaci MoraUrea nitrogen [Mass/Vol]30.0 mg/dLCritically high7.0-18.0The [facility] on above:Performed By: #### BMP #### [facility] [address] [address] [address] Jaci MoraUrea nitrogen/Creatinine [Mass ratio]19.5 mg/mgNormalThe [facility] CenterComascension standish hospital on above:Performed By: #### BMP #### [facility] [address] [address] [address] Jaci MoraTRANSFERRINon 72-66-0770Oiesmpljkin [Mass/Vol]247 mg/dLNormal 149-313The Rajani HospitalComment on above:Performed By: #### TRANSFR ####[facility] [address]dex[address] [address]Dr. Jaci Henao AUTO DIFFon 90-55-1476GLNE #0.0 103/ulNormal0.0-0.1The [facility] CenterComment on above:Performed By: #### CMP #### [facility] [address] [place] [address] Dr. Jaci MroaBasophils/100 WBC (Bld)0.4 %Normal0.2-2.0The [facility] Comment on above:Performed By: #### CMP #### [facility] [address] [place] [address] Dr. Jaci Villafana #0.1 103/ulNormal0.0-0.7The [facility] CenterComment on above: Performed By: #### CMP #### [facility] [address] [place] [address] Dr. Jaci Jefferyosinophils/100 WBC (Bld)0.8 %Critically low0.9-7.0The [facility] CenterComment on above:Performed By: #### CMP #### [facility] [address] [place] [address] Dr. Jaci Jefferyrythrocyte distribution width (RBC) [Ratio]18.7 %Critically high 11.0-15.0The [facility] Hospitalment on above:Performed By: #### CMP #### [facility] [address] [place] [address] Dr. Jaci MoraHematocrit (Bld) [Volume fraction]36.1 %Pizfrr43.0-48.0The [facility] CenterComment on above:Performed By: #### CMP #### [facility] [address] [place] [address] Dr. Jaci MoraHemoglobin (Bld) [Mass/Vol]11.7 g/dLCritically low12.0-16.0The [facility] Hospitalment on above:Performed By: #### CMP #### [facility] [address] [address] [address] Jaci Ríos #0.12 10e3/ulCritically high0.00-0.03[facility] Comment on above:Performed By: #### CMP #### [facility] [address] [place] [address] Dr. Jaci Ríos %1.1 %Critically high0.0-0.5The [facility] CenterComment on above:Performed By: #### CMP #### [facility] [address] [place] [address] Dr. Jaci BenavidesGiancarlo #4.3 103/ulCritically high1.2-3.8The [facility] Comment on above:Performed By: #### CMP #### [facility] [address] [place] [address] Dr. Jaci Singhhocytes/100 WBC (Bld)38.6 %Knaoec34.5-60.0The [facility] CenterComment on above:Performed By: #### CMP #### [facility] [address] [place] [address] Dr. Jaci WinnUAL DIFF REQNONormalThe [facility] CenterComment on above: Performed By: #### CMP #### [facility] [address] [place] [address] Dr. Jaci Leon (RBC) [Entitic mass]28.5 olMdhfnn78.7-34.0The [facility] CenterComment on above:Performed By: #### CMP #### [facility] [address] [place] [address] Dr. Jaci Leon (RBC) [Mass/Vol]32.4 g/jMMgjcah68.9-35.2The [facility] CenterComment on above:Performed By: #### CMP #### [facility] [address] [place] [address] Dr. Jaci Leon (RBC) [Entitic vol]88.0 tOFxyxmj72.0-99.0The [facility] CenterComment on above:Performed By: #### CMP #### [facility] [address] [place] [address] Dr. Jaci Andino #0.7 103/ulNormal0.3-0.8The [facility] CenterComment on above:Performed By: #### CMP #### [facility] [address] [place] [address] Dr. Jaci Chanocytes/100 WBC (Bld)5.8 %Normal1.7-12.0The [facility] Comment on above:Performed By: #### CMP #### [facility] [address] [place] [address] Dr. Jaci Patterson #6.0 103/ulNormal1.4-6.5The [facility] CenterComment on above:Performed By: #### CMP #### [facility] [address] [place] [address] Dr. Jaci Goldsmithutrophils/100 WBC (Bld)53.3 %Jtcywc73.0-75.0The [facility] CenterComment on above:Performed By: #### CMP #### [facility] [address] [place] [address] Dr. Jaci Salmonlet mean volume (Bld) [Entitic vol]10.0 fLNormal9.5-13.5The [facility] CenterComment on above:Performed By: #### CMP #### [facility] [address] [place] [address] Dr. Jaci MoraPLT283 103/zgKfhnss248-075Hth [facility] CenterComment on above: Performed By: #### CMP #### [facility] [address] [place] [address] Dr. Jaci MoraRBC4.10 106/ulCritically low4.20-5.40The [facility] CenterComment on above:Performed By: #### CMP #### [facility] [address] [place] [address] Dr. Jaci MoraWBC11.2 103/ulCritically high4.0-11.0The [facility] CenterComment on above:Performed By: #### CMP #### [facility] [address] [place], [place] [address] Dr. Jaci MoraCT ABD/PELV W CONon 35-86-3351ZI ABD/PELV W CONEXAMINATION: CT ABD/PELV W CON, CT CHEST W CON HISTORY: [...] Electronically authenticated by: PAKO OREILLY Date: 2022-04-27 10:42[facility] Chest limited W contrast IVOrdered By: Angelika Fisher on 05-09-6565TkxJyxlqlKettering Health TroyCULTURE ANAEROBICon 06-66-1599JWHNMVK ANAEROBIC Culture Observations: NO GROWTH OF ANAEROBES AT 72 HOURS.NormalThe [facility] CenterComment on above: Performed By: #### ANACX #### [facility] [address] [address] [address] Jaci MoraCUMARKY BLOODon 51-59-9821Lolaehsflfo examination of blood, cultureCulture Observations: NO GROWTH AT 5 DAYS. Isolate 1 BC_BA_NANormalThe [facility] CenterComment on above:Performed By: #### BLDCX2 #### [facility] [address] [address] [address] Jaci MoraPerformed By: #### BLDCX1 ####[facility] [address] [address]Dr. Jaci MoraCULTHARSHAD OTHERon 04-27-2022 CULTURE OTHERIsolate 1 Cheri albicans Light growth ofNormalThe [facility] CenterComment on above:Performed By: #### OTHCX #### [facility] [address] [address] [address] Jaci MoraCovid-19 PCR ([facility])on 61-47-3537MHNS-CoV-2 (COVID-19) RNA JAMIE+probe Ql (Unsp spec)Not detectedNormalNOT DETECTEDThe [facility] Comment on above:Result Comment: When diagnostic testing is negative, the [...] for this test is supported by the [place] of Health and Human Service's declaration that circumstances exist to justify the emergency use of in vitro diagnostics for the detection and/or diagnosis of the virus that causes COVID-19. This EUA will remain in effect for the duration of the COVID-19 declaration justifying emergency of IVDs, unless it is terminated or revoked by the FDA (after which the test may no longer be used).Performed By: #### CMP #### [facility] [address] [place] [address] Dr. Jaci MoraFERRITINon 96-37-1461Yxroufyk [Mass/Vol]2052.0 ng/mLCritically high8.0-252.0The [facility] CenterComment on above:Performed By: #### CMP #### [facility] [address] [place] [address] Dr. Jaci Hendricks AND TIBCon 04-27-2022% AWOYJNIXDL51.7 %NormalThe [facility] CenterComment on above:Performed By: #### CMP #### [facility] [address] [address] [address] Jaci Hendricks [Mass/Vol]115.0 ug/gCSuchfu87.0-170.0The [facility] Comment on above:Performed By: #### CMP #### [facility] [address] [address] [address] Jaci HernandezC RDWPUF600.0 ug/mEJcsdav700.0-450.0The [facility] Comment on above:Performed By: #### CMP #### [facility] [address] [address] [address] Jaci MoraLIPASEon 94-18-5424Fzxfwg [Catalytic activity/Vol]457.0 U/L Critically high73.0-393.0The [facility] CenterComment on above:Performed By: #### LIPA, HSTROPN ####[facility] [address] [address]Dr. Jaci MoraPROF 14(COMP METB)on 28-29-9101Ahilacu [Mass/Vol]3.3 g/dLCritically low3.4-5.0The [facility] CenterComment on above: Performed By: #### CMP #### [facility] [address] [address] [address] Jaci MoraAlbumin/Globulin [Mass ratio]0.8 {ratio}NormalThe [facility] CenterComment on above:Performed By: #### CMP #### [facility] [address] [address] [address] Jaci Weiner [Catalytic activity/Vol]497 U/LCritically xvvu12-283Gqs [facility] CenterComment on above:Performed By: #### CMP #### [facility] [address] [address] [address] Jaci Busby [Catalytic activity/Vol]67 U/LCritically vgvi43-49Nre [facility] CenterComment on above:Performed By: #### CMP #### [facility] [address] [place] [address] Dr. Jaci Soto gap [Moles/Vol]15.5 mmol/LNormalCleveland Clinic Foundation Comment on above:Performed By: #### CMP #### [facility] [address] [address] [address] Jaci MoraAST [Catalytic activity/Vol]75 U/LCritically niks89-00Syn [facility] CenterComment on above:Performed By: #### CMP #### [facility] [address] [address] [address] Jaci MoraBilirubin [Mass/Vol]0.8 mg/dLNormal0.2-1.0The [facility] Comment on above:Performed By: #### CMP #### [facility] [address] [place] [address] Dr. Jaci MoraCalcium [Mass/Vol]9.2 mg/dLNormal8.5-10.1[facility] Comment on above:Performed By: #### CMP #### [facility] [address] [place] [address] Dr. Jaci MoraChloride [Moles/Vol]102 mmol/YTcqoum46-888LjbCleveland Clinic Foundation Comment on above:Performed By: #### CMP #### [facility] [address] [place] [address] Dr. Jaci MoraCO2 [Moles/Vol]26.9 mmol/IAwafsi51.0-32.0[facility] Comment on above:Performed By: #### CMP #### [facility] [address] [place] [address] Dr. Jaci MoraCreatinine [Mass/Vol]1.66 mg/dLCritically high0.55-1.02The [facility] CenterComment on above:Performed By: #### CMP #### [facility] [address] [place] [address] Dr. Jaci SterlingAF YTCJRNEA12 mL/min/1.86t7Bqsxgahlrk low>=60The [facility] CenterComment on above:Performed By: #### CMP #### [facility] [address] [place] [address] Dr. Yil[place] ChangEGFR-NON AF OKQBJWTL84 mL/min/1.75f9Phfjrirztm low>=60The [facility] CenterComment on above:Performed By: #### CMP #### [facility] [address] [address] [address] Jaci MoraGlobulin (S) [Mass/Vol]4.4 g/dLNoAdena Pike Medical CenterComment on above:Performed By: #### CMP #### [facility] [address] [address] [address] Jaci MoraGlucose [Mass/Vol]108 mg/dLCritically ogft23-570Xwd [facility] CenterComment on above:Performed By: #### CMP #### [facility] [address] [place] [address] Dr. Jaci MoraPotassium [Moles/Vol]4.4 mmol/LNormal3.5-5.1The [facility] Comment on above:Performed By: #### CMP #### [facility] [address] [place] [address] Dr. Jaci MoraProtein [Mass/Vol]7.7 g/dLNormal6.4-8.2The [facility] Comment on above:Performed By: #### CMP #### [facility] [address] [place] [address] Dr. Jaci MoraSodium [Moles/Vol]140 mmol/AMcjdqx408-501Gab [facility] Comment on above:Performed By: #### CMP #### [facility] [address] [place] [address] Dr. Jaci MoraUrea nitrogen [Mass/Vol]36.0 mg/dLCritically high7.0-18.0The [facility] CenterComment on above:Performed By: #### CMP #### [facility] [address] [place] [address] Dr. Jaci Youngblood nitrogen/Creatinine [Mass ratio]21.7 mg/mgNormKettering Health MiamisburgComment on above:Performed By: #### CMP #### [facility] [address] [place] [address] Dr. Jaci Abarca, HIGH SENSITIVITYon 91-71-1187UURVUC89.3 pg/mLNormal 4.0-51.3The [facility] CenterComment on above:Result Comment: CUT-OFF POINTS HAVE BEEN ESTABLISHED BASED ON THE FOURTH UNIVERSAL DEFINITIONS OF MYOCARDIAL INFARCTION. THE UPPER REFERENCE LIMIT (URL) OF TROPONIN, DEFINED THE 99TH PERCENTILE OF cTnI DISTRIBUTION IN A REFERENCE POPULATION, HAS BEEN CONFIRMED THE DECISION THRESHOLD FOR [place] DIAGNOSIS.Performed By: #### LIPA, HSTROPN ####[facility] [address] [place], [place] [address]Cs. Jaci MoraTYPE AND SCREENon 36-19-8217MKFX AND SCREENNegativeMiddletown HospitalComment on above:Performed By: #### TNS ####[facility] [address] [place], [place] [address]Yo.Jaci MoraUS Abdomenon 66-37-2747JzhIfswsj Health SystemUS SINGLE QUAD RT UPPERon 08-00-8190GJ SINGLE QUAD RT UPPEREXAMINATION: US SINGLE QUAD RT UPPER HISTORY: High [...] Electronically authenticated by: PAKO OREILLY Date: 2022-04-27 07:53Middletown HospitalVITAMIN B12on 17-07-1377Afzjgdjbg (Vitamin B12) [Mass/Vol] 3857.0 pg/mLCritically nejy570.0-986.0The [facility] CenterComment on above: Performed By: #### CMP #### [facility] [address] [place] [address] Dr. Jaci Henao AUTO DIFFon 06-89-1234DGCN #0.1 103/ulNormal0.0-0.1The [facility] CenterComment on above:Performed By: #### BMP #### [facility] [address] [place] [address] Dr. Jaci MoraBasophils/100 WBC (Bld)0.5 %Normal0.2-2.0The [facility] Comment on above:Performed By: #### BMP #### [facility] [address] [place] [address] Dr. Beatty ChangEHayes #0.2 103/ulNormal0.0-0.7The [facility] CenterComment on above: Performed By: #### BMP #### [facility] [address] [place] [address] Dr. Jaci Jefferyosinophils/100 WBC (Bld)1.2 %Normal0.9-7.0The [facility] Comment on above:Performed By: #### BMP #### [facility] [address] [place] [address] Dr. Jaci Jefferyrythrocyte distribution width (RBC) [Ratio]18.6 %Critically high 11.0-15.0The [facility] CenterComment on above:Performed By: #### BMP #### [facility] [address] [place] [address] Dr. Jaci MoraHematocrit (Bld) [Volume fraction]32.8 %Critically low36.0-48.0 The [facility] CenterComment on above:Performed By: #### BMP #### [facility] [address] [place] [address] Dr. Jaci MoraHemoglobin (Bld) [Mass/Vol]10.8 g/dLCritically low12.0-16.0The [facility] CenterComment on above:Performed By: #### BMP #### [facility] [address] [address] [address] Jaci Ríos #0.21 10e3/ulCritically high0.00-0.03The [facility] Comment on above:Performed By: #### BMP #### [facility] [address] [place] [address] Dr. Jaci Ríos %1.6 %Critically high0.0-0.5The [facility] CenterComment on above:Performed By: #### BMP #### [facility] [address] [place] [address] Dr. Jaci BenavidesGiancarlo #3.5 103/ulNormal1.2-3.8The [facility] CenterComment on above:Performed By: #### BMP #### [facility] [address] [place] [address] Dr. Jaci Singhhocytes/100 WBC (Bld)27.7 %Ikdcxz84.5-60.0The [facility] CenterComment on above:Performed By: #### BMP #### [facility] [address] [place] [address] Dr. Jaci WinnUAL DIFF REQNONormalThe [facility] CenterComment on above: Performed By: #### BMP #### [facility] [address] [place] [address] Dr. Jaci Leon (RBC) [Entitic mass]29.1 cpCnhnid03.7-34.0The [facility] CenterComment on above:Performed By: #### BMP #### [facility] [address] [place] [address] Dr. Jaci Leon (RBC) [Mass/Vol]32.9 g/gUCabinz91.9-35.2The [facility] CenterComment on above:Performed By: #### BMP #### [facility] [address] [place] [address] Dr. Jaci Leon (RBC) [Entitic vol]88.4 aOQlomto76.0-99.0The [facility] CenterComment on above:Performed By: #### BMP #### [facility] [address] [address] [address] Jaci Andino #0.8 103/ulNormal0.3-0.8The [facility] CenterComment on above:Performed By: #### BMP #### [facility] [address] [place] [address] Dr. Jaci Chanocytes/100 WBC (Bld)6.6 %Normal1.7-12.0The [facility] Comment on above:Performed By: #### BMP #### [facility] [address] [place] [address] Dr. Jaci Patterson #8.0 103/ulCritically high1.4-6.5The [facility] Comment on above:Performed By: #### BMP #### [facility] [address] [place] [address] Dr. Jaci Goldsmithutrophils/100 WBC (Bld)62.4 %Xkiybk89.0-75.0The [facility] CenterComment on above:Performed By: #### BMP #### [facility] [address] [place] [address] Dr. Jaci Wells mean volume (Bld) [Entitic vol]9.6 fLNormal9.5-13.5The [facility] CenterComment on above:Performed By: #### BMP #### [facility] [address] [place] [address] Dr. Jaci MoraPLT267 103/nvWyfgfm751-345Krl [facility] CenterComment on above: Performed By: #### BMP #### [facility] [address] [place] [address] Dr. Jaci MoraRBC3.71 106/ulCritically low4.20-5.40The [facility] CenterComment on above:Performed By: #### BMP #### [facility] [address] [place] [address] Dr. Jaci MoraWBC12.8 103/ulCritically high4.0-11.0The [facility] CenterComment on above:Performed By: #### BMP #### [facility] [address] [place], [place] [address] Dr. Jaci WeinerID PROFILEon 31-70-0983LGVB-HDL RATIO NORMSEE [facility] Akron CampusComment on above:Result Comment: 3.3 - 4.4 LOW RISK 4.4 - 7.1 AVERAGE RISK 7.1 - 11.0 MODERATE RISK >11.0 HIGH RISKPerformed By: #### LIPID, CMP ####[facility] [address] [address]Dr. Yilan ChangCholesterol [Mass/Vol]191 mg/dLNormal<=200[facility] Comment on above:Performed By: #### LIPID, CMP ####[facility] [address] [address]Dr. Yilan ChangCholesterol in HDL [Mass/Vol]102 mg/dLCritically dnkq12-53OavCleveland Clinic FoundationComment on above:Performed By: #### LIPID, CMP ####[facility] [address] [address]Dr. Yilan ChangCholesterol in LDL [Mass/Vol]60.6 mg/dLMiddletown HospitalComment on above:Performed By: #### LIPID, CMP ####[facility] [address] [id number]. Yilan ChangCholesterol.total/Cholesterol in HDL [Mass ratio]1.9 {ratio}NormalCleveland Clinic FoundationComment on above:Performed By: #### LIPID, CMP ####[facility] [address] [address]Dr. Yilan ChangHDL NORMAL> or = 60 mg/dl - LOW CARDIOVASCULAR RISK <40 mg/dl - HIGH CARDIOVASCULAR RISKMiddletown HospitalComment on above:Performed By: #### LIPID, CMP ####[facility] [address] [address]Dr. Yilan ChangLDL CALC NORMALSEE [facility] CampusComment on above: Result Comment: <100 mg/dl OPTIMAL 100 - 129 mg/dl NEAR OR ABOVE OPTIMAL 130 - 159 mg/dl BORDERLINE HIGH 160 - 189 mg/dl HIGH >190 mg/dl VERY HIGHPerformed By: #### LIPID, CMP ####[facility] [address] [address]Dr. Yilan ChangTriglyceride [Mass/Vol]142 mg/dLNormal<=150The [facility] CenterComment on above:Performed By: #### LIPID, CMP ####[facility] [address] [place], [place] [address]Dr. Yilan ChangVLDL CALC28.4 mg/dLNormalThe [facility] CenterComment on above:Performed By: #### LIPID, CMP ####[facility] [address] [place], [place] [address]Dr. Yilan ChangPROF 14(COMP METB)on 87-13-9035Bltilbm [Mass/Vol]3.1 g/dLCritically low3.4-5.0The [facility] CenterComment on above:Performed By: #### LIPID, CMP ####[facility] [address] [place], [place] [address]Dr. Yilan ChangAlbumin/Globulin [Mass ratio]0.7 {ratio}NormalCleveland Clinic Foundation Comment on above:Performed By: #### LIPID, CMP ####[facility] [address] [place], [place] [address]Dr. Yilan ChangALP [Catalytic activity/Vol]458 U/LCritically ccam43-829Kia [facility] CenterComment on above: Performed By: #### LIPID, CMP ####[facility] [address] [address]Dr. Yilan ChangALT [Catalytic activity/Vol]67 U/L Critically tacw32-81Ndh [facility] CenterComment on above:Performed By: #### LIPID, CMP ####[facility] [address] [place], [place] [address]Dr. Yilan ChangAnion gap [Moles/Vol]14.4 mmol/LNormalCleveland Clinic Foundation Comment on above:Performed By: #### LIPID, CMP ####[facility] [address] [address]Dr. Yilan ChangAST [Catalytic activity/Vol]81 U/LCritically adlw80-84Efw [facility] Clinic Avon Hospitalment on above: Performed By: #### LIPID, CMP ####[facility] [address] [place], [place] [address]Dr. Yilan ChangBilirubin [Mass/Vol]0.7 mg/dLNormal 0.2-1.0The [facility] CenterComment on above:Performed By: #### LIPID, CMP ####[facility] [address] [place], [place] [address]Dr. Yilan ChangCalcium [Mass/Vol]9.7 mg/dLNormal8.5-10.1The [facility] CenterComment on above:Performed By: #### LIPID, CMP ####[facility] [address] [place], [place] [address]Dr. Yilan ChangChloride [Moles/Vol]101 mmol/LNxjymj89-870Inb [facility] CenterComment on above:Performed By: #### LIPID, CMP ####[facility] [address] [place], [place] [address]Dr. Yilan ChangCO2 [Moles/Vol]28.0 mmol/CPxhenk72.0-32.0The [facility] CenterComment on above:Performed By: #### LIPID, CMP ####[facility] [address] [place], [place] [address]Dr. Yilan ChangCreatinine [Mass/Vol]1.59 mg/dLCritically high0.55-1.02The [facility] CenterComment on above:Performed By: #### LIPID, CMP ####[facility] [address] [place], [place] [address]Dr. Yilan ChangEGFR-AF HYCFASNQ68 mL/min/1.73m2 Critically low>=60The [facility] CenterComment on above:Performed By: #### LIPID, CMP ####[facility] [address] [place], [place] [address]Dr. Yilan ChangEGFR-NON AF ETWLYXSM52 mL/min/1.85e7Xlzaisuhvq low>=60The [facility] CenterComment on above:Performed By: #### LIPID, CMP ####[facility] [address] [address]Dr. Yilan Mora Globulin (S) [Mass/Vol]4.3 g/dLNormalThe [facility] CenterComment on above: Performed By: #### LIPID, CMP ####[facility] [address] [place], [place] [address]Dr. Yilan ChangGlucose [Mass/Vol]103 mg/eGEjuvnk41-397 The [facility] CenterComment on above:Performed By: #### LIPID, CMP ####[facility] [address] [place], [place] [address]Dr. Yilan Mora Potassium [Moles/Vol]4.4 mmol/LNormal3.5-5.1The [facility] CenterComment on above:Performed By: #### LIPID, CMP ####[facility] [address] [place], [place] [address]Dr. Yilan ChangProtein [Mass/Vol]7.4 g/dLNormal 6.4-8.2The [facility] CenterComment on above:Performed By: #### LIPID, CMP ####[facility] [address] [place], [place] [address]Dr. Yilan ChangSodium [Moles/Vol]139 mmol/ORbhkru762-802Mfr [facility] CenterComment on above:Performed By: #### LIPID, CMP ####[facility] [address] [place], [place] [address]Dr. Yilan ChangUrea nitrogen [Mass/Vol]30.0 mg/dLCritically high7.0-18.0The [facility] CenterComment on above:Performed By: #### LIPID, CMP ####[facility] [address] [place], [place] [address]Dr. Yilan ChangUrea nitrogen/Creatinine [Mass ratio]18.9 mg/mgNormal The [facility] CenterComment on above:Performed By: #### LIPID, CMP ####[facility] [address] [place], [place] [address]Dr. Yilan ChangBasic Metabolic Profon 03-23-2018(cont.)NormalKindred Hospital DaytonComment on above:Result Comment: Average GFR for 70 or more years old: 75 mL/min/1.73sq mChronic Kidney Disease: <60 mL/min/1.73sq mKidney failure: <15 mL/min/1.73sq meGFR calculated using average adult body mass. Additional eGFR calculator available at:http://www.[employer] Feet/multiple_crcl_2012.htmPerformed By: #### CBC, BMP ####[facility] [address] [place] [address] Anion gap 3 molar conc10 mmol/LNormal9-17[facility]red Hospital DaytonComment on above:Performed By: #### CBC, BMP ####[facility] [address] [place] [address] Calcium mass conc8.2 mg/dLLow8.6-10.4[facility] DaytonComment on above:Performed By: #### CBC, BMP ####[facility] [address] [place] [address] Chloride molar fhbc643 mmol/NCejvpa22-839EuzxlKindred Hospital DaytonComment on above:Performed By: #### CBC, BMP ####[facility] [address] [place] [address] CO2 molar conc28 mmol/FExdwnf73-52HyhasKindred Hospital DaytonComment on above:Performed By: #### CBC, BMP ####[facility] [address] [place] [address] Creatinine mass conc0.59 mg/dLNormal0.50-0.90[facility]red Hospital DaytonComment on above:Performed By: #### CBC, BMP ####[facility] [address] [place] [address] GFR, Amer>60 Normal>60[facility] Hospital DaytonComment on above:Performed By: #### CBC, BMP ####[facility] [address] [place] [address] GFR,non Amer>60Normal>60MerResnick Neuropsychiatric Hospital at UCLAComment on above:Performed By: #### CBC, BMP ####[facility] [address] [place] [address] [phone] mass conc99 mg/lQEfbtrp03-34ZgfjnSan Jose Medical CenterComment on above:Performed By: #### CBC, BMP ####Raven [address] [place] [address] [phone] molar conc3.7 mmol/LNormal3.7-5.3[facility] Children'S HospitalComment on above:Performed By: #### CBC, BMP ####Raven [address] [place] [address] Sodium molar udfs566 mmol/ETydfhk350-311XhpuiResnick Neuropsychiatric Hospital at UCLAComment on above:Performed By: #### CBC, BMP ####Raven J[address] [place] [address] [phone] nitrogen mass conc 10 mg/dLNormal8-23[facility] DaytonComment on above:Performed By: #### CBC, BMP ####Raven [address] [place] [address] BUN/CRE RatioNOT REPORTEDNormal9-20[facility] DaytonComment on above:Performed By: #### CBC, BMP ####Raven [address]jie[address] [place], [place] [phone]:NOT REPORTEDNormalKindred Hospital Dayton Comment on above:Performed By: #### CBC, BMP ####Raven [address] [place] [address] [phone] 24-44-6312Jpqxsztspsl distribution width Auto Ratio (RBC)14.4 %Mcqkbg06.8-14.4[facility] Hospital DaytonComment on above:Performed By: #### CBC, BMP ####[place] [address] Hematocrit Auto Volume Fraction (Bld)28.6 %Low36.3-47.1 [facility] DaytonComment on above:Performed By: #### CBC, BMP ####[address] [address] Hemoglobin mass conc (Bld)9.2 g/dLLow11.9-15.1MSelma Community HospitalComment on above:Performed By: #### CBC, BMP ####[place] [address] MCH Auto Entitic mass (RBC)28.2 zfOdtqqk98.2-33.5[facility] Hospital DaytonComment on above:Performed By: #### CBC, BMP ####[address] [address] MCHC Auto mass conc (RBC)32.2 g/aPFawokc05.4-34.8[facility] DaytonComment on above: Performed By: #### CBC, BMP ####[address] [address] MCV Auto Entitic volume (RBC)87.7 eUAffclg05.6-102.9[facility] DaytonComment on above:Performed By: #### CBC, BMP ####[address] [address] NRBC Automated0.0 per 100 WBCNormal0.0[facility] DaytonComment on above:Performed By: #### CBC, BMP ####[address] [address] Platelet mean volume Auto Entitic volume (Bld)10.7 fLNormal8.1-13.5[facility] Hospital DaytonComment on above:Performed By: #### CBC, BMP ####[address] [place] [address] Platelets Auto #/vol (Bld)145 10*3/uERbwnfy403-199UekzaKindred Hospital DaytonComment on above: Performed By: #### CBC, BMP ####Raven [address] [place] [address] RBC Auto #/vol (Bld)3.26 10*6/uLLow3.95-5.11[facility] DaytonComment on above:Performed By: #### CBC, BMP ####Raven [address] [place] [address] WBC Auto #/vol (Bld)9.7 10*3/uLNormal3.5-11.3MSelma Community HospitalComment on above:Performed By: #### CBC, BMP ####R[facility] [address] [place], [place] [phone],Urineon 34-40-6208Jgel,UrineSpecimen Description .CLEAN CATCH URINE Special Requests NOT REPORTED Culture NO SIGNIFICANT GROWTH Report Status FINAL 03/22/2018NormalKindred Hospital DaytonComment on above:Performed By: #### URC ####R[address] [place], [place] [phone] D 25 OHon 29-25-9932Kfnhpcm D 25 OH46.1 ng/mLNormal 30.0-100.0[facility] Hospital DaytonComment on above:Result Comment: Reference Range:Vitamin D status Range Deficiency <20 ng/mL Mild Deficiency 20-30 ng/mL Sufficiency 30-100 ng/mL Toxicity >100 ng/mLPerformed By: #### VD25 ####Raven [address] [place] [address] [phone] 36-31-3127Ijuns gap 3 molar conc12 mmol/LNormal9-17[facility] Hospital DaytonComment on above:Performed By: #### GORDO BOJORQUEZ ####[address] [place] [address] Chloride molar fvqw844 mmol/ZUwkukp16-288 [facility] DaytonComment on above:Performed By: #### GORDO BOJORQUEZ ####Raven [address] [place] [address] WX4 molar conc 19 mmol/ZDic69-11KagdnKindred Hospital DaytonComment on above:Performed By: #### GORDO BOJORQUEZ ####Raven Yns[address]xy[address]21 [place] [address] Potassium molar conc4.2 mmol/LNormal3.7-5.3MSelma Community Hospital Comment on above:Performed By: #### GORDO BOJORQUEZ ####Raven Xfe[address]rsoy[address]06 [place] [address] Sodium molar bxlu875 mmol/SMyp890-317PddcqKindred Hospital DaytonComment on above:Performed By: #### GORDO BOJORQUEZ ####[address] [place] [address] Hgb/Hcton 03-20-2018 Hematocrit Auto Volume Fraction (Bld)44.3 %Kmqxpk50.3-47.1MSelma Community HospitalComment on above:Performed By: #### GORDO BOJORQUEZ ####Raven [address] [place] [address] Hemoglobin mass conc (Bld)14.1 g/xJZqawzy64.9-15.1MSelma Community HospitalComment on above: Performed By: #### GORDO BOJORQUEZ ####Raven [address]pd[address] [place] [address] Lipid Profileon 17-17-0936Nmtpoebfjmp in HDL mass conc92 mg/dL Normal>40[facility] Hospital DaytonComment on above:Result Comment: HDL Guidelines: <40 Undesirable 40-59 Borderline >59 DesirablePerformed By: #### PT, LIPR ####[facility] [address] [place] [address] Cholesterol in LDL mass conc90 mg/dLNormal0-130[facility] Comment on above:Result Comment: LDL Guidelines: <100 Desirable 100-129 Near to/above Desirable 130-159 Borderline >159 UndesirableDirect (measured) LDL and calculated LDL are not interchangeable tests.Performed By: #### PT, LIPR ####[facility] [address] [place] [address] Cholesterol mass fyqn636 mg/dLNormal<200[facility] DaytonComment on above: Result Comment: Cholesterol Guidelines: <200 Desirable 200-240 Borderline >240 UndesirablePerformed By: #### PT, LIPR ####[facility] [address] [place] [address] Cholesterol.total/Cholesterol in HDL mass ratio 2.1 {ratio}Normal<5[facility] Hospital DaytonComment on above:Performed By: #### PT, LIPR ####[facility] [address] [place] [address] Triglyceride mass conc64 mg/dLNormal<150[facility] Hospital DaytonComment on above:Result Comment: Triglyceride Guidelines: <150 Desirable 150-199 Borderline 200-499 High >499 Very high Based on AHA Guidelines for fasting triglyceride, January 2012.Performed By: #### PT, LIPR ####[facility] [address] [place] [address] Cholesterol in VLDL mass concNOT REPORTEDNormal1-30[facility] Hospital DaytonComment on above: Performed By: #### PT, LIPR ####[facility] [address] [place] [address] OPERATIVE REPORTon 51-77-6970ECPWPQUSK REPORT[address] [phone] OPERATIVE REPORTPATIENT NAME: WILLIAM CANAS : 1940MED REC NO: [id number] [facility] [id number] ADMIT DATE: 03/20/2018PROVIDER: QUETA EngelATE OF PROCEDURE: 03/20/2018PREOPERATIVE DIAGNOSIS: Fractured hip.POSTOPERATIVE DIAGNOSIS: Left transcervical femoral neck fracture.PROCEDURES: Left hip hemiarthroplasty.ANESTHESIA: General.SURGEON: Tiki Main MDASSISTANTS: Tyler Hawkins DO, PGY-5; Arnie Briggs DO, PGY- 2ESTIMATED BLOOD LOSS: 450 mL.FLUIDS: 1500 mL of crystalloid.URINE OUTPUT: 400 mL.IMPLANTS: One Arti, cemented, tapered, size-11 stem; One VerSysZimmer femoral head, 12 x 45-mmdiameter.FINDINGS: Left transcervical femoral neck fracture.INDICATIONS: Briefly, the patient is a 77-year-old female who [facility] the [facility] The patient states she was walking and tripped on a curb andlanded immediately onto her left side. The patient had painandinability to bear weight [facility] and further workup found that the patienthad sustained a left femoral neck fracture and [facility] and was subsequentlyseen and evaluated. We discussed risks, benefits, and alternatives forsurgery, and in order to provide the patient with the best outcome andthe ability toambulate immediately after surgery, we discussed thatsurgical intervention was appropriate and the patient agreed. She wasthen cleared by Internal Medicine and subsequently scheduled for theoperatingroom.DESCRIPTION OF PROCEDURE: On the day of surgery, the patient was met inthe preoperative area. A gain, all risks, benefits, and alternativeswere discussed with [...] administered generalsedation and placed an endotracheal tube successfullywithoutcomplication on the hospital bed. The patient was [...] its entirety in line with the incision, anddissectionwas carried down until identification of the gluteal maximusmuscle was noted proximally, which was bluntly dissected. We thenplaced a Charnley retractor, careful to ensure that we did not entrapthe sc iatic nerve posteriorly. Further dissection was carried downuntil [...] the femoral neck as well asthe femoral head.We then inspected the acetabulum, which was noted ángela from osteoarthritic changes. We then further exposed the femurand used a box fabricator to initiate access to the femoral canal. We thenused alateralizing reamer and again gained access to the femoral canal.We then broached appropriately, starting with a size 10 broach andultimately found that a #11 seated appropriately. It was then decidedthat we would cement the femoral stem prosthesis, and cement was thenprepared on the back table. Atthis time, we placed anappropriate-sized femoral head trial and trialed the componentsappropriatelyensuring the patient did not have a great amount ofinstability. It was determined that these implants would be appropriateand were removed, and the wound and bone were then irrigated thoroughly.We then placed our cement stopper within the femoral canal to a depth of158 mm and then placed the cementwithin the femoral canal using digitalpressurization. We then took the final implants then and placed it atthe appropriate lateralization and anteversion and held this into placeuntil the cement had hardened. We appropriately removed all cement fromthe proximal aspect of the femur as well as aroundthe implant, and oncethe cement had hardened, we [...] An Optifoam dressing was thenplaced over the incisionsite, and an abduction pillow was placedin-between the patient's legs. At this time, the DepartmentofAnesthesia then reversed the patient's sedation and successfullyextubated the patient without complication. The patient was then safelymoved from the operating table onto the hospital bed and [facility].Dr. Main was present and active for all portions of the case.ARNIE BRIGGS, DOD: 03/20/2018 19:52:39 /[id number]#: [id number] Doc#: [id number]: Tiki PatelNormalKindred Hospital DaytonPTon 83-12-2928UFK Coag RelTime (PPP)1.1 {INR}NormalKindred Hospital DaytonComment on above:Result Comment: Therapeutic Range: Moderate Anticoagulant Intensity: INR = 2.0-3.0 High Anticoagulant Intensity: INR = 2.5-3.5Performed By: #### PT, LIPR ####Janetty [address] [place] [address] Prothrombin time (PT) Coag time (PPP)11.5 s Normal9.0-12.0[facility] Hospital DaytonComment on above:Performed By: #### PT, LIPR ####Raven [address] [place] [address] Type + Screenon 38-34-6585Tjsz + ScreenSample Expiration 03/23/2018 Arm Band Number BE [id number] ABO/Rh(D) O POSITIVE Antibody Screen NEGATIVENoWayne HospitalComment on above: Performed By: #### TYS ####Janetty [address] [place] [address] Urinalysis, Routineon 80-25-9423Bqtkfrfxduh Acid,UrNegative NormalNEGKindred Hospital DaytonComment on above:Performed By: #### BENSON SALAZAR ####Jan[address]ty [address] [place] [address] Bilirubin, SemiQt,UrNegativeNormalNEGKindred Hospital DaytonComment on above:Performed By: #### BENSON SALAZAR ####[facility] [address] [place] [address] ColorYELLOWNormalYELMerResnick Neuropsychiatric Hospital at UCLAComment on above:Performed By: #### BENSON SALAZAR ####[facility] [address] [place] [address] Glucose,Semi-qnt,UrNegativeNormalNEGKindred Hospital DaytonComment on above:Performed By: #### BENSON SALAZAR ####[facility] [address] [place] [phone], UrTRACE AbnormalNEGKindred Hospital DaytonComment on above:Performed By: #### BENSON SALAZAR ####[facility] [address] [place] [address] Leuckocyte EsteraseNegativeNormalNEGKindred Hospital DaytonComment on above:Performed By: #### BENSON SALAZAR ####[facility] [address]ewis[address] [place] [address] Nitrite,UrNegativeNormalNEGKindred Hospital Dayton Comment on above:Performed By: #### BENSON SALAZAR ####Janetty [address]fm[address]fjmizjh[address] [place] [phone],Ur6.0Uisazl7.0-8.0[facility] DaytonComment on above:Performed By: #### BENSON SALAZAR ####[facility] [address] [place] [phone] mass concNegativeNormalNEGKindred Hospital DaytonComment on above:Performed By: #### MARTIN UMICAO ####[facility] [address]ji[address] [place] [address] Spec. Emmett,Ur1.512Lvvfmb1.005-1.030[facility] Hospital DaytonComment on above:Performed By: #### MARTIN UMICAO ####[facility] [address]woqpqt[address] [place] [phone]RKindred Hospital Dayton Comment on above:Performed By: #### BENSON SALAZAR ####[facility] [address]sovt[address]rvgpf[address] [place], [place] [phone],UrNormalNormalNORMKindred Hospital DaytonComment on above:Performed By: #### BENSON SALAZAR ####[facility] [address] [place] [address] [phone] REPORTED NormalKindred Hospital DaytonComment on above:Performed By: #### BENSON SALAZAR ####[facility] [address] [place] [address] Urinalysis,Microon 03-20-2018-----[facility] Ohio[facility] Rehabilitation HospitalComment on above:Performed By: #### BENSON SALAZAR ####[facility]burgjessica Gmlpyiproqsr[address] [place] [address] [phone] TO 20 HYALINENormal0-8[facility] Hospital DaytonComment on above:Result Comment: Reference range defined for non- centrifuged specimen.Performed By: #### BENSON SALAZAR ####[address] [place] [address] [phone] cells2 TO 2Ppqpuw9-0UbspbKindred Hospital DaytonComment on above:Performed By: #### BENSON SALAZAR ####Raven [address] [phone] Test strip #/vol (U) 2 TO 5Cxvxmq7-9ZagntKindred Hospital DaytonComment on above:Result Comment: Reference range defined for non-centrifuged specimen.Performed By: #### BENSON SALAZAR ####[facility] [address] [place] [address] Urine WBC's2 TO 5Aasfdo0-6AgkadKindred Hospital DaytonComment on above:Performed By: #### BENSON SALAZAR ####[facility] [address] [place] [address] Amorphous SedimentNOT REPORTEDNormalNONEMeMission Valley Medical CenterComment on above:Performed By: #### BENSON SALAZAR ####Jan[facility]ty [address]rertnp[address] [place] [address] BacteriaNOT REPORTED NormalNONEMercy Rady Children'S HospitalComment on above:Performed By: #### BENSON SALAZAR ####[facility] [address]zra[address] [place] [address] CrystalsNOT REPORTEDNormalNONEMercy Rady Children'S HospitalComment on above: Performed By: #### BENSON SALAZAR ####Raven [address]ych[address] [place] [address] Epithelial, RenalNOT NFMQEJNTDqhzya9PewwtKindred Hospital DaytonComment on above:Performed By: #### BENSON SALAZAR ####[facility] [address]qubo[address] [place] [address] Mucus StrandsNOT REPORTEDNormalNONEMeMission Valley Medical CenterComment on above:Performed By: #### BENSON SALAZAR ####Janetty [address]leceid[address]ts[address] [place] [address] Other ObservationsNOT REPORTEDNormalNREQMercy Rady Children'S HospitalComment on above:Performed By: #### BENSON SALAZAR ####[facility] [address]seeq[address] [place] [address] TrichomonasNOT REPORTEDNormalNONEMercy Rady Children'S HospitalComment on above:Performed By: #### BENSON SALAZAR ####[facility] [address]sepdwbjb[address] [place] [address] YeastNOT REPORTEDNormalNONEMercSan Jose Medical CenterComment on above:Performed By: #### BENSON SALAZAR ####[facility] [address]ym[address] [place] [address] XR CHEST PORTABLEon 48-68-2732BK CHEST PORTABLEEXAMINATION:SINGLE XRAY VIEW OF THE CHEST03/20/2018 9:23 amCOMPARISON:Chest radiograph dated 03/19/2018.HISTORY:ORDERING SYSTEM PROVIDED HISTORY: Pre-opTECHNOLOGIST PROVIDED HISTORY:Pre-opIMPRESSION:Cardiac and mediastinal shadows are normal. No infiltrates. No effusions.No pneumothorax. No free air below the diaphragm. Levoscoliosis of lowerthoracic spine similar to prior exam.IMPRESSION:No acute findings in the chestInterpreted by:WEI Grigned by:Teresa Prieto MD03/20/18Final [facility] HospitalXR FEMUR LEFT (MIN 2 VIEWS)on 21-50-5453Ryvntlh mass conc EXAMINATION:FOUR XRAY VIEWS OF THE LEFT FEMUR03/20/2018 11:12 amCOMPARISON:Hip series today.HISTORY:ORDERING SYSTEM PROVIDED HISTORY: Trauma/FractureTECHNOLOGIST PROVIDED HISTORY:Trauma/FractureOrdering Physician Provided Reason for Exam: Trauma/Fracture lt hip fxAcuity: AcuteType of Exam: OngoingFINDINGS:Mildly displaced subcapital femoral neck fracture is again demonstrated.Lateral hip swellingis noted. The remainder of the femur appears intact.Degenerative change in the patellofemoral compartment is noted. Calcifiedatheromatous plaque is present. External artifact is noted.IMPRESSION: Redemonstration of mildly displaced subcapital femoral neck fracture withadjacent soft tissue injury. The remainder of the femur reveals no acutefindings.Interpreted by:WEI Coughlinigned by:Flo Shepard MD03/20/18Final [facility] HospitalXR HIP 2-3 VW W PELVIS LEFTon 28-28-8136KQ HIP 2-3 VW W PELVIS LEFTEXAMINATION:SINGLE XRAY VIEW OF THE LEFT HIP; SINGLE XRAY VIEW OF THE PELVIS AND 2 XRAYVIEWS LEFT HI P105/20/2017 2:20 pm; 03/20/2018 6:43 pmCOMPARISON:03/20/2018.HISTORY:ORDERING SYSTEM PROVIDED HISTORY: hemiarthroplastyTECHNOLOGIST PROVIDED HISTORY:hemiarthroplasty; ORDERING SYSTEM PROVIDED HISTORY: S/p L hip hemiarthroplastyTECHNOLOGIST PROVIDED HISTORY:Low AP Pelvis, AP and cross-table lateral please. Please include the entirelength of the stems in the films. Thank youS/p L hip hemiarthroplastyFINDINGS:Well-seated left hip hemiarthroplasty. Soft tissue air noted. Elsewherethere is no fracture or dislocation involving the right hip or pelvis. Nodiastasis. Moderate osteopenia.IMPRESSION: 1.Well- seated left hip arthroplasty. Please refer to the operative report.2. Osteopenia and degenerative changes involving the right hip and pelviswithout fracture or diastasis.Interpreted by:WEI Bojorquezigned by:Gabriele Long MD03/20/18Final resultNoWayne HospitalProtein mass concEXAMINATION:SINGLE XRAY VIEW OF THE PELVIS AND 2 XRAY VIEWS LEFT HIP03/20/2018 9:23 amCOMPARISON:None.HISTORY:ORDERING SYSTEM PROVIDED HISTORY: Trauma/FractureTECHNOLOGIST PROVIDED HISTORY:AP and cross-table lateral please, thank youTrauma/FractureFINDINGS:Acute Garden 4 fracture of the subcapital left femoral neck. No dislocations.IMPRESSION: Acute Garden 4 fracture of the subcapital left femoral neck.Interpreted by:WEI Grigned by:Teresa Prieto MD03/20/18Final [facility] HospitalXR HIP LEFT (1 VIEW)on 33-42-4280FD HIP LEFT (1 VIEW)EXAMINATION:SINGLE XRAY VIEW OF THE LEFT HIP; SINGLE XRAY VIEW OF THE PELVIS AND 2 XRAYVIEWS LEFT HIP03/20/2018 2:20 pm; 03/20/2018 6:43 pmCOMPARISON:03/20/2018.HISTORY:ORDERING SYSTEM PROVIDED HISTORY: hemiarthroplastyTECHNOLOGIST PROVIDED HISTORY:hemiarthroplasty; ORDERING SYSTEM PROVIDED HISTORY: S/p L hip hemiarthroplastyTECHNOLOGIST PROVIDED HISTORY:Low AP Pelvis, AP and cross-table lateral please. Please include the entirelength of the stems in the films. Thank youS/p L hip hemiarthroplastyFINDINGS:Well-seated left hip hemiarthroplasty. Soft tissue air noted. Elsewherethere is no fracture or dislocation involving the right hip or pelvis. Nodiastasis. Moderate osteopenia.IMPRESSION: 1.Well-seated left hip arthroplasty. Please refer to the operative report.2. Osteopenia and degenerati ve changes involving the right hip and pelviswithout fracture or diastasis.Interpreted by:WEI Bojorquezigned by:Gabriele Long MD03/20/18inal resultNormalMercy Rady Children'S Hospital Vital Signs Date TimeVital SignValuePerforming GubixspvgPjfikela05-67-9960 18:16-0400Body kpwvwemqtce12.6 [degF]Corina Aichholz Work Phone: [phone] [place], [place] 6297009-08-2025 18:16-0400 Body lhayhc84.93 kgLisa Aichholz Work Phone: [phone]09-08-2025 18:16-0400 Diastolic blood eflyimcr31 mm[Hg]Corina Aichholz Work Phone: [phone]09-08-2025 18:16-0400 Heart zhrp021 /minLisa Aichholz Work Phone: [phone] [place], [place] 6297009-08-2025 18:16-0400 Respiratory rate16 /minLisa Aichholz Work Phone: [phone] [place], [place] 6297009-08-2025 18:16-0400 SaO2% (BldA) [Mass fraction]96 %Corina Aichholz Work Phone: [phone] [place], [place] 6297009-08-2025 18:16-0400 Systolic blood novwrryj127 mm[Hg]Corina Aichholz Work Phone: [phone] [place], [place] 6297006-11-2025 14:14-0400 Body mass index (BMI) [Ratio]24.09 kg/m2Lisa Aichholz SUPERVISOR IN CHARGE Work Phone: [facility] HospitalGbdztttspm05-88-5409 14:14-0400Body temperature 97.81 [degF]Corina Aichholz SUPERVISOR IN CHARGE Work Phone: [facility] HospitalOvdpssjlcb24-03-5633 14:14-0400Body murkjj95.69 kgLisa Aichholz SUPERVISOR IN CHARGE Work Phone: [facility] HospitalSoedvsvcjb97-68-8647 14:14-0400Diastolic blood jrdufkgh99 mm[Hg]Corina Jay SUPERVISOR IN CHARGE Work Phone: [facility] HospitalRvfxuqzafk26-85-1640 14:14-0400Heart rate79 /min Corina Jay SUPERVISOR IN CHARGE Work Phone: [facility] HospitalCtrvmdimgi53-09-9754 14:14-0400Respiratory rate18 /minCorina Jay SUPERVISOR IN CHARGE Work Phone: [phone] [place], [place] [address]Bnblkbizwi82-57-2343 14:14-6114AsE2% (BldA) [Mass fraction]96 %Corina Jay SUPERVISOR IN CHARGE Work Phone: [facility] HospitalFzmzyfcpkb04-44-9956 14:14-0400Systolic blood exfgfgej730 mm[Hg]Corina Jay SUPERVISOR IN CHARGE Work Phone: [facility] HospitalIrjbxwodjb43-12-0395 13:41-0400Body cm Devyn Chavez MD Work Phone: [facility]05-02-2025 13:41-0400Body mass index (BMI) [Ratio]26.7 kg/n2XlekyDevyn Chavez MD Work Phone: [facility]05-02-2025 13:41-0400Body xhxpocjiior04.59 [degF]Devyn Chavez MD Work Phone: [facility]05-02-2025 13:41-0400Body zbjyzr01.51 kgDevyn Chavez MD Work Phone: [facility]05-02-2025 13:41-0400Diastolic blood icwgnrhp36 mm[Hg]Devyn Chavez MD Work Phone: [facility]05-02-2025 13:41-0400Heart rate 88 /minDevyn Chavez MD Work Phone: [facility]05-02-2025 13:41-0400 Respiratory rate16 /minDevyn Chavez MD Work Phone: [facility]05-02-2025 13:41-5356AeG7% (BldA) [Mass fraction]96 %Devyn Chavez MD Work Phone: [facility]05-02-2025 13:41-0400Systolic blood ograqgix707 mm[Hg]Devyn Chavez MD Work Phone: [facility]12-10-2024 13:09-0500Body dvnoes950 cmBrittany Perla SUPERVISOR IN CHARGE Work Phone: [facility] HospitalPczdmhosor63-39-0584 13:09-0500Body mass index (BMI) [Ratio]23.95 kg/c9Biqzrxvb Perla SUPERVISOR IN CHARGE Work Phone: [facility] HospitalOoxlapbdjx69-40-8441 13:09-0500Body temperature 96.6 [degF]Twin Perla SUPERVISOR IN CHARGE Work Phone: [facility] HospitalSmueoesrqj57-67-5671 13:09-0500Body .33 kgBrittany Perla SUPERVISOR IN CHARGE Work Phone: [facility] HospitalKazxsfybby65-04-6741 13:09-0500Diastolic blood vdgeatkr16 mm[Hg]Twin Perla SUPERVISOR IN CHARGE Work Phone: [facility] HospitalPwxsymrpps58-87-6509 13:09-0500Heart rate63 /min Twin Perla SUPERVISOR IN CHARGE Work Phone: [facility] HospitalXpzyxsapny56-17-1135 13:09-0500Respiratory rate16 /minBrittany Perla SUPERVISOR IN CHARGE Work Phone: [facility] HospitalRplanhttwn63-57-1659 13:09-7552JwU4% (BldA) [Mass fraction]97 %Twin Perla SUPERVISOR IN CHARGE Work Phone: [facility] HospitalTyjdpwrcwe37-30-7692 13:09-0500Systolic blood yacgkslf364 mm[Hg]Twin Perla SUPERVISOR IN CHARGE Work Phone: [facility] HospitalDroklmzxsq78-47-8958 12:50-0400Body mass index (BMI) [Ratio]26.31 kg/h4HkjmdDevyn Chavez MD Work Phone: [phone] [place] [address] Color [employer] Caxurs69-91-8050 12:50-0400Body yyrvfvbepkt45.39 [degF]Devyn Chavez MD Work Phone: [phone] [place] [address] [employer] Efuoem43-04-1659 12:50-0400Body .6 kgDevyn Chavez MD Work Phone: [phone] [employer] Azycxg16-59-2398 12:50-0400Diastolic blood uhjshzmt36 mm[Hg]Devyn Chavez MD Work Phone: [phone] [employer] Pfnmnn67-92-9382 12:50-0400Heart rate 74 /minDevyn Chavez MD Work Phone: [phone] [place] [address] [employer] Jwfdsr03-14-5231 12:50-0400 Respiratory rate16 /minDevyn Chavez MD Work Phone: [phone]10-18-2024 12:50-2313BfV3% (BldA) [Mass fraction]99 %Devyn Chavez MD Work Phone: [phone] [place] [address] [employer] Gavyht95-75-3458 12:50-0400Systolic blood mm[Hg]Devyn Chavez MD Work Phone: [phone] [place] [address] [employer] Amfbif99-96-1124 13:44-0400Body aeboyc355 Reza Chavez MD Work Phone: [phone] [place] [address] [employer] Siwbtu86-52-6591 13:44-0400Body mass index (BMI) [Ratio]25.04 kg/z7KxpzaDevyn Chavez MD Work Phone: [phone] [place] [address] [employer] Dqxzaz29-44-7259 13:44-0400Body xxmyhdilxqg85.5 [degF]Devyn Chavez MD Work Phone: [phone] [place] [address] [employer] Qhgnlj84-43-8854 13:44-0400Body .6 kgDevyn Chavez MD Work Phone: [phone] [place] [address] [employer] Nkamxb71-28-7656 13:44-0400Diastolic blood rejaocox43 mm[Hg]Devyn [facility]avez MD [facility]: [facility] Fznnfd91-24-6686 13:44-0400Heart rate 82 /minDevyn Chavez MD Work Phone: [facility] [employer] Xcctgi25-64-3265 13:44-0400 Respiratory rate24 /minDevyn Chavez MD Work Phone: [facility] [employer] Nksftn24-97-8762 13:44-3616OmH8% (BldA) [Mass fraction]99 %Devyn Chavez MD Work Phone: [facility] [employer] Naugos79-97-1908 13:44-0400Systolic blood gvsodhst615 mm[Hg]Devyn Chavez MD Work Phone: [place] [address] [employer] Ifbsmt11-79-0765 15:04-0500Body jholet080 Reza Chavez MD Work Phone: [phone] [place] [address] [employer] Lgnind89-72-8460 15:04-0500Body mass index (BMI) [Ratio]24.84 kg/u8DuocbDevyn Chavez MD Work Phone: [facility] [employer] Vbbkbf41-91-0322 15:04-0500Body vidijcqvzjn08.7 [degF]Devyn Chavez MD Work Phone: [facility] [employer] Iunnxq98-11-0137 15:04-0500Body hxvtce87.15 kgDevyn Chavez MD Work Phone: [place] [address] [employer] Xfziyf52-99-7951 15:04-0500Diastolic blood lfkbykyt08 mm[Hg]Devyn Chavez MD Work Phone: [facility] Nqnjha80-32-8572 15:04-0500Heart rate 80 /minDevyn Chavez MD Work Phone: [facility] [employer] Undmwf49-05-7145 15:04-0500 Respiratory rate24 /Susan Chavez MD Work Phone: [facility] [employer] Dqctjs02-34-0376 15:04-1486HcD8% (BldA) [Mass fraction]99 %Devyn Chavez MD Work Phone: [facility] Tubtik25-06-0117 15:04-0500Systolic blood kiimrjcq582 mm[Hg]Devyn Chavez MD Work Phone: [facility] Encounters Encounter DateEncounter TypeCare ProviderFacilityStart: 12-28-2024 End: 98-15-1751nxszxjsupeGhch J Aichholz Work Phone: [facility] Work Phone: Start: 12-28-2024 End: 27-37-2640Lskdjaj encounter procedureLisa Chuyita aJy SUPERVISOR IN CHARGE-[facility] Work Phone: Start: 11-17-2024 End: 75-34-4108Sbunsubyu Result EncounterLisa Pennyhholz SUPERVISOR IN CHARGE Work Phone: noms External Department UnsolicitedStart: 11-17-2024 End: 91-62-0806Piktlymbh Result EncounterLisa Pennyhholz SUPERVISOR IN CHARGE Work Phone: noms External Department UnsolicitedStart: 11-02-2024 End: 31-95-4033QhtbthOzlm Kellyholz SUPERVISOR IN CHARGE Work Phone: n[facility] CWM FMComment on above:Essential hypertension Start: 10-19-2024 End: 67-29-1276Wfnwmmdtk Result EncounterLisa Kellyholz SUPERVISOR IN CHARGE Work Phone: noms External Department UnsolicitedStart: 10-19-2024 End: 18-38-5698Isknxlkam Result EncounterLisa Pennyhholz SUPERVISOR IN CHARGE Work Phone: noms External Department UnsolicitedStart: 10-19-2024 End: 77-54-2042Xgteew OnlyLisa Pennyhholz SUPERVISOR IN CHARGE Work Phone: noms CWM FMComment on above:Stage 3b chronic kidney disease (CMS-HCC) (Primary Dx)Start: 10-06-2024 End: 17-94-9758Yduaxwfte Result EncounterLisa Mendozaholz SUPERVISOR IN CHARGE Work Phone: noms External Department UnsolicitedStart: 10-06-2024 End: 77-40-8889Hqhgyolbc Result EncounterLisa Pennyhholz SUPERVISOR IN CHARGE Work Phone: noms External Department UnsolicitedStart: 10-06-2024 End: 01-14-1505Qmysqx OnlyLisa Kellyholz SUPERVISOR IN CHARGE Work Phone: noms CWM FMComment on above:Stage 3b chronic kidney disease (CMS-HCC) (Primary Dx)Start: 09-30-2024 End: 61-73-3922Laakxe flowsheetLisa Aichholz SUPERVISOR IN CHARGE Work Phone: noms CWM FMStart: 09-30-2024 End: 93-72-0920Ayaooh flowsheetLisa Aichholz SUPERVISOR IN CHARGE Work Phone: noms CWM FMStart: 09-30-2024 End: 82-77-9702Jqzsak outpatient visit 25 minutesLisa Pennyhholz SUPERVISOR IN CHARGE Work Phone: noms CWM FMComment on above:Essential hypertension (CMS/HCC) (Primary Dx); Secondary malignant neoplasm of bone (CMS/HCC); Malignant neoplasm of right female breast, unspecified estrogen receptor status, unspecified site of breast (CMS/HCC); Bronchiolectasis (CMS/HCC); Atherosclerosis of [place] coronary artery of [place] heart without angina pectoris (CMS/HCC); Stage 3b chronic kidney disease (HCC) (CMS/HCC); Mixed hyperlipidemia (CMS/HCC); Iron deficiency anemia, unspecified iron deficiency anemia type; Cerebrovascular disease; Leg cramps, sleep relatedStart: 09-30-2024 End: 66-37-2860alwqsqvksxKHGR AICHHOLZNot AvailableStart: 08-21-2024 End: 97-21-6646Kbfkjb outpatient visit 25 minutesDevyn Chavez MD Work Phone: [facility] - Medical OncologyComment on above: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); Malignant 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, estrogen receptor positive (CMS-HCC); 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)Start: 08-21-2024 End: 02-91-7265Gajqby Devyn [facility] - Medical OncologyComment on above: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); 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); Malignant 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, estrogen receptor positive (CMS-HCC); Breast cancer metastasized to multiple sites, right (CMS-HCC); FDC (current) use of aromatase inhibitorsStart: 07-31-2024 End: 77-70-2563CfdfzdJhtn Aichholz SUPERVISOR IN CHARGE Work Phone: [facility] CWM FMComment on above:Essential hypertension (CMS/HCC)Start: 06-24-2024 End: 15-76-3165ErdulaZlvkdoChela [facility] - Medical OncologyStart: 04-13-2024 End: 07-31-3695NvjvjaMvpswxyn Perla SUPERVISOR IN CHARGE Work Phone: [facility] CWM FMComment on above:Essential hypertension (CMS/HCC)Start: 03-31-2024 End: 69-21-5222Vgyymf flowsheetBrittany Perla SUPERVISOR IN CHARGE Work Phone: [facility] CWM FMStart: 03-31-2024 End: 08-46-2381Llyjly flowsheetBrittany Perla SUPERVISOR IN CHARGE Work Phone: [facility] CWM FMStart: 03-31-2024 End: 68-29-9609haqapgjedoWOLSUICF FITZPATRICKNot AvailableStart: 03-31-2024 End: 12-63-9249Vvljjfl encounter procedureBrittany Perla SUPERVISOR IN CHARGE Work Phone: [facility] CWM FMComment on above:Encounter for Medicare annual wellness exam (Primary Dx)Start: 02-07-2024 End: 29-45-7939Ieuhxzsrxcjrb [facility] - Medical OncologyStart: 02-07-2024 End: 89-40-3020Ymxjze outpatient visit 25 Mony Chavez MD Work Phone: [facility] - Medical OncologyComment on above:Malignant 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, estrogen receptor positive (CMS-HCC) (Primary Dx); 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)Start: 13-66-1374Jqqhqp Only Kristy Martinez [facility] - Medical OncologyComment on above: Malignant 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, estrogen receptor positive (CMS-HCC) (Primary Dx)Start: 76-91-1715Msfbml Devyn Tonggosia [facility] - Medical OncologyStart: 01-71-6519Egwrjhj encounter procedureTwin Perla SUPERVISOR IN CHARGE Work Phone: NO HealthcareStart: 08-28-2022 End: 62-14-8015mdoettcdcbVEAMDY H FAWWADFacility:B0Jicyg: 06-21-2022 End: 65-22-3341tqvvwklacsJZKKNCL BURKEFacility:The Jewish Hospitaltart: 06-21-2022 End: 32-96-3211Qfujyu outpatient new 45 Juan Miguel Delcid MD Work Phone: OrthopaedicsComment on above:Cancer, metastatic to bone (HCC) (Primary Dx); Pathological fracture, pelvis, initial encounter for fractureStart: 06-06-2022 Chart abstractingAngelika Guillen [facility] - Medical Oncology Start: 34-70-9447qshgwtaqulSegBckfrr Hospital Ambulatory PPGStart: 05-22-2022 End: 23-13-2612bdwfewdfcxDENNBH H FAWWADFacility:Z1Lkhow: 05-07-2022 End: 31-62-6410ajtpbxvxatGL RUGEN ALDAFacility:K7Rkkot: 04-27-2022 End: 15-30-7071Jejpsklxmv and management of inpatientSHAIKH H FAWWADFacility:H1 Start: 04-27-2022 End: 37-02-5819uryyskwnloPNSXHW H FAWWADFacility:P5Ctjap: 04-24-2022 End: 06-38-6520dqsjtssgssXJTUWS H FAWWADFacility:H9Ibtvy: 03-20-2018 End: 72-37-4267Yjjhpwjfie and management of inpatientJEOhioHealth Doctors Hospital Procedures DateProcedureProcedure DetailPerforming ClinicianStart: 97-27-7072BOS BASIC METABOLIC PANELLisa Misty SUPERVISOR IN CHARGE Work Phone: Start: 02-51-3916ZCW BASIC METABOLIC PANELLisa Misty SUPERVISOR IN CHARGE Work Phone: Start: 57-14-3946VXF CBC WITH AUTO DIFFLisa Misty SUPERVISOR IN CHARGE Work Phone: Start: 97-22-5482Bgyxfw-up visitFollow-upCHANG Yaritza CHAVEZ Start: 75-13-1049WUDKKSVI LABSNot In System Ref ProvStart: 06-19-9150Cypmbvseun exam abdomen 1 viewNot In System Ref ProvStart: 28-58-4604Hgauikdi of Right Breast, Percutaneous Approach, DiagnosticSHAIKH FAWWADStart: 80-09-1495Dxcdkxzs of Omentum, Open Approach, DiagnosticSHAIKH FAWWADStart: 49-96-4447Yokkbpnhpv Stomach with Autologous Tissue Substitute, Open ApproachSHAI FAWWADStart: 86-33-7903Mb abdominal real time w/image documentationNot In System Ref Prov Start: 96-01-2967Uv thorax w/contrast materialNot In System Ref ProvStart: 38-47-2570QFHGKNQNK SPIROMETRY RTTAWNYAELOJessica ABREUROMAINStart: 37-11-4260TLOCVJQAA SPIROMETRY RTRICHARDSON WARNERStart: 28-95-0795PBWGIODKV SPIROMETRY RTRICHARDSON WARNER Start: 41-31-6300ZX CONSULT TO HOME CARE NEEDSJESUSAN Burrart: 03-23-2018 DISCHARGE PATIENTJESUSAN WARNERStart: 21-51-0283GMZBYMTXJ SPIROMETRY RTTAWNYAELOJessica ABREUROMAINStart: 92-51-5017WIRSUQVF OXYGEN THERAPY PROTOCOLJESUSAN Burrart: 16-76-2100Wymiw metabolic panel calcium totalJESUSAN ALANAStart: 97-43-0847Ivigm count complete automatedJESUSAN ALANAStart: 60-18-5561CGTFIFISV SPIROMETRY RT RICHARDSON WARNERart: 90-39-6522IELLYX AND OUTPUTJESUSAN Burrart: 03-23-2018 INCENTIVE SPIROMETRY RTBLANCAJessica Aimnahart: 72-22-1911RQOVQHISK SPIROMETRY RT RICHARDSON WARNERart: 74-87-2390GFLABZEJT SPIROMETRY RTTAWNYAELOJessica ABREUROMAINStart: 19-18-5372SYBEUBRFJ SPIROMETRY RTBLANCAJessica Aminahart: 88-48-9983OIKYGXALD SPIROMETRY RTRICHARDSON WARNERStart: 20-96-7577EXAZRQKKX SPIROMETRY RTRICHARDSON WARNER Start: 62-31-5473QCJAYUJSE SPIROMETRY RTRICHARDSON WARNERStart: 70-82-5485PWTBTFW D 25 HYDROXYJESUSAN WARNERStart: 49-93-0534GLDYLQIBZ SPIROMETRY RTRICHARDSON WARNER Start: 03-27-3366EMWYKGLC OXYGEN THERAPY PROTOCOLRICHARDSON WARNERStart: 03-22-2018 INCENTIVE SPIROMETRY RTRICHARDSON WARNERStart: 03-99-8042TZWEAO AND OUTPUTJESUSAN WARNERStart: 72-22-3437CHLVOHOPP SPIROMETRY RTRICHARDSON WARNERStart: 03-21-2018 INCENTIVE SPIROMETRY RTRICHARDSON WARNERStart: 88-56-1352UGUANPPKY SPIROMETRY RT RICHARDSON WARNERStart: 18-77-1722VHDXUKHZK SPIROMETRY RTRICHARDSON WARNERStart: 13-61-0712LXVIXCTIC SPIROMETRY RTRICHARDSON WARNERStart: 52-84-8832BQECKOPCB SPIROMETRY RTRICHARDSON WARNERStart: 52-79-5830CXBOUGHRP SPIROMETRY RTRICHARDSON WARNER Start: 58-01-9279FXUYHYCOG SPIROMETRY RTRICHARDSON WARNERStart: 83-69-1850AUTIDZVD OXYGEN THERAPY PROTOCOLJESUSAN WARNERStart: 88-74-9339CCLOIBQOW SPIROMETRY RT RICHARDSON WARNERStart: 42-01-0870GWKBO WEIGHTSRICHARDSON WARNERStart: 80-19-8381LFUMGH AND OUTPUTRICHARDSON WARNERStart: 34-36-9473RNFGIAVNQ SPIROMETRY RTRICHARDSON WARNER Start: 47-77-1937VLQE GENERALJESUSAN WARNERStart: 67-46-2559SEVFPPZ EXTREMITY RICHARDSON WARNERStart: 63-40-6141NKOTXWRJLMSXQ NURSING CARE ORDER (SPECIFY)RICHARDSON WARNERStart: 11-06-9260WEKDXT BEARING TOLERATEDJESUSAN WARNERStart: 03-20-2018 ASSESSJEFFERJessica WARNERStart: 68-20-7751NADHMHMBVWWMJH KATKOStart: 03-20-2018 Continuous pulse oximetryJESUSAN WARNERStart: 41-62-6338BIMXQPPBE DEEP BREATHING AND COUGHINGJESUSAN WARNERStart: 94-44-5575YFKRODXZK SPIROMETRY RTRICHARDSON WARNER Start: 67-70-3535BIWHZWCH OXYGEN THERAPY PROTOCOLJESUSAN WARNERStart: 03-20-2018 NEURO/VASCULAR CHECKSRICHARDSON WARNERStart: 52-75-5039WZVHZI PHYSICIAN (SPECIFY) RICHARDSON Burrart: 34-94-4436LLMNIUY COMMUNICATIONRICHARDSON WARNERart: 30-17-5752TMOOI SIGNSRICHARDSON WARNERStart: 67-99-3450Kvduy hip unilateral with pelvis 2-3 viewsJESUSAN WARNERStart: 25-65-7630LYNPFMA D 25 HYDROXYJESUSAN WARNER Start: 76-30-5189QGHVYDLP PATIENTJESUSAN WARNERStart: 19-61-8780Znrgc hip unilateral with pelvis 1 viewJESUSAN WARNERStart: 92-03-5002Bnrdl count complete automatedJESUSAN WARNERStart: 97-52-0224Obaozlxhezfrp metabolic panelRICHARDSON ABREUROMAINStart: 96-16-5118VSFGQFKWUBC PANELTAWNYAELOJessica WARNERStart: 10-27-8173XCUWVZWXMP AND HEMATOCRIT, BLOODJESUSAN BRADYROMAINStart: 88-88-5071GLOM AND SCREENJEFFERJessica WARNER Start: 98-82-6565Eydgo panelRICHARDSON ABREUROMAINStart: 67-93-3534Oxhgwkfgwxk time RICHARDSON Burrart: 09-66-9886Jzhohfyrmb examination femur minimum 2 views RICHARDSON Burrart: 66-95-1811VNJ 12-LEADJESUSAN ABREUROMAINStart: 71-01-8008NJPBMBDG REMOVALRICHARDSON WARNERStart: 49-41-7853AVYCQ RT REFLEX TO CULTURERICHARDSON BRADYROMAIN Start: 04-45-6583PIACBR BOWLING CATHETERJESUSAN WARNERStart: 25-30-7934MIDDNVC HEELS OFF OF BEDJESUSAN ABREUROMAINStart: 66-09-7314NOMP OF BED 60 DEGREES OR LESS RICHARDSON Burrart: 12-91-0706UZARWZO COMMUNICATIONRICHARDSON Burrart: 61-97-9663FYHS PATIENTRICHARDSON WARNERStart: 00-56-6017Ocwzwyn bacterial quanttative colony count urineTAWNYAELOJessica ABREUROMAINStart: 24-01-7836Invaxyjdoxl urinalysisJESUSAN BRADYROMAINStart: 26-92-2701Cosxr dip stick/tablet rgnt auto w/o microscopyJESUSAN WARNERStart: 73-42-3837Turty hip unilateral with pelvis 2-3 viewsJESUSAN WARNERStart: 82-95-1804Xfqbxdrvyj exam chest single viewRICHARDSON WARNERStart: 72-80-3090XKNY CODEJESUSAN WARNERStart: 12-76-9463KMQLKKEO OXYGEN THERAPY PROTOCOLJESUSAN WARNERStart: 89-05-1307YCLPIO AND OUTPUTJESUSAN WARNER Start: 41-35-1392JI CONSULT TO ORTHOPEDIC SURGERYJESUSAN WARNERStart: 03-20-2018 NOTIFY PHYSICIAN (SPECIFY)RICHARDSON ABREUROMAINStart: 61-67-5566JJ EVAL AND TREATRICHARDSON WARNERStart: 12-39-4236OWSSO INTERMITTENT PNEUMATIC COMPRESSION DEVICERICHARDSON WARNERStart: 01-78-8728HU EVAL AND TREATJESUSAN WARNERStart: 96-36-7354PXAHE SIGNS RICHARDSON WARNERart: 07-10-6605EEAIDZQ STATUS (DIRECT)RICHARDSON WARNER Plan of Treatment DateCare ActivityDetailAuthorStart: 71-90-1414RCpV,Tdap and Td Vaccines (2 - Tdap)DTaP,Tdap and Td Vaccines (2 - Tdap)[facility] Medical CenteredicWaseca Hospital and Clinic SystemStart: 73-30-5131Aubeyhi ScreeningTobacco ScreeningMagruder Hospital SystemStart: 04-05-2025 End: 75-98-4313Vxabhsj encounter gvdnidfzr43/15/2025 4:30 PM EST Office Visit [facility] [address] [place] [phone] Corina Jay NP [address] [place] [address] [facility] CW FMStart: 03-05-2025 End: 51-82-6169Ozyhiur encounter nhqcebqax34/14/2025 2:00 PM EST Office Visit Jennyfer Aguirre [facility] - Medical Oncology [address] [place] [address] [phone] Devyn Chavez MD [facility] [address] [place], [place] [id number] [facility] - Medical OncologyStart: 54-08-5282Yyjtb BMI ScreeningAdult BMI ScreeningMagruder Hospital SystemStart: 37-01-8363EotmmpdzzPioneer Community Hospital [facility] PatrickStart: 11-18-2024 End: 35-94-1267Xlera metabolic 1998 panel - Serum or PlasmaBasic metabolic panel Lab Routine Stage 3b chronic kidney disease (CMS-HCC) Expected: 11/18/2024 (Ap proximate), Expires: 10/19/2025[facility] Work Phone: Comment on above:Expected: 11/18/2024 (Approximate), Expires: 10/19/2025Start: 10-20-2024 End: 75-99-5933Jkgey metabolic 1998 panel - Serum or PlasmaBasic metabolic panel Lab Routine Stage 3b chronic kidney disease (CMS-HCC) Expected: 10/20/2024 (Ap proximate), Expires: 10/06/2025[facility] Work Phone: Comment on above:Expected: 10/20/2024 (Approximate), Expires: 10/06/2025Start: 02-42-9932Ueefg BMI ScreeningAdult BMI Screening [facility] SystemStart: 09-30-2024 End: 82-10-3479DCI W Auto Differential panel - BloodCBC and differential Lab Routine Essential hypertension (CMS/HCC) Expected: 09/30/2024 (Approximate), Expires: 09/30/2025[facility] Work Phone: Comment on above:Expected: 09/30/2024 (Approximate), Expires: 09/30/2025Start: 09-30-2024 End: 17-86-6097Ruxmzywlfijpu metabolic 2000 panel - Serum or PlasmaComprehensive metabolic panel Lab Routine Essential hypertension (CMS/HCC) Expected: 09/30/2024 (Approximate), Expires: 09/30/2025[facility] HealthcareComment on above: Expected: 09/30/2024 (Approximate), Expires: 09/30/2025Start: 09-30-2024 End: 83-25-0204Ijetiuts [Mass/volume] in Serum or PlasmaFerritin Lab Routine Iron deficiency anemia, unspecified iron deficiency anemia type Expected: 09/30 (Approximate), Expires: 09/30/2025[facility] HealthcareComment on above: Expected: 09/30/2024 (Approximate), Expires: 09/30/2025Start: 09-30-2024 End: 31-62-5080Ryts + transferrin + TIBCIron + transferrin + TIBC Lab Routine Iron deficiency anemia, unspecified iron deficiency anemia type Expected: 09/30/2024 (Approximate), Expires: 09/30/2025[facility] HealthcareComment on above: Expected: 09/30/2024 (Approximate), Expires: 09/30/2025Start: 09-30-2024 End: 11-19-3766Bzwdq 1996 panel - Serum or PlasmaLipid panel Lab Routine Mixed hyperlipidemia (CMS/HCC) Expected: 09/30/2024 (Approximate), Expires:09/30/2025 [facility] HealthcareComment on above:Expected: 09/30/2024 (Approximate), Expires: 09/30/2025Start: 09-30-2024 End: 76-83-6229Ejxwzwiaxxzz/Creatinine panel in random UrineMicroalbumin / creatinine, urine ratio Lab Routine Essential hypertension (CMS/HCC) Expected: 09/30/2024 (Approximate), Expires: 09/30/2025[facility] HealthcareComment on above: Expected: 09/30/2024 (Approximate), Expires: 09/30/2025Start: 09-30-2024 End: 69-56-2674Msmllgf encounter procedureNOMS CWM FMComment on above:Essential hypertension (CMS/HCC) (Primary Dx); Secondary malignant neoplasm of bone (CMS/HCC); Malignant neoplasm of right female breast, unspecified estrogen receptor status, unspecified site of breast (CMS/HCC); Bronchiolectasis (CMS/HCC); Atherosclerosis of [place] coronary artery of [place] heart without angina pectoris (CMS/HCC); Stage 3b chronic kidney disease (HCC) (CMS/HCC); Mixed hyperlipidemia (CMS/HCC); Iron deficiency anemia, unspecified iron deficiency anemia typeStart: 09-30-2024 End: 81-20-6125Fshfhntmyh complete panel - UrineUrinalysis with reflex microscopic (clean catch) Lab Routine Essential hypertension (CMS/HCC) Expected: 09/30/2024 (Approximate), Expires: 09/30/2025[facility] HealthcareComment on above: Expected: 09/30/2024 (Approximate), Expires: 09/30/2025Start: 08-21-2024 End: 05-29-9137MGY Skeletal system Views for bone densityDexa scan central skeletal Imaging Routine 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) 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, estrogen receptor positive (CMS-HCC) Breast cancer metastasized to multiple sites, right (CMS-HCC) 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 Expected: 08/21/2024, Expires: 08/21/2025[facility] Work Phone: Comment on above:Expected: 08/21/2024, Expires: 08/21/2025Start: 08-14-2024 End: 31-73-1085Zpzlalv encounter ewltmhkrt42/25/2025 1:00 PM EDT Office Visit [facility] - [facility] [place] [address] Devyn Chavez MD [address] [place] [address] [address] [place], [place] [phone] [facility] - Medical OncologyStart: 08-07-2024 End: 95-30-5482MSQ W Auto Differential panel - BloodCBC auto differential Lab Routine 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) 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,estrogen receptor positive (CMS-HCC) Breast cancer metastasized to multiple sites, right (CMS-HCC) Expected: 08/07/2024 (Approximate), Expires: 02/06/2025[facility] Work Phone: Comment on above:Expected: 08/07/2024 (Approximate), Expires: 02/06/2025Start: 08-07-2024 End: 48-99-7500Xwhdteyalcivm metabolic 2000 panel - Serum or PlasmaComprehensive metabolic panel Lab Routine 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 (CMS- HCC) 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, estrogen receptor positive (CMS-HCC) Breast cancer metastasized to multiple sites, right ([facility]-HCC) Expected: 08/07/2024 (Approximate), Expires: 02/06/2025[facility] SystemComment on above:Expected: 08/07/2024 (Approximate), Expires: 02/06/2025Start: 06-06-2024 Adult BMI ScreeningAdult BMI ScreeningProAdena Regional Medical Centertart: 05-26-2024 Influenza vaccinationInfluenza Vaccine (#1)[facility] HealthcareComment on above: Postponed from 12/22/2023 (Patient Refused)Start: 60-06-5464Vdercttpizok Vaccine: 65+ Years (1 of 1 - PCV)Pneumococcal Vaccine: 65+ Years (1 of 1 - PCV) [facility] HealthcareComment on above:Postponed from 2003 (Patient Refused) Start: 10-78-0525Lrhxy BMI ScreeningAdult BMI ScreeningProMer[facility] Start: 02-07-2024 End: 88-27-0920Ljcjamr encounter dgikptnko84/18/2024 1:00 PM EDT Office Visit Jennyfer Aguirre [facility] - Medical Oncology [address] [place] [phone] Devyn Chavez MD [phone] [place] [address] Jennyfer Aguirre [facility] - Medical OncologyStart: 03-71-2614Qxqvlnceh vaccinationNOIA HealthcareStart: 10-04-2023 End: 60-60-7925Wihriwb encounter /14/2024 2:00 PM EDT Office Visit Jennyfer Aguirre [facility] - Medical Oncology [address] [place] [phone] Devyn Chavez MD [id number] [place] [address] Jennyferaden Aguirre [facility] - Medical OncologyStart: 09-23-2023 End: 34-63-9181DTJ W Auto Differential panel - BloodCBC auto differential Lab Routine Malignant 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, e strogen receptor positive ([facility]) Expected: 09/23/2023, Expires: 06/06/2024 [facility] Work Phone: Comment on above:Expected: 09/23/2023, Expires: 06/06/2024Start: 09-23-2023 End: 74-96-2219Eeuracrtgjlfn metabolic 2000 panel - Serum or PlasmaComprehensive metabolic panel Lab Routine Malignant 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, estrogen receptor positive ([facility]) Expected: 09/23/2023 (Approximate), Expires: 06/06/2024[facility] SystemComment on above: Expected: 09/23/2023 (Approximate), Expires: 06/06/2024Start: 94-00-5016Ofthzeq ScreeningTobacco ScreeningMagruder Hospital SystemStart: 06-06-2023 End: 43-83-6159Okokdac encounter qykupprds94/15/2024 3:00 PM EST Office Visit Jennyfer Aguirre [facility] [address] [place] [address] [phone] Devyn Chavez MD [address] [place] [address] [address] [place] [id number] Jennyferaden Aguirre [facility] - Medical OncologyStart: 05-30-2023 End: 47-74-7524iojlfngyst31/08/2024 3:00 PM EST Support Visit Jennyfer L Timothy [facility] [address] [place] [address] [phone] Dorotgosia Aguirre [facility] - Medical OncologyStart: 12-21-2022 Influenza vaccinationInfluenza VaccineMagruder Hospital SystemStart: 04-22-2022 ADVANCE DIRECTIVE DISCUSSIONADVANCE DIRECTIVE DISCUSSIONClecleveland clinic south [facility]inte [facility] ClinicStart: 79-12-8753QHGXVMMJWG ASSESSMENTDEPRESSION ASSESSMENTMary Rutan Hospitaltart: 24-57-9320Npuqwnckb vaccinationINFLUENZA (#1)[facility]: 04-19-2012 DIABETES SCREENDIABETES SCREENMary Rutan Hospitaltart: 66-67-9059WWHS DENSITYBONE DENSITYMary Rutan Hospitaltart: 47-63-3893Trsx Risk ScreeningFall Risk Screening Critical access hospitaltart: 89-96-6760Mbkrmkntyqik Vaccine: 65+ Years (1 of 1 - PCV)Pneumococcal Vaccine: 65+ Years (1 of 1 - PCV)[facility] HealthcareStart: 68-34-5382QJLSKEZIWEPH: 65+ (1 - PCV)PNEUMOCOCCAL: 65+ (1 - PCV)[facility] Start: 51-28-5587JYXYTEYU VACCINE (1 of 2)SHINGRIX VACCINE (1 of 2)[facility] Hospital[facility]: 10-21-2648Tfrskofdsjfefu of varicella zoster vaccineZoster (Shingles) Vaccine (1 of 2)Critical access hospitaltart: 19-35-5950Jylgmbifcszi Vaccine: 65+ Years (1 of 2 - PCV)Pneumococcal Vaccine: 65+ Years (1 of 2 - PCV) [facility] HealthcareStart: 91-19-1948Ukmhf microalbumin profileDTAP,TDAP,TD (1 - Tdap)[facility]: 83-07-6152Tmqwl BMI Follow Up PlanAdult BMI Follow Up PlanProAdena Regional Medical Centertart: 90-85-3327Qncpaildmr ScreeningDepression ScreeningProAdena Regional Medical Centertart: 76-42-6506VJNSX-19 VACCINE (#1)COVID-19 VACCINE (#1)[facility] Hospitaltart: 1938Medicare Annual Wellness Visit Medicare Annual Wellness VisitMount [facility]. [facility] End: 92-65-0388Ptliea antigen 15-3Cancer antigen 15-3 Lab Routine 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) 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, es trogen receptor positive (CMS-HCC) Breast cancer metastasized to multiple sites, right (CMS-HCC) 1 Occurrences starting 08/21/2024 until 08/21/2025Magruder Hospital SystemComment on above:1 Occurrences starting 08/21/2024 until 08/21/2025 End: 76-59-4023Lhshnp antigen 27-29Cancer antigen 27-29 Lab Routine 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) 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, e strogen receptor positive (CMS-HCC) Breast cancer metastasized to multiple sites, right (CMS-HCC) 1Occurrences starting 08/21/2024 until 08/21/2025 [facility] CenterBuzzVote SystemComment on above:1 Occurrences starting 08/21/2024 until 08/21/2025 End: 90-14-9220IGD W Auto Differential panel - BloodCBC with auto diff Lab Routine 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) every 3 months for 50 Occurrences starting 10/04/2023 until 10/04/2024[facility] Work Phone: Comment on above:every 3 months for 50 Occurrences starting 10/04/2023 until 10/04/2024 End: 02-26-7775ZTK W Auto Differential panel - BloodCBC auto differential Lab Routine 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) 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,estrogen receptor positive (CMS-HCC) Breast cancer metastasized to multiple sites, right (CMS-HCC) 1 Occurrences starting 08/21/2024 until 08/21/2025[facility] HospitalEgenera SystemComment on above:1 Occurrences starting 08/21/2024 until 08/21/2025 End: 54-07-5696Mfkzlijsrrihs metabolic 2000 panel - Serum or PlasmaComprehensive metabolic panel Lab Routine 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 (CMS- HCC) every 3 months for 50 Occurrences starting 10/04/2023 until 10/04/2024 [facility] CenterBuzzVote SystemComment on above:every 3 months for 50 Occurrences starting 10/04/2023 until 10/04/2024 End: 67-09-1421Ctliwtqrcxwgr metabolic 2000 panel - Serum or PlasmaComprehensive metabolic panel Lab Routine 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 (CMS- HCC) 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, estrogen receptor positive (CMS-HCC) Breast cancer metastasized to multiple sites, right ([facility]) 1 Occurrences starting 08/21/2024 until 08/21/2025ProAndalusia Health Health SystemComment on above:1 Occurrences starting 08/21/2024 until 08/21/2025 Immunizations Immunization DateImmunizationNotesCare MfxhncecFpvfgrly00-42-6144uhrubzgupf skin test; purified protein derivative solution, intradermalBrittany Perla SUPERVISOR IN CHARGE Work Phone: noParkland Health CenterRxswmlnjbh02-83-4909oenfyxrrrt skin test; purified protein derivative solution, intradermalBrittany Perla SUPERVISOR IN CHARGE Work Phone: noParkland Health CenterRfkyyibnce16-04-2447pznzzflxlj, tetanus toxoids and acellular pertussis vaccineBrittany Perla SUPERVISOR IN CHARGE Work Phone: noPark[facility] Payers DatePayer CategoryPayerPolicy [id number] Health InsuranceTHRIVENT [id number] [id number] 07-13-2266Wqawmpo Care Other (unspecified)[employer] [id number] 2003Medicare [id number] [id number] [id number] 1960Self-[id number] [id number] 1938 [id number] 2.16.840.1.399299.3.57[id number] 2.16.840.1.551011.3.57[id number] 2.16.840.1.969578.3.57[id number] 2.16.840.1.459091.3.57[id number] 2.16.840.1.151226.3.57[id number] 2.16.840.1.740301.3.57[id number] 2.16.840.1.974326.3.57[id number] 2.16.840.1.258265.3.57[id number] 2.16.840.1.723769.3.57[id number] 2.16.840.1.289736.3.57[id number] 2..840.1.142735.3.57[id number] 2..840.1.743664.3.57[id number] 2.16.840.1.99[id number] 2..840.1.588461.3.579.2.593 Social History DateTypeDetailFacilityStart: 05-14-2022 End: 74-10-3305Lujxoau smoking status NHISNever smoked tobaccoWilson Health Work Phone: Start: 06-08-2009 End: 84-37-6122Scoqnlr intakeNot [facility] Hospitaltart: 98-45-6914Gtz Assigned At BirthNot on [facility] Centertart: 05-14-2022 End: 59-56-4615Hqafksn use and exposureSmokeless tobacco non-userMagruder Hospital SystemStart: 10-07-2023 End: 09-59-1412Pdzugutww beverage intakeLifetime non-drinker (finding)[facility] HealthcareStart: 04-01-2023 End: 68-25-6119Buctust of Social functionNOMS HealthcareStart: 04-01-2023 End: 54-60-7991Lsulxuregge, Afraid, Rape, and Kick questionnaire [HARK][facility] HealthcareWithin the last year, have you been afraid of your partner or ex-partner?NoNOMS HealthcareAre you now , , , , never or living with a partner?MarriedNOMS HealthcareFrequency of Alcohol ConsumptionNot on fileNOMS HealthcareHow often do you have 6 or more drinks on 1 occasion?NeverNOMS HealthcareDo you feel stress - tense, restless, nervous, or anxious, or unable to sleep at night because yourmind is troubled all the time - these days [OSQ]Not at allNOMS Healthcare(I/We) worried whether (my/our) food would run out before (I/we) got money to buy more.Never trueNOMS HealthcareStart: 35-54-8542Jxlafie Commentmoderate alcohol useNOMS Healthcare Start: 08-08-2022 End: 28-52-7311Vqpipzqos beverage intakeCurrent drinker of alcohol (finding) [facility] SystemStart: 26-55-6788Kxnfwlk CommentSOCIALMagruder Hospital SystemStart: 05-19-2022 End: 95-06-1886Pjynywug to SARS-CoV-2 (event)Not sureFlower Hospital Health System Start: 37-26-9759VaaRfdkwg (finding)[facility] SystemStart: 10-02-2024 Gender identityIdentifies as female gender (finding)[facility] HealthcareTobacco smoking status NHISUnknown if ever smokedBarnesville Hospital Work Phone: Start: 61-58-6183Amz Assigned At [facility] Clinical Notes 04-25-2022 to 09-30-2024 Note Date & OnboAkrvXcjxeuly16-76-7150 History of Present illness Narrative* Corina Jay NP - 09/30/2024 2:59 PM EDTAssociated Problem(s): Leg cramps, sleep related Check labs * Corina Jay NP - 09/30/2024 2:47 PM EDTAssociated Problem(s): Cerebrovascular disease Stroke in 2008 * CHELSEA ELIAS - 09/30/2024 2:00 PM EDT Seen 03/31/24 MEDICARE WELLNESS VISIT DNR [facility] Pt has been having leg cramps at night- last night and again 2-3 nights ago. Newer/onset Severe pain in both legs-pt had to stand up out of bed to help relieve pain. * Corina Jay, SUPERVISOR IN CHARGE - 09/30/2024 2:00 PM EDT Images from the original note were not [...] Date Arthritis Bone cancer (CMS/HCC) Breast CA (CMS/HCC) Breast cancer metastasized to bone (CMS/HCC) New dx w/mets to multiple bones & poss. lung.Poorly controlled painN0 NSAIDS =PUD. Tylenol no help.Discussed tx options for pain & considering her pain is from bone metastasis and NSAIDS are not an option for her-started on low dose oxycodone.Counselled & educated on S/E,adverse rx,druginteractions.Stressed importance of compliance & instructed to call office if ? or concerns.Doing well w/oxycodo Difficulty sleeping Edema of foot Heart disease History of nocturia HLD (hyperlipidemia) (CMS/HCC) HTN (hypertension) (CMS/HCC) Kidney disease Stroke (CMS/HCC) Visual impairment Past Surgical History: Procedure Laterality Date HIP SURGERY Left 02/[address] Main family history includes Cancer in her father [...] Ferritin Leg cramps, sleep related Check labs * Corina Jay NP - 09/30/2024 7:09 AM EDTAssociated Problem(s): Hyperlipidemia (CMS/HCC) No stating thearpy * Corina Jay NP - 09/30/2024 7:08 AM EDTAssociated Problem(s): Atherosclerosis of coronary artery without angina pectoris (CMS/HCC) Check lipids * Corina Jay NP - 09/30/2024 7:04 AM EDTAssociated Problem(s): Malignant neoplasm of female breast (CMS/HCC) Follows with oncology * Corina Jay NP - 09/30/2024 7:04 AM EDTAssociated Problem(s): Secondary malignant neoplasm of bone (CMS/HCC) Follows with oncology * Corina Jay NP - 09/30/2024 7:04 AM EDTAssociated Problem(s): Essential hypertension (CMS/HCC) Please check blood pressure daily and record DASH diet Limit caffeine Take medication as directed Contact office if chest pain, pressure, dizziness, shortness of breath, swelling legs Recommend slow position changes Current meds: losartan/hydrochlorothiazide documented in this encounterRay County Memorial HospitalKickaomwvf79-41-1570 Instructions* Patient Instructions* Corina Jay NP - 09/30/2024 2:00 PM EDT Get labs fasting documented in this encounterRay County Memorial HospitalMovothuxwg90-03-7437 History of Present illness Narrative* Kristy Kamara RN - 08/21/2024 2:13 PM EDT Patient is here for follow up with Dr. Chavez. Orders received for DEXA print out order. F/u in 6 months, CBC, CMP, CA 15-3 and CA 27.29, print out order. Patient given calendar, verbalized understanding. documented in this encounterFlower Hospital Bloom CapitalWekpmg31-39-0965 History of Present illness Narrative* Devyn Chavez MD - 08/21/2024 1:45 PM EDT Images from the original note were not included. [facility] 08/21/24 William Canas is a 84 y.o. [...] been having some hip pain before the perforation,CT scan showed extensive bony changes suspicious for [...] treatment is on hold. The patient was a ccompanied by her daughter and her . Her daughter has been taking photos of her breast periodically keep a record. Her activities are at baseline. She walks with a rolling walker. Past Medical History: Diagnosis Date GERD (gastroesophageal reflux disease) Hypertension Past Surgical History: Procedure Laterality Date BREAST BIOPSY Right 04/27/2022 at [facility] [place] CATARACT EXTRACTION, BILATERAL Bilateral COLONOSCOPY HIP SURGERY Left 2017 PARTIAL STOMACH SURGERY 04/27/2022 Repair of anterior gastric wall at [facility] [place] Family History Problem Relation Age of Onset [...] Resource Strain: Low Risk (04/01/2023) Received from [facility] Overall Financial Resource Strain (CARDIA) Difficulty of Paying Living Expenses: Not hard at all Food Insecurity: No Food Insecurity (04/01/2023) Received from [facility] Hunger Vital Sign Worried About Running Out of Food in the Last Year: Never true Ran Out of Food in the Last Year: Never true Transportation Needs: No Transportation Needs (04/01/2023) Received from [facility] PRAPARE - Transportation Lack of Transportation (Medical): No Lack of Transportation (Non-Medical): No Physical Activity: Unknown (04/01/2023) Received from [facility] Exercise Vital Sign Minutes of Exercise per Session: 0 min Stress: No Stress Concern Present (04/01/2023) Received from [facility] [place] of Occupational Health - Occupational Stress Questionnaire Feeling of Stress : Not at all Social Connections: Moderately Isolated (04/01/2023) Received from [facility] Social Connection and Isolation Panel [NHANES] Frequency of Communication with Friends and Family: Once a week Frequency of Social Gatherings with Friends and Family: Once a week Attends Amish Services: 1 to 4 times per year Active Member of Clubs or Organizations: No Attends Club or Organization Meetings: Never Marital Status: Interpersonal Safety: Not At Risk (04/01/2023) Received from [facility] Humiliation, Afraid, Rape, and Kick questionnaire Fear of Current or Ex-Partner: No Emotionally Abused: No Physically Abused: No Sexually Abused: No Housing Instability: Unknown (04/01/2023) Received from [facility] Housing Stability Vital Sign Unable to [...] were clear to auscultation. There was no dullnessto percussion. Cardiac: Regular rate and rhythm, S1 [...] 09/2023, I do not see any significant interchange agent the past 4 months. No signs of [...] this note were generated using voice recognition [employer] dictation software. Although every effort was made to ensure the accuracy of this automated supervisor vat house, some errors in supervisor vat house may have occurred. CC: Patient Care Team: Shaikh Prashant MD as PCP - General (Internal Medicine) Devyn Chavez MD as Consulting Physician (Hematology) PCP:SHAIKH PRASHANT Referring MD: Shaikh Cerda MD documented in this encounterGreen Cross HospitalGIGA TRONICS [facility] HospitalXlqrsh08-81-8762 Instructions* Patient Instructions* Devyn Chavez MD - 08/21/2024 1:45 PM EDT DEXA print out order. F/u in 6 months, CBC, CMP, CA 15-3 and CA 27.29, print out order. documented in this encounterMount [facility]. [facility]12-10-2024 History of Present illness Narrative* Twin Perla NP - 03/31/2024 1:00 PM EST Images from the original note were not [...] Neurological: Negative for dizziness, tremors, syncope, weakness, light- headedness and headaches. Psychiatric/Behavioral: Negative for decreased concentration and suicidal ideas. The patient is notnervous/anxious. Hematological: Does not bruise/bleed easily. Endocrine: Negative [...] Do you have a medical power of research scientist?: Yes Who is your medical power of research scientist?: annie angel Objective : BP 138/76 Pulse [...] with her to next OV to have scannedin. No orders of the defined types were placed in this encounter. Electronically signed by Twin Perla NP on March 31, 2024 documented in this encounterRay County Memorial HospitalXqvmvrfhdc90-98-4675 History of Present illness Narrative* Kristy Kamara RN - 02/07/2024 1:27 PM EDT Patient is here for follow up with Dr. Chavez. Orders received to F/u in 6 months, CBC, CMP. Print outorder. Patient given calendar, verbalized understanding of future appointments. documented in this encounterMount St. Mary Hospital10-18-2024 History of Present illness Narrative* Devyn Chavez MD - 02/07/2024 1:00 PM EDT Images from the original note were not included. [facility] 02/07/24 William Canas is a 83 y.o. [...] been having some hip pain before the perforation,CT scan showed extensive bony changes suspicious for [...] Laterality Date BREAST BIOPSY Right 04/27/2022 at [facility] [place] CATARACT EXTRACTION, BILATERAL Bilateral COLONOSCOPY HIP SURGERY Left 2018 PARTIAL STOMACH SURGERY 04/27/2022 Repair of anterior gastric wall at [facility] [place] Family History Problem Relation Age of Onset [...] Resource Strain: Low Risk (04/01/2023) Received from [facility] Overall Financial Resource Strain (CARDIA) Difficulty of Paying Living Expenses: Not hard at all Food Insecurity: No Food Insecurity (04/01/2023) Received from [facility] Hunger Vital Sign Worried About Running Out of Food in the Last Year: Never true Ran Out of Food in the Last Year: Never true Transportation Needs: No Transportation Needs (04/01/2023) Received from [facility] PRAPARE - Transportation Lack of Transportation (Medical): No Lack of Transportation (Non-Medical): No Physical Activity: Unknown (04/01/2023) Received from [facility] Exercise Vital Sign Minutes of Exercise per Session: 0 min Stress: No Stress Concern Present (04/01/2023) Received from [facility] [place] of Occupational Health - Occupational Stress Questionnaire Feeling of Stress : Not at all Social Connections: Moderately Isolated (04/01/2023) Received from [facility] Social Connection and Isolation Panel [NHANES] Frequency of Communication with Friends and Family: Once a week Frequency of Social Gatherings with Friends and Family: Once a week Attends Amish Services: 1 to 4 times per year Active Member of Clubs or Organizations: No Attends Club or Organization Meetings: Never Marital Status: Interpersonal Safety: Not At Risk (04/01/2023) Received from [facility], [facility] Humiliation, Afraid, Rape, and Kick questionnaire Fear of Current or Ex-Partner: No Emotionally Abused: No Physically Abused: No Sexually Abused: No Housing Instability: Unknown (04/01/2023) Received from [facility], [facility] Housing Stability Vital Sign Unable to [...] were clear to auscultation. There was no dullnessto percussion. Cardiac: Regular rate and rhythm, S1 [...] 09/2023, I do not see any significant interchange agent the past 4 months. No signs of [...] to ensure the accuracy of this automated supervisor vat house, some errors in supervisor vat house may have occurred. CC: Patient Care Team: Shaikh Prashant MD as PCP - General (Internal Medicine) Devyn Chavez MD as Consulting Physician (Hematology) PCP:SHAIKH PRASHANT Referring MD: Shaikh Cerda MD documented in this encounterMount St. Mary Hospital10-18-2024 Instructions* Patient Instructions* Devyn Chavez MD - 02/07/2024 1:00 PM EDT Take a photo for record 04/2024 F/u in 6 months, CBC, CMP. Print out order. documented in this encounterMount St. Mary Hospital06-14-2024 History of Present illness Narrative* Kirstie Felix RN - 10/04/2023 2:23 PM EDT The patient is here for Surveillance care Dr Chavez recommends to continue to hold Xgeva Print out CBC, CMP order F/u in MID 01/2024. Orders and calendar given to patient and intensive care specialist documented in this encounterMount St. Mary Hospital06-14-2024 History of Present illness Narrative* Devyn Chavez MD - 10/04/2023 2:00 PM EDT Images from the original note were not included. [facility] 10/04/23 William Canas is a 83 y.o. [...] been having some hip pain before the perforation,CT scan showed extensive bony changes suspicious for [...] Laterality Date BREAST BIOPSY Right 04/27/2022 at [facility] [place] CATARACT EXTRACTION, BILATERAL Bilateral COLONOSCOPY HIP SURGERY Left 2018 PARTIAL STOMACH SURGERY 04/27/2022 Repair of anterior gastric wall at [facility] [place] Family History Problem Relation Age of Onset [...] Resource Strain: Low Risk (04/01/2023) Received from [facility] Overall Financial Resource Strain (CARDIA) Difficulty of Paying Living Expenses: Not hard at all Food Insecurity: No Food Insecurity (04/01/2023) Received from [facility] Hunger Vital Sign Worried About Running Out of Food in the Last Year: Never true Ran Out of Food in the Last Year: Never true Transportation Needs: No Transportation Needs (04/01/2023) Received from [facility] PRAPARE - Transportation Lack of Transportation (Medical): No Lack of Transportation (Non-Medical): No Physical Activity: Unknown (04/01/2023) Received from [facility] Exercise Vital Sign Minutes of Exercise per Session: 0 min Stress: No Stress Concern Present (04/01/2023) Received from [facility] [place] of Occupational Health - Occupational Stress Questionnaire Feeling of Stress : Not at all Social Connections: Moderately Isolated (04/01/2023) Received from [facility] Social Connection and Isolation Panel [NHANES] Frequency of Communication with Friends and Family: Once a week Frequency of Social Gatherings with Friends and Family: Once a week Attends Amish Services: 1 to 4 times per year Active Member of Clubs or Organizations: No Attends Club or Organization Meetings: Never Marital Status: Interpersonal Safety: Not At Risk (04/01/2023) Received from [facility], [facility] Humiliation, Afraid, Rape, and Kick questionnaire Fear of Current or Ex-Partner: No Emotionally Abused: No Physically Abused: No Sexually Abused: No Housing Instability: Unknown (04/01/2023) Received from [facility], [facility] Housing Stability Vital Sign Unable to [...] were clear to auscultation. There was no dullnessto percussion. Cardiac: Regular rate and rhythm, S1 [...] 05/2023, I do not see any significant interchange agent the past 3 months. No signs of [...] to ensure the accuracy of this automated supervisor vat house, some errors in supervisor vat house may have occurred. CC: Patient Care Team: Shaikh Prashant MD as PCP - General (Internal Medicine) Devyn Chavez MD as Consulting Physician (Hematology) PCP:SHAIKH PRASHANT Referring MD: Shaikh Cerda MD documented in this encounterMount St. Mary Hospital06-14-2024 Instructions* Patient Instructions* Devyn Chavez MD - 10/04/2023 2:00 PM EDT Print out CBC, CMP order F/u in MID 01/2024. documented in this encounterMount St. [facility]02-15-2024 History of Present illness Narrative* Kristy Kamara RN - 06/06/2023 3:33 PM EST Patient is here for follow up with Dr. Chavez. Orders received to follow up in 4 months with cbc and cmp. Patient given calendar, verbalized understanding of future appointments. She will get her labs done at [facility]. [facility] History of Present illness Narrative* Devyn Chavez MD - 06/06/2023 3:00 PM EST Images from the original note were not included. [facility] 06/06/23 [facility] Canas is a 83 y.o. [...] been having some hip pain before the perforation,CT scan showed extensive bony changes suspicious for [...] Laterality Date BREAST BIOPSY Right 04/27/2022 at [facility] [place] CATARACT EXTRACTION, BILATERAL Bilateral COLONOSCOPY HIP SURGERY Left 2018 PARTIAL STOMACH SURGERY 04/27/2022 Repair of anterior gastric wall at [facility] [place] Family History Problem Relation Age of Onset [...] were clear to auscultation. There was no dullnessto percussion. Cardiac: Regular rate and rhythm, S1 [...] 2023, I do not see any significant interchange agent the past 3 months. No signs of progression. Due to significant diarrhea, hold Xgeva treatment for now. Patient's blood work with CBC CMP are unremarkable. F/u in 4 months, CBC, CMP. The patient and her family agree with the above recommendation. Thank you. Devyn Chavez MD Please note that portions of this note were generated using voice recognition M*[employer] dictation software. Although every effort was made to ensure the accuracy of this automated supervisor vat house, some errors in supervisor vat house may have occurred. CC: Patient Care Team: Shaikh Prashant MD as PCP - General (Internal Medicine) Devyn Chavez MD as Consulting Physician (Hematology) PCP:SHAIKH PRASHANT Referring MD: Shaikh Cerda MD documented in this encounter[facility] Instructions* Patient Instructions* Devyn Chavez MD - 06/06/2023 3:00 PM EST F/u in 4 months, CBC, CMP documented in this [facility]2023 NoteHNO ID: [id number] Author: Eros Delcid MD Service: ? Author Type: Physician Type: [...] have orthopedic oncology needs. Devyn Chavez MD [facility] [place], [place] [id number] Plan: No surgical intervention indicated at this time May consider denosumab treatment per oncology team Follow-up with me as needed No follow-ups on file. I spent a total of 50 minutes on the date of the service which included preparing to see the patient, [id number] patient care, completing clinical documentation, obtaining and/or reviewing separately obtained history, performing a medically appropriate examination, counseling and educating the patient/family/caregiver, communicating with other HCPs (not separately reported), independently interpreting results (not separately reported), and communicating results to the patient/family/caregiver. These recommendations are being sent back to Nathaniel Ashley Jr. via [employer] Nutrition Therapist or Chart CC for [facility]. Eros Delcid MD Associ (more content not included)...[facility]03-02-2023 Instructions* Patient Instructions* Eros Delcid MD - 06/21/2022 2:46 PM EST The fracture in your pelvis is healing. You have no pain with walking now, I do not recommend surgery now. Please speak to your medical oncologist about denosumab treatment. If you start having new pain, contact your medical oncologist or our team here. documented in this encounterWilson Health03-02-2023 History of Present illness Narrative* Eros Delcid MD - 06/21/2022 2:08 PM EST Orthopaedic Oncology New Patient Evaluation Chief Complaint: [...] region. Interestingly, [facility] reports today that she e ssentially has no pain. She uses a chair [...] including her CT chest CT pelvis and x-rayof the hip and pelvis. There is diffuse [...] iliac fracture either represents an older fracture froma prior fall or is more recent and has healed. This may represent efficacy of her hormonal therapy.I also discussed with her that I did not think that she required prophylactic fixation for any of her lesions given her complete lack of pain. I did raise with her the possibility of denosumab treatment and would defer to her primary oncologist Dr. Devyn Chavez. [facility] will discuss this with her doctorat her next appointment. I have offered her referral for this should she so desire. I discussed with [facility] that should she develop pain she should limit her activity and reach out to a medical provider for assessment. I am happy to see her at anytime in the future should she have orthopedic oncology needs. Devyn Chavez MD [address] [place] [address] [address] [place] [address] Plan: No surgical intervention indicated at this time May consider denosumab treatment per oncology team Follow-up with me as needed No follow-ups on file. I spent a total of 50 minutes on the date of the service which included preparing to see the patient, [id number] patient care, completing clinical documentation, obtaining and/or reviewing separately obtained history, performing a medically appropriate examination, counseling and educating the pat ient/family/caregiver, communicating with other HCPs (not separately reported), independently interpreting results (not separately reported), and communicating results to the patient/family/caregiver. These recommendations are being sent back to Nathaniel Ashley Jr. via facsimile/[employer] Nutrition Therapist or Chart CC for [facility]. Eros Delcid MD Associate Staff, Orthopaedic Surgery Division of Musculoskeletal Oncology documented in this encounterWilson Health01-09-2023 NotePROCEDURE: XR GI UPPER W KUB SINGLE CONTRAST COMPARISON: None. 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 Pathological fracture, pelvis, initial encounter for fracture documented in this encounter [facility]* Diagnosis Essential hypertension (CMS/HCC)- Primary Unspecified essential hypertension Malignant neoplasm of right female breast, unspecified estrogen receptor status, unspecified site of breast (CMS/HCC) Encounter for Medicare annual wellness exam Secondary malignant neoplasm of bone (CMS/HCC) Bronchiolectasis (CMS/HCC) Bronchiectasis without acute exacerbation Essential hypertension (CMS/HCC) Unspecified essential hypertension Encounter for Medicare annual wellness exam- Primary documented in this encounter [facility]* Diagnosis Essential hypertension (CMS/HCC)- Primary Unspecified essential hypertension Malignant neoplasm of right female breast, unspecified estrogen receptor status, unspecified site of breast (CMS/HCC) Encounter for Medicare annual wellness exam Secondary malignant neoplasm of bone (CMS/HCC) Bronchiolectasis (CMS/HCC) Bronchiectasis without acute exacerbation Essential hypertension (CMS/HCC) Unspecified essential hypertension Essential hypertension (CMS/HCC) Unspecified essential hypertension documented [facility] encounter [facility]* Diagnosis 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)- Primary Malignant 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, estrogen receptor positive (CMS-HCC) 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) [facility] Diagnosis Malignant neoplasm of [...] sites, right (CMS-HCC) [facility] Diagnosis Malignant 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, estrogen receptor positive (CMS-HCC)- Primary 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) [facility]* Diagnosis Essential hypertension (CMS/HCC)- Primary Unspecified essential hypertension Malignant neoplasm of right female breast, unspecified estrogen receptor status, unspecified site of breast (CMS/HCC) Encounter for Medicare annual wellness exam Secondary malignant neoplasm of bone (CMS/HCC) Bronchiolectasis (CMS/HCC) Bronchiectasis without acute exacerbation Essential hypertension (CMS/HCC) Unspecified essential hypertension Essential hypertension (CMS/HCC) Unspecified essential hypertension documented in this encounter [facility] HealthcareEvaluation note* Diagnosis 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)- Primary 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, estrogen receptor positive (CMS-HCC) Breast cancer metastasized to multiple sites, right (CMS-HCC) 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 [facility] Diagnosis 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)- Primary Malignant 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, estrogen receptor positive (CMS-HCC) 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) [facility]* Diagnosis Essential hypertension (CMS/HCC)- Primary [...] (CMS/HCC) Bronchiectasis without acute exacerbation Atherosclerosis of [place] coronary artery of [place] heart without angina pectoris (CMS/HCC) Stage 3b chronic kidney disease (HCC) (CMS/HCC) Mixed hyperlipidemia (CMS/HCC) Mixed hyperlipidemia Iron deficiency anemia, unspecified iron deficiency anemia type Cerebrovascular disease Unspecified cerebrovascular disease Leg cramps, sleep related Sleep related leg cramps documented in this encounter [facility]* Diagnosis Essential hypertension- Primary Unspecified essential hypertension Malignant neoplasm of right female breast, unspecified estrogen receptor status, unspecified site of breast (HCC) Encounter for Medicare annual wellness exam Secondary malignant neoplasm of bone (HCC) Bronchiolectasis (HCC) Bronchiectasis without acute exacerbation Essential hypertension Unspecified essential hypertension Essential hypertension- Primary Unspecified essential hypertension Secondary malignant neoplasm of bone (HCC) Malignant neoplasm of right female breast, unspecified estrogen receptor status, unspecified site of breast (HCC) Bronchiolectasis (HCC) Bronchiectasis without acute exacerbation Atherosclerosis of [place] coronary artery of [place] heart without angina pectoris Stage 3b chronic kidney disease (CMS-HCC) Mixed hyperlipidemia Mixed hyperlipidemia Iron deficiency anemia, unspecified iron deficiency anemia type Cerebrovascular disease Unspecified cerebrovascular disease Leg cramps, sleep related Sleep related leg cramps Stage 3b chronic kidney disease (CMS-HCC)- Primary documented in this encounter [facility]* Diagnosis Essential hypertension- Primary Unspecified essential hypertension Malignant neoplasm of right female breast, unspecified estrogen receptor status, unspecified site of breast (HCC) Encounter for Medicare annual wellness exam Secondary malignant neoplasm of bone (HCC) Bronchiolectasis (HCC) Bronchiectasis without acute exacerbation Essential hypertension Unspecified essential hypertension Essential hypertension- Primary Unspecified essential hypertension Secondary malignant neoplasm of bone (HCC) Malignant neoplasm of right female breast, unspecified estrogen receptor status, unspecified site of breast (HCC) Bronchiolectasis (HCC) Bronchiectasis without acute exacerbation Atherosclerosis of [place] coronary artery of [place] heart without angina pectoris Stage 3b chronic kidney disease (CMS-HCC) Mixed hyperlipidemia Mixed hyperlipidemia Iron deficiency anemia, unspecified iron deficiency anemia type Cerebrovascular disease Unspecified cerebrovascular disease Leg cramps, sleep related Sleep related leg cramps Essential hypertension Unspecified essential hypertension documented in this encounter [facility] noteNo assessment information availableBarnesville Hospital Work Phone: InstructionsNot on filedocumented in this encounter [facility] SystemInstructionsNot on filedocumented in this encounter [facility] SystemInstructionsNot on filedocumented in this encounter [facility] SystemInstructionsNot on filedocumented in this encounter [facility] SystemInstructionsNot on filedocumented in this encounter [facility] SystemReason for referral (narrative)No reason for referral information availableBarnesville Hospital Work Phone: Summary Purpose Family History No Family History Records FoundNo Family History Records FoundNo Family History Records FoundNo Family History Records FoundNo Family History Records FoundNo Family History Records Found Advance Directives Advance Directive Response Recorded Date/ Time Advance Directives No December 11:27am Chief Complaint and Reason for Visit Chief Complaint Admit Date open sore on abdomen December 28, 2024 6:05pm Additional Source Comments INFORMATION SOURCE (unrecogn ized section and content) DATE CREATED AUTHOR 04/03/2018 [facility] DATE CREATED AUTHOR AUTHOR'S ORGANIZ ATION 06/23/2022 [facility] DATE CREATED AUTHOR AUTHOR'S ORGANIZ ATION 09/02/2022 [facility] DATE CREATED AUTHOR AUTHOR'S ORGANIZ ATION 07/23/2023 [facility] DATE CREATED AUTHOR AUTHOR'S ORGANIZ ATION 08/26/2024 [facility] DATE CREATED AUTHOR AUTHOR'S ORGANIZ ATION 10/03/2024 [facility] EPIC Source Comments (unrecognize d section and content) In the event this informatio n is protected by the Federal Confidentiality of Alcohol and Drug Abuse Patient Records regulations: The Federal rules restrict any use of the information to criminally investigate or prosecute any alcohol or drug abuse patient.[facility] Reason for Visit (unrecogniz ed section and content) ReasonCommentsNewReasonOnset DateCommentsMed [id number] Follow-upReasonOnset DateCommentsMed [id number]/24/2024 Care Teams (unrecognized sec tion and content) Team MemberRelationshipSpecialtyStart DateEnd Date Storm Olguin MD [address] [place] [phone] PCP - GeneralFamily Medicine01/15/24 Twin Perla NP [address] [place] [address] Nurse PractitionerFamily Medicine01/15/24Team MemberRelationshipSpecialtyStart DateEnd Date Storm Olguin MD [address] [place] [phone] PCP - GeneralFamily Medicine01/15/24 Twin Perla NP [address] [place] [address] Nurse PractitionerFamily Medicine01/15/24Team MemberRelationshipSpecialtyStart DateEnd Date Storm Olguin MD [address] [place] [phone] PCP - GeneralFamily Medicine01/15/24 Twin Perla NP [address] [place] [address] Nurse PractitionerBurgess Health Centerly Medicine01/15/24Team MemberRelationshipSpecialtyStart DateEnd Date Shaikh Cerda MD [address] [place] [address] PCP - GeneralInternal Medicine05/14/22Team MemberRelationshipSpecialtyStart Date End Date Shaikh Cerda MD [address] [place] [place] [address] PCP - GeneralInternal Medicine05/14/22Team MemberRelationshipSpecialtyStart Date End Date Shaikh Cerda MD [address] [place] [address] PCP - GeneralInternal Medicine05/14/22Team MemberRelationshipSpecialtyStart Date End Date Shaikh Cerda MD [address] [place] [address] PCP - GeneralInternal Medicine05/14/22Team MemberRelationshipSpecialtyStart Date End Date Shaikh Cerda MD [address] [place] [address] PCP - GeneralInternal Medicine05/14/22Team MemberRelationshipSpecialtyStart Date End Date Shaikh Cerda MD PCP - GeneralInternal Medicine05/14/22Team MemberRelationshipSpecialtyStart Date End Date Shaikh Cerda MD PCP - GeneralInternal Medicine05/14/22Team MemberRelationshipSpecialtyStart Date End Date Shaikh Cerda MD PCP - GeneralInternal Medicine05/14/22Team MemberRelationshipSpecialtyStart Date End Date Storm Olguin MD [address] [place] [phone] PCP - Generalmily Medicine01/15/24 Twin Perla NP [address] [place] [place] [address] Nurse PractitionerBurgess Health Centerly Medicine01/15/24Team MemberRelationshipSpecialtyStart DateEnd Date Shaikh Cerda MD PCP - GeneralInternal Medicine05/14/22Team MemberRelationshipSpecialtyStart Date End Date Shaikh Cerda MD PCP - GeneralInternal Medicine05/14/22Team MemberRelationshipSpecialtyStart Date End Date Storm Olguin MD [address] [place] [phone] PCP - Generalmily Medicine01/15/24 Twin Perla NP [address] [place] [address] Nurse Practitionermily Medicine01/15/24Team MemberRelationshipSpecialtyStart DateEnd Date Storm Olguin MD [address] [place] [phone] PCP - GeneralFamily Medicine01/15/24 Twin Perla NP [address] [place] [address] Nurse Practitionermily Medicine01/15/24Team MemberRelationshipSpecialtyStart DateEnd Date Storm Olguin MD [address] [place] [phone] PCP - GeneralFamily Medicine01/15/24 Twin Perla NP [address] [place] [address] Nurse Practitionermily Medicine01/15/24Team MemberRelationshipSpecialtyStart DateEnd Date Storm Olguin MD [address] [place] [phone] PCP - GeneralFamily Medicine01/15/24 Twin Perla NP [address] [place] [address] Nurse Practitionermily Medicine01/15/24Team MemberRelationshipSpecialtyStart DateEnd Date Storm Olguin MD [address] [place] [phone] PCP - GeneralFamily Medicine01/15/24 Twin Perla NP [address] [place] [address] Nurse PractitionerFacoly [facility]01/15/24 Team Status: Active Member Role Status Dates Corina Jay Primary Care Provider Active Team Status: Inactive Member Role Status Dates Corina Jay Primary Care Provider Active Sta rt: December 28, 2024 End: December 28, 2024Lisa Chuyita Santizoending ProviderActiveStart: December 28, 2024 End: December 28, 2024 Goals (unrecognized section and content) Goals may be documented in a n alternate section FOR RECORDS PERTAINING TO PATIENTS WHO ARE [...] PRIMARY CLINICAL RECORDS. [facility] [employer] [facility]. provides no warranty or guarantee of the accuracy or completeness of information in this document.
[2025-02-15 13:52] LABS: Hematocrit 40.0 % (36.0-48.0); Hemoglobin 12.8 g/dL (12.0-16.0); Immature Granulocytes Abs Auto 0.01 10^3/uL (0.00-0.03); Immature Granulocytes Pct Auto 0.1 % (0.0-0.5); Lymphocytes Absolute Auto 2.9 10^3/uL (1.2-3.8); Mean Corpuscular HGB Conc 32.0 g/dL (29.9-35.2); Mean Corpuscular Hemoglobin 28.4 pg (26.7-34.0); Mean Corpuscular Volume 88.7 fL (81.0-99.0); Platelet Count 243 10^3/uL (150-450); Red Blood Count 4.51 10^6/uL (4.20-5.40); White Blood Count 8.1 10^3/uL (4.0-11.0)
[2025-02-15 14:11] LABS: Alanine Aminotransferase 23 U/L (14-59); Albumin Globulin Ratio 1.1; Albumin Level 3.8 g/dL (3.4-5.0); Alkaline Phosphatase 110 U/L (46-116); Anion Gap 13.9; Aspartate Amino Transferase 21 U/L (15-37); Blood Urea Nitrogen 33.0 mg/dL (7.0-18.0); Calcium 9.3 mg/dL (8.5-10.1); Carbon Dioxide 28.9 mmol/L (21.0-32.0); Chloride 103 mmol/L (98-107); Estimated GFR (African America 38 (>=60 mL/min/1.73m^2); Estimated GFR (Non-African Ame 31 (>=60 mL/min/1.73m^2); Globulin 3.5 g/dL; Glucose 90 mg/dL (74-106); Potassium 3.8 mmol/L (3.5-5.1); Sodium 142 mmol/L (136-145); Total Protein 7.3 g/dL (6.4-8.2)
[2025-02-16 08:09] LABS: CA 15-3 15.4 U/mL (0.0-25.0)
[2025-02-16 09:09] LABS: CA 27.29 17.9 U/mL (0.0-38.6)
== END 2025-02-15 12:50 | disposition home or self-care (01) ==
LOC: RAD 12:50
PROVIDERS: PCP Nurse Practitioner; Visit Provider Internal Medicine Hematology & Oncology
DX: C79.9 Secondary malignant neoplasm of unspecified site (principal); Z17.0 Estrogen receptor positive status [ER+]; C41.9 Malignant neoplasm of bone and articular cartilage, unspecified; C79.51 Secondary malignant neoplasm of bone; C50.111 Malignant neoplasm of central portion of right female breast; M85.88 Other specified disorders of bone density and structure, other site
CPT/HCPCS: 36415; 77080; 80053; 85025; 86300